=== PATIENT | female | born 1980 | race Caucasian/White ===

== ENCOUNTER → 2016-10-23 | Outpatient (CLI) | payer MEDICARE, OTHER ==
[~2016-10-23] MED LIST: AMOX500C PO; GABA600T PO; HYDR-3534 PO; OMEP40CA2 PO; PNV-CAP PO; PROM25TA10 PO; TOPI200T7 PO
== END ==
LOC: HPND 11:11
PROVIDERS: ATTEND Obstetrics & Gynecology
DX: O09.522 Supervision of elderly multigravida, second trimester (principal); O99.332 Smoking (tobacco) complicating pregnancy, second trimester; O99.322 Drug use complicating pregnancy, second trimester; O99.342 Other mental disorders complicating pregnancy, second trimester; Z3A.27 27 weeks gestation of pregnancy
CPT/HCPCS: 76811; 76825; 76827; 93325

== ENCOUNTER → 2016-11-19 | Outpatient (CLI) | payer OTHER ==
[~2016-11-19] MED LIST changes: +CLAR5TAB9 PO; +CODE5LIQ PO; +ERYT400T4 PO; +TUSS15SY PO; +ZITHTAB PO
== END ==
LOC: HPND 07:32
PROVIDERS: ATTEND Obstetrics & Gynecology
DX: O09.523 Supervision of elderly multigravida, third trimester (principal); O36.5930 Maternal care for other known or suspected poor fetal growth, third trimester, not applicable or unspecified
CPT/HCPCS: 76816

== ENCOUNTER 2016-11-30 22:28 | Emergency (ER) | payer OTHER ==
[~2016-11-30 22:28] MED LIST changes: -AMOX500C PO; -CLAR5TAB9 PO; -CODE5LIQ PO; -ERYT400T4 PO; -TUSS15SY PO; -ZITHTAB PO
[2016-11-30] MEDS ORDERED: LACTATED RINGER'S 1000 ML INJ 1,000 ML IV SCH (23:02)
[2016-11-30 23:15] VITALS: TEMP 98
[2016-11-30] MEDS ORDERED: TERBUTALINE INJ 1 MG/ML AMP SQ PRN (23:15)
[2016-11-30] MEDS ORDERED: ONDANSETRON HCL 4 MG/2 ML VIAL IV ONE (23:15)
[2016-11-30 23:45] VITALS: RESP 18
[2016-12-01 00:15] VITALS: RESP 18
[2016-12-01 00:45] VITALS: RESP 18
--- NOTE | 2016-12-02 10:38 | PD ---
HPI Chief Complaint CTXs no bleeding or SROM Date Seen: Nov 30, 2016 Time Seen: 22:55 Travel History International Travel<30 Days: No Contact w/Intl Traveler<30Days: No Known Affected Area: No History of Present Illness HPI 33 wk IUP c/o CTXs no SROM or Bleeding , CTXs seen , FHR reactive Para: 2 : 6 Allergies-Medications (Allergen,Severity, Reaction): Coded Allergies: Darvocet-N 100 (Verified Allergy, Severe, VOMITING, 11/20/16) Keflex (Verified Allergy, Severe, RECTAL BLEED, 11/20/16) Penicillin (Verified Allergy, Severe, VOMITING, 11/20/16) Wasp (Verified Allergy, Severe, Anaphylaxis, 11/20/16) Diphtheria Toxoid (Verified Allergy, Unknown, UNKNOWN REACTION, 11/20/16) Doxycycline (Unverified Adverse Reaction, Severe, RASH, 11/20/16) Tylenol #3 (Verified Adverse Reaction, Severe, VOMITING, 11/20/16) Uncoded Allergies: CATAFLAM (Allergy, Severe, RECTAL BLEED, 04/28/15) . MAXALT (Adverse Reaction, Intermediate, RECTAL BLEED, 04/28/15) . Home Meds Active Scripts Promethazine (Phenergan)25 Mg [id number] Mg PO Q6H PRN (NAUSEA OR VOMITING) #30 TAB Ref 2 Prov:Franci Edwards 10/30/16 Without A W/ Fe Fumar (Pnv-Dha 27-0.6-0.4-300 mg)1 Cap Cap1 Cap PO DAILY #60 BOX Ref 5 Prov:Susan Fink CNM [facility] 10/02/16 W/O Vit A W/ Fe Fumar (Citranatal [place])27-1-260 Mg Cap Sample #2 Prov:Franci EdwardsP 09/04/16 Reported Medications Topiramate 200 Mg [id number] Mg PO BID #60 TAB Ref 0 09/04/16 Omeprazole 40 Mg Cap40 Mg PO DAILY #30 CAP Ref 0 09/04/16 Hydrocodone-Acetaminophen (Lortab)7.5-325 Mg Tab1 Tab PO TID PRN (PAIN) Ref 0 09/04/16 Gabapentin 600 Mg Soz607 Mg PO TID #90 TAB Ref 0 09/04/16 Review of Systems General / Constitutional: No: Fever, Weight Gain, Chills, Other Eyes: No: Diploplia, Blurred Vision, Visual changes, Pain, Photophobia HENT: No: Headaches, Vertigo, Lightheadedness Cardiovascular: No: Irregular Rhythm, Chest Pain or Discomfort, Palpitations, Tachycardia, Syncope, Varicosities, Edema, Cyanosis Respiratory: No: Cough, Short of Breath, Other Gastrointestinal: Abdominal Pain, No: Nausea, Vomiting, Diarrhea Genitourinary: No: Decreased Urinary Output, Oliguria Musculoskeletal: No: Limited ROM, Weakness, Cramping, Edema, Pain Skin: No Rash, No Itching, No Dryness, No Lumps, No Change in Pigmentation, No Change in Nails, No Alopecia, No Lesions Neurologic: No: Weakness, Dizziness, Syncope, Focal Abnormalities, Coordination Problem, Headache, Slurred Speech, Seizures Psychiatric: No: Depression, Suicidal Ideations, Homicidal Ideation Endocrine: No: Heat Intolerance, Cold Intolerance, Polydipsia, Polyuria, Other Physical Exam Narrative GENERAL: Well-nourished, well-developed patient. SKIN: Warm and dry. HEAD: Normocephalic and atraumatic. EYES: No scleral icterus. No injection or drainage. ENT: No nasal drainage noted. Mucous membranes pink. Airway patent. NECK: Supple, trachea midline. No JVD. CARDIOVASCULAR: Regular rate and rhythm without murmurs, gallops, or rubs. RESPIRATORY: Breath sounds equal bilaterally. No accessory muscle use. BREASTS: Bilateral exam showed no masses , no retractions, no nipple discharge. ABDOMEN/GI: Abdomen soft, non-tender, bowel sounds present, no rebound, no guarding Gravid to [33-] weeks size Fundal Height: [33-] GENITOURINARY: External Genitalia: intact and normal in appearance FFN done and negative Cervix: [-] Dilatation: [-fingertip] Effacement: [-] thick Station: [-3] Presentation: [-vtx] Membranes: [intact ] Uterine Contractions: [initially q 3 min but stopped with IVF , SQ terb-] FHT's: Category: [1-] Baseline: [133-] Reactive: [yes-] Variability: [-mod] Decels: [-0] EXTREMITIES: No cyanosis or edema. BACK: Nontender without obvious deformity. No CVA tenderness. NEUROLOGICAL: Awake and alert. Motor and sensory grossly within normal limits. Five out of 5 muscle strength in all muscle groups. Normal speech. Data Data Labs FFN neg MDM Interpretation(s) 33 wk IUP with CTXs , cx FT /thick /post , CTXs seen stopped with IVF and SQ terb Plan D/C home to bedrest ,po fluids , tylenol prn , heating pad or bedrest Diagnosis Diagnosis: Primary Impression: Threatened labor, antepartum Disposition: 01 DISCHARGE HOME Condition: Stable Patient Instructions: General Instructions, Early Labor Signs (ED), Abdominal Pain in (ED) Departure Forms: Tests/Procedures Hipolito Rollins II, MD Dec 02, 2016 10:38
[2016-12-02] MEDS ORDERED: ZITHTAB PO (15:43)
[2016-12-02] MEDS ORDERED: CODE5LIQ PO (15:50)
== END 2016-12-02 11:21 | disposition home or self-care (01) ==
LOC: HOBED 22:28
DX: O47.03 False labor before 37 completed weeks of gestation, third trimester (principal); Z3A.33 33 weeks gestation of pregnancy
CPT/HCPCS: 59025; 82731; 96372; 96374; 96375; 99284; J2405; J3010; J3105; J7120

== ENCOUNTER 2016-12-03 21:15 | Emergency (ER) | payer OTHER ==
[~2016-12-03] VITALS: Ht 167.6 cm; Wt 70.0 kg
[~2016-12-03 21:15] MED LIST changes: +CODE5LIQ PO; +ZITHTAB PO
[2016-12-03 21:17] VITALS: BP 125/85; PULSE 94; RESP 16; TEMP 97.9; O2SAT 96
[2016-12-04 02:17] VITALS: BP 124/88; PULSE 81; RESP 18; O2SAT 100
[2016-12-04] MEDS ORDERED: SODIUM CHLOR 0.9% 1000 ML INJ 1,000 ML IV ONE ×2 (02:37→04:15)
[2016-12-04] MEDS ORDERED: ACETAMINOPHEN 325 MG TAB PO ONE (02:45)
[2016-12-04] MEDS ORDERED: SODIUM CHLORIDE 0.9% FLUSH 10 ML FLUSH IVF PRN (02:45)
[2016-12-04] MEDS ORDERED: ONDANSETRON HCL 4 MG/2 ML VIAL IVP ONE (02:45)
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
[2016-12-04 02:52] VITALS: RESP 18; O2SAT 100
[2016-12-04 03:02] LABS: AUTOMATED NEUTROPHIL # 9.4 TH/MM3 (1.8-7.7); BASOPHIL % 0.3 % (0.0-2.0); EOSINOPHIL # 0.5 TH/MM3 (0-0.4); EOSINOPHIL % 3.2 % (0.0-4.0); HEMATOCRIT 35.3 % (35.0-46.0); HEMO FLAGS DIFF FINAL; LYMPH % 23.9 % (9.0-44.0); LYMPHOCYTE # 3.4 TH/MM3 (1.0-4.8); MEAN CELL VOLUME 91.1 FL (80.0-100.0); MEAN CORPUSCULAR HEMOGLOBIN 29.5 PG (27.0-34.0); MEAN CORPUSCULAR HGB CONC 32.4 % (32.0-36.0); NEUT % 66.6 % (16.0-70.0); PLATELET COUNT 176 TH/MM3 (150-450); RED BLOOD COUNT 3.88 MIL/MM3 (4.00-5.30); RED CELL DISTRIBUTION WIDTH 12.9 % (11.6-17.2); WHITE BLOOD COUNT 14.1 TH/MM3 (4.0-11.0)
[2016-12-04 03:14] VITALS: BP_SYST 130; BP_SYST 131; BP_SYST 132; BP_DIAS 72; BP_DIAS 82; BP_DIAS 84; RESP 18
[2016-12-04 03:18] LABS: BACTERIA, URINE OCC /hpf; BLOOD, URINE NEG (NEG); COMMENT (UR) CULT NOT INDICATED; CULTURE IF INDICATED CULT NOT INDICATED; GLUCOSE,URINE NEG (NEG); KETONE, URINE NEG (NEG); NITRITE,URINE NEG (NEG); SQUAMOUS EPITHELIAL CELL URINE 13 /hpf (0-5); URINE COLOR YELLOW (YELLW/STRAW)
[2016-12-04 03:38] LABS: ANION GAP 10 MEQ/L (5-15); AST (GOT) 19 U/L (15-37); BICARBONATE 17.8 MEQ/L (21.0-32.0); CHLORIDE 106 MEQ/L (98-107); GLOMERULAR FILTRATION RATE 88 ML/MIN (>89); MAGNESIUM 2.4 MG/DL (1.5-2.5); POTASSIUM 3.8 MEQ/L (3.5-5.1); SODIUM (NA) 134 MEQ/L (136-145)
[2016-12-04 03:42] LABS: ALKALINE PHOSPHATASE 156 U/L (45-117); ALT (GPT) 26 U/L (10-53); BLOOD UREA NITROGEN 10 MG/DL (7-18); TOTAL BILIRUBIN ADULT 0.2 MG/DL (0.2-1.0)
[2016-12-04] MEDS ORDERED: ONDANSETRON HCL 4 MG/2 ML VIAL IV PUSH ONE (03:45)
[2016-12-04 05:38] VITALS: BP 119/67; PULSE 81; RESP 18; O2SAT 98
--- NOTE | 2016-12-04 20:45 | EKG ---
Date Performed: 12/04/2016 Time Performed: 02:54:53 PTAGE: 36 years EKG: Sinus rhythm NORMAL ECG PREVIOUS TRACING : 12/24/2015 10.36 Compared to prior tracing no significant change DOCTOR: Alex Andre Interpretating Date/Time 12/04/2016 20:44:24
[2016-12-05] MEDS ORDERED: ERYT400T4 PO (18:07)
[2016-12-05] MEDS ORDERED: TUSS15SY PO (18:09)
[2016-12-05] MEDS ORDERED: CLAR5TAB9 PO (18:10)
[2016-12-05] MEDS ORDERED: PROM25TA10 PO (18:11)
== END 2016-12-04 05:39 | disposition home or self-care (01) ==
LOC: NEPC 21:15
DX: O26.899 Other specified pregnancy related conditions, unspecified trimester (principal); R11.2 Nausea with vomiting, unspecified; R55 Syncope and collapse; R51 Headache; R42 Dizziness and giddiness; J44.9 Chronic obstructive pulmonary disease, unspecified; K21.9 Gastro-esophageal reflux disease without esophagitis; O99.343 Other mental disorders complicating pregnancy, third trimester; Z3A.33 33 weeks gestation of pregnancy
CPT/HCPCS: 80053; 81001; 83735; 85025; 93005; 96361; 96374; 96375; 99284; J2405; J7030

== ENCOUNTER 2016-12-05 17:14 | Emergency (ER) | payer OTHER ==
[~2016-12-05] VITALS: Ht 167.6 cm; Wt 69.9 kg
[~2016-12-05 17:14] MED LIST changes: -PNV-CAP PO
[2016-12-05] MEDS ORDERED: ERYT400T4 PO (18:07)
[2016-12-05] MEDS ORDERED: TUSS15SY PO (18:09)
[2016-12-05] MEDS ORDERED: CLAR5TAB9 PO (18:10)
[2016-12-05] MEDS ORDERED: PROM25TA10 PO (18:11)
--- NOTE | 2016-12-05 18:11 | PD ---
HPI Chief Complaint Cough congestion, headache, nausea and vomiting to the point of passing out she describes Date Seen: Dec 05, 2016 Travel History International Travel<30 Days: No Contact w/Intl Traveler<30Days: No Known Affected Area: No History of Present Illness HPI 36-year-old white female 34 weeks [facility] who presents complaining of recent onset of cough congestion headache nausea vomiting fever at home. Dr[facility] her a Z-Mic which she says she's taken some of it did not help she denies bleeding or rupture the membranes but does complain of some abdominal pain. Heart rate tracing is reactive and she is not muriel patient was here and seen by me on the for contractions which stopped with IV fluids and terbutaline. She presents here alot for many different problems and complaints Para: 2 : 6 History Obstetric History Obstetric History 2 vaginal deliveries Social History Alcohol Use: No Tobacco Use: Yes Substance Abuse: No Allergies-Medications (Allergen,Severity, Reaction): Coded Allergies: Darvocet-N 100 (Verified Allergy, Severe, VOMITING, 12/03/16) Keflex (Verified Allergy, Severe, RECTAL BLEED, 12/03/16) Penicillin (Verified Allergy, Severe, VOMITING, 12/03/16) Wasp (Verified Allergy, Severe, Anaphylaxis, 12/03/16) Diphtheria Toxoid (Verified Allergy, Unknown, UNKNOWN REACTION, 12/03/16) Doxycycline (Unverified Adverse Reaction, Severe, RASH, 12/03/16) Tylenol #3 (Verified Adverse Reaction, Severe, VOMITING, 12/03/16) Uncoded Allergies: CATAFLAM (Allergy, Severe, RECTAL BLEED, 04/28/15) . MAXALT (Adverse Reaction, Intermediate, RECTAL BLEED, 04/28/15) . Home Meds Active Scripts Codeine Phosphate/Guaifenesin (Guaiatussin AC Liquid)5 Ml [id number] Mg PO Q6HR # 90 BOTTLE Prov:Tyron Christensen MD 12/02/16 Azithromycin (Zithromax Z-Mic)250 Mg [id number] Mg PO DIRECTED #1 DSPK Ref 0 500 MG (2 tabs) day 1, then 1 tab days 2-5. Prov:Tyron Christensen MD 12/02/16 Promethazine (Phenergan)25 Mg Anilrv04 Mg PO Q6H PRN (NAUSEA OR VOMITING) #30 TAB Ref 2 Prov:Franci Edwards 10/30/16 Reported Medications Topiramate 200 Mg Kko176 Mg PO BID #60 TAB Ref 0 09/04/16 Omeprazole 40 Mg Cap40 Mg PO DAILY #30 CAP Ref 0 09/04/16 Hydrocodone-Acetaminophen (Lortab)7.5-325 Mg Tab1 Tab PO TID PRN (PAIN) Ref 0 09/04/16 Gabapentin 600 Mg Vxp422 Mg PO TID #90 TAB Ref 0 09/04/16 Discontinued Scripts Without A W/ Fe Fumar (Pnv-Dha 27-0.6-0.4-300 mg)1 Cap Cap1 Cap PO DAILY #60 BOX Ref 5 Prov:Susan Fink CNM [facility] 10/02/16 W/O Vit A W/ Fe Fumar (Citranatal [place])27-1-260 Mg Cap Sample #2 Prov:Franci EdwardsP 09/04/16 Review of Systems General / Constitutional: Fever, No: Weight Gain, Chills, Other Eyes: No: Diploplia, Blurred Vision, Visual changes, Pain, Photophobia HENT: Headaches, Lightheadedness, No: Vertigo Cardiovascular: No: Irregular Rhythm, Chest Pain or Discomfort, Palpitations, Tachycardia, Syncope, Varicosities, Edema, Cyanosis Respiratory: Cough, Other, No: Short of Breath Gastrointestinal: Nausea, Vomiting, No: Diarrhea Genitourinary: No: Decreased Urinary Output, Oliguria Musculoskeletal: Weakness, No: Limited ROM, Cramping, Edema, Pain Skin: No Rash, No Itching, No Dryness, No Lumps, No Change in Pigmentation, No Change in Nails, No Alopecia, No Lesions Neurologic: No: Weakness, Dizziness, Syncope, Focal Abnormalities, Coordination Problem, Headache, Slurred Speech, Seizures Psychiatric: No: Depression, Suicidal Ideations, Homicidal Ideation Endocrine: No: Heat Intolerance, Cold Intolerance, Polydipsia, Polyuria, Other Physical Exam Narrative GENERAL: Well-nourished, well-developed patient. SKIN: Warm and dry. HEAD: Normocephalic and atraumatic. Positive shotty lymphadenopathy in the neck and the mandibular region is tender EYES: No scleral icterus. No injection or drainage. ENT: No nasal drainage noted. Mucous membranes pink. Airway patent. Pharynx clear no erythema no enlargement of tonsils or adenoids NECK: Supple, trachea midline. No JVD. CARDIOVASCULAR: Regular rate and rhythm without murmurs, gallops, or rubs. RESPIRATORY: Breath sounds equal bilaterally. No accessory muscle use. BREASTS: Bilateral exam showed no masses , no retractions, no nipple discharge. ABDOMEN/GI: Abdomen soft, non-tender, bowel sounds present, no rebound, no guarding Gravid to [-34] weeks size Fundal Height: [-34] GENITOURINARY: External Genitalia: intact and normal in appearance BUS glands: [-] Cervix: [Closed-] Dilatation: [-Closed] Effacement: [-] Thick Station: [-3] Presentation: [vtx-] Membranes: [intact ] Uterine Contractions: [none-] FHT's: Category: [1-] Baseline: [133-] Reactive: [-yes] Variability: [-mod] Decels: [none-] EXTREMITIES: No cyanosis or edema. BACK: Nontender without obvious deformity. No CVA tenderness. NEUROLOGICAL: Awake and alert. Motor and sensory grossly within normal limits. Five out of 5 muscle strength in all muscle groups. Normal speech. MDM Interpretation(s) Patient is 36-year-old white female now at 34 weeks presents with upper respiratory infections probably virally but is having cough congestion headache nausea and vomiting Plan Patient is allergic to penicillin and Keflex azithromycin as not really helping her I would recommend switching to erythromycin 3 times a day, we give Claritin to help drop her nose and sinus, Phenergan by mouth for nausea and vomiting and for follow-up with Dr. Paul Marti [facility] Diagnosis Diagnosis: Primary Impression: 34 weeks gestation of Additional Impressions: Upper respiratory infection, acute Nausea & vomiting Disposition: DISCHARGE HOME Condition: Stable Scripts Promethazine (Phenergan)25 Mg [id number] Mg PO Q6H PRN (NAUSEA OR VOMITING) #20 TAB Ref 0 Prov:Hipolito Rollins II, MD 12/05/16 Loratadine-Pseudoephedrine 12 HR (Claritin-D 12 HR)5-120 Mg Tab1 Tab PO BID # 20 TAB Ref 0 Prov:Hipolito oRllins II, MD 12/05/16 Dextromethorphan Liq (Tussin Cough Liq)15 Mg/5 Ml Syp10 Ml PO Q8H PRN (COUGH) # 1 BOTTLE Ref 0 Prov:Hipolito Rollins II, MD 12/05/16 Erythromycin Ethylsuccinate 400 Mg Cle452 Mg PO Q8H #30 TAB Ref 0 Prov:Hipolito Rollins II, MD 12/05/16 Hipolito Rollins II, MD Dec 05, 2016 18:11
== END 2016-12-05 19:09 | disposition home or self-care (01) ==
LOC: HOBED 17:14
DX: O26.899 Other specified pregnancy related conditions, unspecified trimester (principal); J06.9 Acute upper respiratory infection, unspecified; R51 Headache; O21.9 Vomiting of pregnancy, unspecified; O99.333 Smoking (tobacco) complicating pregnancy, third trimester; Z3A.34 34 weeks gestation of pregnancy; Z79.899 Other long term (current) drug therapy; Z88.0 Allergy status to penicillin; Z88.5 Allergy status to narcotic agent
CPT/HCPCS: 59025

== ENCOUNTER 2016-12-06 10:01 | Emergency (ER) | payer OTHER ==
[~2016-12-06 10:01] MED LIST changes: +CLAR5TAB9 PO; +ERYT400T4 PO; +PNV-CAP PO; +TUSS15SY PO
--- NOTE | 2016-12-06 11:08 | PD ---
HPI Travel History International Travel<30 Days: No Contact w/Intl Traveler<30Days: No Known Affected Area: No (Alexis Hurley MD R1) History of Present Illness HPI Patient is a 36-year-old at 34 weeks and 1 day who presents with contractions. She reports that the contractions started yesterday and were about an hour apart. She reports that this morning as frequent as every 10 minutes. She reports associated lower abdominal pain and low back pain. She last took Tylenol about 5 hours ago. She denies any vaginal bleeding or leakage of fluid. She does report decreased movement. She also reports increased urinary frequency and pain with urination, but no fever or chills. She also reports some associated nausea. She had 3 episodes of vomiting yesterday. She also endorses some headache and some feet swelling. [facility] She reports that ultrasounds have been normal. However, there has been no weight gain for either her or the baby this until about 5.5 weeks ago. Para: 2 : 6 Last Menstrual Period: Dec 06, 2016 (Alexis Hurley MD R1) History Past Medical History Narrative Medical Epilepsy Seizure disorder Mitral valve prolapse Bipolar disorder Multiple personality disorder Schizophrenia History of HPV Uterine and ovarian cancer status post surgery, chemotherapy, radiation 17 years ago (Alexis Hurley MD R1) Obstetric History Obstetric History 2 uncomplicated vaginal deliveries (Alexis Hurley MD R1) Past Surgical History Narrative Surgical Abdominal surgery for cysts on ovaries Right knee 3 (Alexis Hurley MD) Family History Family History: Negative (Alexis Hurley MD) Social History Narrative Social History Denied. Previous UDS from 10/05/15 positive for cocaine and benzos Alcohol Use: No Tobacco Use: No Substance Abuse: No (Alexis Hurley MD R1) Allergies-Medications (Allergen,Severity, Reaction): Coded Allergies: Darvocet-N 100 (Verified Allergy, Severe, VOMITING, 12/05/16) Keflex (Verified Allergy, Severe, RECTAL BLEED, 12/05/16) Penicillin (Verified Allergy, Severe, VOMITING, 12/05/16) Wasp (Verified Allergy, Severe, Anaphylaxis, 12/05/16) Diphtheria Toxoid (Verified Allergy, Unknown, UNKNOWN REACTION, 12/05/16) Doxycycline (Unverified Adverse Reaction, Severe, RASH, 12/05/16) Tylenol #3 (Verified Adverse Reaction, Severe, VOMITING, 12/05/16) Uncoded Allergies: CATAFLAM (Allergy, Severe, RECTAL BLEED, 04/28/15) . MAXALT (Adverse Reaction, Intermediate, RECTAL BLEED, 04/28/15) . Home Meds Active Scripts Promethazine (Phenergan)25 Mg [id number] Mg PO Q6H PRN (NAUSEA OR VOMITING) #20 TAB Ref 0 Prov:Hipolito Rollins II, MD 12/05/16 Loratadine-Pseudoephedrine 12 HR (Claritin-D 12 HR)5-120 Mg Tab1 Tab PO BID # 20 TAB Ref 0 Prov:Hipolito Rollins II, MD 12/05/16 Dextromethorphan Liq (Tussin Cough Liq)15 Mg/5 Ml Syp10 Ml PO Q8H PRN (COUGH) # 1 BOTTLE Ref 0 Prov:Hipolito Rollins II, MD 12/05/16 Erythromycin Ethylsuccinate 400 Mg [id number] Mg PO Q8H #30 TAB Ref 0 Prov:Hipolito Rollins II, MD 12/05/16 Codeine Phosphate/Guaifenesin (Guaiatussin AC Liquid)5 Ml [id number] Mg PO Q6HR # 90 BOTTLE Prov:Tyron Christensen MD 12/02/16 Azithromycin (Zithromax Z-Mic)250 Mg Xwnp143 Mg PO DIRECTED #1 DSPK Ref 0 500 MG (2 tabs) day 1, then 1 tab days 2-5. Prov:Tyron Christensen MD 12/02/16 Promethazine (Phenergan)25 Mg Cohrwr16 Mg PO Q6H PRN (NAUSEA OR VOMITING) #30 TAB Ref 2 Prov:Franci Edwards 10/30/16 Reported Medications Topiramate 200 Mg [id number] Mg PO BID #60 TAB Ref 0 09/04/16 Omeprazole 40 Mg Cap40 Mg PO DAILY #30 CAP Ref 0 09/04/16 Hydrocodone-Acetaminophen (Lortab)7.5-325 Mg Tab1 Tab PO TID PRN (PAIN) Ref 0 09/04/16 Gabapentin 600 Mg Idp298 Mg PO TID #90 TAB Ref 0 09/04/16 Discontinued Scripts Without A W/ Fe Fumar (Pnv-Dha 27-0.6-0.4-300 mg)1 Cap Cap1 Cap PO DAILY #60 BOX Ref 5 Prov:Susan Fink CNM [facility] 10/02/16 W/O Vit A W/ Fe Fumar (Citranatal [place])27-1-260 Mg Cap Sample #2 Prov:Franci Edwards [employer] 09/04/16 Review of Systems General / Constitutional: No: Fever, Chills Eyes: No: Blurred Vision, Visual changes HENT: Headaches Cardiovascular: Edema (feet), No: Chest Pain or Discomfort Respiratory: No: Short of Breath Gastrointestinal: Nausea, Vomiting (x3 yesterday) Genitourinary: Dysuria Musculoskeletal: Cramping (low abdominal ), Edema (feet), Pain (low abdominal pain, low back pain) Neurologic: Headache (Alexis Hurley MD R1) Physical Exam Blood pressure 115/66, pulse 80s, respiratory rate 18, temperature 97.7, pain 9. Narrative GENERAL: Well-nourished, well-developed patient. SKIN: Warm and dry. HEAD: Normocephalic and atraumatic. EYES: No scleral icterus. No injection or drainage. ENT: No nasal drainage noted. Mucous membranes pink. Airway patent. NECK: Supple, trachea midline. No JVD. CARDIOVASCULAR: Regular rate and rhythm without murmurs, gallops, or rubs. RESPIRATORY: Breath sounds equal bilaterally. No accessory muscle use. ABDOMEN/GI: Abdomen soft, non-tender, bowel sounds present, no rebound, no guarding Gravid to 34 weeks size GENITOURINARY: Exam performed by Dr. Coleman External Genitalia: intact and normal in appearance Dilatation: 0cm Effacement: 60% Station: -3 Presentation: Vertex Membranes: Intact Uterine Contractions: None FHT's: Category: I Baseline: 140 Reactive: Reactive Variability: moderate Decels: none EXTREMITIES: No cyanosis or edema. BACK: Nontender without obvious deformity. No CVA tenderness. NEUROLOGICAL: Awake and alert. Motor and sensory grossly within normal limits. Five out of 5 muscle strength in all muscle groups. Normal speech. (Alexis Hurley MD R1) Data Data Vital Signs Reviewed: Yes Orders Vital Signs (Adult) .ON ADMISSION (12/06/16 11:01) ^ Labor Status (12/06/16 11:01) Urinalysis - C+S If Indicated (12/06/16 11:01) ^ Non Stress Test (12/06/16 11:01) ^ Hydration (12/06/16 11:01) Fibronectin (12/06/16 11:01) (Alexis Hurley MD R1) MDM Plan Patient is a 36-year-old at 34 weeks and 1 day who presents with contractions. 1. Rule out labor. No contractions noted on monitor. Cervical exam is closed. Last FFN was negative on 11/30. Monitor vital signs Monitor labor status Encourage by mouth hydration Monitor heart rate Recommended hot baths, hot shower, warm compresses, rest 2. Decreased movement. heart rate of 140, category 1 tracing, reactive strip Reassured patient 3. dysuria UA from 12/04 was remarkable for small leukocyte esterase, occasional bacteria, few mucus, but otherwise negative for signs of infection. Patient discussed with Dr. Coleman. (Alexis Hurley MD R1) Diagnosis Diagnosis: Primary Impression: Abdominal pain affecting , antepartum Ruled Out: labor Disposition: DISCHARGE HOME Condition: Good Attestation Patient seen and evaluated with resident under direct supervision, agree with assessment and plan. (Eliseo Coleman MD) Alexis Hurley MD R1 Dec 06, 2016 11:08 Eliseo Coleman MD Dec 06, 2016 16:22
[2016-12-06] MEDS ORDERED: ONDANSETRON ODT 4 MG TAB PO ONE (11:30)
[2016-12-06] MEDS ORDERED: ACETAMINOPHEN 325 MG TAB PO ONE (11:30)
== END 2016-12-06 12:03 | disposition home or self-care (01) ==
LOC: HOBED 10:01
DX: O26.893 Other specified pregnancy related conditions, third trimester (principal); R10.30 Lower abdominal pain, unspecified; M54.5 Low back pain; Z3A.34 34 weeks gestation of pregnancy
CPT/HCPCS: 99284

== ENCOUNTER → 2016-12-17 | Outpatient (CLI) | payer MEDICARE, OTHER ==
[~2016-12-17] MED LIST changes: +IBUP-232 PO; -PNV-CAP PO; +SENN1TAB PO; -TUSS15SY PO; -ZITHTAB PO
== END ==
LOC: HPND 07:56
PROVIDERS: ATTEND Obstetrics & Gynecology
DX: O09.523 Supervision of elderly multigravida, third trimester (principal); O99.353 Diseases of the nervous system complicating pregnancy, third trimester; O99.323 Drug use complicating pregnancy, third trimester; Z3A.35 35 weeks gestation of pregnancy
CPT/HCPCS: 76816

== ENCOUNTER 2017-01-09 20:56 | Inpatient (IN) | payer MEDICARE, OTHER ==
[~2017-01-09] VITALS: Ht 167.6 cm; Wt 73.9 kg
[~2017-01-09 20:56] MED LIST changes: -CLAR5TAB9 PO; -CODE5LIQ PO; -ERYT400T4 PO; -HYDR-3534 PO; -IBUP-232 PO; -SENN1TAB PO
[2017-01-09] MEDS ORDERED: LACTATED RINGER'S 1000 ML INJ 1,000 ML IV PRN (21:27)
[2017-01-09] MEDS: LACTATED RINGER'S 1000 ML INJ 1,000 ML IV SCH ×2 (21:27→21:53)
[2017-01-09] MEDS ORDERED: LIDOCAINE HCL 1% 50 ML VIAL INFIL PRN (21:30)
[2017-01-09] MEDS ORDERED: SODIUM CHLORID 0.9% 500 ML INJ 500 ML IV PRN (21:30)
[2017-01-09] MEDS ORDERED: OXYTOCIN 30 UNITS-500ML PREMIX 500 ML IV ONE (21:30)
[2017-01-09] MEDS ORDERED: CITRIC ACID-SODIUM CITRATE LIQ 30 ML UDC PO SCH (21:30)
[2017-01-09] MEDS ORDERED: MINERAL OIL 10 ML VIAL TOPICAL PRN (21:30)
[2017-01-09] MEDS ORDERED: LIDOCAINE HCL 1% 50 ML VIAL I-DERMAL PRN (21:30)
[2017-01-09 21:43] VITALS: RESP 16
--- NOTE | 2017-01-09 21:44 | HHI.HP ---
HPI Chief Complaint Induction of labor Date Seen: Jan 09, 2017 Time Seen: 21:00 Travel History International Travel<30 Days: No Contact w/Intl Traveler<30Days: No Known Affected Area: No History of Present Illness HPI Ms. Morales is a at 39/0 who is here for induction of labor. Patient is followed by Dr. Gupta at [facility]. She was last seen on 2 days ago and was 1cm dilated at that time. Patient has a history of seizures, Mitral Valve prolapse, and paranoid Schizophrenia. She has had 2 seizures during the past month, prompting her physician to schedule induction. Both of her other births were induced as well. She denies a gush of fluid, vaginal bleeding, decrease in movement (currently moving several times per hour), or severe abdominal pain. She reports some low back pain, N/V (during the entire ). Para: 2 : 6 History Past Medical History Narrative Medical H/o Seizures, paranoid schizophrenia, mitral valve prolapse Obstetric History Obstetric History , 3 spontaneous abortions, 2 by induction Past Surgical History Narrative Surgical 4 R knee surgeries, Abdominal surgery to remove ovarian cyst Family History Narrative Family History Family Hx of HTN, DM, HLD, no family hx of bleeding disorders Social History Narrative Social History Has taken Lortab occasionally during Alcohol Use: No Tobacco Use: Yes (1-1.5 ppd) Substance Abuse: Yes (reported IVDU per medical provider, patient denies) Allergies-Medications (Allergen,Severity, Reaction): Coded Allergies: cephalexin (Unverified Allergy, Severe, RECTAL BLEED, 01/07/17) hornet venom (Unverified Allergy, Severe, Anaphylaxis, 01/07/17) penicillin G (Unverified Allergy, Severe, VOMITING, 01/07/17) propoxyphene (Unverified Allergy, Severe, VOMITING, 01/07/17) diphtheria toxoid,adsorbed (Unverified Allergy, Unknown, UNKNOWN REACTION , 01/07/17) acetaminophen (Unverified Adverse Reaction, Severe, VOMITING, 01/07/17) codeine (Unverified Adverse Reaction, Severe, VOMITING, 01/07/17) doxycycline (Unverified Adverse Reaction, Severe, RASH, 01/07/17) Uncoded Allergies: CATAFLAM (Allergy, Severe, RECTAL BLEED, 04/28/15) . MAXALT (Adverse Reaction, Intermediate, RECTAL BLEED, 04/28/15) . Home Meds Active Scripts Promethazine (Phenergan) 25 Mg Tablet, 25 MG PO Q6H Y for NAUSEA OR VOMITING, # 30 TAB 2 Refills Prov:Tyron Christensen MD 12/25/16 Promethazine (Phenergan) 25 Mg Tablet, 25 MG PO Q6H Y for NAUSEA OR VOMITING, # 20 TAB 0 Refills Prov:Hipolito Rollins II, MD 12/05/16 Reported Medications Topiramate (Topiramate) 200 Mg Tab, 200 MG PO BID for Control Seizures, #60 TAB 0 Refills 09/04/16 Omeprazole (Omeprazole) 40 Mg Cap, 40 MG PO DAILY, #30 CAP 0 Refills 09/04/16 Gabapentin (Gabapentin) 600 Mg Tab, 600 MG PO TID, #90 TAB 0 Refills 09/04/16 Discontinued Reported Medications Hydrocodone-Acetaminophen (Lortab) 7.5-325 Mg Tab, 1 TAB PO TID Y for PAIN, TAB 0 Refills 09/04/16 Discontinued Scripts Loratadine-Pseudoephedrine 12 HR (Claritin-D 12 HR) 5-120 Mg Tab, 1 TAB PO BID for Allergy Management, #20 TAB 0 Refills Prov:Hipolito Rollins II, MD 12/05/16 Codeine Phosphate/Guaifenesin (Guaiatussin AC Liquid) 5 Ml Liquid, 10 MG PO Q6HR for cough, #90 BOTTLE Prov:Tyron Christensen MD 12/02/16 Review of Systems General / Constitutional: No: Fever, Chills HENT: No: Headaches Cardiovascular: No: Chest Pain or Discomfort, Palpitations Respiratory: No: Cough, Short of Breath Gastrointestinal: Nausea, Vomiting, No: Abdominal Pain Neurologic: Seizures (2 in the past month) Physical Exam Vital Signs Date Time Temp Pulse Resp B/P (MAP) Pulse Ox O2 Delivery O2 Flow Rate FiO2 01/09/17 21:43 16 Current Medications Medications (Trade) Dose Ordered Sig/Nadir Route PRN Reason Start Time Stop Time Status Last Admin Dose Admin Lactated Ringer's 1,000 ml @ 125 mls/hr Q8H IV 01/09/17 21:27 Lactated Ringer's 1,000 ml @ 3,000 mls/hr Q20M PRN IV SEE LABEL COMMENTS 01/09/17 21:27 Sodium Chloride 500 ml @ 1,000 mls/hr ONCE PRN IV SEE LABEL COMMENTS 01/09/17 21:30 01/10/17 05:59 Sodium Chloride 1,000 ml @ 100 mls/hr Q10H PRN IV See Comments 01/09/17 21:47 Lidocaine HCl (Xylocaine 1% Inj (50 ml)) 0.1 ml UNSCH X1 PRN I-DERMAL SEE LABEL COMMENTS 01/09/17 21:30 01/12/17 21:29 Citric Acid/ Sodium Citrate (Bicitra Liq) 30 ml MUSICAL PERFORMER PO 01/09/17 21:30 01/13/17 21:29 Fentanyl Citrate (fentaNYL INJ) 50 mcg Q1H PRN IV PUSH PAIN SCALE 3 TO 5 01/09/17 21:30 Fentanyl Citrate (fentaNYL INJ) 100 mcg Q1H PRN IV PUSH PAIN SCALE 6 TO 10 01/09/17 21:30 Oxytocin 500 ml @ 999 mls/hr ONCE ONCE IV 01/09/17 21:30 01/09/17 22:00 DC Lidocaine HCl (Xylocaine 1% Inj (50 ml)) 10 ml UNSCH X1 PRN INFIL SEE LABEL COMMENTS 01/09/17 21:30 01/11/17 21:29 Mineral Oil (Muri-Lube Oil) 10 ml UNSCH PRN TOPICAL SEE LABEL COMMENTS 01/09/17 21:30 Sodium Chloride (NS Flush) 2 ml BID IV FLUSH 01/10/17 09:00 Sodium Chloride (NS Flush) 2 ml UNSCH PRN IV FLUSH FLUSH AFTER USING IV ACCESS 01/09/17 22:00 Ondansetron HCl (Zofran Inj) 4 mg Q6H PRN IV NAUSEA 01/09/17 22:00 Lactated Ringer's 1,000 ml @ 250 mls/hr Q4H IV 01/09/17 21:53 Narrative GENERAL: Well-nourished, well-developed patient. Resting in bed comfortably SKIN: Warm and dry. HEAD: Normocephalic and atraumatic. EYES: No scleral icterus. No injection or drainage. ENT: No nasal drainage noted. Mucous membranes pink. Airway patent. NECK: Supple, trachea midline. No JVD. CARDIOVASCULAR: Regular rate and rhythm without murmurs, gallops, or rubs. RESPIRATORY: Breath sounds equal bilaterally. No accessory muscle use. ABDOMEN/GI: Abdomen soft, non-tender, bowel sounds present, no rebound, no guarding Gravid to 39 weeks size GENITOURINARY: External Genitalia: intact and normal in appearance Dilatation: 1 cm Effacement: 60% Station: -3 Presentation: vertex Membranes: intact Uterine Contractions: irregular FHT's: Category: 1 Baseline: 130 Reactive: yes Variability: moderate Decels: none EXTREMITIES: No cyanosis or edema. NEUROLOGICAL: Awake and alert. Motor and sensory grossly within normal limits. Five out of 5 muscle strength in all muscle groups. Normal speech. Caprini VTE Risk Assessment Caprini VTE Risk Assessment: No/Low Risk (score <= 1) Caprini Risk Assessment Model Point Value = 1 Point Value = 2 Point Value = 3 Point Value = 5 Age 41-60 Minor surgery BMI > 25 kg/m2 Swollen legs Varicose veins or History of unexplained or recurrent spontaneous Oral contraceptives or hormone replacement Sepsis (< 1 month) Serious lung disease, including pneumonia (< 1 month) Abnormal pulmonary function Acute myocardial infarction Congestive heart failure (< 1 month) History of inflammatory bowel disease Medical patient at bed rest Age 61-74 Arthroscopic surgery Major open surgery (> 45 min) Laparoscopic surgery (> 45 min) Malignancy Confined to bed (> 72 hours) Immobilizing plaster cast Central venous access Age >= 75 History of VTE Family history of VTE Factor V Leiden Prothrombin [id number] Lupus anticoagulant Anticardiolipin antibodies Elevated serum homocysteine Heparin-induced thrombocytopenia Other congenital or acquired thrombophilia Stroke (< 1 month) Elective arthroplasty Hip, pelvis, or leg fracture Acute spinal cord injury (< 1 month) Prophylaxis Regimen Total Risk Factor Score Risk Level Prophylaxis Regimen 0-1 Low Early ambulation 2 Moderate Order ONE of the following: *Sequential Compression Device (SCD) *Heparin 5000 units SQ BID 3-4 Higher Order ONE of the following medications: *Heparin 5000 units SQ TID *Enoxaparin/Lovenox 40 mg SQ daily (WT < 150 kg, CrCl > 30 mL/min) *Enoxaparin/Lovenox 30 mg SQ daily (WT < 150 kg, CrCl > 10-29 mL/min) *Enoxaparin/Lovenox 30 mg SQ BID (WT < 150 kg, CrCl > 30 mL/min) AND/OR *Sequential Compression Device (SCD) 5 or more Highest Order ONE of the following medications: *Heparin 5000 units SQ TID (Preferred with Epidurals) *Enoxaparin/Lovenox 40 mg SQ daily (WT < 150 kg, CrCl > 30 mL/min) *Enoxaparin/Lovenox 30 mg SQ daily (WT < 150 kg, CrCl > 10-29 mL/min) *Enoxaparin/Lovenox 30 mg SQ BID (WT < 150 kg, CrCl > 30 mL/min) AND *Sequential Compression Device (SCD) Data Data Orders Orders Admit To Inpatient (01/09/17 ) Code Status (01/09/17 21:27) Vital Signs (Adult) .Per protocol (01/09/17 21:27) Activity Oob Ad Leighann (01/09/17 21:27) Heart (01/09/17 21:27) Amnioinfusion (01/09/17 21:27) Urinary Catheter Management .ONCE (01/09/17 21:27) Diet Liquid (01/10/17 Breakfast) Lactated Ringer's 1000 Ml Inj (Lr 1000 M (01/09/17 21:27) Lactated Ringer's 1000 Ml Inj (Lr 1000 M (01/09/17 21:27) Sodium Chlorid 0.9% 500 Ml Inj (Ns 500 M (01/09/17 21:30) Sodium Chlor 0.9% 1000 Ml Inj (Ns 1000 M (01/09/17 21:47) Lidocaine 1% Inj (50 Ml) (Xylocaine 1% I (01/09/17 21:30) Citric Acid-Sodium Citrate Liq (Bicitra (01/09/17 21:30) Fentanyl Inj (Fentanyl Inj) (01/09/17 21:30) Fentanyl Inj (Fentanyl Inj) (01/09/17 21:30) Complete Blood Count With Diff (01/09/17 21:27) Hold Clot (01/09/17 21:27) Abo/Rh Blood Type (01/09/17 21:27) Urinalysis - C+S If Indicated (01/09/17 21:27) Resp Oxygen Non Rebreathe Mask (01/09/17 ) ^ Epidural / Intrathecal Infus (01/09/17 21:27) Oxytocin 30 Units-500ml Premix (Pitocin (01/09/17 21:30) Lidocaine 1% Inj (50 Ml) (Xylocaine 1% I (01/09/17 21:30) Light Mineral Oil (Muri-Lube Oil) (01/09/17 21:30) Inpatient Certification (01/09/17 ) Specimen To Be Collected PRN (01/09/17 21:27) Assessment/Plan Assessment and Plan at 39/0 with h/o seizures, paranoid schizophrenia and mitral valve prolapse here for induction of labor due to seizures during - Reassuring heart tracing on the monitor - category 1, mod variability with no decelerations - GBS neg, Hep B neg per last clinic note - showing irregular contractions on monitor - will give 1 L Lactated ringers and reassess before giving Cytotec or Cervidil - History of MRSA infection, ordering screen - h/o IVDU, occasional Lortab during , UDS ordered - CBC, UA + culture if indicated Attending Attestation Seen and discussed with Dr. Gupta and Chandler Gallagher MD R1 Jan 09, 2017 21:44
[2017-01-09] MEDS ORDERED: SODIUM CHLOR 0.9% 1000 ML INJ 1,000 ML IV PRN (21:47)
[2017-01-09] MEDS ORDERED: SODIUM CHLORIDE 0.9% FLUSH 10 ML FLUSH IV FLUSH PRN (22:00)
[2017-01-09 22:55] VITALS: RESP 16
[2017-01-09] MEDS ORDERED: DINOPROSTONE 10 MG VAG INSERT VAGINAL ONE (23:30)
[2017-01-09 23:46] LABS: AUTOMATED NEUTROPHIL # 9.9 TH/MM3 (1.8-7.7); BASOPHIL % 0.3 % (0.0-2.0); EOSINOPHIL # 0.1 TH/MM3 (0-0.4); EOSINOPHIL % 0.8 % (0.0-4.0); HEMATOCRIT 32.4 % (35.0-46.0); HEMO FLAGS DIFF FINAL; LYMPH % 19.7 % (9.0-44.0); LYMPHOCYTE # 2.6 TH/MM3 (1.0-4.8); MEAN CELL VOLUME 87.5 FL (80.0-100.0); MEAN CORPUSCULAR HEMOGLOBIN 27.7 PG (27.0-34.0); MEAN CORPUSCULAR HGB CONC 31.6 % (32.0-36.0); MONO % 4.5 % (0.0-8.0); NEUT % 74.7 % (16.0-70.0); PLATELET COUNT 160 TH/MM3 (150-450); RED CELL DISTRIBUTION WIDTH 14.7 % (11.6-17.2); WHITE BLOOD COUNT 13.2 TH/MM3 (4.0-11.0)
[2017-01-09] MEDS ORDERED: ONDANSETRON HCL 4 MG/2 ML VIAL ONE (23:57)
[2017-01-10] VITALS (43 sets, daily range): BP systolic 105–142; BP diastolic 50–90; PULSE 18–94; RESP 16–20; TEMP 97–98.1
[2017-01-10 00:03] LABS: BLOOD, URINE NEG (NEG); COMMENT (UR) CULT NOT INDICATED; CULTURE IF INDICATED CULT NOT INDICATED; GLUCOSE,URINE NEG (NEG); KETONE, URINE NEG (NEG); MUCUS URINE FEW /lpf (OCC); NITRITE,URINE NEG (NEG); SQUAMOUS EPITHELIAL CELL URINE <1 /hpf (0-5); URINE COLOR LIGHT-YELLOW (YELLW/STRAW)
[2017-01-10] MEDS ORDERED: ZOLPIDEM TARTRATE 5 MG TAB PO ONE (01:45)
[2017-01-10] MEDS: LACTATED RINGER'S 1000 ML INJ 1,000 ML IV SCH ×3 (01:53→14:18)
--- NOTE | 2017-01-10 06:47 | PD.LABORPN ---
Subjective Subjective Patient continues to feel contractions every 2-3 minutes. No gush of fluid, vaginal bleeding or decrease in movement Objective Vital Signs Vital Signs Date Time Temp Pulse Resp B/P (MAP) Pulse Ox O2 Delivery O2 Flow Rate FiO2 01/10/17 05:51 98.1 18 01/10/17 05:49 66 120/77 (91) 01/10/17 05:37 18 01/10/17 05:14 18 01/10/17 04:45 18 01/10/17 04:05 18 01/10/17 04:00 18 01/10/17 03:28 18 01/10/17 02:58 18 01/10/17 02:15 18 01/10/17 02:15 97.8 01/10/17 02:05 80 134/80 (98) 01/10/17 01:30 18 01/10/17 00:30 16 01/09/17 22:55 16 Objective Pelvic Exam: Dilatation: 1 Effacement: 60 Station: -3 Presentation: vertex Membranes: intact Uterine Contractions: every 3 - 5 minutes FHT's: Category: 1 Baseline: 125 Reactive: yes Variability: moderate Decels: none Weeks Gestation: 39 Gest Age Assessed Date: Jan 10, 2017 Gest Age Assessed Time: 06:46 Pt started active labor?: No Medical induction of labor?: No Artificial rupture of membrane: No Assessment/Plan Assessment and Plan at 39/0 with h/o seizures, paranoid schizophrenia and mitral valve prolapse here for induction of labor due to seizures during - doing well, continuing Cervidil (started at 2330 on 01/09) - Reassuring heart tracing on the monitor - category 1, mod variability with no decelerations - Leo every 3 - 5 minutes - Continuing LR IVFs at 125 mL/hr - received 4 doses of Fentanyl overnight for pain - GBS neg, Hep B neg per last clinic note - History of MRSA infection, screen pending - UDS negative - WBC 13.2, H/H 10.2/32.4 CBC, UA benign Chandler Jackson MD R1 Jan 10, 2017 06:46
[2017-01-10] MEDS ORDERED: SODIUM CHLORIDE 0.9% FLUSH 10 ML FLUSH IV FLUSH SCH ×2 (09:00→21:00)
[2017-01-10] MEDS ORDERED: SODIUM CHLOR 0.9% 1000 ML INJ 1,000 ML OTHER PRN (13:04)
[2017-01-10] MEDS ORDERED: MISOPROSTOL 25 MCG SUPP VAGINAL ONE (13:15)
[2017-01-10] MEDS ORDERED: SODIUM CHLORIDE 0.9% FLUSH 10 ML FLUSH IV FLUSH PRN (13:15)
--- NOTE | 2017-01-10 14:13 | PD.LABORPN ---
Subjective Subjective Patient resting in bed comfortably. (Mony Bean MD, R3) Objective Vital Signs Vital Signs Date Time Temp Pulse Resp B/P (MAP) Pulse Ox O2 Delivery O2 Flow Rate FiO2 01/10/17 14:00 18 01/10/17 14:00 97.5 01/10/17 11:30 18 01/10/17 09:00 17 01/10/17 08:28 18 01/10/17 07:54 19 01/10/17 07:52 84 118/77 (91) 01/10/17 07:15 18 01/10/17 07:08 97.2 01/10/17 06:30 16 Objective Pelvic Exam: Cervix: posterior Dilatation: 1 Effacement: 50 Station: -2 Presentation: vertex Membranes: intact Uterine Contractions: none FHT's: Category: I Baseline: 140 Reactive: + Variability: moderate Decels: none Weeks Gestation: 39 Gest Age Assessed Date: Jan 10, 2017 Gest Age Assessed Time: 06:46 Pt started active labor?: No Medical induction of labor?: Yes Medical induction start date: Jan 09, 2017 Medical induction start time: 23:30 Artificial rupture of membrane: No (Mony Bean MD, R3) Assessment/Plan Assessment and Plan 36 year old at 39-1/7 weeks gestation with h/o seizures, paranoid schizophrenia and mitral valve prolapse. 1. IUP- Category I tracing, reassuring. 2. IOL- s/p Cervidil overnight, no cervical change noted. Will initiate Cytotec. 3. GBS negative. 4. Seizure disorder- Continue home dose of Gabapentin 600mg PO TID, Topamax 200mg PO BID. dw Dr. Coleman and Dr. Cardoza R1 (Mony Bean MD, R3) Assessment and Plan Patient seen and evaluated with resident under direct supervision, agree with assessment and plan. (Eliseo Coleman MD) Mony Bean MD, R3 Jan 10, 2017 14:13 Eliseo Coleman MD Jan 10, 2017 18:40
[2017-01-10] MEDS ORDERED: MISOPROSTOL 25 MCG SUPP VAGINAL PRN (17:15)
[2017-01-10] MEDS: GABAPENTIN 300 MG CAP PO SCH (18:05)
[2017-01-10] MEDS: TOPIRAMATE 200 MG TAB PO SCH (18:05)
[2017-01-10] MEDS ORDERED: fentaNYL 2MCG-BUPIV 0.125% INJ 100 ML ONE (23:09)
[2017-01-11] VITALS (34 sets, daily range): BP systolic 100–131; BP diastolic 54–88; PULSE 56–158; RESP 18–20; TEMP 96.9–98.4
[2017-01-11] MEDS: ONDANSETRON HCL 4 MG/2 ML VIAL IV PRN ×2 (04:03→11:08)
[2017-01-11] MEDS ORDERED: fentaNYL 2MCG-BUPIV 0.125% INJ 100 ML ONE (04:54)
[2017-01-11] MEDS: LACTATED RINGER'S 1000 ML INJ 1,000 ML IV SCH ×2 (05:16→05:27)
[2017-01-11] MEDS: TOPIRAMATE 200 MG TAB PO SCH ×2 (05:57→22:32)
[2017-01-11] MEDS ORDERED: NO SYSTEM NARCOTICS PRN (08:15)
[2017-01-11] MEDS ORDERED: fentaNYL 2MCG-BUPIV 0.125% 100 ML EPIDURAL SCH (08:15)
[2017-01-11] MEDS ORDERED: DO NOT ADMINISTER ANTICOAGULANTS PRN (08:15)
[2017-01-11] MEDS ORDERED: ePHEDrine/NS 25 MG/5 ML SYR IV PRN (08:15)
--- NOTE | 2017-01-11 08:41 | PD.LABORPN ---
Subjective Subjective The patient is comfortable under epidural analgesia. Objective Vital Signs Vital Signs Date Time Temp Pulse Resp B/P (MAP) Pulse Ox O2 Delivery O2 Flow Rate FiO2 01/11/17 07:39 62 111/78 (89) 01/11/17 07:30 76 111/73 (86) 01/11/17 07:00 60 115/80 (92) 01/11/17 06:30 65 01/11/17 06:30 18 111/71 (84) 01/11/17 05:54 98.0 18 01/11/17 05:53 75 100/68 (79) 01/11/17 05:25 18 01/11/17 05:24 65 108/68 (81) 01/11/17 05:00 111/76 (88) 01/11/17 05:00 18 01/11/17 05:00 59 01/11/17 04:54 18 01/11/17 04:32 109/88 (95) 01/11/17 04:30 73 18 109/88 (95) 01/11/17 04:00 18 01/11/17 03:58 81 01/11/17 03:58 112/70 (84) 01/11/17 03:29 68 20 100/63 (75) 01/11/17 03:00 105 20 01/11/17 03:00 123/75 (91) 01/11/17 02:30 18 01/11/17 02:30 96.9 58 110/85 (93) 01/11/17 01:58 56 18 103/66 (78) 01/11/17 01:25 18 01/11/17 01:23 158 111/59 (76) 01/11/17 01:23 75 105/78 (87) 01/11/17 00:50 18 01/11/17 00:47 73 01/11/17 00:47 103/64 (77) Objective Pelvic Exam: Cervix: [-] Dilatation: [3-] Effacement: [-60] Station: [-2-] Presentation: [Vertex-] Membranes: [ruptured] Uterine Contractions: [Irregular-] FHT's: Category: [-1] Baseline: [-] Reactive: [-] Variability: [-] Decels: [-] Weeks Gestation: 39 Gest Age Assessed Date: Jan 09, 2017 Gest Age Assessed Time: 21:00 Pt started active labor?: No Medical induction of labor?: Yes Medical induction start date: Jan 09, 2017 Medical induction start time: 23:30 Artificial rupture of membrane: Yes Artificial ROM date: Jan 11, 2017 Artifical ROM time: 08:10 Assessment/Plan Assessment and Plan Assessment: Multipara going medical induction of labor, history of IV drug use, history of seizure disorder, paranoid schizophrenia Plan: Pitocin augmentation initiated. Continue epidural. Eliseo Coelman MD Jan 11, 2017 08:41
[2017-01-11] MEDS ORDERED: OXYTOCIN 30 UNITS-500ML PREMIX 500 ML IV SCH ×2 (08:45→13:45)
[2017-01-11] MEDS: GABAPENTIN 300 MG CAP PO SCH ×2 (09:00→18:05)
[2017-01-11] MEDS ORDERED: METOCLOPRAMIDE HCL 10 MG/2 ML VIAL IV PUSH PRN (12:15)
[2017-01-11] MEDS ORDERED: ONDANSETRON ODT 4 MG TAB PO PRN (13:45)
[2017-01-11] MEDS ORDERED: SODIUM CHLORIDE 0.9% FLUSH 10 ML FLUSH IV FLUSH PRN (13:45)
[2017-01-11] MEDS ORDERED: ALUMINUM/MAGNESIUM/SIMETH 30 ML CUP PO PRN (13:45)
[2017-01-11] MEDS ORDERED: WITCH HAZEL 50%/GLYCERIN 12.5% 40 PAD JAR TOPICAL PRN (13:45)
[2017-01-11] MEDS ORDERED: BENZOCAINE 20% TOPICAL SPRAY 60 ML CAN TOPICAL PRN (13:45)
[2017-01-11] MEDS ORDERED: ZOLPIDEM TARTRATE 5 MG TAB PO PRN (13:45)
--- NOTE | 2017-01-11 13:50 | PD.OB.DELI ---
Weeks gestation: 39 Gest age assessed date: Jan 09, 2017 Gest age assessed time: 21:00 Pt started active labor?: No Medical induction of labor?: Yes Medical induction start date: Jan 09, 2017 Medical induction start time: 23:30 Artificial rupture of membrane: Yes Artificial ROM date: Jan 11, 2017 Artifical ROM time: 08:10 Anesthesia: Epidural Episiotomy: None Vaginal Delivery: Normal Presentation: Occiput anterior Nuchal Cord: None Delayed cord clamping (45 sec): Yes Infant: Male Delivery date: Jan 11, 2017 Delivery time: 13:30 One Minute : 8 Five Minute : 9 Weight: 3350 gm Placenta: Spontaneous delivery, Intact Laceration: Perineal laceration, 1 deg Repair: Chromic interrupted Estimated blood loss: 100 cc Hipolito Rollins II, MD Jan 11, 2017 13:50
[2017-01-11] MEDS ORDERED: DIPHTH/TETANUS/ACEL PERTUSSIS (BOOSTER) 0.5 ML VIAL/PFS IM ONE (16:00)
[2017-01-11] MEDS ORDERED: MEASLES, MUMPS, RUBELLA VACCINE 0.5 ML VIAL SQ ONE (16:00)
[2017-01-11] MEDS: ACETAMINOPHEN 325 MG TAB PO PRN (18:05)
[2017-01-11] MEDS: DOCUSATE SODIUM 50 MG/SENNA 8.6 MG TAB PO PRN (18:05)
[2017-01-11] MEDS: IBUPROFEN 600 MG TAB PO PRN (18:06)
[2017-01-11] MEDS ORDERED: ACETAMINOPHEN/HYDROcodone 325 MG/5 MG TAB PO ONE (19:45)
[2017-01-11] MEDS ORDERED: REMOVE OLD PATCH T-DERMAL SCH (20:00)
[2017-01-11] MEDS ORDERED: SODIUM CHLORIDE 0.9% FLUSH 10 ML FLUSH IV FLUSH SCH (21:00)
[2017-01-11] MEDS: PANTOPRAZOLE SOD 40 MG DELAYED RELEASE TAB PO SCH (21:01)
[2017-01-11] MEDS: NICOTINE 21 MG/24 HR PATCH T-DERMAL SCH (21:02)
[2017-01-12] MEDS: IBUPROFEN 600 MG TAB PO PRN ×3 (02:42→18:09)
[2017-01-12] MEDS: ACETAMINOPHEN 325 MG TAB PO PRN (02:42)
[2017-01-12] MEDS ORDERED: ACETAMINOPHEN/HYDROcodone 325 MG/5 MG TAB PO PRN (05:30)
[2017-01-12 07:50] VITALS: BP 115/69; PULSE 61; RESP 16; TEMP 97.5
[2017-01-12] MEDS ORDERED: LORazepam 0.5 MG TAB PO PRN (08:15)
--- NOTE | 2017-01-12 08:52 | HHI.OB ---
Subjective Post Day: 1 Remarks Ms Morales is a 36 YO female on PPD1 who delivered via following IOL for seizures during at 39/0 weeks. Pt has PMHx of seizures, paranoid schizophrenia, mitral valve prolapse and IVDU. Pt is meeting goals and is her baby. Pt is tolerating PO, but pain is described as 7/ 10 on pain scale, ambulating w/o dizziness, voiding, but no BM or flatus. Decscribes her bleeding as heavy. AFVSS. Pt was advised Lortab (her home medication) is available but must ask her nurse for it. Pt also describes being a little emotional but not depressed. Denies CP, SOB, dizziness, N/V/D; however , states she has some bilateral lower leg soreness. Objective Vitals/I&O Vital Signs Date Time Temp Pulse Resp B/P (MAP) Pulse Ox O2 Delivery O2 Flow Rate FiO2 01/12/17 07:50 97.5 61 16 115/69 (84) 01/11/17 20:15 98.2 67 18 118/77 (91) 01/11/17 15:50 97.8 84 19 120/82 (95) 01/11/17 14:23 152 131/88 (102) 01/11/17 13:00 59 120/76 (91) 01/11/17 12:01 86 110/54 (72) 01/11/17 11:15 98.4 18 01/11/17 11:01 59 120/78 (92) 01/11/17 10:00 56 117/79 (92) 01/11/17 09:01 71 114/69 (84) 01/11/17 08:45 98.1 20 Objective Remarks GENERAL: Well-nourished, well-developed patient her baby in bed, but a little anxious. CARDIOVASCULAR: Regular rate and rhythm without murmurs, gallops, or rubs. RESPIRATORY: Breath sounds equal bilaterally. No accessory muscle use. No increased WOB. ABDOMEN/GI: Abdomen soft, non-tender. Fundus: Firm, non-tender at umbilicus. GENITOURINARY: Moderate bleeding. EXTREMITIES: No cyanosis, erythema or edema; pt endorses tenderness to palpation below the knees on anterior LEs below the knee; however, no wincing to palpation and Augusta's sign negative bilaterally. Medications and IVs Current Medications Medications (Trade) Dose Ordered Sig/Nadir Route Start Time Stop Time Status Last Admin (NS Flush) 2 ml BID IV FLUSH 01/11/17 21:00 (NS Flush) 2 ml UNSCH PRN IV FLUSH 01/11/17 13:45 (Motrin) 600 mg Q6H PRN PO 01/11/17 13:45 01/12/17 02:42 (Americaine 20% Top Spr) 1 spray Q4H PRN TOPICAL 01/11/17 13:45 (Tucks Pads) 1 applic QID PRN TOPICAL 01/11/17 13:45 (Selene-Colace) 2 tab Q12H PRN PO 01/11/17 13:45 01/11/17 18:05 (Ambien) 5 mg HS PRN PO 01/11/17 13:45 (Mag-Al Plus Susp Liq) 15 ml Q8H PRN PO 01/11/17 13:45 (Zofran Odt) 4 mg Q6H PRN PO 01/11/17 13:45 (Neurontin) 600 mg TID PO 01/11/17 18:00 01/11/17 18:05 (Topamax) 200 mg Q12HR PO 01/11/17 21:00 01/11/17 22:32 (Habitrol 21 Mg Patch.24 Hr) 1 patch DAILY T-DERMAL 01/11/17 20:00 01/11/17 21:02 Miscellaneous Information 1 DAILY T-DERMAL 01/11/17 20:00 (Protonix) 40 mg DAILY PO 01/11/17 19:45 01/11/17 21:01 ([place] 5-325 Mg) 1 tab Q6H PRN PO 01/12/17 05:30 01/12/17 06:32 ([place] 5-325 Mg) 2 tab Q6H PRN PO 01/12/17 05:30 (Ativan) 0.5 mg Q6H PRN PO 01/12/17 08:15 Assessment/Plan Assessment and Plan delivered via following induction for seizures during at 39/ 0 weeks with h/o seizures, paranoid schizophrenia, IVDU and mitral valve prolapse 1. Routine care -GBS neg, Hep B neg -h/o IVDU, occasional Lortab during , UDS pending -AFVSS -Motrin and Lortab PRN for pain -Encourage OOB -Pelvic rest for 6 weeks will need follow-up appointment at that time -Contraception: Pt desires Depo Provera -Anticipate discharge 01/13 2. Bilateral LE soreness -Pt describes as tender to palpation on anterior portion of shins; however, no edema, erythema, or warmth; Augusta's sign negative and low suspicion of DVT -Doppler US of bilateral LEs to r/o DVT Manny Marshall MD R1 Jan 12, 2017 08:52
[2017-01-12] MEDS: NICOTINE 21 MG/24 HR PATCH T-DERMAL SCH (09:00)
[2017-01-12] MEDS: TOPIRAMATE 200 MG TAB PO SCH ×2 (09:04→21:57)
[2017-01-12] MEDS: DOCUSATE SODIUM 50 MG/SENNA 8.6 MG TAB PO PRN (09:04)
[2017-01-12] MEDS: PANTOPRAZOLE SOD 40 MG DELAYED RELEASE TAB PO SCH (09:04)
[2017-01-12] MEDS: GABAPENTIN 300 MG CAP PO SCH ×3 (09:06→18:09)
[2017-01-12] MEDS ORDERED: medroxyPROGESTERone ACETATE SUSP 150 MG/ML SYRINGE IM ONE (09:15)
[2017-01-12] MEDS: ACETAMINOPHEN/HYDROcodone 325 MG/5 MG TAB PO PRN ×2 (12:05→18:09)
--- NOTE | 2017-01-12 19:27 | RADRPT ---
EXAM DATE/TIME: 01/12/2017 18:23 [place] COMPARISON: No previous studies available for comparison. INDICATIONS : Bilateral leg pain. MEDICAL HISTORY : Gastroesophageal reflux disease. Glasses. Seizures. COPD. Diverticulitis. Fibroids. Polycystic ovar dickson disease. HPV virus. Schizophrenia. Uterine and ovarian cancer. Chemotherapy. SURGICAL HISTORY : Laporoscopy. Right knee surgery. Abdominal cysts removed. ENCOUNTER: Initial ACUITY: 1 day PAIN SCORE: 7/10 LOCATION: Bilateral legs. TECHNIQUE: Venous ultrasound of the left and right leg was performed from the inguinal ligament to the proximal calf. Real-time, color Doppler and spectral tracing, compression and augmentation techniques were us ed. FINDINGS: RIGHT LEG: There is normal compressibility of the deep venous system from the inguinal region to the proximal ca lf. No echogenic clot is seen in the lumen of the common femoral, femoral, popliteal, and posterior tibial veins. There is a normal response of the venous system to proximal and distal augmentation an d respiration. LEFT LEG: There is normal compressibility of the deep venous system from the inguinal region to the proximal ca lf. No echogenic clot is seen in the lumen of the common femoral, femoral, popliteal, and posterior tibial veins. There is a normal response of the venous system to proximal and distal augmentation an d respiration. CONCLUSION: Negative exam with no evidence of deep venous thrombosis. Alexis Dorman MD on January 12, 2017 at 19:25 Board Certified Radiologist. This report was verified electronically.
[2017-01-12 21:50] VITALS: BP 116/89; PULSE 73; RESP 18; TEMP 97.2
[2017-01-13] MEDS: DOCUSATE SODIUM 50 MG/SENNA 8.6 MG TAB PO PRN (03:27)
[2017-01-13] MEDS: ACETAMINOPHEN/HYDROcodone 325 MG/5 MG TAB PO PRN ×2 (03:28→09:22)
[2017-01-13] MEDS: IBUPROFEN 600 MG TAB PO PRN (03:28)
[2017-01-13 07:50] VITALS: BP 105/74; PULSE 84; RESP 14; TEMP 98.3
[2017-01-13] MEDS: NICOTINE 21 MG/24 HR PATCH T-DERMAL SCH (09:00)
--- NOTE | 2017-01-13 09:18 | HHI.OB ---
Subjective Post Day: 2 Remarks day #2. AFVSS overnight. Pain controlled with medications. Decreased lochia. Denies dysuria. No breast tenderness. She is feeding the baby via breast. Appetite good. No nausea or vomiting. Endorses flatus. Endorses bowel movement. Ambulating well. Denies calf pain, shortness of breath, or cough. Otherwise, she is doing well this morning and has no other complaints. Objective Vitals/I&O Vital Signs Date Time Temp Pulse Resp B/P (MAP) Pulse Ox O2 Delivery O2 Flow Rate FiO2 01/13/17 07:50 98.3 84 14 105/74 (84) 01/12/17 21:50 73 18 116/89 (98) 01/12/17 21:50 97.2 Objective Remarks GENERAL: Well-nourished, well-developed patient her baby in bed, but a little anxious. CARDIOVASCULAR: Regular rate and rhythm without murmurs, gallops, or rubs. RESPIRATORY: Breath sounds equal bilaterally. No accessory muscle use. No increased WOB. ABDOMEN/GI: Abdomen soft, non-tender. Fundus: Firm, non-tender at umbilicus. GENITOURINARY: Moderate bleeding. EXTREMITIES: No cyanosis, erythema or edema; pt endorses tenderness to palpation below the knees on anterior LEs below the knee; however, no wincing to palpation and Augusta's sign negative bilaterally. Medications and IVs Current Medications Medications (Trade) Dose Ordered Sig/Nadir Route Start Time Stop Time Status Last Admin (NS Flush) 2 ml BID IV FLUSH 01/11/17 21:00 (NS Flush) 2 ml UNSCH PRN IV FLUSH 01/11/17 13:45 (Motrin) 600 mg Q6H PRN PO 01/11/17 13:45 01/13/17 03:28 (Americaine 20% Top Spr) 1 spray Q4H PRN TOPICAL 01/11/17 13:45 (Tucks Pads) 1 applic QID PRN TOPICAL 01/11/17 13:45 (Selene-Colace) 2 tab Q12H PRN PO 01/11/17 13:45 01/13/17 03:27 (Ambien) 5 mg HS PRN PO 01/11/17 13:45 (Mag-Al Plus Susp Liq) 15 ml Q8H PRN PO 01/11/17 13:45 (Zofran Odt) 4 mg Q6H PRN PO 01/11/17 13:45 (Neurontin) 600 mg TID PO 01/11/17 18:00 01/12/17 18:09 (Topamax) 200 mg Q12HR PO 01/11/17 21:00 01/12/17 21:57 (Habitrol 21 Mg Patch.24 Hr) 1 patch DAILY T-DERMAL 01/11/17 20:00 01/11/17 21:02 Miscellaneous Information 1 DAILY T-DERMAL 01/11/17 20:00 (Protonix) 40 mg DAILY PO 01/11/17 19:45 01/12/17 09:04 ([place] 5-325 Mg) 1 tab Q6H PRN PO 01/12/17 05:30 01/12/17 06:32 ([place] 5-325 Mg) 2 tab Q6H PRN PO 01/12/17 05:30 01/13/17 03:28 (Ativan) 0.5 mg Q6H PRN PO 01/12/17 08:15 Assessment/Plan Assessment and Plan delivered via following induction for seizures during at 39/ 0 weeks with h/o seizures, paranoid schizophrenia, IVDU and mitral valve prolapse PPD#2 1. Routine care -GBS neg, Hep B neg -h/o IVDU, occasional Lortab during , -AFVSS -Motrin and Lortab PRN for pain -Encourage OOB -Pelvic rest for 6 weeks will need follow-up appointment at that time -Contraception: Pt desires Depo Provera -Anticipate discharge 01/13 2. Bilateral LE soreness -Pt describes as tender to palpation on anterior portion of shins; however, no edema, erythema, or warmth; Augusta's sign negative and low suspicion of DVT -Doppler US of bilateral LEs negative yesterday Francisco Javier Goldsmith MD, R2 Jan 13, 2017 09:18
--- NOTE | 2017-01-13 09:19 | HHI.DCPOC ---
Discharge Care Plan Diagnosis: (1) Report Symptoms to Your Doctor -Temperature above 100.5 degrees -Redness, of incision or excessive or foul smelling drainage -Unusual pain or calf pain -Increased vaginal bleeding -Painful or difficulty urinating -Feelings of extreme sadness or anxiety after 2 weeks Goals to Promote Your Health * To prevent worsening of your condition and complications * To maintain your health at the optimal level Directions to Meet Your Goals Take your medications as prescribed Follow your dietary instruction Follow activity as directed Ensure plenty of rest for recovery Drink fluids for hydration Keep your appointments as scheduled Take your immunizations and boosters as scheduled If your symptoms worsen call your PCP, if no PCP go to Urgent Care Center or Emergency Room Smoking is Dangerous to Your Health. Avoid second hand smoke Call the 24-hour crisis hotline for domestic abuse at Francisco Javier Goldsimth MD, R2 Jan 13, 2017 09:19
[2017-01-13] MEDS ORDERED: SENN1TAB PO (09:20)
[2017-01-13] MEDS ORDERED: IBUP-232 PO (09:20)
[2017-01-13] MEDS: GABAPENTIN 300 MG CAP PO SCH ×2 (09:22→12:46)
[2017-01-13] MEDS: PANTOPRAZOLE SOD 40 MG DELAYED RELEASE TAB PO SCH (09:22)
[2017-01-13] MEDS: TOPIRAMATE 200 MG TAB PO SCH (09:22)
[2017-01-13] MEDS ORDERED: medroxyPROGESTERone ACETATE SUSP 150 MG/ML SYRINGE IM ONE (11:00)
[2017-01-17 10:37] LABS: BATH SALTS (MDPV) UR NEG (NEG); ECSTASY (MDMA) UR NEG (NEG); HEROIN (6-ACETYLMORPHINE) UR NEG (NEG); K2 SPICE UR NEG (NEG); OBMETHADONE UR NEG (NEG); PHENCYCLIDINE URINE NEG (NEG)
[2017-01-17 10:39] LABS: GABAPENTIN UR POS (NEG)
[2017-01-17 10:40] LABS: HYDROMORPHONE U POS (NEG)
== END 2017-01-13 13:41 | disposition home or self-care (01) | DRG 775 ==
LOC: H2EB 20:56 → H1EA 01-11 15:27
PROVIDERS: ADMIT Obstetrics & Gynecology; ATTEND Obstetrics & Gynecology
PROC: 0HQ9XZZ Repair Perineum Skin, External Approach (ICD-10-PCS; principal; 2017-01-11)
PROC: 10E0XZZ Delivery of Products of Conception, External Approach (ICD-10-PCS; 2017-01-11)
PROC: 10907ZC Drainage of Amniotic Fluid, Therapeutic from Products of Conception, Via Natural or Artificial Opening (ICD-10-PCS; 2017-01-11)
DX: O70.0 First degree perineal laceration during delivery (principal); O99.354 Diseases of the nervous system complicating childbirth; F20.0 Paranoid schizophrenia; Z37.0 Single live birth; G40.909 Epilepsy, unspecified, not intractable, without status epilepticus; I34.1 Nonrheumatic mitral (valve) prolapse; O99.344 Other mental disorders complicating childbirth; Z3A.39 39 weeks gestation of pregnancy; O99.334 Smoking (tobacco) complicating childbirth
CPT/HCPCS: 59025; 80307; 81001; 85025; 86403; 86900; 86901; 87081; 87641; 93970; G0481; J1050; J2405; J2590; J2765; J3010; J7120

== ENCOUNTER 2017-04-15 00:39 | Inpatient (IN) | payer MEDICARE, OTHER ==
[~2017-04-15] VITALS: Ht 167.6 cm; Wt 57.0 kg
[2017-04-15] VITALS (9 sets, daily range): BP systolic 103–130; BP diastolic 61–77; PULSE 76–89; RESP 16–18; TEMP 97.7–98.7; O2SAT 97–100
[~2017-04-15 00:39] MED LIST changes: +IBUP-232 PO; +SENN1TAB PO
[2017-04-15] MEDS ORDERED: ZYPR20TA PO (00:52)
[2017-04-15] MEDS ORDERED: LAMI250T2 PO (00:52)
[2017-04-15] MEDS ORDERED: XANA2TAB2 PO (00:52)
[2017-04-15] MEDS ORDERED: HYDR-3583 PO (00:52)
[2017-04-15] MEDS ORDERED: VIST50CA PO (00:52)
[2017-04-15] MEDS ORDERED: [UNRECOGNIZED DRUG - OTHER] (00:52)
[2017-04-15] MEDS ORDERED: BACT800T5 PO (00:52)
[2017-04-15] MEDS ORDERED: LITH150C PO (00:52)
[2017-04-15] MEDS ORDERED: SODIUM CHLOR 0.9% 1000 ML INJ 1,000 ML IV ONE (02:45)
[2017-04-15] MEDS ORDERED: CLINDAMYCIN 900 MG PREMIX 50 ML IV ONE (02:45)
[2017-04-15] MEDS ORDERED: MORPHINE SULFATE 4 MG/ML INJ IV PUSH ONE (02:45)
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
[2017-04-15] MEDS ORDERED: LIDOCAINE HCL 1% 50 ML VIAL INFIL ONE (03:00)
[2017-04-15] MEDS ORDERED: SODIUM CHLORIDE 0.9% FLUSH 10 ML FLUSH IV FLUSH PRN (03:00)
[2017-04-15] MEDS ORDERED: CLINDAMYCIN INJ 900 MG in SODIUM CHLORIDE 0.9% INJ 50 ML IV ONE (03:00)
[2017-04-15] MEDS ORDERED: NALOXONE HCL 0.4 MG/ML AMP IV PUSH PRN (03:00)
--- NOTE | 2017-04-15 03:19 | PD ---
Physical Exam Time Seen by Provider: 03:00 Data Data Last Documented VS Vital Signs Date Time Temp Pulse Resp B/P (MAP) Pulse Ox O2 Delivery O2 Flow Rate FiO2 04/15/17 02:50 79 16 109/68 (82) 100 Room Air 04/15/17 00:42 98.7 Orders Orders Sepsis Workup Initiated (04/15/17 ) Complete Blood Count With Diff (04/15/17 02:36) Comprehensive Metabolic Panel (04/15/17 02:36) Prothrombin Time / Inr (Pt) (04/15/17 02:36) Act Partial Throm Time (Ptt) (04/15/17 02:36) Lactic Acid Sepsis Protocol (04/15/17 02:36) Blood Culture (04/15/17 02:36) Blood Glucose (04/15/17 02:36) Ecg Monitoring (04/15/17 02:36) Iv Access Insert/Monitor (04/15/17 02:36) Oximetry (04/15/17 02:36) Oxygen Administration (04/15/17 02:36) Sodium Chlor 0.9% 1000 Ml Inj (Ns 1000 M (04/15/17 02:45) Morphine Inj (Morphine Inj) (04/15/17 02:45) Lidocaine 1% Inj (50 Ml) (Xylocaine 1% I (04/15/17 03:00) Admit Order (Ed Use Only) (04/15/17 02:56) Labs Laboratory Tests Test 04/15/17 02:50 MDM Medical Record Reviewed: Yes Supervised Visit with MARY: No Narrative Course This Is patient has an abscess of the extensor tendon sheath of the right hand. I was asked to perform incision and drainage. She verbally consented. Procedures Procedure Narrative INCISION AND DRAINAGE OF ABSCESS: The area was prepped and was sterilely draped. A subcutaneous wheal of 1% Xylocaine with a total number 6 mL was used to anesthetize the area. The area was properly anesthetized. A number [id number] was used to make a1 -cm incision across the area of the abscess. Cultures were obtained. The abscess was drained an irrigated with normal saline. Diagnosis Primary Impression: Abscess of right hand Additional Impressions: Acute renal insufficiency Extensor tenosynovitis of right wrist IVDU (intravenous drug user) Addi Jack Apr 15, 2017 03:19
[2017-04-15 03:21] LABS: AUTOMATED NEUTROPHIL # 3.7 TH/MM3 (1.8-7.7); BASOPHIL % 0.7 % (0.0-2.0); EOSINOPHIL # 0.6 TH/MM3 (0-0.4); HEMATOCRIT 31.6 % (35.0-46.0); HEMO FLAGS DIFF FINAL; LYMPH % 30.8 % (9.0-44.0); LYMPHOCYTE # 2.2 TH/MM3 (1.0-4.8); MEAN CELL VOLUME 89.3 FL (80.0-100.0); MEAN CORPUSCULAR HEMOGLOBIN 28.8 PG (27.0-34.0); MEAN CORPUSCULAR HGB CONC 32.3 % (32.0-36.0); NEUT % 53.5 % (16.0-70.0); PLATELET COUNT 282 TH/MM3 (150-450); RED BLOOD COUNT 3.54 MIL/MM3 (4.00-5.30); RED CELL DISTRIBUTION WIDTH 15.4 % (11.6-17.2)
[2017-04-15 03:35] LABS: APTT (PATIENT) 27.5 SEC (24.3-30.1); INTERNATIONAL NORMALIZED RATIO 0.9 RATIO; PROTHROMBIN TIME - PATIENT 9.6 SEC (9.8-11.6)
[2017-04-15 03:43] LABS: ALKALINE PHOSPHATASE 89 U/L (45-117); TOTAL BILIRUBIN ADULT 0.2 MG/DL (0.2-1.0)
[2017-04-15 03:48] LABS: ALT (GPT) 23 U/L (10-53); ANION GAP 5 MEQ/L (5-15); AST (GOT) 32 U/L (15-37); BICARBONATE 24.7 MEQ/L (21.0-32.0); BLOOD UREA NITROGEN 4 MG/DL (7-18); CHLORIDE 107 MEQ/L (98-107); GLOMERULAR FILTRATION RATE 85 ML/MIN (>89); SODIUM (NA) 137 MEQ/L (136-145)
[2017-04-15 03:49] LABS: POTASSIUM 3.8 MEQ/L (3.5-5.1)
[2017-04-15] MEDS: SODIUM CHLOR 0.9% 1000 ML INJ 1,000 ML IV SCH ×3 (04:47→22:57)
[2017-04-15 04:50] LABS: BETA HCG QUANT LESS THAN 1 MIU/ML (0-5)
--- NOTE | 2017-04-15 05:40 | HHI.HP ---
HPI Service [facility] Hospitalists Primary Care Physician Nikki Adrian MD Admission Diagnosis right hand abscess, extensor tenosynovitis, acute renal failure,IVDA Diagnoses: (1) Extensor tenosynovitis of right wrist (2) Abscess of right hand (3) IVDU (intravenous drug user) Chief Complaint: Right hand pain and swelling Travel History International Travel<30 Days: No Contact w/Intl Traveler <30 Da: No Traveled to Known Affected Are: No History of Present Illness Ms. Morales is a 37 y/o female with history of bipolar disorder, paranoid schizophrenia, mitral valve prolapse, COPD, tobacco abuse, and cocaine abuse who presented to [facility] to be evaluated for right hand pain and swelling. She was diagnosed with right hand infection/abscess as well as acute renal failure at [facility]. CT of her right hand showed 2.6 x 2.1 x 1.5 cm complex fluid collection at the extensor tendon sheath at the dorsum of her right hand was signs of tenosynovitis. Creatinine was 2.98 and GFR was 8. She was offered transferred to [facility] to sign out AMA and come to [place] to be seen by hand surgeon. She opted to sign out AMA and came to [place]. She was seen in the emergency department. She is complaining of 10 out of 10 pain despite receiving morphine 4 mg IV within the last hour. She states her symptoms began 8 days ago when she missed a cocaine injection into the right wrist area. She states that immediately got swollen. Afterwards, within 2-3 days she started developing severe pain with decreased ability to use her hand. She states she tried to call her primary care physician but it took him a couple of days to get back with her and call in antibiotics. She reported to [facility] 04/14/2017 because pain and become too severe to tolerate. The patient reports chronic pelvic discomfort following delivery of a baby January 13, 2017; discomfort present since delivery. She reports episodic spotting. She received Depo-Provera post delivery. She has not followed up for any of her visits. Review of Systems Except as stated in HPI: all other systems reviewed are Neg Past Family Social History Past Medical History Bipolar disorder Paranoid schizophrenia Mitral valve prolapse COPD Cocaine abuse Tobacco abuse . Past Surgical History Four right knee surgeries Laparoscopy for ovarian "cancerous cysts" and D&C - reports chemotherapy/ radiation following procedure - states all of these were done when she was 20 years old but when I went back to her records from 2002, I found no mention of this surgery during numerous ER visits that have been documented. Reported Medications Verbally reported medications: Reported Meds & Active Scripts Active Reported Hydrocodone-Acetaminophen 10-325 mg Tab 1 Tab PO Q4H PRN Xanax (Alprazolam) 2 Mg Tab 2 Mg PO Q8H PRN Bactrim DS (Sulfamethoxazole-Trimethoprim) 800-160 Mg Tab 1 Tab PO BID [Anti Seizure Med] Vistaril (Hydroxyzine Pamoate) 50 Mg Cap 50 Mg PO QID PRN [employer] Carbonate 150 Mg Cap 150 Mg PO TID Lamictal XR (Lamotrigine) 250 Mg Reva 250 Mg PO BID Zyprexa (Olanzapine) 20 Mg Tab 20 Mg PO DAILY Topiramate 200 Mg Tab 200 Mg PO BID Omeprazole 40 Mg Cap 40 Mg PO DAILY Gabapentin 600 Mg Tab 600 Mg PO TID . Allergies: Coded Allergies: cephalexin (Unverified Allergy, Severe, RECTAL BLEED, 04/15/17) diclofenac (Verified Allergy, Severe, Rectal Bleed, 04/15/17) hornet venom (Unverified Allergy, Severe, Anaphylaxis, 04/15/17) latex (Verified Allergy, Severe, Swelling, 04/15/17) penicillin G (Unverified Allergy, Severe, VOMITING, 04/15/17) propoxyphene (Unverified Allergy, Severe, VOMITING, 04/15/17) rizatriptan (Verified Allergy, Intermediate, Rectal Bleed, 04/15/17) diphtheria toxoid,adsorbed (Unverified Allergy, Unknown, UNKNOWN REACTION , 04/15/17) acetaminophen (Unverified Adverse Reaction, Severe, SWELLING AND VOMITING , 04/15/17) codeine (Unverified Adverse Reaction, Severe, SWELLING AND VOMITING, ) doxycycline (Unverified Adverse Reaction, Severe, RASH, 04/15/17) Active Ordered Medications Current Medications Sodium Chloride 1,000 ml @ 999 mls/hr BOLUS ONCE IV Last administered on 04/15 03:17; Start 04/15/17 at 02:45; Stop 04/15/17 at 03:45; Status DC Clindamycin Phosphate/Dextrose 50 ml @ 100 mls/hr ONCE ONCE IV ; Start at 02:45; Stop 04/15/17 at 03:14; Status Cancel Morphine Sulfate (Morphine Inj) 4 mg ONCE ONCE IV PUSH Last administered on 03:18; Start 04/15/17 at 02:45; Stop 04/15/17 at 02:46; Status DC Lidocaine HCl (Xylocaine 1% Inj (50 ml)) 50 ml ONCE ONCE INFIL Last administered on 04/15/17 03:18; Start 04/15/17 at 03:00; Stop 04/15/17 at 03:01 ; Status DC Sodium Chloride 1,000 ml @ 100 mls/hr Q10H IV ; Start 04/15/17 at 02:57 Sodium Chloride (NS Flush) 2 ml UNSCH PRN IV FLUSH FLUSH AFTER USING IV ACCESS ; Start 04/15/17 at 03:00 Sodium Chloride (NS Flush) 2 ml BID IV FLUSH ; Start 04/15/17 at 09:00 Naloxone HCl (Narcan Inj) 0.4 mg UNSCH PRN IV PUSH SEE LABEL COMMENTS; Start 04/15/17 at 03:00 Clindamycin/ Sodium Chloride 50 ml @ 100 mls/hr Q6H IV ; Start 04/15/17 at 09: 00 Clindamycin Phosphate 900 mg/ Sodium Chloride 56 ml @ 112 mls/hr ONCE ONCE IV Last administered on 04/15/17 03:20; Start 04/15/17 at 03:00; Stop 04/15/17 at 03:29; Status DC . Family History Cancer, diabetes mellitus, hypertension, hyperlipidemia, MVP . Social History Tobacco: Smokes 1-2 packs per day for 22 years Alcohol: Denies Illicit Drugs: Inject cocaine and reports last use 8 days ago . Physical Exam Vital Signs Vital Signs Date Time Temp Pulse Resp B/P (MAP) Pulse Ox O2 Delivery O2 Flow Rate FiO2 04/15/17 02:50 79 16 109/68 (82) 100 Room Air 04/15/17 02:50 100 Room Air 04/15/17 00:42 98.7 89 16 126/76 (93) 99 Physical Exam GENERAL: This is a cachectic female patient who appears older than stated age. SKIN: Right hand swelling noted, abscess covered with bandage status post I&D with the last hour. Cool and dry. HEAD: Atraumatic. Normocephalic. EYES: No scleral icterus. No injection or drainage. ENT: Nose without bleeding, purulent drainage. NECK: Trachea midline. No JVD. CARDIOVASCULAR: Regular rate and rhythm without murmurs, gallops, or rubs. RESPIRATORY: Clear to auscultation. Breath sounds with diminished air exchange but breath sounds are equal bilaterally. No wheezes, rales, or rhonchi. GASTROINTESTINAL: Abdomen soft, non-tender with distraction, nondistended. No guarding. MUSCULOSKELETAL: Extremities without clubbing, cyanosis. Able to move right fingers. NEUROLOGICAL: Awake and alert. Motor and sensory grossly within normal limits. Normal speech. . Laboratory Laboratory Tests Test 04/15/17 02:50 04/15/17 03:00 White Blood Count 7.0 Red Blood Count 3.54 Hemoglobin 10.2 Hematocrit 31.6 Mean Corpuscular Volume 89.3 Mean Corpuscular Hemoglobin 28.8 Mean Corpuscular Hemoglobin Concent 32.3 Red Cell Distribution Width 15.4 Platelet Count 282 Mean Platelet Volume 9.1 Neutrophils (%) (Auto) 53.5 Lymphocytes (%) (Auto) 30.8 Monocytes (%) (Auto) 6.0 Eosinophils (%) (Auto) 9.0 Basophils (%) (Auto) 0.7 Neutrophils # (Auto) 3.7 Lymphocytes # (Auto) 2.2 Monocytes # (Auto) 0.4 Eosinophils # (Auto) 0.6 Basophils # (Auto) 0.0 CBC Comment DIFF FINAL Differential Comment Prothrombin Time 9.6 Prothromb Time International Ratio 0.9 Activated Partial Thromboplast Time 27.5 Blood Urea Nitrogen 4 Creatinine 0.77 Random Glucose 119 Total Protein 6.7 Albumin 2.9 Calcium Level 8.2 Alkaline Phosphatase 89 Aspartate Amino Transf (AST/SGOT) 32 Alanine Aminotransferase (ALT/SGPT) 23 Total Bilirubin 0.2 Sodium Level 137 Potassium Level 3.8 Chloride Level 107 Carbon Dioxide Level 24.7 Anion Gap 5 Estimat Glomerular Filtration Rate 85 Lactic Acid Level 0.9 Date/Time Source Procedure Growth Status 04/15/17 03:00 Blood Peripheral Aerobic Blood Culture Pending Received 04/15/17 03:00 Blood Peripheral Anaerobic Blood Culture Pending Received Result Diagram: 04/15/1724904/15/17249 Caprini VTE Risk Assessment Caprini VTE Risk Assessment: No/Low Risk (score <= 1) Caprini Risk Assessment Model Point Value = 1 Point Value = 2 Point Value = 3 Point Value = 5 Age 41-60 Minor surgery BMI > 25 kg/m2 Swollen legs Varicose veins or History of unexplained or recurrent spontaneous Oral contraceptives or hormone replacement Sepsis (< 1 month) Serious lung disease, including pneumonia (< 1 month) Abnormal pulmonary function Acute myocardial infarction Congestive heart failure (< 1 month) History of inflammatory bowel disease Medical patient at bed rest Age 61-74 Arthroscopic surgery Major open surgery (> 45 min) Laparoscopic surgery (> 45 min) Malignancy Confined to bed (> 72 hours) Immobilizing plaster cast Central venous access Age >= 75 History of VTE Family history of VTE Factor V Leiden Prothrombin [id number] Lupus anticoagulant Anticardiolipin antibodies Elevated serum homocysteine Heparin-induced thrombocytopenia Other congenital or acquired thrombophilia Stroke (< 1 month) Elective arthroplasty Hip, pelvis, or leg fracture Acute spinal cord injury (< 1 month) Prophylaxis Regimen Total Risk Factor Score Risk Level Prophylaxis Regimen 0-1 Low Early ambulation 2 Moderate Order ONE of the following: *Sequential Compression Device (SCD) *Heparin 5000 units SQ BID 3-4 Higher Order ONE of the following medications: *Heparin 5000 units SQ TID *Enoxaparin/Lovenox 40 mg SQ daily (WT < 150 kg, CrCl > 30 mL/min) *Enoxaparin/Lovenox 30 mg SQ daily (WT < 150 kg, CrCl > 10-29 mL/min) *Enoxaparin/Lovenox 30 mg SQ BID (WT < 150 kg, CrCl > 30 mL/min) AND/OR *Sequential Compression Device (SCD) 5 or more Highest Order ONE of the following medications: *Heparin 5000 units SQ TID (Preferred with Epidurals) *Enoxaparin/Lovenox 40 mg SQ daily (WT < 150 kg, CrCl > 30 mL/min) *Enoxaparin/Lovenox 30 mg SQ daily (WT < 150 kg, CrCl > 10-29 mL/min) *Enoxaparin/Lovenox 30 mg SQ BID (WT < 150 kg, CrCl > 30 mL/min) AND *Sequential Compression Device (SCD) Assessment and Plan Problem List: (1) Extensor tenosynovitis of right wrist ICD Code: M65.841 - Other synovitis and tenosynovitis, right hand Status: Acute (2) Abscess of right hand ICD Code: L02.511 - Cutaneous abscess of right hand Status: Acute (3) IVDU (intravenous drug user) ICD Code: F19.90 - Other psychoactive substance use, unspecified, uncomplicated Status: Acute Assessment and Plan Ms. Morales is a 37 y/o female with history of bipolar disorder, paranoid schizophrenia, mitral valve prolapse, COPD, tobacco abuse, and cocaine abuse who presented to [facility] to be evaluated for right hand pain and swelling. She was diagnosed with right hand infection/abscess as well as acute renal failure at [facility]. CT of her right hand showed 2.6 x 2.1 x 1.5 cm complex fluid collection at the extensor tendon sheath at the dorsum of her right hand was signs of tenosynovitis. Creatinine was 2.98 and GFR was 8. She was offered transferred to [facility] to sign out AMA and come to [place] to be seen by hand surgeon. She opted to sign out AMA and came to [place]. Cellulitis Right hand abscess at extensor tendon sheath with signs of tenosynovitis - s/p I and D in ER - await culture results - blood cultures pending - follow results - Antibiotics: Clindamycin 900 mg IV every 6 hours - Consult hand surgery- Dr. Nima medellin - [place] 7.5/325 every 4 hours p.o. as needed for pain Anemia - Stable from December CBC - Repeat CBC in a.m. and follow trends Re: Acute renal failure - Lab testing here showed no renal failure - BUN 4, creatinine 0.77 and estimated GFR 85 - We will recheck BMP in a.m. and follow results The patient reports chronic pelvic discomfort following delivery of a baby January 13, 2017. She reports episodic spotting. She received Depo-Provera post delivery. She has not followed up for any of her visits. Pelvic pain not noted with palpation when patient distracted Patient needs to follow up with her PCP or her [facility] for routine post- care - Serum HCG negative - will check UA with C/S if indicated - follow results Patient reported taking [place] 10 mg q4h prn and Xanax 2 mg q8h PRN at home - I spoke with reconcile a nurse and medications and doses came from patient verbally - I have placed an order to verify her home medication doses with the pharmacy; medication reconciliation will have to be done once doses are confirmed as I am questioning authenticity of reported home medications DVT prophylaxis - Heparin 5000 units subq q12h . Discussed Condition With Dr. Garza, patient, and RN . Physician Certification 2 Midnight Certification Type: Admission for Inpatient Services Order for Inpatient Services The services are ordered in accordance with Medicare regulations or non- Medicare payer requirements, as applicable. In the case of services not specified as inpatient-only, they are appropriately provided as inpatient services in accordance with the 2-midnight benchmark. Estimated LOS (days): 3 days is the estimated time the patient will need to remain in the hospital, assuming treatment plan goals are met and no additional complications. Post-Hospital Plan: Not yet determined Rocio Phelan Apr 15, 2017 05:40
[2017-04-15] MEDS: SODIUM CHLORIDE 0.9% FLUSH 10 ML FLUSH IV FLUSH SCH ×2 (09:00→21:00)
--- NOTE | 2017-04-15 09:14 | HHI.PR ---
Subjective Remarks Follow-up for right hand abscess and tenosynovitis Patient has no complaints. She complains of right hand pain. She stated that she is unsure if it's better. She remains afebrile. She has no complaints. Objective Vitals Vital Signs Date Time Temp Pulse Resp B/P (MAP) Pulse Ox O2 Delivery O2 Flow Rate FiO2 04/15/17 07:50 97.8 84 16 105/61 (76) 98 04/15/17 05:23 98.3 82 17 106/63 (77) 97 04/15/17 04:59 04/15/17 02:50 79 16 109/68 (82) 100 Room Air 04/15/17 02:50 100 Room Air 04/15/17 00:42 98.7 89 16 126/76 (93) 99 I/O 04/14/17 04/14/17 04/14/17 04/15/17 04/15/17 04/15/17 07:00 15:00 23:00 07:00 15:00 23:00 Intake Total 1056 ml Balance 1056 ml Intake Oral 0 ml IV Total 1056 ml # Voids 0 Result Diagram: 04/15/17 0250 04/15/17 0250 Objective Remarks GENERAL: in NAD SKIN: right hand/arm hand and lower portion of the arm is swollen with no erythema. Wound from the I&D dry clean and intact. No discharge noted. HEAD: Normocephalic. EYES: No scleral icterus. No injection or drainage. NECK: Supple, trachea midline. No JVD or lymphadenopathy. CARDIOVASCULAR: Regular rate and rhythm without murmurs, gallops, or rubs. RESPIRATORY: Breath sounds equal bilaterally. No accessory muscle use. GASTROINTESTINAL: Abdomen soft, non-tender, nondistended. MUSCULOSKELETAL: No cyanosis, or edema. BACK: Nontender without obvious deformity. No CVA tenderness. Medications and IVs Current Medications Sodium Chloride 1,000 ml @ 999 mls/hr BOLUS ONCE IV Last administered on 04/15t 03:17; Start 04/15/17 at 02:45; Stop 04/15/17 at 03:45; Status DC Clindamycin Phosphate/Dextrose 50 ml @ 100 mls/hr ONCE ONCE IV ; Start at 02:45; Stop 04/15/17 at 03:14; Status Cancel Morphine Sulfate (Morphine Inj) 4 mg ONCE ONCE IV PUSH Last administered on 03:18; Start 04/15/17 at 02:45; Stop 04/15/17 at 02:46; Status DC Lidocaine HCl (Xylocaine 1% Inj (50 ml)) 50 ml ONCE ONCE INFIL Last administered on 04/15/17 03:18; Start 04/15/17 at 03:00; Stop 04/15/17 at 03:01 ; Status DC Sodium Chloride 1,000 ml @ 100 mls/hr Q10H IV Last administered on 04/15/17 04:47; Start 04/15/17 at 02:57 Sodium Chloride (NS Flush) 2 ml UNSCH PRN IV FLUSH FLUSH AFTER USING IV ACCESS ; Start 04/15/17 at 03:00 Sodium Chloride (NS Flush) 2 ml BID IV FLUSH ; Start 04/15/17 at 09:00 Naloxone HCl (Narcan Inj) 0.4 mg UNSCH PRN IV PUSH SEE LABEL COMMENTS; Start 04/15/17 at 03:00 Clindamycin/ Sodium Chloride 50 ml @ 100 mls/hr Q6H IV ; Start 04/15/17 at 09: 00 Clindamycin Phosphate 900 mg/ Sodium Chloride 56 ml @ 112 mls/hr ONCE ONCE IV Last administered on 04/15/17 03:20; Start 04/15/17 at 03:00; Stop 04/15/17 at 03:29; Status DC Acetaminophen/ Hydrocodone Bitart ([place] 7.5-325 Mg) 1 tab Q4H PRN PO pain >5 ; Start 04/15/17 at 04:45 Heparin Sodium (Porcine) (Heparin Inj) 5,000 units Q12HR SQ ; Start 04/15/17 at 09:00 A/P Problem List: (1) Extensor tenosynovitis of right wrist ICD Code: M65.841 - Other synovitis and tenosynovitis, right hand Status: Acute (2) Abscess of right hand ICD Code: L02.511 - Cutaneous abscess of right hand Status: Acute (3) IVDU (intravenous drug user) ICD Code: F19.90 - Other psychoactive substance use, unspecified, uncomplicated Status: Acute Assessment and Plan Ms. Morales is a 37 y/o female with history of bipolar disorder, paranoid schizophrenia, mitral valve prolapse, COPD, tobacco abuse, and cocaine abuse who presented to [facility] to be evaluated for right hand pain and swelling. She was diagnosed with right hand infection/abscess as well as acute renal failure at [facility]. CT of her right hand showed 2.6 x 2.1 x 1.5 cm complex fluid collection at the extensor tendon sheath at the dorsum of her right hand was signs of tenosynovitis. Creatinine was 2.98 and GFR was 8. She was offered transferred to [facility] to sign out AMA and come to [place] to be seen by hand surgeon. She opted to sign out AMA and came to [place]. Cellulitis Right hand abscess at extensor tendon sheath with signs of tenosynovitis - s/p I and D in ER - await culture results - blood cultures pending - follow results - On clindamycin. Will consult infectious disease for further recommendations. - Pending consult from hand surgeon Dr. Herring. - [place] 7.5/325 every 4 hours p.o. as needed for pain Anemia - Stable from December CBC - No signs of active bleeding. Can be worked up as outpatient. Chronic pelvic pain since 01/13/17 - Beta hCG negative. Still pending UA. Although she has no urinary symptoms. DVT prophylaxis - Heparin 5000 units subq q12h Crys Phillips MD Apr 15, 2017 09:14
[2017-04-15] MEDS: HEPARIN SODIUM - SQ 10,000 UNITS/ML VIAL SQ SCH ×2 (11:40→21:50)
[2017-04-15] MEDS: CLINDAMYCIN 900 MG PREMIX 50 ML IV SCH ×2 (11:41→15:18)
[2017-04-15] MEDS: ACETAMINOPHEN/HYDROcodone 325 MG/7.5 MG TAB PO PRN ×3 (11:41→21:50)
[2017-04-15 12:29] LABS: BLOOD, URINE LARGE (NEG); COMMENT (UR) CULT NOT INDICATED; CULTURE IF INDICATED CULT NOT INDICATED; GLUCOSE,URINE NEG (NEG); KETONE, URINE NEG (NEG); MUCUS URINE FEW /lpf (OCC); NITRITE,URINE NEG (NEG); PH, URINE 6.5 (5.0-8.5); SQUAMOUS EPITHELIAL CELL URINE 6 /hpf (0-5); URINE COLOR YELLOW (YELLW/STRAW)
--- NOTE | 2017-04-15 18:14 | MB ---
cc: AUDREY FRANK MD DATE OF CONSULTATION 04/15/[address] Phillips REASON FOR CONSULTATION IVDU with arm abscess, cellulitis, tenosynovitis. HISTORY OF PRESENT ILLNESS This is a 37 white female who presented to the emergency department with swelling and pain of her right hand. A CT of the hand showed complex fluid collection at the extents of tendon sheaths at the dorsum of her right hand. The patient was evaluated at [facility] and was recommended transfer to [facility]. She signed out against medical advice and presented here at [place]. She reports that her pain in the right hand is 8/10. She denies chills or fever. Her white blood cell count is normal. A culture of the wound is pending. Blood culture is pending. The patient presented to the emergency department earlier this morning. PAST MEDICAL HISTORY 1. IV drug abuse, 2. Bipolar disorder 3. Chronic schizophrenia 4. COPD, 5. Mitral valve prolapse, 6. Ovarian cyst 7. Right knee surgery. ALLERGIES PENICILLIN DOXYCYCLINE ACETAMINOPHEN CEPHALEXIN CODEINE DICLOFENAC PROPOXYPHENE RIZATRIPTAN DIPHTHERIA TOXOID ____ENEM LATEX MEDICATIONS 1. Clindamycin. 2. [place] 7.5. SOCIAL HISTORY Positive for tobacco one and a half packs a day. No alcohol. Positive for IV use of cocaine. FAMILY HISTORY Noncontributory. REVIEW OF SYSTEMS Significant for pain in the right hand. Otherwise negative. PHYSICAL EXAMINATION GENERAL: This is a well-developed female in no acute distress. She is awake, alert and oriented. VITAL SIGNS: Temperature 97.9, blood pressure 108/66, respirations 18, heart rate 79. HEENT: Extraocular movements grossly intact, pupils reactive to light. No icterus. Oropharynx - no visible lesions. NECK: Supple. No adenopathy. LUNGS: Clear to auscultation. HEART: Regular S1, S2 without murmurs, rubs or gallops. ABDOMEN: Bowel sounds present, soft, no tenderness appreciated. RECTAL: Not performed. EXTREMITIES: Right hand is markedly swollen involving the entire dorsum of the hand and also at the wrist. There is a tiny slit incision and there is dark brown drainage on the dressing. Positive tenderness. No erythema. The patient has difficulty making a fist secondary to pain. SKIN: No rash. NEUROLOGIC: Nonfocal PSYCHIATRIC: The patient is calm and cooperative. LABORATORY DATA WBC 7.0, platelets 282, creatinine 0.77, BUN four, estimated GFR 85. Sodium 137. Blood cultures pending. Wound cultures pending. IMPRESSION 1. Abscess with tenosynovitis of the right hand following injection of drugs into the right hand. 2. IV drug abuse. RECOMMENDATIONS 1. Continue clindamycin 2. Follow wound culture 3. Follow blood cultures 4. Monitor response 5. Antibiotic adjustments based on culture results. The patient has no signs of sepsis at this point. Thank you for this consultation. I will follow her progress and make further recommendations if necessary. Audrey Frank MD FD/ /5:35 PM /5:45 PM
[2017-04-15] MEDS ORDERED: LORazepam 2 MG/ML VIAL IV PUSH PRN (19:45)
--- NOTE | 2017-04-15 19:52 | RADRPT ---
EXAM DATE/TIME: 04/15/2017 18:21 [place] COMPARISON: No previous studies available for comparison. INDICATIONS : Right hand abscess, unable to fully extend hand. MEDICAL HISTORY : None. SURGICAL HISTORY : None. ENCOUNTER: Subsequent ACUITY: 1 day PAIN SCORE: 6/10 LOCATION: Right hand FINDINGS: There is diffuse swelling involving the dorsum of the right hand in the region of the metacarpals. No fracture or dislocation is noted. No erosive changes are noted involving the bones of the right hand . CONCLUSION: 1. Diffuse swelling involving the dorsum of the right hand in the region of the metacarpals. 2. No acute fracture, dislocation or erosive changes. Ebenezer Marshall MD on April 15, 2017 at 19:47 Board Certified Radiologist. This report was verified electronically.
[2017-04-15] MEDS ORDERED: GADODIAMIDE PF 287 MG/ML 10 ML VIAL (for RAD MRI) IV PUSH ONE (21:52)
[2017-04-16 00:04] VITALS: BP 124/59; PULSE 66; RESP 17; TEMP 97.9; O2SAT 97
[2017-04-16] MEDS: CLINDAMYCIN 900 MG PREMIX 50 ML IV SCH ×4 (00:14→15:38)
[2017-04-16] MEDS: ACETAMINOPHEN/HYDROcodone 325 MG/7.5 MG TAB PO PRN ×4 (01:33→15:38)
[2017-04-16 03:05] VITALS: BP 120/80; PULSE 72; RESP 16; TEMP 98; O2SAT 99
--- NOTE | 2017-04-16 05:30 | MB ---
cc: THAD RAY DATE OF CONSULTATION 04/15/2017. REASON FOR CONSULTATION Pain and swelling right hand. HISTORY OF PRESENT ILLNESS Chela Morales is a 37-year-old female on disability. Her past medical history is significant for IV drug use. She states that she injected cocaine into the dorsum of her right hand approximately 10 days ago and has had slow increase in pain and swelling over the right hand. The patient was seen at [facility] and signed out against medical advice as she states the [facility] wanted to transfer her to [facility] and recommended her coming to [place] for evaluation. She denies any prior significant problems with the right hand. She is right-hand dominant. She denies any paresthesias. The patient underwent incision and drainage over the dorsum of the hand by the emergency room this morning. Cultures are pending at this time. PAST MEDICAL HISTORY 1. IV drug use. 2. Bipolar disorder. 3. Schizophrenia. 4. COPD. 5. Mitral valve prolapse. 6. Ovarian cyst. ALLERGIES PENICILLIN. DOXYCYCLINE. CEPHELEXIN. RISOTRIPTAN. LATEX. MEDICATIONS [place]. SOCIAL HISTORY The patient smokes half-pack per day. Uses IV cocaine. unemployed. PHYSICAL EXAMINATION Exam of the right hand shows no significant erythema. The patient has minimal pain with passive range of motion of the wrist. Function intact of finger extensors and flexors. Sensation intact in the medial, radial and ulnar distribution. 2+ radial pulse. There is approximately a 1-cm incision on the dorsum of the wrist with no obvious purulence. 2+ radial pulse. LABORATORY DATA The white count is 7. Blood cultures and wound cultures pending. ASSESSMENT AND PLAN A 37-year-old female with past medical history significant for IV drug use including IV cocaine with pain and swelling over the right hand. At this time there is no obvious drainable abscess. X-rays of the hand were reviewed which were negative. At this time I recommend an MRI of the hand for further evaluation and keep the patient n.p.o. at this time. Infectious Disease is also following and will adjust the IV antibiotics accordingly. A new dressing was placed. The patient should elevate the hand. She will be monitored and additional treatment will be recommended pending the MRI results. The patient is asking for a narcotic pain medication which will be managed by the primary team. MD KWASI Scott /10:52 PM /5:18 AM [email or web address]
[2017-04-16 07:27] LABS: AUTOMATED NEUTROPHIL # 1.3 TH/MM3 (1.8-7.7); BASOPHIL % 0.7 % (0.0-2.0); EOSINOPHIL # 0.3 TH/MM3 (0-0.4); EOSINOPHIL % 7.1 % (0.0-4.0); HEMATOCRIT 28.1 % (35.0-46.0); HEMO FLAGS DIFF FINAL; LYMPH % 49.4 % (9.0-44.0); LYMPHOCYTE # 1.9 TH/MM3 (1.0-4.8); MEAN CELL VOLUME 88.9 FL (80.0-100.0); MEAN CORPUSCULAR HGB CONC 32.7 % (32.0-36.0); MONO % 7.9 % (0.0-8.0); NEUT % 34.9 % (16.0-70.0); PLATELET COUNT 255 TH/MM3 (150-450); RED BLOOD COUNT 3.17 MIL/MM3 (4.00-5.30); RED CELL DISTRIBUTION WIDTH 15.4 % (11.6-17.2); WHITE BLOOD COUNT 3.8 TH/MM3 (4.0-11.0)
[2017-04-16 07:30] VITALS: BP 104/67; PULSE 69; RESP 17; TEMP 97.9; O2SAT 98
[2017-04-16 07:52] LABS: BICARBONATE 22.2 MEQ/L (21.0-32.0); POTASSIUM 3.2 MEQ/L (3.5-5.1)
--- NOTE | 2017-04-16 08:32 | RADRPT ---
EXAM DATE/TIME: 04/15/2017 20:40 [facility] COMPARISON: No previous studies available for comparison. INDICATIONS : Abscess. Wound on right dorsal wrist. CONTRAST: 10 cc Omniscan (gadodiamide) IV MEDICAL HISTORY : Chronic obstructive pulmonary disease. Mitral valve prolapse. Cervical canc er. SURGICAL HISTORY : Ovarian cyst removal. Right knee. ENCOUNTER: Subsequent ACUITY: 1 week PAIN SCORE: 8/10 LOCATION: Right hand. TECHNIQUE: Multiplanar multisequence MRI examination of the wrist was performed with and without contrast. FINDINGS: There is extensive soft tissue edema and fluid along the dorsum of the wrist. There is some fluid ex tending into the extensor digitorum tendon sheath. There is some low-grade fluid in the extensor car pi radialis tendons. Flexor tendons are intact. There is some cystic change within the lunate bone, could be an old infarct. I do not see any eviden ce of Kienbock's disease with some fair amount of normal-appearing marrow. The rest of the carpal bones are unremarkable. There is some soft tissue fluid along the ulnar aspect of the hand overlying the fifth MCP joint show ing non-enhancement. Could be soft tissue edema versus early infection. CONCLUSION: Very impressive soft tissue edema across the dorsum of the wrist including fluid in the extensor dig itorum longus tendon sheath, the extensor carpi radialis sheath and distally overlying the fifth MCP joint. Infectious is the most likely etiology. Eliseo Tabor MD on April 16, 2017 at 8:21 Board Certified Radiologist. This report was verified electronically.
[2017-04-16] MEDS: SODIUM CHLOR 0.9% 1000 ML INJ 1,000 ML IV SCH ×2 (08:57→15:39)
--- NOTE | 2017-04-16 09:30 | HHI.PR ---
Subjective Remarks Follow-up for infection Patient sitting in bed in her breakfast very comfortably. She is asking to have her pain medication increased to 10 mg tablets. She stated that she takes 10 mg her Lortabs at home. She has no complaints but was very upset yesterday that she had to be placed NPO. Remains afebrile. Discussed case with patient's nurse Kiki. Objective Vitals Vital Signs Date Time Temp Pulse Resp B/P (MAP) Pulse Ox O2 Delivery O2 Flow Rate FiO2 04/16/17 07:30 97.9 69 17 104/67 (79) 98 04/16/17 03:14 18 04/16/17 03:05 98.0 72 16 120/80 (93) 99 04/16/17 00:04 97.9 66 17 124/59 (80) 97 04/15/17 21:34 98.0 84 16 130/77 (94) 100 04/15/17 15:58 97.7 79 18 108/66 (80) 98 04/15/17 15:15 83 04/15/17 12:00 98.0 81 16 103/66 (78) 97 I/O 04/15/17 04/15/17 04/15/17 04/16/17 04/16/17 04/16/17 07:00 15:00 23:00 07:00 15:00 23:00 Intake Total 1056 ml 1050 ml 50 ml 700 ml Balance 1056 ml 1050 ml 50 ml 700 ml Intake Oral 0 ml 100 ml IV Total 1056 ml 1050 ml 50 ml 600 ml # Voids 0 4 Result Diagram: 04/16/17 0640 04/16/17 0640 Imaging Last Impressions Hand X-Ray 04/15/17 0000 Signed Impressions: Service Date/Time: Saturday, April 15, 2017 18:21 - CONCLUSION: 1. Diffuse swelling involving the dorsum of the right hand in the region of the metacarpals. 2. No acute fracture, dislocation or erosive changes. Ebenezer Marshall MD Objective Remarks GENERAL: in NAD SKIN: right hand/arm hand and lower portion of the arm is swollen with no erythema. Wound from the I&D dry clean and intact. No discharge noted. HEAD: Normocephalic. EYES: No scleral icterus. No injection or drainage. NECK: Supple, trachea midline. No JVD or lymphadenopathy. CARDIOVASCULAR: Regular rate and rhythm without murmurs, gallops, or rubs. RESPIRATORY: Breath sounds equal bilaterally. No accessory muscle use. GASTROINTESTINAL: Abdomen soft, non-tender, nondistended. MUSCULOSKELETAL: No cyanosis, or edema. BACK: Nontender without obvious deformity. No CVA tenderness. Medications and IVs Current Medications Sodium Chloride 1,000 ml @ 999 mls/hr BOLUS ONCE IV Last administered on 04/15 03:17; Start 04/15/17 at 02:45; Stop 04/15/17 at 03:45; Status DC Clindamycin Phosphate/Dextrose 50 ml @ 100 mls/hr ONCE ONCE IV ; Start at 02:45; Stop 04/15/17 at 03:14; Status Cancel Morphine Sulfate (Morphine Inj) 4 mg ONCE ONCE IV PUSH Last administered on 03:18; Start 04/15/17 at 02:45; Stop 04/15/17 at 02:46; Status DC Lidocaine HCl (Xylocaine 1% Inj (50 ml)) 50 ml ONCE ONCE INFIL Last administered on 04/15/17 03:18; Start 04/15/17 at 03:00; Stop 04/15/17 at 03:01 ; Status DC Sodium Chloride 1,000 ml @ 100 mls/hr Q10H IV Last administered on 04/15/17 14:05; Start 04/15/17 at 02:57 Sodium Chloride (NS Flush) 2 ml UNSCH PRN IV FLUSH FLUSH AFTER USING IV ACCESS ; Start 04/15/17 at 03:00 Sodium Chloride (NS Flush) 2 ml BID IV FLUSH ; Start 04/15/17 at 09:00 Naloxone HCl (Narcan Inj) 0.4 mg UNSCH PRN IV PUSH SEE LABEL COMMENTS; Start 04/15/17 at 03:00 Clindamycin/ Sodium Chloride 50 ml @ 100 mls/hr Q6H IV Last administered on 04:37; Start 04/15/17 at 09:00 Clindamycin Phosphate 900 mg/ Sodium Chloride 56 ml @ 112 mls/hr ONCE ONCE IV Last administered on 04/15/17 03:20; Start 04/15/17 at 03:00; Stop 04/15/17 at 03:29; Status DC Acetaminophen/ Hydrocodone Bitart ([place] 7.5-325 Mg) 1 tab Q4H PRN PO pain >5 Last administered on 04/16/17 06:28; Start 04/15/17 at 04:45 Heparin Sodium (Porcine) (Heparin Inj) 5,000 units Q12HR SQ Last administered on 04/15/17 21:50; Start 04/15/17 at 09:00 Lorazepam (Ativan Inj) 1 mg UNSCH X1 PRN IV PUSH mri claustrophobia Last administered on 04/15/17 20:24; Start 04/15/17 at 19:45; Stop 04/15/17 at 23:59 ; Status DC Gadodiamide (Omniscan Pf Inj) 10 ml STK-MED ONCE IV PUSH Last administered on 04/15/17 21:52; Start 04/15/17 at 21:52; Stop 04/15/17 at 21:53; Status DC A/P Problem List: (1) Extensor tenosynovitis of right wrist ICD Code: M65.841 - Other synovitis and tenosynovitis, right hand Status: Acute (2) Abscess of right hand ICD Code: L02.511 - Cutaneous abscess of right hand Status: Acute (3) IVDU (intravenous drug user) ICD Code: F19.90 - Other psychoactive substance use, unspecified, uncomplicated Status: Acute Assessment and Plan Ms. Morales is a 37 y/o female with history of bipolar disorder, paranoid schizophrenia, mitral valve prolapse, COPD, tobacco abuse, and cocaine abuse who presented to [facility] to be evaluated for right hand pain and swelling. She was diagnosed with right hand infection/abscess as well as acute renal failure at [facility]. CT of her right hand showed 2.6 x 2.1 x 1.5 cm complex fluid collection at the extensor tendon sheath at the dorsum of her right hand was signs of tenosynovitis. Creatinine was 2.98 and GFR was 8. She was offered transferred to [facility] to sign out AMA and come to [place] to be seen by hand surgeon. She opted to sign out AMA and came to [place]. Cellulitis Right hand abscess at extensor tendon sheath with signs of tenosynovitis - s/p I and D in ER - await culture results - blood cultures pending - follow results - On clindamycin. Infectious disease consulted stated continue with clindamycin pending cultures. - At the moment per hand surgeon Dr. Herring no indication for surgery. MRI showed very impressive soft edema of dorsum breast tissue. - [place] 7.5/325 every 4 hours p.o. as needed for pain. Discussed with patient' s nurse must call her pharmacist to confirm she is on 10 mg of Lortab and if so we'll resume home medication. Patient is already aware due to her polysubstance abuse and IV drug use that she will not receive any narcotics upon discharge. Patient stated that she is not worry about this because she gets Lortab chronically are ready. Anemia - Stable from December CBC - No signs of active bleeding. Can be worked up as outpatient. Chronic pelvic pain since 01/13/17 - Beta hCG negative. -This can be worked up as outpatient. DVT prophylaxis - Heparin 5000 units subq q12h Crys Phillips MD Apr 16, 2017 09:30
[2017-04-16] MEDS: SODIUM CHLORIDE 0.9% FLUSH 10 ML FLUSH IV FLUSH SCH (10:51)
[2017-04-16] MEDS: HEPARIN SODIUM - SQ 10,000 UNITS/ML VIAL SQ SCH (10:51)
[2017-04-16 11:35] VITALS: BP 113/79; PULSE 75; RESP 18; TEMP 98; O2SAT 99
== END 2017-04-16 17:11 | disposition left against medical advice (07) | DRG 558 ==
LOC: NEPE 00:39 → NEDA 02:57 → NEPHCDU 04:50 → UNDODISIN 04-16 17:09
PROVIDERS: ADMIT Family Medicine; ATTEND Family Medicine
DX: M65.9 Synovitis and tenosynovitis, unspecified (principal); N17.9 Acute kidney failure, unspecified; I42.9 Cardiomyopathy, unspecified; R56.9 Unspecified convulsions; F20.0 Paranoid schizophrenia; L02.511 Cutaneous abscess of right hand; L03.113 Cellulitis of right upper limb; I34.1 Nonrheumatic mitral (valve) prolapse; J44.9 Chronic obstructive pulmonary disease, unspecified; F17.210 Nicotine dependence, cigarettes, uncomplicated; F14.10 Cocaine abuse, uncomplicated; D64.9 Anemia, unspecified; K21.9 Gastro-esophageal reflux disease without esophagitis; F41.9 Anxiety disorder, unspecified; F32.9 Major depressive disorder, single episode, unspecified; G43.909 Migraine, unspecified, not intractable, without status migrainosus; Z90.710 Acquired absence of both cervix and uterus; Z85.43 Personal history of malignant neoplasm of ovary; Z85.42 Personal history of malignant neoplasm of other parts of uterus; Z92.21 Personal history of antineoplastic chemotherapy
CPT/HCPCS: 73130; 73223; 80048; 80053; 81001; 83605; 84702; 85025; 85610; 85652; 85730; 86140; 87040; 87070; 87205; A9579; J1644; J2060; J2270; J7030

== ENCOUNTER 2017-07-28 06:54 | Inpatient (IN) | payer MEDICARE, OTHER ==
[~2017-07-28] VITALS: Ht 167.6 cm; Wt 60.0 kg
[2017-07-28] VITALS (9 sets, daily range): BP systolic 134–149; BP diastolic 78–91; PULSE 94–112; RESP 14–20; TEMP 98.6–100.6; O2SAT 98–100
[~2017-07-28 06:54] MED LIST changes: +BACT800T5 PO; +HYDR-3583 PO; -IBUP-232 PO; +LAMI250T2 PO; +LITH150C PO; -PROM25TA10 PO; -SENN1TAB PO; +VIST50CA PO; +XANA2TAB2 PO; +ZYPR20TA PO; +[UNRECOGNIZED DRUG - OTHER]
[2017-07-28] MEDS ORDERED: SODIUM CHLOR 0.9% 1000 ML INJ 1,000 ML IV SCH (07:09)
[2017-07-28] MEDS ORDERED: SODIUM CHLORIDE 0.9% FLUSH 10 ML FLUSH IV FLUSH PRN (07:15)
--- NOTE | 2017-07-28 07:15 | PD ---
HPI Chief Complaint: Altered Mental Status Time Seen by Provider: 07:09 Travel History International Travel<30 days: No Contact w/Intl Traveler<30days: No Traveled to known affect area: No History of Present Illness HPI Young female patient presents to the ER today brought in by EMS, apparently boyfriend had called the ambulance because they found her unresponsive, she apparently is on topiramate and there is a bottle empty next to her. It is unclear whether she took an overdose or not. She is fairly disoriented and not able to give us any further history. She apparently has urinated on herself and vomited. Modifying Factors: None Associated Signs & Symptoms: Altered mental status Risk Factors: Unknown PFSH Past Medical History Medical History: Unable to Obtain ?: Unknown Past Surgical History Surgical History: Unable to Obtain Social History Alcohol Use: No Tobacco Use: Yes Substance Use: Yes Allergies-Medications (Allergen,Severity, Reaction): Coded Allergies: No Allergy Information Available (Unverified , 07/28/17) PT IS UNABLE TO ANSWER OR FOLLOW COMMANDS Reported Meds & Prescriptions Reported Meds & Active Scripts Active Reported Topiramate 200 Mg Tab 200 Mg PO BID Review of Systems ROS Limitations: Altered Mental Status Physical Exam Narrative GENERAL: Well-developed young female patient currently poorly responsive, lethargic, disoriented. Dried vomitus on the mouth and face. SKIN: Focused skin assessment warm/dry. HEAD: Atraumatic. Normocephalic. EYES: Pupils equal and round. No scleral icterus. No injection or drainage. ENT: No nasal bleeding or discharge. Mucous membranes dry. NECK: Trachea midline. No JVD. CARDIOVASCULAR: Regular rate and rhythm. No murmur appreciated. RESPIRATORY: No accessory muscle use. Clear to auscultation. Breath sounds equal bilaterally. GASTROINTESTINAL: Abdomen soft, non-tender, nondistended. Hepatic and splenic margins not palpable. MUSCULOSKELETAL: No obvious deformities. No clubbing. No cyanosis. No edema. NEUROLOGICAL: Arousable but disoriented. Face appears symmetrical, but not following commands, limited neurological exam due to disorientation, pupils are equal, round, were really reactive to light bilaterally. PSYCHIATRIC: Disoriented, lethargic, unable to access further Data Data Last Documented VS Vital Signs Date Time Temp Pulse Resp B/P (MAP) Pulse Ox O2 Delivery O2 Flow Rate FiO2 07/28/17 07:38 95 14 148/91 (110) 100 07/28/17 07:34 Room Air Orders Orders Electrocardiogram (07/28/17 07:09) Ammonia (07/28/17 07:09) Complete Blood Count With Diff (07/28/17 07:09) Comprehensive Metabolic Panel (07/28/17 07:09) Creatine Kinase (Cpk) (07/28/17 07:09) Thyroid Stimulating Hormone (07/28/17 07:09) Urinalysis - C+S If Indicated (07/28/17 07:09) Blood Culture (07/28/17 07:09) Chest, Single Ap (07/28/17 07:09) Ct Brain W/O Iv Contrast(Rout) (07/28/17 07:09) Blood Glucose (07/28/17 07:09) Ecg Monitoring (07/28/17 07:09) Iv Access Insert/Monitor (07/28/17 07:09) Cath For Specimen (07/28/17 07:09) Oximetry (07/28/17 07:09) Sodium Chloride 0.9% Flush (Ns Flush) (07/28/17 07:15) Sodium Chlor 0.9% 1000 Ml Inj (Ns 1000 M (07/28/17 07:09) Drug Screen, Random Urine (07/28/17 07:09) Alcohol (Ethanol) (07/28/17 07:09) Tylenol (Acetaminophen) (07/28/17 07:09) Salicylates (Aspirin) (07/28/17 07:09) CKMB (07/28/17 07:25) CKMB% (07/28/17 07:25) Urine Culture (07/28/17 07:10) Admit Order (Ed Use Only) (07/28/17 09:25) Labs Laboratory Tests Test 07/28/17 07:10 07/28/17 07:25 Urine Color YELLOW Urine Turbidity HAZY Urine pH 8.5 Urine Specific [place] 1.018 Urine Protein 30 mg/dL Urine Glucose (UA) NEG mg/dL Urine Ketones 10 mg/dL Urine Occult Blood SMALL Urine Nitrite NEG Urine Bilirubin NEG Urine Urobilinogen LESS THAN 2.0 MG/DL Urine Leukocyte Esterase NEG Urine RBC LESS THAN 1 /hpf Urine WBC 1 /hpf Urine Squamous Epithelial Cells 15 /hpf Urine Amorphous Sediment MANY Urine Bacteria OCC /hpf Urine Hyaline Casts 1 /lpf Urine Mucus FEW /lpf Microscopic Urinalysis Comment CATH-CULTURE IND Urine Opiates Screen NEG Urine Barbiturates Screen NEG Urine Amphetamines Screen NEG Urine Benzodiazepines Screen NEG Urine Cocaine Screen POS Urine Cannabinoids Screen NEG White Blood Count 8.3 TH/MM3 Red Blood Count 5.21 MIL/MM3 Hemoglobin 14.6 GM/DL Hematocrit 45.3 % Mean Corpuscular Volume 86.9 FL Mean Corpuscular Hemoglobin 28.1 PG Mean Corpuscular Hemoglobin Concent 32.3 % Red Cell Distribution Width 18.4 % Platelet Count 289 TH/MM3 Mean Platelet Volume 8.9 FL Neutrophils (%) (Auto) 77.1 % Lymphocytes (%) (Auto) 15.3 % Monocytes (%) (Auto) 6.8 % Eosinophils (%) (Auto) 0.5 % Basophils (%) (Auto) 0.3 % Neutrophils # (Auto) 6.4 TH/MM3 Lymphocytes # (Auto) 1.3 TH/MM3 Monocytes # (Auto) 0.6 TH/MM3 Eosinophils # (Auto) 0.0 TH/MM3 Basophils # (Auto) 0.0 TH/MM3 CBC Comment DIFF FINAL Differential Comment Blood Urea Nitrogen 12 MG/DL Creatinine 0.99 MG/DL Random Glucose 71 MG/DL Total Protein 7.9 GM/DL Albumin 3.8 GM/DL Calcium Level 7.8 MG/DL Alkaline Phosphatase 97 U/L Aspartate Amino Transf (AST/SGOT) 173 U/L Alanine Aminotransferase (ALT/SGPT) 46 U/L Total Bilirubin 0.2 MG/DL Sodium Level 144 MEQ/L Potassium Level 3.3 MEQ/L Chloride Level 118 MEQ/L Carbon Dioxide Level 15.1 MEQ/L Anion Gap 11 MEQ/L Estimat Glomerular Filtration Rate 48 ML/MIN Ammonia 27 MCMOL/L Total Creatine Kinase 6163 U/L Creatine Kinase MB 88.0 NG/ML Creatine Kinase MB % 1.4 % Thyroid Stimulating Hormone 3rd Gen 0.383 uIU/ML Salicylates Level 5.8 MG/DL Acetaminophen Level LESS THAN 2.0 MCG/ML Ethyl Alcohol Level LESS THAN 3 MG/DL MDM Medical Decision Making Medical Screen Exam Complete: Yes Emergency Medical Condition: Yes Medical Record Reviewed: Yes Interpretation(s) EKG shows sinus tachycardia rate of 100 bpm. No signs of acute ST elevations or depressions. QRS is fairly narrow. Laboratory Tests Test 07/28/17 07:10 07/28/17 07:25 Urine Turbidity HAZY (CLEAR) Urine Protein 30 mg/dL (NEG-TRACE) Urine Ketones 10 mg/dL (NEG) Urine Occult Blood SMALL (NEG) Urine Bacteria OCC /hpf (NONE) Urine Mucus FEW /lpf (OCC) Urine Cocaine Screen POS (NEG) Red Cell Distribution Width 18.4 % (11.6-17.2) Neutrophils (%) (Auto) 77.1 % (16.0-70.0) Random Glucose 71 MG/DL (74-106) Calcium Level 7.8 MG/DL (8.5-10.1) Aspartate Amino Transf (AST/SGOT) 173 U/L (15-37) Potassium Level 3.3 MEQ/L (3.5-5.1) Chloride Level 118 MEQ/L (98-107) Carbon Dioxide Level 15.1 MEQ/L (21.0-32.0) Estimat Glomerular Filtration Rate 48 ML/MIN (>89) Total Creatine Kinase 6163 U/L (26-192) Creatine Kinase MB 88.0 NG/ML (0.5-3.6) Acetaminophen Level LESS THAN 2.0 MCG/ML Last [address] 07/28/17708 Signed Impressions: Service Date/Time: Friday, July 28, 2017 07:56 - CONCLUSION: No acute intracranial findings Ramiro Peck MD Chest X-Ray 07/28/17708 Signed Impressions: Service Date/Time: Friday, July 28, 2017 07:26 - CONCLUSION: No acute disease. Ebenezer Marshall MD Differential Diagnosis Dehydration versus metabolic issues versus sepsis versus drug overdose versus seizure Narrative Course CT the brain did not show any signs of acute intracranial processes. She does have some mild rhabdomyolysis and IV fluids have been started in the ER. Her salicylate and Tylenol levels were not significantly elevated. She does have cocaine in her urine toxicology screen. At this point, patient is arousable but disoriented and not able to give any further history. Vital signs are stable in the ER. My plan would be to admit the patient to ICU for further observations. Case was discussed with Dr. Rios for admission. Aggregate critical care time was 30 minutes. Time to perform other separately billable procedures was not included in the critical care time. My time did not include minutes spent treating any other patients simultaneously or on activities that did not directly contribute to the patient's treatment. The services I provided to this patient were to treat and/or prevent clinically significant deterioration that could result in: Worsening overdose, seizures, I provided critical care services requiring my management, as noted below: Chart data review, documentation time, medication orders and management, vital sign assessments/reviewing monitor data, ordering and reviewing lab tests, ordering and interpreting/reviewing x-rays and diagnostic studies, care of the patient and discussion of the patient with the admitting physicians. Diagnosis Primary Impression: Altered mental status Admitting Information Admitting Physician Requests: Admit Maksim Tijerina MD Jul 28, 2017 07:15
--- NOTE | 2017-07-28 07:35 | RADRPT ---
EXAM DATE/TIME: 07/28/2017 07:26 [facility] COMPARISON: No previous studies available for comparison. INDICATIONS : Syncope. MEDICAL HISTORY : Unobtainable. SURGICAL HISTORY : Unobtainable. ENCOUNTER: Initial ACUITY: 1 day PAIN SCORE: Non-responsive. LOCATION: Bilateral chest FINDINGS: A single view of the chest demonstrates the lungs to be symmetrically aerated without evidence of mas s, infiltrate or effusion. The cardiomediastinal contours are unremarkable. Osseous structures are intact. CONCLUSION: No acute disease. Ebenezer Marshall MD on July 28, 2017 at 7:34 Board Certified Radiologist. This report was verified electronically.
[2017-07-28] MEDS ORDERED: TOPI200T7 PO (07:37)
[2017-07-28 07:43] LABS: AUTOMATED NEUTROPHIL # 6.4 TH/MM3 (1.8-7.7); BASOPHIL % 0.3 % (0.0-2.0); EOSINOPHIL % 0.5 % (0.0-4.0); HEMATOCRIT 45.3 % (35.0-46.0); HEMOGLOBIN 14.6 GM/DL (11.6-15.3); LYMPH % 15.3 % (9.0-44.0); LYMPHOCYTE # 1.3 TH/MM3 (1.0-4.8); MEAN CELL VOLUME 86.9 FL (80.0-100.0); MEAN CORPUSCULAR HEMOGLOBIN 28.1 PG (27.0-34.0); MEAN CORPUSCULAR HGB CONC 32.3 % (32.0-36.0); MEAN PLATELET VOLUME 8.9 FL (7.0-11.0); MONO % 6.8 % (0.0-8.0); MONOCYTE # 0.6 TH/MM3 (0-0.9); NEUT % 77.1 % (16.0-70.0); PLATELET COUNT 289 TH/MM3 (150-450); RED BLOOD COUNT 5.21 MIL/MM3 (4.00-5.30); RED CELL DISTRIBUTION WIDTH 18.4 % (11.6-17.2); WHITE BLOOD COUNT 8.3 TH/MM3 (4.0-11.0)
[2017-07-28 08:09] LABS: ALBUMIN 3.8 GM/DL (3.4-5.0); ALT (GPT) 46 U/L (10-53); AST (GOT) 173 U/L (15-37); BICARBONATE 15.1 MEQ/L (21.0-32.0); BLOOD UREA NITROGEN 12 MG/DL (7-18); CALCIUM 7.8 MG/DL (8.5-10.1); CHLORIDE 118 MEQ/L (98-107); CREATININE 0.99 MG/DL (0.50-1.00); GLOMERULAR FILTRATION RATE 48 ML/MIN (>89); GLUCOSE,RANDOM 71 MG/DL (74-106); SODIUM (NA) 144 MEQ/L (136-145)
--- NOTE | 2017-07-28 08:17 | RADRPT ---
EXAM DATE/TIME: 07/28/2017 07:56 [facility] COMPARISON: No previous studies available for comparison. INDICATIONS : Altered mental status RADIATION DOSE: 56.35 CTDIvol (mGy) MEDICAL HISTORY : Non-responsive. SURGICAL HISTORY : Non-responsive. ENCOUNTER: Initial ACUITY: 1 day PAIN SCALE: Non-responsive LOCATION: cranial TECHNIQUE: Multiple contiguous axial images were obtained of the head. Using automated exposure control and adj ustment of the mA and/or kV according to patient size, radiation dose was kept as low as reasonably a chievable to obtain optimal diagnostic quality images. DICOM format image data is available electro nically for review and comparison. FINDINGS: CEREBRUM: The ventricles are normal for age. No evidence of midline shift, mass lesion, hemorrhage or acute in farction. No extra-axial fluid collections are seen. POSTERIOR FOSSA: The cerebellum and brainstem are intact. The 4th ventricle is midline. The cerebellopontine angle i s unremarkable. EXTRACRANIAL: The visualized portion of the orbits is intact. SKULL: The calvaria is intact. No evidence of skull fracture. CONCLUSION: No acute intracranial findings Ramiro Peck MD on July 28, 2017 at 8:14 Board Certified Radiologist. This report was verified electronically.
[2017-07-28 08:23] LABS: ACETAMINOPHEN LESS THAN 2.0 MCG/ML (10.0-30.0); ALKALINE PHOSPHATASE 97 U/L (45-117); TOTAL BILIRUBIN ADULT 0.2 MG/DL (0.2-1.0); TOTAL PROTEIN 7.9 GM/DL (6.4-8.2)
[2017-07-28 08:35] LABS: AMORPHOUS SEDIMENT, URINE MANY; BACTERIA, URINE OCC /hpf; BILIRUBIN, URINE NEG (NEG); BLOOD, URINE SMALL (NEG); GLUCOSE,URINE NEG (NEG); HYALINE CAST, URINE 1 /lpf (RARE); KETONE, URINE 10 mg/dL (NEG); MUCUS URINE FEW /lpf (OCC); NITRITE,URINE NEG (NEG); PH, URINE 8.5 (5.0-8.5); SQUAMOUS EPITHELIAL CELL URINE 15 /hpf (0-5); URINE COLOR YELLOW (YELLW/STRAW); URINE LEUKOCYTE ESTERASE NEG (NEG)
[2017-07-28] MEDS ORDERED: MAGNESIUM HYDROXIDE SUSP 30 ML CUP PO PRN (10:00)
[2017-07-28] MEDS ORDERED: BISACODYL 10 MG SUPP RECTAL PRN (10:00)
[2017-07-28] MEDS ORDERED: LORazepam 2 MG/ML VIAL IV PUSH PRN (10:00)
[2017-07-28] MEDS ORDERED: NALOXONE HCL 0.4 MG/ML AMP IV PUSH PRN (10:00)
[2017-07-28] MEDS ORDERED: LACTULOSE SYRUP 20 GM/30 ML CUP PO PRN (10:00)
[2017-07-28] MEDS ORDERED: SENNOSIDES 8.6 MG TAB PO PRN (10:00)
[2017-07-28] MEDS: NS + KCL 20 MEQ INJ 1,000 ML IV SCH ×2 (10:36→20:54)
[2017-07-28] MEDS: ENOXAPARIN SODIUM 40 MG/0.4 ML SYRINGE SQ SCH (10:36)
--- NOTE | 2017-07-28 10:50 | HHI.HP ---
[facility] Nikki Adrian MD Admission Diagnosis Altered mental status/possible overdose Diagnoses: (1) Encephalopathy (2) Altered mental status Chief Complaint: Altered mental status Travel History International Travel<30 Days: No Contact w/Intl Traveler <30 Da: No Traveled to Known Affected Are: No History of Present Illness The patient is a 37-year-old female who presented to the emergency department as a Linda Magaña. Her name is MIKE Chen 1980. She was apparently found by her boyfriend to be unresponsive. She reportedly takes topiramate, and there was an empty bottle of the medication found next to her. There is no certainty that this was an overdose. The patient is unable to provide any history. Further information is gathered from the electronic medical record. The patient has a history of bipolar disorder, schizophrenia, polysubstance abuse. Review of Systems ROS Limitations: Unresponsive Past Family Social History Past Medical History Bipolar disorder Schizophrenia Mitral valve prolapse COPD Tobacco abuse Cocaine abuse Past Surgical History Right knee surgery 4 Laparoscopy for ovarian cysts D&C Reported Medications Unobtainable Allergies: Coded Allergies: No Allergy Information Available (Unverified , 07/28/17) PT IS UNABLE TO ANSWER OR FOLLOW COMMANDS Family History Patient is unable to answer. Per previous documentation, there is family history of cancer, diabetes mellitus, hypertension, hyperlipidemia, mitral valve prolapse. Social History Patient is unable to answer. Per prior history she has smoked 1-2 packs per day for 22+ years. She has a history of injecting cocaine. Physical Exam Vital Signs Vital Signs Date Time Temp Pulse Resp B/P (MAP) Pulse Ox O2 Delivery O2 Flow Rate FiO2 07/28/17 07:38 95 14 148/91 (110) 100 07/28/17 07:34 16 100 Room Air 07/28/17 06:58 94 16 149/90 (109) 100 Physical Exam GENERAL: Well-nourished, well-developed female in no acute distress. Dried vomitus on face/mouth. HEENT: Normocephalic, atraumatic. Pupils equal, round and reactive. Extraocular movements intact. No scleral icterus. No injection or drainage. Oropharynx is clear. Mucous membranes are moist. CARDIOVASCULAR: Regular rate and rhythm without murmurs, gallops, or rubs. RESPIRATORY: Clear to auscultation. No wheezes, rales, or rhonchi. Breathing is non-labored. GASTROINTESTINAL: Abdomen soft, non-tender, nondistended. EXTREMITIES: No lower extremity edema. No calf tenderness. PSYCH: Lethargic. She awakens to verbal stimuli, but does not answer questions. Laboratory Laboratory Tests Test 07/28/17 07:10 07/28/17 07:25 Urine Color YELLOW Urine Turbidity HAZY Urine pH 8.5 Urine Specific [place] 1.018 Urine Protein 30 Urine Glucose (UA) NEG Urine Ketones 10 Urine Occult Blood SMALL Urine Nitrite NEG Urine Bilirubin NEG Urine Urobilinogen LESS THAN 2.0 Urine Leukocyte Esterase NEG Urine RBC LESS THAN 1 Urine WBC 1 Urine Squamous Epithelial Cells 15 Urine Amorphous Sediment MANY Urine Bacteria OCC Urine Hyaline Casts 1 Urine Mucus FEW Microscopic Urinalysis Comment CATH-CULTURE IND Urine Opiates Screen NEG Urine Barbiturates Screen NEG Urine Amphetamines Screen NEG Urine Benzodiazepines Screen NEG Urine Cocaine Screen POS Urine Cannabinoids Screen NEG White Blood Count 8.3 Red Blood Count 5.21 Hemoglobin 14.6 Hematocrit 45.3 Mean Corpuscular Volume 86.9 Mean Corpuscular Hemoglobin 28.1 Mean Corpuscular Hemoglobin Concent 32.3 Red Cell Distribution Width 18.4 Platelet Count 289 Mean Platelet Volume 8.9 Neutrophils (%) (Auto) 77.1 Lymphocytes (%) (Auto) 15.3 Monocytes (%) (Auto) 6.8 Eosinophils (%) (Auto) 0.5 Basophils (%) (Auto) 0.3 Neutrophils # (Auto) 6.4 Lymphocytes # (Auto) 1.3 Monocytes # (Auto) 0.6 Eosinophils # (Auto) 0.0 Basophils # (Auto) 0.0 CBC Comment DIFF FINAL Differential Comment Blood Urea Nitrogen 12 Creatinine 0.99 Random Glucose 71 Total Protein 7.9 Albumin 3.8 Calcium Level 7.8 Alkaline Phosphatase 97 Aspartate Amino Transf (AST/SGOT) 173 Alanine Aminotransferase (ALT/SGPT) 46 Total Bilirubin 0.2 Sodium Level 144 Potassium Level 3.3 Chloride Level 118 Carbon Dioxide Level 15.1 Anion Gap 11 Estimat Glomerular Filtration Rate 48 Ammonia 27 Total Creatine Kinase 6163 Creatine Kinase MB 88.0 Creatine Kinase MB % 1.4 Thyroid Stimulating Hormone 3rd Gen 0.383 Salicylates Level 5.8 Acetaminophen Level LESS THAN 2.0 Ethyl Alcohol Level LESS THAN 3 Date/Time Source Procedure Growth Status 07/28/17 07:25 Blood Peripheral Aerobic Blood Culture Pending Received 07/28/17 07:25 Blood Peripheral Anaerobic Blood Culture Pending Received 07/28/17 07:10 Urine Catheterized Urine Urine Culture Pending Received Result Diagram: 07/28/1772407/28/17724 Imaging Last Impressions Head CT 07/28/17708 Signed Impressions: Service Date/Time: Friday, July 28, 2017 07:56 - CONCLUSION: No acute intracranial findings Ramiro Peck MD Chest X-Ray 07/28/17708 Signed Impressions: Service Date/Time: Friday, July 28, 2017 07:26 - CONCLUSION: No acute disease. MD Augustin Drew VTE Risk Assessment Caprini VTE Risk Assessment: Mod/High Risk (score >= 2) Caprini Risk Assessment Model Point Value = 1 Point Value = 2 Point Value = 3 Point Value = 5 Age 41-60 Minor surgery BMI > 25 kg/m2 Swollen legs Varicose veins or History of unexplained or recurrent spontaneous Oral contraceptives or hormone replacement Sepsis (< 1 month) Serious lung disease, including pneumonia (< 1 month) Abnormal pulmonary function Acute myocardial infarction Congestive heart failure (< 1 month) History of inflammatory bowel disease Medical patient at bed rest Age 61-74 Arthroscopic surgery Major open surgery (> 45 min) Laparoscopic surgery (> 45 min) Malignancy Confined to bed (> 72 hours) Immobilizing plaster cast Central venous access Age >= 75 History of VTE Family history of VTE Factor V Leiden Prothrombin [id number] Lupus anticoagulant Anticardiolipin antibodies Elevated serum homocysteine Heparin-induced thrombocytopenia Other congenital or acquired thrombophilia Stroke (< 1 month) Elective arthroplasty Hip, pelvis, or leg fracture Acute spinal cord injury (< 1 month) Prophylaxis Regimen Total Risk Factor Score Risk Level Prophylaxis Regimen 0-1 Low Early ambulation 2 Moderate Order ONE of the following: *Sequential Compression Device (SCD) *Heparin 5000 units SQ BID 3-4 Higher Order ONE of the following medications: *Heparin 5000 units SQ TID *Enoxaparin/Lovenox 40 mg SQ daily (WT < 150 kg, CrCl > 30 mL/min) *Enoxaparin/Lovenox 30 mg SQ daily (WT < 150 kg, CrCl > 10-29 mL/min) *Enoxaparin/Lovenox 30 mg SQ BID (WT < 150 kg, CrCl > 30 mL/min) AND/OR *Sequential Compression Device (SCD) 5 or more Highest Order ONE of the following medications: *Heparin 5000 units SQ TID (Preferred with Epidurals) *Enoxaparin/Lovenox 40 mg SQ daily (WT < 150 kg, CrCl > 30 mL/min) *Enoxaparin/Lovenox 30 mg SQ daily (WT < 150 kg, CrCl > 10-29 mL/min) *Enoxaparin/Lovenox 30 mg SQ BID (WT < 150 kg, CrCl > 30 mL/min) AND *Sequential Compression Device (SCD) Assessment and Plan Assessment and Plan 1. Encephalopathy: Patient found unresponsive. She is still lethargic and does not answer any questions. There is concern for overdose of topiramate. Seizure precautions. Poison control was contacted. Will monitor labs. Serum lactic acid level ordered. Monitor in ICU on telemetry. Neurology consultation requested. 2. History of bipolar disorder, schizophrenia: Consult psychiatry when patient is more alert. 3. Hypokalemia: Supplement potassium in IV fluids. 4. Rhabdomyolysis: CK is elevated. Uncertain how long patient was down before she was found by her boyfriend. Monitor serum CK level. Continue IV fluids. Monitor renal function. 5. DVT prophylaxis: Lovenox. Aj Rios MD Jul 28, 2017 10:50
--- NOTE | 2017-07-28 13:25 | MB ---
cc: Elza Trotter MD DATE OF CONSULT: HISTORY OF PRESENT ILLNESS: She is seen in neurological consultation. She came in as a Linda Magaña but apparently her boyfriend came and provided additional information. She is 37 and according to the documentation her name is Chela Morales. Date of 1980. Apparently, she was found unresponsive with a bottle of topiramate empty. Uncertain as to what happened. There is a history of bipolar, schizophrenia and polysubstance abuse. She was positive for cocaine. She vaguely tells me she has a history of seizures, but she is not providing much more information. She said she took topiramate three times a day for seizures. The CT brain was negative for acute process. PHYSICAL EXAMINATION: On exam, she was asleep, but awakened fairly easily and she verbalized a few words. She knows where she is, knows the name of the place, but does not know exactly what happened. She followed simple commands. Moved all four extremities. She moved the lower extremities slowly in a very modest manner, but she was able to retain the knees flexed when I actively did these motor function on her. The pupils were about same size, reactive. There is no facial weakness. No obvious tongue injury. DATA: The chest x-ray also showed no acute disease. CBC unremarkable. Chemistry with a sodium 144, potassium 3.3, BUN and creatinine normal. Glucose 71, AST 173, ALT 46. Total CPK 13603. TSH is normal. Vital signs are reviewed. ASSESSMENT AND PLAN: 1. Unresponsiveness, now improving. 2. Rhabdomyolysis. 3. Cocaine abuse. 4. History of bipolar, schizophrenia. Possible history of seizures. Apparently, topiramate bottle was found empty. I will request a topiramate level if not done yet. Continue the supportive medical care and I will follow the neurological course. Thank you for asking us to assist in her care. Elza Trotter MD OFC/TL , 12:51 PM , 01:24 PM
[2017-07-28 16:37] LABS: ACETAMINOPHEN LESS THAN 2.0 MCG/ML (10.0-30.0); ALT (GPT) 48 U/L (10-53); AST (GOT) 176 U/L (15-37)
--- NOTE | 2017-07-28 21:15 | EKG ---
Date Performed: 07/28/2017 Time Performed: 07:44:26 PTAGE: 89 years EKG: SINUS TACHYCARDIA WITH SHORT MN INTERVAL WITH OCCASIONAL SUPRAVENTRICULAR PREMATURE COMPLEX ES NONSPECIFIC ST & T-WAVE ABNORMALITY ABNORMAL ECG NO PREVIOUS TRACING DOCTOR: Sharla Shankar Interpretating Date/Time 07/28/2017 21:14:08
[2017-07-28] MEDS ORDERED: KETOROLAC TROMETHAMINE 10 MG TAB PO PRN (23:00)
[2017-07-28] MEDS: ACETAMINOPHEN 325 MG TAB PO PRN (23:41)
[2017-07-29] VITALS (10 sets, daily range): BP systolic 127–169; BP diastolic 83–98; PULSE 87–107; RESP 17–20; TEMP 97.6–100; O2SAT 98–100
--- NOTE | 2017-07-29 00:16 | RADRPT ---
EXAM DATE/TIME: 07/28/2017 23:48 [place] COMPARISON: No previous studies available for comparison. INDICATIONS : Left hand swelling and pain. MEDICAL HISTORY : None. SURGICAL HISTORY : None. ENCOUNTER: Initial ACUITY: 1 day PAIN SCORE: 8/10 LOCATION: Left hand. FINDINGS: Three view examination of the left hand demonstrates no soft tissue swelling, dislocation, or fractur e. The carpal bones appear intact. The interphalangeal and metacarpophalangeal joints are intact. Bony mineralization is normal. No radiopaque foreign bodies. CONCLUSION: Osseous structures the hand are radiographically intact. Nguyễn Olea MD on July 29, 2017 at 0:14 Board Certified Radiologist. This report was verified electronically.
[2017-07-29] MEDS: ONDANSETRON HCL 4 MG/2 ML VIAL IVP PRN ×2 (06:06→13:36)
[2017-07-29] MEDS: NS + KCL 20 MEQ INJ 1,000 ML IV SCH ×2 (06:07→16:28)
[2017-07-29 06:29] LABS: ALBUMIN 3.1 GM/DL (3.4-5.0); ALKALINE PHOSPHATASE 79 U/L (45-117); ALT (GPT) 60 U/L (10-53); AST (GOT) 202 U/L (15-37); BICARBONATE 11.2 MEQ/L (21.0-32.0); BLOOD UREA NITROGEN 10 MG/DL (7-18); CALCIUM 7.6 MG/DL (8.5-10.1); CHLORIDE 124 MEQ/L (98-107); CREATININE 0.85 MG/DL (0.50-1.00); GLOMERULAR FILTRATION RATE 58 ML/MIN (>89); GLUCOSE,RANDOM 55 MG/DL (74-106); SODIUM (NA) 145 MEQ/L (136-145); TOTAL BILIRUBIN ADULT 0.2 MG/DL (0.2-1.0); TOTAL PROTEIN 6.6 GM/DL (6.4-8.2)
[2017-07-29] MEDS: ENOXAPARIN SODIUM 40 MG/0.4 ML SYRINGE SQ SCH (12:52)
[2017-07-29] MEDS: ACETAMINOPHEN 325 MG TAB PO PRN (12:53)
--- NOTE | 2017-07-29 14:31 | HHI.PR ---
Subjective Remarks The patient is a 37-year-old female who presented to the emergency department as a Linda Magaña. Her name is MIKE Chen 1980. She was apparently found by her boyfriend to be unresponsive. She reportedly takes topiramate, and there was an empty bottle of the medication found next to her. There is no certainty that this was an overdose. The patient is unable to provide any history. Further information is gathered from the electronic medical record. The patient has a history of bipolar disorder, schizophrenia, polysubstance abuse. 07-29 CONSULT PSYCHIATRY DW RN AND CM AND PT PATIENT COMPLAINS OF CHRONIC PAIN STATES SHE TAKES PAIN MEDS 3 TIMES A DAY FROM PAIN MANAGEMENT DID NOT FEEL THAT SHE IS TOTALLY UNCOMFORTABLE AT THIS TIME START PO PAIN MEDS Objective Vitals Vital Signs Date Time Temp Pulse Resp B/P (MAP) Pulse Ox O2 Delivery O2 Flow Rate FiO2 07/29/17 12:09 97.6 90 18 132/86 (101) 98 07/29/17 10:05 98 07/29/17 07:42 98.6 100 18 139/89 (106) 98 07/29/17 04:48 97.9 98 17 127/83 (98) 98 07/29/17 04:00 100 07/29/17 00:13 100.0 104 17 146/88 (107) 98 07/29/17 00:00 107 07/28/17 20:49 99.6 102 17 134/78 (96) 99 07/28/17 20:00 112 07/28/17 18:45 98.6 105 18 139/88 (105) 99 07/28/17 17:15 100.6 106 20 142/88 (106) 99 07/28/17 14:29 102 16 147/87 (107) 98 I/O 07/28/17 07/28/17 07/28/17 07/29/17 07/29/17 07/29/17 07:00 15:00 23:00 07:00 15:00 23:00 Intake Total 1000 ml 1200 ml Output Total 200 ml Balance 1000 ml 1000 ml Intake Oral 0 ml IV Total 1000 ml 1200 ml Output Urine Total 200 ml # Voids 1 Result Diagram: 07/28/17 0725 07/29/17 0440 Other Results Laboratory Tests Test 3/19/18 07:10 07/28/17 07:25 07/28/17 10:51 07/28/17 15:35 Urine Color YELLOW Urine Turbidity HAZY Urine pH 8.5 Urine Specific [place] 1.018 Urine Protein 30 mg/dL Urine Glucose (UA) NEG mg/dL Urine Ketones 10 mg/dL Urine Occult Blood SMALL Urine Nitrite NEG Urine Bilirubin NEG Urine Urobilinogen LESS THAN 2.0 MG/DL Urine Leukocyte Esterase NEG Urine RBC LESS THAN 1 /hpf Urine WBC 1 /hpf Urine Squamous Epithelial Cells 15 /hpf Urine Amorphous Sediment MANY Urine Bacteria OCC /hpf Urine Hyaline Casts 1 /lpf Urine Mucus FEW /lpf Microscopic Urinalysis Comment CATH-CULTURE IND Urine Opiates Screen NEG Urine Barbiturates Screen NEG Urine Amphetamines Screen NEG Urine Benzodiazepines Screen NEG Urine Cocaine Screen POS Urine Cannabinoids Screen NEG White Blood Count 8.3 TH/MM3 Red Blood Count 5.21 MIL/MM3 Hemoglobin 14.6 GM/DL Hematocrit 45.3 % Mean Corpuscular Volume 86.9 FL Mean Corpuscular Hemoglobin 28.1 PG Mean Corpuscular Hemoglobin Concent 32.3 % Red Cell Distribution Width 18.4 % Platelet Count 289 TH/MM3 Mean Platelet Volume 8.9 FL Neutrophils (%) (Auto) 77.1 % Lymphocytes (%) (Auto) 15.3 % Monocytes (%) (Auto) 6.8 % Eosinophils (%) (Auto) 0.5 % Basophils (%) (Auto) 0.3 % Neutrophils # (Auto) 6.4 TH/MM3 Lymphocytes # (Auto) 1.3 TH/MM3 Monocytes # (Auto) 0.6 TH/MM3 Eosinophils # (Auto) 0.0 TH/MM3 Basophils # (Auto) 0.0 TH/MM3 CBC Comment DIFF FINAL Differential Comment Blood Urea Nitrogen 12 MG/DL Creatinine 0.99 MG/DL Random Glucose 71 MG/DL Total Protein 7.9 GM/DL Albumin 3.8 GM/DL Calcium Level 7.8 MG/DL Alkaline Phosphatase 97 U/L Aspartate Amino Transf (AST/SGOT) 173 U/L 176 U/L Alanine Aminotransferase (ALT/SGPT) 46 U/L 48 U/L Total Bilirubin 0.2 MG/DL Sodium Level 144 MEQ/L Potassium Level 3.3 MEQ/L Chloride Level 118 MEQ/L Carbon Dioxide Level 15.1 MEQ/L Anion Gap 11 MEQ/L Estimat Glomerular Filtration Rate 48 ML/MIN Ammonia 27 MCMOL/L Total Creatine Kinase 6163 U/L Creatine Kinase MB 88.0 NG/ML Creatine Kinase MB % 1.4 % Thyroid Stimulating Hormone 3rd Gen 0.383 uIU/ML Salicylates Level 5.8 MG/DL Acetaminophen Level LESS THAN 2.0 MCG/ML LESS THAN 2.0 MCG/ML Ethyl Alcohol Level LESS THAN 3 MG/DL Lactic Acid Level 0.7 mmol/L Test 07/28/17 16:05 07/29/17 04:40 Blood Urea Nitrogen 10 MG/DL Creatinine 0.85 MG/DL Random Glucose 55 MG/DL Total Protein 6.6 GM/DL Albumin 3.1 GM/DL Calcium Level 7.6 MG/DL Alkaline Phosphatase 79 U/L Aspartate Amino Transf (AST/SGOT) 202 U/L Alanine Aminotransferase (ALT/SGPT) 60 U/L Total Bilirubin 0.2 MG/DL Sodium Level 145 MEQ/L Potassium Level 3.7 MEQ/L Chloride Level 124 MEQ/L Carbon Dioxide Level 11.2 MEQ/L Anion Gap 10 MEQ/L Estimat Glomerular Filtration Rate 58 ML/MIN Total Creatine Kinase 6824 U/L Creatine Kinase MB 40.7 NG/ML Creatine Kinase MB % 0.6 % Imaging Last Impressions Head CT 07/28/17 0709 Signed Impressions: Service Date/Time: Friday, July 28, 2017 07:56 - CONCLUSION: No acute intracranial findings Ramiro Peck MD Chest X-Ray 07/28/17 0709 Signed Impressions: Service Date/Time: Friday, July 28, 2017 07:26 - CONCLUSION: No acute disease. Ebenezer Marshall MD Hand X-Ray 07/28/17 0000 Signed Impressions: Service Date/Time: Friday, July 28, 2017 23:48 - CONCLUSION: Osseous structures the hand are radiographically intact. Nguyễn Olea MD Objective Remarks GENERAL: Awake and alert 3 talkative not so cooperative does not appear comfortable SKIN: Warm and dry. HEAD: Atraumatic. Normocephalic. EYES: Pupils equal and round. No scleral icterus. No injection or drainage. Extraocular muscles intact ENT: No nasal bleeding or discharge. Mucous membranes pink and moist. Tongue is midline NECK: Trachea midline. No JVD. Supple CARDIOVASCULAR: Regular rate and rhythm. S1-S2 no S3-S4 RESPIRATORY: No accessory muscle use. Clear to auscultation. Breath sounds equal bilaterally. GASTROINTESTINAL: Abdomen soft, non-tender, nondistended. Hepatic and splenic margins not palpable. MUSCULOSKELETAL: Extremities without clubbing, cyanosis, or edema. No obvious deformities. NEUROLOGICAL: Awake and alert. No obvious cranial nerve deficits. Motor grossly within normal limits. Five out of 5 muscle strength in the arms and legs. Normal speech. Decreased range of motion of left shoulder PSYCHIATRIC: INAppropriate mood and affect; insight and judgment ABnormal. Procedures NONE Medications and IVs Current Medications Sodium Chloride (NS Flush) 2 ml UNSCH PRN IV FLUSH FLUSH AFTER USING IV ACCESS ; Start 07/28/17 at 07:15 Sodium Chloride 1,000 ml @ 1,000 mls/hr Q1H IV Last administered on 07/28/17at 07:39; Start 07/28/17 at 07:09; Stop 07/28/17 at 08:08; Status DC Ondansetron HCl (Zofran Inj) 4 mg Q6H PRN IVP NAUSEA OR VOMITING Last administered on 07/29/17at 13:36; Start 07/28/17 at 10:00 Enoxaparin Sodium (Lovenox Inj) 40 mg Q24H SQ Last administered on 07/29/17at 12 :52; Start 07/28/17 at 11:00 Naloxone HCl (Narcan Inj) 0.4 mg UNSCH PRN IV PUSH SEE LABEL COMMENTS; Start at 10:00 Magnesium Hydroxide (Milk Of Magnesia Liq) 30 ml Q12H PRN PO Mild constipation ; Start 07/28/17 at 10:00 Sennosides (Senokot) 17.2 mg Q12H PRN PO Moderate constipation; Start 07/28/17 at 10:00 Bisacodyl (Dulcolax Supp) 10 mg DAILY PRN RECTAL SEVERE CONSITIPATION; Start at 10:00 Lactulose (Lactulose Liq) 30 ml DAILY PRN PO SEVERE CONSITIPATION; Start at 10:00 Lorazepam (Ativan Inj) 1 mg Q15M PRN IV PUSH SEIZURES; Start 07/28/17 at 10:00 Potassium Chloride/Sodium Chloride 1,000 ml @ 100 mls/hr Q10H IV Last administered on 07/29/17at 06:07; Start 07/28/17 at 10:00 Ketorolac Tromethamine (Toradol) 10 mg Q6H PRN PO PAIN, HEADACHES; Start at 23:00; Stop 07/28/17 at 23:00; Status DC Acetaminophen (Tylenol) 650 mg Q4H PRN PO PAIN , HEADACHES Last administered on 07/29/17at 12:53; Start 07/28/17 at 23:00 A/P Problem List: (1) Encephalopathy ICD Code: G93.40 - Encephalopathy, unspecified (2) Altered mental status ICD Code: R41.82 - Altered mental status, unspecified Status: Acute Assessment and Plan 1. Encephalopathy: Patient found unresponsive. She is still lethargic and does not answer any questions. There is concern for overdose of topiramate. Seizure precautions. Poison control was contacted. Will monitor labs. Serum lactic acid level ordered. Monitor in ICU on telemetry. Neurology consultation requested. Much improved out of the ICU 2. History of bipolar disorder, schizophrenia: Consult psychiatry when patient is more alert. Patient states she will not follow up with Fortunato Lehman 3. Hypokalemia: Supplement potassium in IV fluids. 4. Rhabdomyolysis: CK is elevated. Uncertain how long patient was down before she was found by her boyfriend. Monitor serum CK level. Continue IV fluids. Monitor renal function. ELEVATED LFTS MONITOR-is chronically taking oral pain medications with Tylenol and and also takes Neurontin Noncompliance with meds Possible overdose versus suicide attempt versus unintentional overdose-we will defer to psychiatry Continue with lyndsey at this time 5. DVT prophylaxis: Lovenox. Discharge Planning Pending psychiatric clearance Trev Robbins DO Jul 29, 2017 14:31
[2017-07-29] MEDS ORDERED: METOCLOPRAMIDE HCL 10 MG/2 ML VIAL IV PUSH PRN (15:15)
[2017-07-29] MEDS ORDERED: NALOXONE HCL 0.4 MG/ML AMP IV PUSH PRN (15:15)
[2017-07-29] MEDS ORDERED: MAGNESIUM HYDROXIDE SUSP 30 ML CUP PO PRN (15:15)
[2017-07-29] MEDS ORDERED: BISACODYL 10 MG SUPP RECTAL PRN (15:15)
[2017-07-29] MEDS ORDERED: ONDANSETRON HCL 4 MG/2 ML VIAL IVP PRN (15:15)
[2017-07-29] MEDS ORDERED: SENNOSIDES 8.6 MG TAB PO PRN (15:15)
[2017-07-29] MEDS ORDERED: LACTULOSE SYRUP 20 GM/30 ML CUP PO PRN (15:15)
[2017-07-29] MEDS ORDERED: IBUPROFEN 400 MG TAB PO PRN (15:15)
[2017-07-29] MEDS: cefTRIAXone INJ 1,000 MG in SODIUM CHLORIDE 0.9% INJ 100 ML IV SCH (16:29)
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
[2017-07-29] MEDS: DOCUSATE SODIUM 50 MG/SENNA 8.6 MG TAB PO SCH (21:06)
[2017-07-30] VITALS (10 sets, daily range): BP systolic 129–162; BP diastolic 69–102; PULSE 66–87; RESP 18; TEMP 97.3–98.4; O2SAT 97–99
[2017-07-30] MEDS: NS + KCL 20 MEQ INJ 1,000 ML IV SCH ×3 (01:16→22:00)
[2017-07-30] MEDS: DOCUSATE SODIUM 50 MG/SENNA 8.6 MG TAB PO SCH ×2 (09:04→21:01)
[2017-07-30] MEDS: ENOXAPARIN SODIUM 40 MG/0.4 ML SYRINGE SQ SCH (11:16)
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
--- NOTE | 2017-07-30 13:52 | RADRPT ---
EXAM DATE/TIME: 07/30/2017 13:24 [facility] COMPARISON: No previous studies available for comparison. INDICATIONS : Left proximal humerus/shoulder pain and swelling of entire upper arm. Patient cannot recall injury. MEDICAL HISTORY : Hypertension. Myocardial infarction. Chronic obstructive pulmonary disease. Liver disease. Renal failure. Substance abuse. SURGICAL HISTORY : Knee surgery. ENCOUNTER: Subsequent ACUITY: 2 days PAIN SCORE: 8/10 LOCATION: Left proximal humerus FINDINGS: Multiple view examination of the left shoulder demonstrates no evidence of fracture or dislocation. The glenohumeral and acromioclavicular joints are maintained. There is normal range of motion betwee n internal and external rotation. Bony mineralization is normal. CONCLUSION: Unremarkable examination of the left shoulder. Ramiro Peck MD on July 30, 2017 at 13:48 Board Certified Radiologist. This report was verified electronically.
[2017-07-30] MEDS: KETOROLAC TROMETHAMINE 60 MG/2 ML (IM) VIAL IM PRN ×2 (13:54→21:04)
[2017-07-30] MEDS ORDERED: LORazepam 1 MG TAB PO ONE (15:45)
[2017-07-30] MEDS: cefTRIAXone INJ 1,000 MG in SODIUM CHLORIDE 0.9% INJ 100 ML IV SCH (16:06)
--- NOTE | 2017-07-30 18:51 | RADRPT ---
EXAM DATE/TIME: 07/30/2017 17:25 [facility] COMPARISON: No previous studies available for comparison. INDICATIONS : Rotator cuff tear. Unable to move left shoulder. MEDICAL HISTORY : Carcinoma, ovarian. SURGICAL HISTORY : Right knee x4. Ovarian cysts removed. ENCOUNTER: Subsequent ACUITY: 3 day PAIN SCORE: 5/10 LOCATION: Left shoulder. TECHNIQUE: Multiplanar, multisequence MRI examination was performed without contrast. FINDINGS: There is extensive muscular edema at the muscular insertion sites along the medial scapula especially at the subscapularis muscle and also involving the supraspinatus, infraspinatus and teres muscles. There is no rotator cuff tear identified. Biceps tendon appears intact. There is also some muscular e kaycee anteriorly in the lateral pectoralis musculature. No significant marrow signal abnormality seen to suggest fracture. CONCLUSION: 1. Abnormal muscular edema around the left shoulder specially along the medial edge of the scapula. T his muscular edema involves the subscapularis, supraspinatus and infraspinatus and teres major muscle s. There is also edema extending more laterally along the supraspinatus muscle and musculotendinous j unction. Muscular edema of uncertain etiology However no rotator cuff tear is identified. There is no significant joint effusion. No marrow signal abnormality seen to suggest fracture. Addison Serrano MD on July 30, 2017 at 18:44 Board Certified Radiologist. This report was verified electronically.
[2017-07-30] MEDS ORDERED: OXYC-392 PO (19:21)
[2017-07-30] MEDS ORDERED: IBUP1TAB5 PO (19:21)
[2017-07-30] MEDS ORDERED: OXYC-395 PO (19:21)
--- NOTE | 2017-07-30 19:26 | HHI.DS ---
Discharge Summary Admission Date Jul 28, 2017 at 09:28 Discharge Date: Jul 30, 2017 Admitting Diagnosis Altered mental status/possible overdose (1) Rhabdomyolysis ICD Code: M62.82 - Rhabdomyolysis (2) Overdose ICD Code: T50.901A - Poisoning by unspecified drugs, medicaments and biological substances, accidental (unintentional), initial encounter (3) Suicidal intent ICD Code: R45.851 - Suicidal ideations (4) Altered mental status ICD Code: R41.82 - Altered mental status, unspecified Status: Acute (5) Encephalopathy ICD Code: G93.40 - Encephalopathy, unspecified Procedures NONE Brief History - From Admission The patient is a 37-year-old female who presented to the emergency department as a Linda Magaña. Her name is MIKE Chen 1980. She was apparently found by her boyfriend to be unresponsive. She reportedly takes topiramate, and there was an empty bottle of the medication found next to her. There is no certainty that this was an overdose. The patient is unable to provide any history. Further information is gathered from the electronic medical record. The patient has a history of bipolar disorder, schizophrenia, polysubstance abuse. CBC/BMP: 07/28/17 0725 07/29/17 0440 Significant Findings Laboratory Tests Test 07/28/17 07:10 07/28/17 07:25 07/28/17 10:51 07/28/17 15:35 Urine Turbidity HAZY (CLEAR) Urine Protein 30 mg/dL (NEG-TRACE) Urine Ketones 10 mg/dL (NEG) Urine Occult Blood SMALL (NEG) Urine Bacteria OCC /hpf (NONE) Urine Mucus FEW /lpf (OCC) Urine Cocaine Screen POS (NEG) Red Cell Distribution Width 18.4 % (11.6-17.2) Neutrophils (%) (Auto) 77.1 % (16.0-70.0) Random Glucose 71 MG/DL (74-106) Calcium Level 7.8 MG/DL (8.5-10.1) Aspartate Amino Transf (AST/SGOT) 173 U/L (15-37) 176 U/L (15-37) Potassium Level 3.3 MEQ/L (3.5-5.1) Chloride Level 118 MEQ/L (98-107) Carbon Dioxide Level 15.1 MEQ/L (21.0-32.0) Estimat Glomerular Filtration Rate 48 ML/MIN (>89) Total Creatine Kinase 6163 U/L (26-192) Creatine Kinase MB 88.0 NG/ML (0.5-3.6) Acetaminophen Level LESS THAN 2.0 MCG/ML LESS THAN 2.0 MCG/ML Test 07/28/17 16:05 07/29/17 04:40 Random Glucose 55 MG/DL (74-106) Albumin 3.1 GM/DL (3.4-5.0) Calcium Level 7.6 MG/DL (8.5-10.1) Aspartate Amino Transf (AST/SGOT) 202 U/L (15-37) Alanine Aminotransferase (ALT/SGPT) 60 U/L (10-53) Chloride Level 124 MEQ/L (98-107) Carbon Dioxide Level 11.2 MEQ/L (21.0-32.0) Estimat Glomerular Filtration Rate 58 ML/MIN (>89) Total Creatine Kinase 6824 U/L (26-192) Creatine Kinase MB 40.7 NG/ML (0.5-3.6) PE at Discharge GENERAL: Awake and alert 3 talkative not so cooperative does not appear comfortable SKIN: Warm and dry. HEAD: Atraumatic. Normocephalic. EYES: Pupils equal and round. No scleral icterus. No injection or drainage. Extraocular muscles intact ENT: No nasal bleeding or discharge. Mucous membranes pink and moist. Tongue is midline NECK: Trachea midline. No JVD. Supple CARDIOVASCULAR: Regular rate and rhythm. S1-S2 no S3-S4 RESPIRATORY: No accessory muscle use. Clear to auscultation. Breath sounds equal bilaterally. GASTROINTESTINAL: Abdomen soft, non-tender, nondistended. Hepatic and splenic margins not palpable. MUSCULOSKELETAL: Extremities without clubbing, cyanosis, or edema. No obvious deformities. NEUROLOGICAL: Awake and alert. No obvious cranial nerve deficits. Motor grossly within normal limits. Five out of 5 muscle strength in the arms and legs. Normal speech. Decreased range of motion of left shoulder PSYCHIATRIC: INAppropriate mood and affect; insight and judgment ABnormal. Hospital Course 37-year-old female who admits to overdosing on her topiramate, and other drugs she had on hand including possible muscle relaxers. She has been stable for the last 3 days on cardiac telemetry. Her main complaint today prior to discharge planning was left shoulder pain. Workup revealed no fracture and no tear of the rotator cuff according to plain x-ray and MRI. MRI does demonstrate soft tissue swelling of the subscapularis as well as some anterior swelling. This picture is more consistent with a sprain. She also has rhabdomyolysis with CK elevated into the 6000s. She will need continuing treatment with generous IV fluids and monitoring of CK level. She is not making excuses for her suicide attempt. She has been accepted by psych and will continue with treatment in [facility]. Pt Condition on Discharge: Fair Discharge Disposition: Disc to Psych Care Fac Discharge Time: <= 30 minutes Discharge Instructions DIET: Follow Instructions for: As Tolerated, No Restrictions Activities you can perform: Weight Bearing as Greyson Huddleston MD Jul 30, 2017 19:26
[2017-07-31] VITALS: BP 156/78; PULSE 85; RESP 18; TEMP 97; O2SAT 98
[2017-07-31 00:30] VITALS: PULSE 66
[2017-07-31] MEDS: KETOROLAC TROMETHAMINE 60 MG/2 ML (IM) VIAL IM PRN ×2 (03:13→10:45)
[2017-07-31 04:00] VITALS: BP 143/67; PULSE 70; RESP 18; TEMP 97.7; O2SAT 97
[2017-07-31 05:41] LABS: ALBUMIN 3.1 GM/DL (3.4-5.0); ALKALINE PHOSPHATASE 76 U/L (45-117); ALT (GPT) 60 U/L (10-53); AST (GOT) 81 U/L (15-37); BICARBONATE 17.1 MEQ/L (21.0-32.0); BLOOD UREA NITROGEN 11 MG/DL (7-18); CHLORIDE 115 MEQ/L (98-107); CREATININE 0.79 MG/DL (0.50-1.00); GLOMERULAR FILTRATION RATE 82 ML/MIN (>89); GLUCOSE,RANDOM 97 MG/DL (74-106); SODIUM (NA) 141 MEQ/L (136-145); TOTAL BILIRUBIN ADULT 0.2 MG/DL (0.2-1.0); TOTAL PROTEIN 6.4 GM/DL (6.4-8.2)
[2017-07-31 07:50] VITALS: PULSE 65
[2017-07-31 08:00] VITALS: BP 166/102; PULSE 79; RESP 18; TEMP 97.9; O2SAT 100
[2017-07-31] MEDS: NS + KCL 20 MEQ INJ 1,000 ML IV SCH (08:00)
[2017-07-31] MEDS: DOCUSATE SODIUM 50 MG/SENNA 8.6 MG TAB PO SCH (08:54)
[2017-07-31] MEDS: ENOXAPARIN SODIUM 40 MG/0.4 ML SYRINGE SQ SCH (10:11)
--- NOTE | 2017-07-31 16:07 | HHI.PR ---
Subjective Remarks Patient was discharged to [facility] yesterday but remains in her room awaiting for an open bed. She has no new complaints. Objective Vitals Vital Signs Date Time Temp Pulse Resp B/P (MAP) Pulse Ox O2 Delivery O2 Flow Rate FiO2 07/31/17 08:00 97.9 79 18 166/102 (123) 100 07/31/17 07:50 65 07/31/17 04:00 97.7 70 18 143/67 (92) 97 07/31/17 00:30 66 07/31/17 00:00 97.0 85 18 156/78 (104) 98 07/30/17 20:30 67 07/30/17 20:00 97.3 68 18 162/102 (122) 99 I/O 07/30/17 07/30/17 07/30/17 07/31/17 07/31/17 07/31/17 07:00 15:00 23:00 07:00 15:00 23:00 Intake Total 360 ml Balance 360 ml Intake Oral 360 ml # Voids 4 3 4 # Bowel Movements 1 Result Diagram: 07/28/17 0725 07/31/17 0445 Objective Remarks GENERAL: Well-nourished, well-developed patient. SKIN: Warm and dry. HEAD: Normocephalic. EYES: No scleral icterus. No injection or drainage. NECK: Supple, trachea midline. No JVD or lymphadenopathy. CARDIOVASCULAR: Regular rate and rhythm without murmurs, gallops, or rubs. RESPIRATORY: Breath sounds equal bilaterally. No accessory muscle use. GASTROINTESTINAL: Abdomen soft, non-tender, nondistended. EXTREMITIES: Reduced range of motion of left arm due to subscapularis and shoulder strain NEUROLOGICAL: Awake, alert, and oriented x 3. Non-focal. Procedures NONE A/P Problem List: (1) Rhabdomyolysis ICD Code: M62.82 - Rhabdomyolysis (2) Overdose ICD Code: T50.901A - Poisoning by unspecified drugs, medicaments and biological substances, accidental (unintentional), initial encounter (3) Suicidal intent ICD Code: R45.851 - Suicidal ideations (4) Altered mental status ICD Code: R41.82 - Altered mental status, unspecified Status: Acute (5) Encephalopathy ICD Code: G93.40 - Encephalopathy, unspecified Assessment and Plan Suicide attempt Intentional overdose of topiramate and other available drugs in her home. Patient has been transferred to [facility] and is awaiting bed for placement Appreciate psychiatry resuming care [place] Act placed on 07/30/2017 Left shoulder strain Soft tissue swelling of the subscapularis and shoulder girdle on MRI of left shoulder Occupational Therapy requested Continue with pain meds, as needed Rhabdomyolysis Recommend continuation of IV fluids Follow serial CKs until levels are substantially improved DVT prophylaxis Encourage ambulation Discharge planning Patient has been transferred to [facility] Greyson Vu MD Jul 31, 2017 16:07
== END 2017-07-31 10:59 | DRG 917 ==
LOC: NEPE 06:54 → NEDA 09:28 → EDBD 09:28 → MERGE 09:28 → NEDH 12:56 → NEDA 16:58 → N05B 18:20
PROVIDERS: ADMIT Family Medicine; ATTEND Family Medicine
DX: T50.902A Poisoning by unspecified drugs, medicaments and biological substances, intentional self-harm, initial encounter (principal); G93.40 Encephalopathy, unspecified; M62.82 Rhabdomyolysis; R45.851 Suicidal ideations; F19.20 Other psychoactive substance dependence, uncomplicated; F31.60 Bipolar disorder, current episode mixed, unspecified; F60.9 Personality disorder, unspecified; F14.10 Cocaine abuse, uncomplicated; R00.0 Tachycardia, unspecified; J44.9 Chronic obstructive pulmonary disease, unspecified; E87.6 Hypokalemia; G89.29 Other chronic pain; S46.912A Strain of unspecified muscle, fascia and tendon at shoulder and upper arm level, left arm, initial encounter; R41.82 Altered mental status, unspecified; Z72.0 Tobacco use; Z91.14 Patient's other noncompliance with medication regimen; Z91.5 Personal history of self-harm; Y92.832 Beach as the place of occurrence of the external cause
CPT/HCPCS: 70450; 71045; 73030; 73130; 73221; 80053; 80201; 80307; 81001; 82140; 82550; 82552; 83605; 84443; 84450; 84460; 85025; 87040; 87086; 93005; 96360; 96361; J0696; J1650; J1885; J2405; J3480; J7030; P9612

== ENCOUNTER 2017-07-30 11:16 | Inpatient (IN) | payer MEDICARE, OTHER ==
[~2017-07-30] VITALS: Ht 167.6 cm; Wt 53.7 kg
[2017-07-30] MEDS ORDERED: OXYC-392 PO (19:21)
[2017-07-30] MEDS ORDERED: OXYC-395 PO (19:21)
[2017-07-30] MEDS ORDERED: IBUP1TAB5 PO (19:21)
[2017-07-31 12:00] VITALS: BP 156/89; PULSE 66; RESP 16; TEMP 98; O2SAT 100
[2017-07-31] MEDS ORDERED: LORazepam 1 MG TAB PO PRN (14:45)
[2017-07-31] MEDS ORDERED: LORazepam 2 MG/ML VIAL IM PRN (14:45)
[2017-07-31] MEDS: REMOVE OLD PATCH T-DERMAL SCH (14:45)
[2017-07-31] MEDS ORDERED: MAGNESIUM HYDROXIDE SUSP 30 ML CUP PO PRN (14:45)
[2017-07-31] MEDS ORDERED: ALUMINUM/MAGNESIUM/SIMETH 30 ML CUP PO PRN (14:45)
--- NOTE | 2017-07-31 16:50 | PD.CONS ---
[facility] Reason for Consult Help with medical management Primary Care Physician Nikki Adrian MD Diagnoses: History of Present Illness Patient is a 37-year-old female who initially presented to the emergency department on July 28. And was seen in the admission after being found unresponsive by her boyfriend. Patient Topamax with probable overdose. Was then found to have rhabdomyoLYSIS and was admitted and was placed on fluids. Has now been cleared and was transferred to inpatient psychiatry. Has an extensive history including bipolar disorder schizophrenia polysubstance abuse tobacco abuse cocaine abuse and tobacco abuse history of injecting cocaine Review of Systems Constitutional: DENIES: Diaphoretic episodes, Fatigue, Fever, Weight gain, Weight loss, Chills, Dizziness, Change in appetite, Night Sweats Endocrine: DENIES: Abnorml menstrual pattern Eyes: DENIES: Blurred vision, Diplopia, Eye inflammation, Eye pain Ears, nose, mouth, throat: DENIES: Tinnitus, Hearing loss, Vertigo, Nasal discharge, Running Nose, Epistaxis, Sinus Pain, Toothache Respiratory: DENIES: Apneas, Cough, Snoring, Wheezing, Hemoptysis Cardiovascular: DENIES: Chest pain, Palpitations, Syncope, Dyspnea on Exertion Gastrointestinal: DENIES: Abdominal pain, Black stools, Bloody stools, Constipation, Anorexia Genitourinary: DENIES: Abnormal vaginal bleeding, Dysmenorrhea, Dyspareunia, Sexual dysfunction, Urgency, Hematuria, Dysuria Musculoskeletal: COMPLAINS OF: Joint pain, Stiffness, DENIES: Muscle aches, Joint Swelling, Back pain, Neck pain Integumentary: DENIES: Abnormal pigmentation, Pruritus, Rash, Nail changes, Breast masses Hematologic/lymphatic: DENIES: Bruising, Lymphadenopathy Immunologic/allergic: DENIES: Eczema, Urticaria Neurologic: DENIES: Abnormal gait, Headache, Localized weakness, Paresthesias, Seizures, Speech Problems, Tremor, Poor Balance Psychiatric: COMPLAINS OF: Anxiety, Mood changes, Depression, DENIES: Confusion , Hallucinations, Agitation, Suicidal Ideation, Homicidal Ideation Except as stated in HPI: all other systems reviewed are Neg Past Family Social History Allergies: Coded Allergies: No Allergy Information Available (Unverified , 07/28/17) PT IS UNABLE TO ANSWER OR FOLLOW COMMANDS Past Medical History Bipolar disorder Schizophrenia Mitral valve prolapse COPD Tobacco abuse Cocaine abuse Past Surgical History Tobacco abuse Cocaine abuse Right knee surgery 4 Laparoscopy for ovarian cyst D&Cs Reported Medications Reported Meds & Active Scripts Active Oxycodone (Oxycodone HCl) 10 Mg Tab 10 Mg PO Q4H PRN 5 Days Oxycodone (Oxycodone HCl) 5 Mg Tab 5 Mg PO Q4H PRN 5 Days Ibuprofen 400 Mg Tab 400 Mg PO Q6H PRN 5 Days Reported Topiramate 200 Mg Tab 200 Mg PO BID Active Ordered Medications Current Medications Lorazepam (Ativan) 1 mg Q6H PRN PO MODERATE TO SEVERE ANXIETY; Start 07/31/17 at 14:45 Lorazepam (Ativan Inj) 1 mg Q6H PRN IM MODERATE TO SEVERE ANXIETY; Start at 14:45 Diphenhydramine HCl (Benadryl) 50 mg HS PRN PO INSOMNIA; Start 07/31/17 at 14: 45 Acetaminophen (Tylenol) 650 mg Q4H PRN PO Pain 1-5 or Temp >101F; Start at 14:45 Magnesium Hydroxide (Milk Of Magnesia Liq) 30 ml DAILY PRN PO CONSTIPATION; Start 07/31/17 at 14:45 Al Hydrox/Mg Hydrox/Simethicone (Mag-Al Plus Susp Liq) 30 ml Q6H PRN PO DYSPEPSIA; Start 07/31/17 at 14:45 Nicotine (Habitrol 21 Mg Patch.24 Hr) 1 patch DAILY T-DERMAL ; Start 07/31/17 at 14:45 Miscellaneous Information 1 DAILY T-DERMAL ; Start 07/31/17 at 14:45 Family History Cancer, diabetes mellitus, hypertension, hyperlipidemia, mitral valve prolapse Social History Had smoked 1-2 packs per day for 22+ years has a history of injecting cocaine Physical Exam Physical Exam GENERAL: This is a well-nourished, well-developed patient, in no apparent distress. SKIN: No rashes, ecchymoses or lesions. Cool and dry. HEAD: Atraumatic. Normocephalic. No temporal or scalp tenderness. EYES: Pupils equal round and reactive. Extraocular motions intact. No scleral icterus. No injection or drainage. ENT: Nose without bleeding, purulent drainage or septal hematoma. Throat without erythema, tonsillar hypertrophy or exudate. Uvula midline. Airway patent. NECK: Trachea midline. No JVD or lymphadenopathy. Supple, nontender, no meningeal signs. CARDIOVASCULAR: Regular rate and rhythm without murmurs, gallops, or rubs. S1- S2 no S3-S4 RESPIRATORY: Clear to auscultation. Breath sounds equal bilaterally. No wheezes , rales, or rhonchi. GASTROINTESTINAL: Abdomen soft, non-tender, nondistended. No hepato-splenomegaly , or palpable masses. No guarding. MUSCULOSKELETAL: Extremities without clubbing, cyanosis, or edema. No joint tenderness, effusion, or edema noted. No calf tenderness. Negative Homans sign bilaterally. Left shoulder tenderness NEUROLOGICAL: Awake and alert. Cranial nerves II through XII intact. Motor and sensory grossly within normal limits. Five out of 5 muscle strength in all muscle groups. Normal speech. Laboratory Pending Assessment and Plan Assessment and Plan Status post a suicide attempt with intentional overdose of Topamax and available drugs in her home Patient has been transferred to inpatient [facility] psychiatry Patient remains under Wilkins act Left shoulder strain had the MRI which showed the soft tissue swelling of the subscapularis and shoulder girdle on the MRI of left shoulder Continue physical therapy and Occupational Therapy and pain meds as needed Rhabdomyolysis recommend continuation of IV fluids patient currently refusing recommend she continue to drink as much fluids as possible DVT prophylaxis encourage ambulation Patient is now in med psychiatry Code Status Full code Discussed Condition With Currently under Wilkins act and in [facility] psychiatry Trev Robbins DO Jul 31, 2017 16:50
[2017-07-31] MEDS: NICOTINE 21 MG/24 HR PATCH T-DERMAL SCH (17:52)
[2017-07-31 18:38] VITALS: BP 144/76; PULSE 67; RESP 16; TEMP 97.5; O2SAT 100
[2017-07-31] MEDS: ACETAMINOPHEN 325 MG TAB PO PRN (21:00)
[2017-07-31] MEDS: diphenhydrAMINE HCL 50 MG CAP PO PRN (23:24)
[2017-08-01 06:00] VITALS: BP 144/82; PULSE 76; RESP 16; TEMP 97.7; O2SAT 98
[2017-08-01] MEDS: NICOTINE 21 MG/24 HR PATCH T-DERMAL SCH (08:24)
[2017-08-01] MEDS: REMOVE OLD PATCH T-DERMAL SCH (09:00)
[2017-08-01] MEDS: ACETAMINOPHEN 325 MG TAB PO PRN (11:33)
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
[2017-08-01] MEDS ORDERED: LORazepam 2 MG TAB PO PRN (12:15)
[2017-08-01] MEDS ORDERED: LORazepam 2 MG/ML VIAL IV PUSH PRN ×4 (12:15)
[2017-08-01] MEDS ORDERED: FLUMAZENIL 0.5 MG/5 ML VIAL IV PUSH PRN (12:15)
--- NOTE | 2017-08-01 15:08 | HHI.PR ---
Subjective Remarks Patient still complaining of severe pain even to touch on the left shoulder No fever or chills Objective Vitals Vital Signs Date Time Temp Pulse Resp B/P (MAP) Pulse Ox O2 Delivery O2 Flow Rate FiO2 08/01/17 06:00 97.7 76 16 144/82 (102) 98 08/01/17 06:00 97.7 76 16 144/82 (102) 98 07/31/17 18:38 97.5 67 16 144/76 (98) 100 I/O 07/31/17 07/31/17 07/31/17 08/01/17 08/01/17 08/01/17 07:00 15:00 23:00 07:00 15:00 23:00 Intake Total 1860 ml 0 ml Balance 1860 ml 0 ml Intake Oral 1860 ml 0 ml # Voids 7 0 Objective Remarks GENERAL: This is a well-nourished, well-developed patient, in no apparent distress. CARDIOVASCULAR: Regular rate and rhythm without murmurs, gallops, or rubs. RESPIRATORY: Clear to auscultation. Breath sounds equal bilaterally. No wheezes , rales, or rhonchi. GASTROINTESTINAL: Abdomen soft, non-tender, nondistended. Normal active bowel sounds MUSCULOSKELETAL: Extreme tenderness on the left shoulder to touch, limited ROM, lower extremities without clubbing, cyanosis, or edema. NEURO: Alert & Oriented x4 to person, place, time, situation. Moves all ext x4 A/P Assessment and Plan Status post a suicide attempt with intentional overdose of Topamax and available drugs in her home Patient has been transferred to inpatient med psychiatry under Wilkins act Left shoulder strain had the MRI which showed the soft tissue swelling of the subscapularis and shoulder girdle on the MRI of left shoulder Continue physical therapy and Occupational Therapy and pain meds as needed, NSAID with naproxen, ice pad on the shoulder, consult or so Rhabdomyolysis recommend continuation of IV fluids patient currently refusing recommend she continue to drink as much fluids as possible DVT prophylaxis encourage ambulation Shine Abraham MD Aug 01, 2017 15:08
[2017-08-01] MEDS: ACETAMINOPHEN/HYDROcodone 325 MG/5 MG TAB PO PRN ×2 (15:25→21:35)
[2017-08-01 16:13] VITALS: BP 138/80; PULSE 84; RESP 17; TEMP 98.7; O2SAT 96
--- NOTE | 2017-08-01 16:22 | HHI.PR ---
Review/Management Daily Summary 08/01 doing well, brief fneuro exam normal I saw her in the acute care side of the hospital she needs to follow with her neurologist as outpt will resume her usual anticonvulsant medications topiramate 200 bid neurontin 600 tid at time of d/c would give her only 2--4 weeks of anticonvulsant medication due to recent overdose Subjective Subjective Comments No acute events reported No headache Active Medications Current Medications Medications (Trade) Dose Ordered Sig/Nadir Route Start Time Stop Time Status Last Admin (Benadryl) 50 mg HS PRN PO 07/31/17 14:45 07/31/17 23:24 (Tylenol) 650 mg Q4H PRN PO 07/31/17 14:45 08/01/17 11:33 (Milk Of Magnesia Liq) 30 ml DAILY PRN PO 07/31/17 14:45 (Mag-Al Plus Susp Liq) 30 ml Q6H PRN PO 07/31/17 14:45 (Habitrol 21 Mg Patch.24 Hr) 1 patch DAILY T-DERMAL 07/31/17 14:45 08/01/17 08:24 Miscellaneous Information 1 DAILY T-DERMAL 07/31/17 14:45 08/01/17 09:00 (Romazicon Inj) 0.2 mg Q1M PRN IV PUSH 08/01/17 12:15 (Ativan) 1 mg Q4H PRN PO 08/01/17 12:15 (Ativan Inj) 1 mg Q4H PRN IV PUSH 08/01/17 12:15 (Ativan) 2 mg Q2H PRN PO 08/01/17 12:15 (Ativan Inj) 2 mg Q2H PRN IV PUSH 08/01/17 12:15 (Ativan Inj) 2 mg Q1H PRN IV PUSH 08/01/17 12:15 (Ativan Inj) 2 mg Q15M PRN IV PUSH 08/01/17 12:15 (Melatonin) 5 mg HS PRN PO 08/01/17 21:00 ([place] 5-325 Mg) 1 tab Q6H PRN PO 08/01/17 15:15 08/01/17 15:25 Allergies Allergies Uncoded Allergies DPT vaccine, penicillin, doxycycline, keflex ( Allergy, Unknown, 07/31/17) Exam I&O / VS 08/01/17 08/01/17 08/02/17 15:00 23:00 07:00 Intake Total 1040 ml Balance 1040 ml Intake Oral 1040 ml Vital Signs Date Time Temp Pulse Resp B/P (MAP) Pulse Ox O2 Delivery O2 Flow Rate FiO2 08/01/17 16:14 08/01/17 16:13 98.7 84 17 138/80 (99) 96 08/01/17 06:00 97.7 76 16 144/82 (102) 98 08/01/17 06:00 97.7 76 16 144/82 (102) 98 07/31/17 18:38 97.5 67 16 144/76 (98) 100 Elza Trotter MD Aug 01, 2017 16:22
[2017-08-01 18:24] LABS: ALBUMIN 3.2 GM/DL (3.4-5.0); AST (GOT) 44 U/L (15-37); BICARBONATE 22.3 MEQ/L (21.0-32.0); BLOOD UREA NITROGEN 13 MG/DL (7-18); CALCIUM 8.3 MG/DL (8.5-10.1); CHLORIDE 110 MEQ/L (98-107); CREATININE 0.67 MG/DL (0.50-1.00); GLOMERULAR FILTRATION RATE 100 ML/MIN (>89); GLUCOSE,RANDOM 96 MG/DL (74-106); MAGNESIUM 1.9 MG/DL (1.5-2.5); SODIUM (NA) 141 MEQ/L (136-145)
[2017-08-01 18:25] LABS: CHOLESTEROL 113 MG/DL (120-200); TRIGLYCERIDES 192 MG/DL (42-150)
[2017-08-01 18:34] LABS: ALKALINE PHOSPHATASE 77 U/L (45-117); ALT (GPT) 58 U/L (10-53); CHOLESTEROL/ HDL RATIO 3.86 RATIO; FREE T4 0.79 NG/DL (0.76-1.46); HDL CHOLESTEROL 29.2 MG/DL (40.0-60.0); LDL CHOLESTEROL 45 MG/DL (0-99); PHOSPHORUS 3.3 MG/DL (2.5-4.9); TOTAL BILIRUBIN ADULT 0.2 MG/DL (0.2-1.0); TOTAL PROTEIN 6.6 GM/DL (6.4-8.2)
[2017-08-01] MEDS: diphenhydrAMINE HCL 50 MG CAP PO PRN (20:53)
[2017-08-01 21:47] LABS: AUTOMATED NEUTROPHIL # 3.1 TH/MM3 (1.8-7.7); BASOPHIL # 0.1 TH/MM3 (0-0.2); EOSINOPHIL # 0.3 TH/MM3 (0-0.4); EOSINOPHIL % 5.7 % (0.0-4.0); HEMATOCRIT 37.9 % (35.0-46.0); HEMOGLOBIN 12.3 GM/DL (11.6-15.3); LYMPH % 29.8 % (9.0-44.0); LYMPHOCYTE # 1.6 TH/MM3 (1.0-4.8); MEAN CELL VOLUME 86.7 FL (80.0-100.0); MEAN CORPUSCULAR HEMOGLOBIN 28.1 PG (27.0-34.0); MEAN CORPUSCULAR HGB CONC 32.4 % (32.0-36.0); MEAN PLATELET VOLUME 9.5 FL (7.0-11.0); MONO % 5.4 % (0.0-8.0); MONOCYTE # 0.3 TH/MM3 (0-0.9); NEUT % 58.1 % (16.0-70.0); PLATELET COUNT 213 TH/MM3 (150-450); RED BLOOD COUNT 4.37 MIL/MM3 (4.00-5.30); RED CELL DISTRIBUTION WIDTH 17.8 % (11.6-17.2); WHITE BLOOD COUNT 5.3 TH/MM3 (4.0-11.0)
[2017-08-02 06:29] VITALS: BP 154/88; PULSE 67; RESP 16; TEMP 97.9; O2SAT 97
[2017-08-02] MEDS: NICOTINE 21 MG/24 HR PATCH T-DERMAL SCH (07:41)
[2017-08-02] MEDS: ACETAMINOPHEN/HYDROcodone 325 MG/5 MG TAB PO PRN ×3 (07:41→20:24)
[2017-08-02] MEDS: REMOVE OLD PATCH T-DERMAL SCH (07:42)
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
--- NOTE | 2017-08-02 09:39 | HHI.PYPN ---
Subjective Chief Complaint: Overdose Remarks Patient seen for follow, chart reviewed. Discussion nursing staff reported the patient has a, cooperative and compliant with treatment. Patient was found to ambulate on the unit noted B, cooperative. Patient states that her mood has been "good" reporting some disturbed sleep last evening due to the patient being lateral knee and less evening. Patient reports having rested despite disruption. Patient denies any having any difficulty with eating or drinking or bowel movement. Patient reports tolerating medications well without any adverse drug reactions. Patient states that she is still depressed but more hopeful today denying any suicide ideations. Patient states she had a visit with her and which went well. Patient states she wants to get her child back to school oriented. Patient denies any perceptional disturbances. Review of Systems Except as stated in HPI: all other systems reviewed are Neg Mental Status Examination Appearance: Appropriate Consciousness: Alert Orientation: x4 Motor Activity: Normal gait Speech: Unremarkable Language: Adequate Fund of Knowledge: Adequate Attention and Concentration: Adequate Memory: Unremarkable Mood: Sad Affect: Sad Thought Process & Associations: Intact, Logical, Linear Thought Content: Appropriate Hallucination Type: None Delusion Type: None Suicidal Ideation: No Suicidal Plan: No Suicidal Intention: No Homicidal Ideation: No Homicidal Plan: No Homicidal Intention: No Insight: Fair Judgment: Impulsive Results Labs Labs reviewed Test 08/01/17 17:45 08/01/17 21:18 Blood Urea Nitrogen 13 MG/DL Creatinine 0.67 MG/DL Random Glucose 96 MG/DL Total Protein 6.6 GM/DL Albumin 3.2 GM/DL Calcium Level 8.3 MG/DL Phosphorus Level 3.3 MG/DL Magnesium Level 1.9 MG/DL Alkaline Phosphatase 77 U/L Aspartate Amino Transf (AST/SGOT) 44 U/L Alanine Aminotransferase (ALT/SGPT) 58 U/L Total Bilirubin 0.2 MG/DL Sodium Level 141 MEQ/L Potassium Level 3.6 MEQ/L Chloride Level 110 MEQ/L Carbon Dioxide Level 22.3 MEQ/L Anion Gap 9 MEQ/L Estimat Glomerular Filtration Rate 100 ML/MIN Total Creatine Kinase 598 U/L Creatine Kinase MB 2.2 NG/ML Creatine Kinase MB % 0.4 % Triglycerides Level 192 MG/DL Cholesterol Level 113 MG/DL LDL Cholesterol 45 MG/DL HDL Cholesterol 29.2 MG/DL Cholesterol/HDL Ratio 3.86 RATIO Free Thyroxine 0.79 NG/DL Thyroid Stimulating Hormone 3rd Gen 0.998 uIU/ML Beta HCG, Qualitative LESS THAN 1 MIU/ML White Blood Count 5.3 TH/MM3 Red Blood Count 4.37 MIL/MM3 Hemoglobin 12.3 GM/DL Hematocrit 37.9 % Mean Corpuscular Volume 86.7 FL Mean Corpuscular Hemoglobin 28.1 PG Mean Corpuscular Hemoglobin Concent 32.4 % Red Cell Distribution Width 17.8 % Platelet Count 213 TH/MM3 Mean Platelet Volume 9.5 FL Neutrophils (%) (Auto) 58.1 % Lymphocytes (%) (Auto) 29.8 % Monocytes (%) (Auto) 5.4 % Eosinophils (%) (Auto) 5.7 % Basophils (%) (Auto) 1.0 % Neutrophils # (Auto) 3.1 TH/MM3 Lymphocytes # (Auto) 1.6 TH/MM3 Monocytes # (Auto) 0.3 TH/MM3 Eosinophils # (Auto) 0.3 TH/MM3 Basophils # (Auto) 0.1 TH/MM3 CBC Comment DIFF FINAL Differential Comment Vitals/IOs Vital Signs Date Time Temp Pulse Resp B/P (MAP) Pulse Ox O2 Delivery O2 Flow Rate FiO2 08/02/17 06:29 97.9 67 16 154/88 (110) 97 Intake and Output 08/02/17 08/02/17 08/03/17 08:00 16:00 00:00 Intake Total 240 ml Balance 240 ml Assessment & Plan Problem List: (1) Adjustment disorder with mixed disturbance of emotions and conduct ICD Codes: F43.25 - Adjustment disorder with mixed disturbance of emotions and conduct (2) Personality disorder, unspecified ICD Codes: F60.9 - Personality disorder, unspecified Assessment & Plan Patient this time continues report feeling depressed but improving, denying any suicide ideations. Continue current treatment. Continue monitor with behavior. Discharge planning in progress. Justification for Cont. Inpt. At risk for further decompensation if at lower level of care Request HC Surrog/Guard Advoc?: No Nelson Parehk MD Aug 02, 2017 09:39
--- NOTE | 2017-08-02 09:54 | HHI.PR ---
Subjective Remarks Follow-up on patient with intentional overdose, left shoulder strain. Patient seen and examined. Patient complains of severe left shoulder pain. She denies any other acute medical complaints. Denies any fever or chills. Denies any chest pain or shortness of breath. Denies any nausea, vomiting or abdominal pain. She denies any urinary complaints, diarrhea or constipation. Objective Vitals Vital Signs Date Time Temp Pulse Resp B/P (MAP) Pulse Ox O2 Delivery O2 Flow Rate FiO2 08/02/17 06:29 97.9 67 16 154/88 (110) 97 08/01/17 16:14 08/01/17 16:13 98.7 84 17 138/80 (99) 96 I/O 08/01/17 08/01/17 08/01/17 08/02/17 08/02/17 08/02/17 07:00 15:00 23:00 07:00 15:00 23:00 Intake Total 0 ml 1760 ml 0 ml 240 ml Balance 0 ml 1760 ml 0 ml 240 ml Intake Oral 0 ml 1760 ml 0 ml 240 ml # Voids 0 2 0 Result Diagram: 08/01/17211708/01/171744 Objective Remarks GENERAL: Well-nourished, well-developed female patient in NAD. Awake and alert. SKIN: Warm and dry. HEAD: Normocephalic. Atraumatic. EYES: EOMI. No scleral icterus. No injection or drainage. ENT: No nasal bleeding or discharge. Mucous membranes pink and moist. NECK: Trachea midline. CARDIOVASCULAR: Regular rate and rhythm. S1, S2 noted. No murmur appreciated. RESPIRATORY: Nonlabored. Clear to auscultation. Breath sounds equal bilaterally. GASTROINTESTINAL: Abdomen soft, non-tender, nondistended. Normoactive bowel sounds x4. MUSCULOSKELETAL: Extremities without clubbing, cyanosis, or edema. Left shoulder tender to touch. Limited ROM. NEUROLOGICAL: Awake and alert. No obvious cranial nerve deficits. Motor and sensory grossly within normal limits. No focal neurologic findings appreciated. Normal speech. PSYCHIATRIC: Appropriate mood and affect; insight and judgment abnormal. Medications and IVs Current Medications Medications (Trade) Dose Ordered Sig/Nadir Route Start Time Stop Time Status Last Admin (Benadryl) 50 mg HS PRN PO 07/31/17 14:45 08/01/17 20:53 (Tylenol) 650 mg Q4H PRN PO 07/31/17 14:45 08/01/17 11:33 (Milk Of Magnesia Liq) 30 ml DAILY PRN PO 07/31/17 14:45 (Mag-Al Plus Susp Liq) 30 ml Q6H PRN PO 07/31/17 14:45 (Habitrol 21 Mg Patch.24 Hr) 1 patch DAILY T-DERMAL 07/31/17 14:45 08/02/17 07:41 Miscellaneous Information 1 DAILY T-DERMAL 07/31/17 14:45 08/02/17 07:42 (Romazicon Inj) 0.2 mg Q1M PRN IV PUSH 08/01/17 12:15 (Ativan) 1 mg Q4H PRN PO 08/01/17 12:15 (Ativan Inj) 1 mg Q4H PRN IV PUSH 08/01/17 12:15 (Ativan) 2 mg Q2H PRN PO 08/01/17 12:15 (Ativan Inj) 2 mg Q2H PRN IV PUSH 08/01/17 12:15 (Ativan Inj) 2 mg Q1H PRN IV PUSH 08/01/17 12:15 (Ativan Inj) 2 mg Q15M PRN IV PUSH 08/01/17 12:15 (Melatonin) 5 mg HS PRN PO 08/01/17 21:00 (Cerro 5-325 Mg) 1 tab Q6H PRN PO 08/01/17 15:15 08/02/17 07:41 A/P Assessment and Plan 37yo female with past medical history of bipolar disorder, schizophrenia, polysubstance abuse and IV cocaine abuse admitted for intentional overdose: Suicide attempt with intentional overdose of Topamax and other drugs at her home [facility] acted -Management per psychiatric team Left shoulder strain -Mild left shoulder showed soft tissue swelling of the subscapularis and shoulder girdle -Ortho consulted, appreciate recommendations - Full wt bearing, OT eval/tx, no surgical intervention at this time -pain meds as needed, prn Hypertensive -Suspect reactive/situational -Clonidine prn with parameters -Will continue to monitor BP and initiate antihypertensive medication if indicated Seizure disorder -seizure precautions -Evaluated by neurology with recommendations to resume Topamax 200mg BID and Neurontin 600mg TID, give only 2-4 weeks of anticonvulsant medication at discharge, follow up with neurologist as outpatient Rhabdomyolysis IV Cocaine use Alcohol use -Patient recommended IV fluids but refused -Continue to encourage increased fluid intake -CK trending down. Kidney function WNL. -Counseled on cessation of cocaine use Transaminitis -Trending down -Avoid hepatotoxic agents DVT prophylaxis -Patient is ambulatory Candice Vidal Aug 02, 2017 09:54
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
[2017-08-02] MEDS ORDERED: cloNIDine HCL 0.1 MG TAB PO PRN (12:30)
[2017-08-02 18:00] VITALS: BP 186/88; PULSE 91; RESP 17; TEMP 97.9; O2SAT 98
[2017-08-02] MEDS: MELATONIN 5 MG TAB PO PRN (21:10)
[2017-08-03] MEDS: ACETAMINOPHEN/HYDROcodone 325 MG/5 MG TAB PO PRN ×4 (04:45→22:38)
[2017-08-03 05:56] VITALS: BP 115/79; PULSE 65; RESP 15; TEMP 98; O2SAT 98
[2017-08-03] MEDS: NICOTINE 21 MG/24 HR PATCH T-DERMAL SCH (08:05)
[2017-08-03] MEDS: REMOVE OLD PATCH T-DERMAL SCH (08:07)
--- NOTE | 2017-08-03 09:14 | HHI.PR ---
Subjective Remarks Patient seen and examined this morning. Afebrile vital signs stable. Patient reports that her left shoulder is mildly painful but understands that all she will do his physical therapy at this time. She reports having some difficulty with sleeping at night otherwise has no other major complaints. Objective Vitals Vital Signs Date Time Temp Pulse Resp B/P (MAP) Pulse Ox O2 Delivery O2 Flow Rate FiO2 08/03/17 05:56 98.0 65 15 115/79 (91) 98 08/02/17 18:00 97.9 91 17 186/88 (120) 98 I/O 08/02/17 08/02/17 08/02/17 08/03/17 08/03/17 08/03/17 07:00 15:00 23:00 07:00 15:00 23:00 Intake Total 0 ml 960 ml 1200 ml 240 ml Balance 0 ml 960 ml 1200 ml 240 ml Intake Oral 0 ml 960 ml 1200 ml 240 ml # Voids 0 1 2 Result Diagram: 08/01/17211708/01/17 890 Objective Remarks GEN: Well-developed, well-nourished patient. No acute distress. CV: Regular rate and rhythm without obvious murmurs LUNGS: Clear to auscultation bilaterally. Normal respiratory effort. No wheezes , rales, rhonchi. GI: Soft, nontender, nondistended. No palpable masses. Bowel sounds WNL. EXT: No edema. NEURO/PSYCH: Afocal. Awake, alert, and oriented x3. Appropriate insight and judgment. Medications and IVs Current Medications Medications (Trade) Dose Ordered Sig/Nadir Route Start Time Stop Time Status Last Admin (Benadryl) 50 mg HS PRN PO 07/31/17 14:45 08/01/17 20:53 (Tylenol) 650 mg Q4H PRN PO 07/31/17 14:45 08/01/17 11:33 (Milk Of Magnesia Liq) 30 ml DAILY PRN PO 07/31/17 14:45 (Mag-Al Plus Susp Liq) 30 ml Q6H PRN PO 07/31/17 14:45 (Habitrol 21 Mg Patch.24 Hr) 1 patch DAILY T-DERMAL 07/31/17 14:45 08/03/17 08:05 Miscellaneous Information 1 DAILY T-DERMAL 07/31/17 14:45 08/03/17 08:07 (Romazicon Inj) 0.2 mg Q1M PRN IV PUSH 08/01/17 12:15 (Ativan) 1 mg Q4H PRN PO 08/01/17 12:15 (Ativan Inj) 1 mg Q4H PRN IV PUSH 08/01/17 12:15 (Ativan) 2 mg Q2H PRN PO 08/01/17 12:15 (Ativan Inj) 2 mg Q2H PRN IV PUSH 08/01/17 12:15 (Ativan Inj) 2 mg Q1H PRN IV PUSH 08/01/17 12:15 (Ativan Inj) 2 mg Q15M PRN IV PUSH 08/01/17 12:15 (Melatonin) 5 mg HS PRN PO 08/01/17 21:00 08/02/17 21:10 ([place] 5-325 Mg) 1 tab Q6H PRN PO 08/01/17 15:15 08/03/17 04:45 (Catapres) 0.1 mg Q6H PRN PO 08/02/17 12:30 08/02/17 16:06 A/P Problem List: (1) Left shoulder strain ICD Code: S46.912A - Strain of unspecified muscle, fascia and tendon at shoulder and upper arm level, left arm, initial encounter (2) Hypertension ICD Code: I10 - Essential (primary) hypertension (3) Seizure disorder ICD Code: G40.909 - Epilepsy, unspecified, not intractable, without status epilepticus (4) Transaminitis ICD Code: R74.0 - Nonspecific elevation of levels of transaminase and lactic acid dehydrogenase [LDH] (5) Bipolar disorder, current episode mixed ICD Code: F31.60 - Bipolar disorder, current episode mixed, unspecified Assessment and Plan 37yo female with past medical history of bipolar disorder, schizophrenia, polysubstance abuse and IV cocaine abuse admitted for intentional overdose: Suicide attempt with intentional overdose of Topamax and other drugs at her home Wilkins acted -Management per psychiatric team Left shoulder strain -Mild left shoulder showed soft tissue swelling of the subscapularis and shoulder girdle -Ortho consulted, appreciate recommendations - Full wt bearing, OT eval/tx, no surgical intervention at this time -pain meds as needed, prn Hypertensive -Suspect reactive/situational -Clonidine prn with parameters -Will continue to monitor BP and initiate antihypertensive medication if indicated Seizure disorder -seizure precautions -Evaluated by neurology with recommendations to resume Topamax 200mg BID and Neurontin 600mg TID, give only 2-4 weeks of anticonvulsant medication at discharge, follow up with neurologist as outpatient Rhabdomyolysis IV Cocaine use Alcohol use -Patient recommended IV fluids but refused -Continue to encourage increased fluid intake -CK trending down. Kidney function WNL. -Counseled on cessation of cocaine use Transaminitis -Trending down -Avoid hepatotoxic agents DVT prophylaxis -Patient is ambulatory Discharge Planning Pending completion of psychiatric workup Delonte Trimble MD, R3 Aug 03, 2017 09:14
[2017-08-03] MEDS: LORazepam 1 MG TAB PO PRN ×2 (09:32→22:37)
--- NOTE | 2017-08-03 10:29 | HHI.PYPN ---
Subjective Chief Complaint: Overdose Remarks Patient is here for follow, chart reviewed. Discussion nursing reported the patient reported feeling more anxious and requesting benzodiazepines. Patient was found lying hospital bed to be somewhat irritable stating that she was feeling very anxious and that her heart was racing did not want to A panic attack stated that she was rather just go home and take her Xanax. Patient reports having decreased sleep and contrary to nursing reported that patient slept well last night. Patient states her mood has been "good", plans on meeting with the [employer] operations intelligence officer lower this week and attending first trial. Patient states that she is not feeling depressed and denying suicide ideations. Review of Systems Except as stated in HPI: all other systems reviewed are Neg Mental Status Examination Appearance: Appropriate Consciousness: Alert Orientation: x4 Motor Activity: Normal gait Speech: Unremarkable Language: Adequate Fund of Knowledge: Adequate Attention and Concentration: Adequate Memory: Unremarkable Mood: Anxious Affect: Anxious Thought Process & Associations: Intact, Logical, Linear Thought Content: Appropriate Hallucination Type: None Delusion Type: None Suicidal Ideation: No Suicidal Plan: No Suicidal Intention: No Homicidal Ideation: No Homicidal Plan: No Homicidal Intention: No Insight: Fair Judgment: Impulsive Results Vitals/IOs Vital Signs Date Time Temp Pulse Resp B/P (MAP) Pulse Ox O2 Delivery O2 Flow Rate FiO2 08/03/17 05:56 98.0 65 15 115/79 (91) 98 Intake and Output 08/03/17 08/03/17 08/04/17 08:00 16:00 00:00 Intake Total 240 ml Balance 240 ml Assessment & Plan Problem List: (1) Adjustment disorder with mixed disturbance of emotions and conduct ICD Codes: F43.25 - Adjustment disorder with mixed disturbance of emotions and conduct (2) Personality disorder, unspecified ICD Codes: F60.9 - Personality disorder, unspecified Assessment & Plan Patient reported feeling anxious and requesting benzodiazepines, has history of substance use. Will add hydroxyzine 50 mg p.o. every 6 hours as needed for anxiety. Continue monitor mood and behavior. Discharge planning in progress. Justification for Cont. Inpt. At risk for further decompensation if at lower level of care Request HC Surrog/Guard Advoc?: Nelson Lovett MD Aug 03, 2017 10:29
[2017-08-03] MEDS ORDERED: hydrOXYzine HCL 50 MG TAB PO PRN (10:30)
[2017-08-03 17:45] VITALS: BP 144/88; PULSE 70; RESP 16; TEMP 98.3; O2SAT 100
[2017-08-03] MEDS ORDERED: diphenhydrAMINE HCL 50 MG CAP PO PRN (20:00)
[2017-08-03] MEDS: MELATONIN 5 MG TAB PO PRN (22:24)
[2017-08-04 05:50] VITALS: BP 120/93; PULSE 69; RESP 18; TEMP 97.6; O2SAT 99
[2017-08-04 06:44] LABS: ALBUMIN 3.4 GM/DL (3.4-5.0); AST (GOT) 18 U/L (15-37); BICARBONATE 27.2 MEQ/L (21.0-32.0); BLOOD UREA NITROGEN 9 MG/DL (7-18); CALCIUM 8.7 MG/DL (8.5-10.1); CHLORIDE 108 MEQ/L (98-107); CREATININE 0.61 MG/DL (0.50-1.00); GLOMERULAR FILTRATION RATE 111 ML/MIN (>89); GLUCOSE,RANDOM 79 MG/DL (74-106); SODIUM (NA) 142 MEQ/L (136-145)
[2017-08-04 06:45] LABS: ALT (GPT) 41 U/L (10-53)
[2017-08-04 06:47] LABS: ALKALINE PHOSPHATASE 68 U/L (45-117); TOTAL BILIRUBIN ADULT 0.3 MG/DL (0.2-1.0); TOTAL PROTEIN 6.7 GM/DL (6.4-8.2)
[2017-08-04 07:05] LABS: HEMATOCRIT 34.4 % (35.0-46.0); HEMOGLOBIN 11.4 GM/DL (11.6-15.3); MEAN CELL VOLUME 86.5 FL (80.0-100.0); MEAN CORPUSCULAR HEMOGLOBIN 28.6 PG (27.0-34.0); MEAN CORPUSCULAR HGB CONC 33.1 % (32.0-36.0); MEAN PLATELET VOLUME 9.5 FL (7.0-11.0); PLATELET COUNT 203 TH/MM3 (150-450); RED BLOOD COUNT 3.98 MIL/MM3 (4.00-5.30); RED CELL DISTRIBUTION WIDTH 17.6 % (11.6-17.2); WHITE BLOOD COUNT 5.1 TH/MM3 (4.0-11.0)
[2017-08-04] MEDS: ACETAMINOPHEN/HYDROcodone 325 MG/5 MG TAB PO PRN (07:31)
[2017-08-04] MEDS: NICOTINE 21 MG/24 HR PATCH T-DERMAL SCH (08:57)
[2017-08-04] MEDS: REMOVE OLD PATCH T-DERMAL SCH (08:57)
[2017-08-04] MEDS: LORazepam 1 MG TAB PO PRN (09:56)
[2017-08-04] MEDS ORDERED: GABA600T PO (12:10)
[2017-08-04] MEDS ORDERED: TOPI200T7 PO (12:10)
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
--- NOTE | 2017-08-05 00:36 | EKG ---
Date Performed: 08/01/2017 Time Performed: 07:20:05 PTAGE: 37 years EKG: Sinus rhythm NORMAL ECG PREVIOUS TRACING : 07/28/2017 07.44 DOCTOR: Annalise Whitaker Interpretating Date/Time 08/05/2017 00:20:56
== END 2017-08-04 13:35 | disposition home or self-care (01) | DRG 882 ==
LOC: MERGE 07-31 11:30 → H4EA 07-31 11:30 → H260 08-03 16:15
PROVIDERS: ADMIT Psychiatry & Neurology Psychiatry; ATTEND Psychiatry & Neurology Psychiatry
DX: F43.25 Adjustment disorder with mixed disturbance of emotions and conduct (principal); M62.82 Rhabdomyolysis; R56.9 Unspecified convulsions; F14.10 Cocaine abuse, uncomplicated; S46.812A Strain of other muscles, fascia and tendons at shoulder and upper arm level, left arm, initial encounter; R74.0 Nonspecific elevation of levels of transaminase and lactic acid dehydrogenase [LDH]; I10 Essential (primary) hypertension; F31.60 Bipolar disorder, current episode mixed, unspecified; F17.210 Nicotine dependence, cigarettes, uncomplicated; F60.9 Personality disorder, unspecified; X58.XXXA Exposure to other specified factors, initial encounter; Z91.5 Personal history of self-harm; J44.9 Chronic obstructive pulmonary disease, unspecified; I34.1 Nonrheumatic mitral (valve) prolapse; Z81.8 Family history of other mental and behavioral disorders
CPT/HCPCS: 80053; 80061; 82550; 82552; 83036; 83735; 84100; 84439; 84443; 84703; 85025; 85027; 93005; Q0163

== ENCOUNTER 2018-03-20 12:25 | Inpatient (IN) ==
[2018-03-20] MEDS ORDERED: Morphine Inj 4 MG/ML Vial IV.PUSH ONE ×2 (13:02→15:51)
[2018-03-20] MEDS ORDERED: Sod Chloride 0.9% Inj 1,000 ML IV.SIG ONE (13:07)
--- NOTE | 2018-03-20 13:07 | ED ---
HPI General Chief complaint: Extremity Injury, Upper Stated complaint: Left Wrist Swelling Complaint Time Seen by Provider: 03/20/18 12:49 Source: patient, RN notes reviewed and old records reviewed Mode of arrival: ambulatory Limitations: no limitations History of Present Illness HPI narrative: 38-year-old female presents to the emergency department for evaluation of left wrist pain and swelling that started 3 days ago. Patient reports history of IV drug use. She states she has not injected in this area recently. Patient denies fevers. She states the pain is 10/10 and she cannot move her wrist. Patient is unsure if she could be . She has multiple allergies. She reports past medical history of epilepsy, migraines, states she currently has cervical and ovarian cancer, but is not being treated for it. She states that she injects heroin. Moderate severity. Onset (ago): day(s) (3) Location: left and upper extremity Radiation: non-radiation Severity: moderate Severity scale (1-10): 10 Quality: aching and sharp Pain Consistency: constant Relieving factors: immobilization Exacerbating factors: movement Related Data Home Medications Medication Instructions Recorded Confirmed No Known Home Medications 02/23/18 03/20/18 Allergies Allergy/AdvReac Type Severity Reaction Status Date / Time cephalexin Allergy Severe RECTAL Verified 01/04/18 03:02 BLEED diclofenac Allergy Severe Rectal Verified 01/04/18 03:02 Bleed hornet venom Allergy Severe Anaphylaxis Verified 01/04/18 03:02 latex Allergy Severe Swelling Verified 01/04/18 03:02 penicillin G Allergy Severe VOMITING Verified 01/04/18 03:02 propoxyphene Allergy Severe VOMITING Verified 01/04/18 03:02 rizatriptan Allergy Intermediate Rectal Verified 01/04/18 03:02 Bleed diphtheria toxoid,adsorbed Allergy Unknown UNKNOWN Verified 01/04/18 03:02 REACTION acetaminophen AdvReac Severe SWELLING Verified 01/04/18 03:02 AND VOMITING codeine AdvReac Severe SWELLING Verified 01/04/18 03:02 AND VOMITING doxycycline AdvReac Severe RASH Verified 12/13/17 18:01 Review of Systems ROS: all other systems reviewed are negative PMFSH Social History Social History Substance History: Active Abuse Second Hand Smoke Exposure: Yes Smoking Status: Current every day smoker Tobacco Type: Cigarettes How Often Do You Have a Drink Containing Alcohol: Monthly or less Recent Travel in [facility] within the Last 8 Weeks: No Recent Out of Country Travel within the Last 8 Weeks: No Exam Narrative Exam Narrative: GENERAL: Well-nourished, well-developed female patient, afebrile. SKIN: Focused skin assessment warm/dry. Left wrist is diffusely edematous, erythematous, painful to palpation. HEAD: Normocephalic. Atraumatic EYES: No scleral icterus. No injection or drainage. NECK: Supple, trachea midline. No JVD or lymphadenopathy. CARDIOVASCULAR: Regular rate and rhythm without murmurs, gallops, or rubs. Left radial pulse is 2+ RESPIRATORY: Breath sounds equal bilaterally. No accessory muscle use. Lung sounds are clear to auscultation GASTROINTESTINAL: Abdomen soft, non-tender, nondistended. MUSCULOSKELETAL: No cyanosis, or edema. Range of motion of the left wrist cannot be passively or actively completed. Procedures Joint Aspiration/Injection Joint Asp./Inject. 1: Time Out Performed: Yes Side of Body: left Joint Aspirated: wrist/hand Ultrasound Guidance: No Skin Prep: Povidone-Iodine1% Local Anesthesia Used: lidocaine 1% Amount of anesthesia used (mL): 3 Needle Size Used: 18G Fluid Obtained: clear Patient Tolerated Procedure: well Complications: none Additional Comments: The patient's left wrist joint was aspirated for diagnostic purposes. I was only able to obtain a scant amount of clear yellow fluid. It will be sent for culture. There is not enough fluid for any other studies such as a cell count. Course Initial Documented Vital Signs Temperature 98.4 F 03/20/18 12:37 Pulse Rate 79 03/20/18 12:37 Respiratory Rate 20 03/20/18 12:37 Blood Pressure 135/76 03/20/18 12:37 Pulse Oximetry 100 03/20/18 12:37 Last Documented Vital Signs Temperature 98.4 F 03/20/18 12:37 Pulse Rate 79 03/20/18 12:37 Respiratory Rate 18 03/20/18 15:30 Blood Pressure 135/76 03/20/18 12:37 Pulse Oximetry 99 03/20/18 13:56 Medical Decision Making MARY Attestation MARY supervised visit: Yes Attestation: I, Dr. Miramontes, have reviewed the advance practice practitioner's documentation and am in agreement, met with the patient face to face, made the diagnosis, and the medical decision making was done by me. *My assessment and Findings: This patient presents with the acute onset of left wrist pain and swelling. She has a history of IV drug abuse. She most likely has a septic joint. Please see Lashonda Jade NP's note for a more detailed H&P, final diagnosis and disposition MDM Narrative Medical decision making narrative: 38-year-old female presents to the emergency department for evaluation of left wrist pain, swelling, erythema with history of IV drug use. Exam is concerning for septic arthritis. IV access obtained. CBC, CMP, magnesium, ESR, CRP, PTT, PT/INR, lactic acid, blood cultures x 2 are ordered and pending. X-ray of the left wrist is ordered and pending. CBC shows WBC of 8.3, neutrophils of 70.8. CMP shows no acute abnormality. Magnesium is 2.3. ESR is 19. CRP is 2.60. PTT is 32.3. PT/INR is 10.1/1.0. X-ray of the left wrist shows No acute fracture. I spoke to hand surgeon, Dr. Herring. She recommends aspiration. My attending physician, Dr. Miramontes, aspirate a small amount of clear synovial fluid. Culture is obtained and sent to lab. There is no enough fluid for cell count. Dr. Herring is aware. Patient start on vancomycin [address] Herring would like the patient to remain n.p.o. Hospitalist is paged for admission. Medical Screen Exam Complete: Yes Emergency Medical Condition: Yes Differential Diagnosis Differential Diagnosis: Septic joint versus abscess versus cellulitis versus sepsis Medical Records Medical records reviewed: Yes I reviewed the patient's medical records. Lab Data Result diagrams: 03/20/18 13:44 03/20/18 13:44 POC Results POC Urine Results Negative Lab Results 03/20/18 03/20/18 03/20/18 Range/Units 13:44 13:44 13:44 WBC 8.3 (4.0-11.0) th/mm3 RBC 4.59 (4.00-5.30) mil/mm3 Hgb 11.8 (11.6-15.3) gm/dL Hct 35.6 (35.0-46.0) % MCV 77.6 L (80.0-100.0) fL MCH 25.7 L (27.0-34.0) pg MCHC 33.2 (32.0-36.0) % RDW 16.1 (11.6-17.2) % Plt Count 306 D (150-450) th/mm3 MPV 8.4 (7.0-11.0) fL Neut % (Auto) 70.8 H (16.0-70.0) % Lymph % (Auto) 19.7 (9.0-44.0) % Island % (Auto) 6.7 (0.0-8.0) % Eos % (Auto) 2.2 (0.0-4.0) % Baso % (Auto) 0.6 (0.0-2.0) % Neut # (Auto) 5.9 (1.8-7.7) th/mm3 Lymph # (Auto) 1.6 (1.0-4.8) th/mm3 Island # (Auto) 0.6 (0.0-0.9) th/mm3 Eos # (Auto) 0.2 (0.0-0.4) th/mm3 Baso # (Auto) 0.1 (0.0-0.2) th/mm3 WBC Differential . Differential Comment Auto diff final ESR 19 (0-20) mm/hr PT (9.8-11.6) sec INR Ratio APTT (23.4-31.7) sec Sodium (136-145) meq/L Potassium (3.5-5.1) meq/L Chloride (98-107) meq/L Carbon Dioxide (21.0-32.0) meq/L Anion Gap (5-15) meq/L BUN (7-18) mg/dL Creatinine (0.50-1.00) mg/dL Estimated GFR (>89) mL/min Random Glucose (74-106) mg/dL Lactic Acid (0.4-2.0) mmol/L Calcium (8.5-10.1) mg/dL Magnesium (1.5-2.5) mg/dL Total Bilirubin (0.2-1.0) mg/dL AST (15-37) U/L ALT (10-53) U/L Alkaline Phosphatase (45-117) U/L C-Reactive Protein Cancelled Total Protein (6.4-8.2) g/dL Albumin (3.4-5.0) g/dL 03/20/18 03/20/18 03/20/18 Range/Units 13:44 13:44 14:25 WBC (4.0-11.0) th/mm3 RBC (4.00-5.30) mil/mm3 Hgb (11.6-15.3) gm/dL Hct (35.0-46.0) % MCV (80.0-100.0) fL MCH (27.0-34.0) pg MCHC (32.0-36.0) % RDW (11.6-17.2) % Plt Count (150-450) th/mm3 MPV (7.0-11.0) fL Neut % (Auto) (16.0-70.0) % Lymph % (Auto) (9.0-44.0) % Island % (Auto) (0.0-8.0) % Eos % (Auto) (0.0-4.0) % Baso % (Auto) (0.0-2.0) % Neut # (Auto) (1.8-7.7) th/mm3 Lymph # (Auto) (1.0-4.8) th/mm3 Island # (Auto) (0.0-0.9) th/mm3 Eos # (Auto) (0.0-0.4) th/mm3 Baso # (Auto) (0.0-0.2) th/mm3 WBC Differential Differential Comment ESR (0-20) mm/hr PT 10.1 (9.8-11.6) sec INR 1.0 Ratio APTT 32.3 H (23.4-31.7) sec Sodium 136 (136-145) meq/L Potassium 4.7 (3.5-5.1) meq/L Chloride 103 (98-107) meq/L Carbon Dioxide 27.1 (21.0-32.0) meq/L Anion Gap 6 (5-15) meq/L BUN 12 (7-18) mg/dL Creatinine 0.70 (0.50-1.00) mg/dL Estimated GFR Greater than 89 (>89) mL/min Random Glucose 106 (74-106) mg/dL Lactic Acid 1.1 (0.4-2.0) mmol/L Calcium 8.5 (8.5-10.1) mg/dL Magnesium 2.3 (1.5-2.5) mg/dL Total Bilirubin 0.4 (0.2-1.0) mg/dL AST 55 H (15-37) U/L ALT 58 H (10-53) U/L Alkaline Phosphatase 105 (45-117) U/L C-Reactive Protein 2.60 H Total Protein 8.2 (6.4-8.2) g/dL Albumin 3.4 (3.4-5.0) g/dL Imaging Data Radiologist's impression: Wrist X-Ray 03/20/18 12:59 CONCLUSION: 1. No acute fracture. Discharge Plan Discharge Disposition Patient Disposition: 30 Still Patient Discharge Details Diagnosis: Joint infection of left wrist Physicians Team ED Provider: Malissa Miramontes ED Midlevel Provider: Lashonda Jade Primary Care Provider: Armaan Ed[place]ending Provider: Richard Worthington Status ED Status: Admitted Patient
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
[2018-03-20 14:06] LABS: Baso # (Auto) 0.1 th/mm3 (0.0-0.2); Lymph # (Auto) 1.6 th/mm3 (1.0-4.8)
[2018-03-20 14:24] LABS: Alanine Aminotransferase 58 U/L (10-53)
[2018-03-20 14:26] LABS: Alkaline Phosphatase 105 U/L (45-117); Total Protein 8.2 g/dL (6.4-8.2)
[2018-03-20 14:28] LABS: Albumin 3.4 g/dL (3.4-5.0); Anion Gap 6 meq/L (5-15); Aspartate Aminotransferase 55 U/L (15-37); Blood Urea Nitrogen 12 mg/dL (7-18); Calcium 8.5 mg/dL (8.5-10.1); Carbon Dioxide 27.1 meq/L (21.0-32.0); Chloride 103 meq/L (98-107); Glomerular Filtration Rate Greater Than 89 mL/min (>89); Glucose,Random 106 mg/dL (74-106); Magnesium 2.3 mg/dL (1.5-2.5); Potassium 4.7 meq/L (3.5-5.1); Sodium 136 meq/L (136-145)
[2018-03-20] MEDS ORDERED: Vancomycin Inj 1,000 MG in Sodium Chlor 0.9% Inj 250 ML IV.SIG ONE (14:46)
[2018-03-20 15:01] LABS: Hematocrit 35.6 % (35.0-46.0); Hemoglobin 11.8 gm/dL (11.6-15.3); Mean Corpuscular HGB Conc 33.2 % (32.0-36.0); Mean Corpuscular Hemoglobin 25.7 pg (27.0-34.0); Mean Corpuscular Volume 77.6 fL (80.0-100.0); Red Blood Count 4.59 mil/mm3 (4.00-5.30)
[2018-03-20 15:02] LABS: Baso % (Auto) 0.6 % (0.0-2.0); Eos % (Auto) 2.2 % (0.0-4.0); Lymph % (Auto) 19.7 % (9.0-44.0); Mean Platelet Volume 8.4 fL (7.0-11.0); Mono % (Auto) 6.7 % (0.0-8.0); Neut # (Auto) 5.9 th/mm3 (1.8-7.7); Neut % (Auto) 70.8 % (16.0-70.0); Platelet Count 306 th/mm3 (150-450); Red Cell Distribution Width 16.1 % (11.6-17.2)
[2018-03-20 15:03] LABS: Eos # (Auto) 0.2 th/mm3 (0.0-0.4); Mono # (Auto) 0.6 th/mm3 (0.0-0.9)
[2018-03-20 15:05] LABS: White Blood Count 8.3 th/mm3 (4.0-11.0)
[2018-03-20 15:06] LABS: Activated Partial Thrombo Time 32.3 sec (23.4-31.7); Prothrombin Time 10.1 sec (9.8-11.6)
[2018-03-20] MEDS ORDERED: Bisacodyl 10 MG Supp RECTAL PRN (17:19)
--- NOTE | 2018-03-20 17:21 | P.HPFP ---
History of Present Illness Primary Care Physician: [facility] [place] [facility] <Richard Worthington - 03/23/18 11:39> [facility] [place] [facility] <Denny Cortes Eduin - 03/20/18 17:31> History of Present Illness: This is a 38-year-old female with a history of IV drug use heart murmur, untreated uterine, ovarian and cervical cancer, and previous cellulitis being admitted after a 3 day history swelling and pain in the left wrist. Patient reports that the pain began approximately 3 mornings ago. She reports that she woke up and found that the lateral side of her wrist was swollen and painful. Since then the swelling has increased and has become even more painful. She decided yesterday to seek medical attention but waited until today to come in. Over the last 3 days she admits to taking an unknown quantity of leftover doxycycline with no resolve. She reports that the pain is constant, non-radiating and describes it as burning with a sharpness in the center accompanied by moments of exacerbation. She also reports paresthesias throughout the volar and palmar aspect of her left hand that began at 1030 this morning. There are no relieving or exacerbating factors. She has also experienced nausea with nonbloody nonbilious vomiting with the last emesis being this morning. She also reported the onset of hard painless bumps all over her body that began a week ago. Although she admits to injecting into her left arm she denies shooting up over the dorsum of her wrist or volar aspect of her hand. She also reported lancing an abscess on the medial aspect of the left forearm that was present for 1 month but lanced 1 week ago. Per patient she was also experiencing shortness of breath that began approximately 1 month ago which she describes as difficulty breathing but attributes it to her long smoking history. She denies any fevers, chills, flank pain, urinary frequency, dysuria, chest pain, abdominal pain, diarrhea, or constipation. PMHx: Migraines Epilepsy Heart murmur diagnosed during childhood. Uterine, ovarian, and cervical cancer diagnosed at 18 and treated at 20 with surgery with chemotherapy and radiation. Patient was in remission until approximately 5 years ago and has remained untreated. Last oncological appointment was 6 months ago. Meds: Gabapentin, topomax, keppra and Prilosec has not taken meds in 2 weeks Surgical Hx: Ovarian and uterine cyst removal and 4 R knee surgeries FMHx: HTN, hyperlipidemia, gynecological cancers, Diabetes Social: Lives with friend Sarbjit, does not work and is currently on disability. She has three children ages 19, 17, and 1yr 2mo. The 17 year old lives with father and the 1yr old is in foster care. She admits to using IV heroin, and admits that she snorted heroin before coming to the hospital. She began using heroin since age 13 but was clean for 4-1/2 years but relapsed after the of her son. She also reports that she occasionally uses meth. Her preferred site of injection is a back of her left arm. She reports consuming alcohol a couple times a year and has smoked a pack of cigarettes daily for 25 years. Allergies: DTP vaccines Code: DNR PE bumps a weeks ago <Denny Cortes - 03/20/18 23:17> - Diagnosis (1) Joint infection of left wrist (2) Cervical cancer (3) Polysubstance abuse (4) Epilepsy (5) Anxiety (6) HCV antibody positive (7) Nutrition, metabolism, and development symptoms <Richard Worthington - 03/23/18 11:39> (1) Joint infection of left wrist (2) Cervical cancer (3) Polysubstance abuse (4) Epilepsy (5) Nutrition, metabolism, and development symptoms <Denny Cortes - 03/21/18 06:54> Inpatient Certification: I certify that the inpatient services were ordered in accordance with Medicare regulations governing the order. This includes certification that hospital inpatient services are reasonable and necessary and in the case of services not specified as inpatient-only under 42 CFR 419.22(n), that they are appropriately provided as inpatient services in accordance to with the 2-midnight benchmark under 43 CFR 412.3(e) <Richard Worthington - 03/23/18 11:39> I certify that the inpatient services were ordered in accordance with Medicare regulations governing the order. This includes certification that hospital inpatient services are reasonable and necessary and in the case of services not specified as inpatient-only under 42 CFR 419.22(n), that they are appropriately provided as inpatient services in accordance to with the 2-midnight benchmark under 43 CFR 412.3(e) <Denny Cortes - 03/20/18 17:31> Review of Systems Constitutional: Denies chills, Denies fever(s), Denies headache(s), Denies dizziness, Eyes: Denies change in vision, Denies double vision, Denies blurry vision Cardiovascular: Denies chest pain, Denies fast heart rate, Denies rapid, pounding, or irregular heartbeat Respiratory: Endorses shortness of breath Gastrointestinal: Endorses nausea with nonbilious nonbloody vomiting, denies abdominal pain, Denies constipation, Denies loose stools Genitourinary: Denies difficulty urinating, Denies painful urination, Denies urinary frequency, Denies blood in urine <Denny Cortes - 03/20/18 23:08> PMFSH - History History Provided By: Patient <Denny Cortes - 03/20/18 17:31> - Medical History Medical History: Medical History (Last Reviewed 03/20/18 @ 12:37 by Clara Burroughs) Migraine (Acute) Anemia (Acute) HPV in female (Acute) Cervical cancer (Acute) Ovarian cancer (Acute) Mitral valve prolapse (Acute) Epilepsy (Acute) <Richard Worthington - 03/23/18 11:39> Medical History (Last Reviewed 03/20/18 @ 12:37 by Clara Burroughs) Migraine (Acute) Anemia (Acute) HPV in female (Acute) Cervical cancer (Acute) Ovarian cancer (Acute) Mitral valve prolapse (Acute) Epilepsy (Acute) <Denny Cortes - 03/20/18 17:31> - Surgical History Surgical History: Surgical History (Last Reviewed 03/20/18 @ 12:37 by Clara Burroughs) History of knee surgery (Acute) History of dilatation and curettage <Richard Worthington - 03/23/18 11:39> Surgical History (Last Reviewed 03/20/18 @ 12:37 by Clara Burroughs) History of knee surgery (Acute) History of dilatation and curettage <Denny Cortes - 03/20/18 17:31> - Tobacco History Second Hand Smoke Exposure: Yes <Denny Cortes - 03/20/18 17:31> Tobacco Use In Past 30 Days: Yes <Denny Cortes - 03/20/18 17:31> Smoking Status: Current every day smoker <Denny Cortes 03/20/18 17:31> Tobacco Type: Cigarettes <Denny Cortes 03/20/18 17:31> - Alcohol History How Often Do You Have a Drink Containing Alcohol: Monthly or less <Denny Cortes 03/20/18 17:31> - Substance Use History Substance History: Active Abuse <Denny Cortes 03/20/18 17:31> - Substance Use Type Heroin Status: Active <Denny Cortes 03/20/18 17:31> Route Used: Inhalation <Denny Cortes 03/20/18 17:31> Reason for Use: Calm Down <Denny Cortes 03/20/18 17:31> - Travel History Recent Travel in the [facility] Within the Last 8 Weeks: No <Denny Cortes 17:31> Recent Travel Out of the Country Within the Last 8 Weeks: No <Denny Cortes 03/20/18 17:31> - Immunization History Tetanus Immunization: Unsure <Denny Cortes 03/20/18 17:31> Medications and Allergies Allergies Allergy/AdvReac Type Severity Reaction Status Date / Time cephalexin Allergy Severe RECTAL Verified 01/04/18 03:02 BLEED diclofenac Allergy Severe Rectal Verified 01/04/18 03:02 Bleed hornet venom Allergy Severe Anaphylaxis Verified 01/04/18 03:02 latex Allergy Severe Swelling Verified 01/04/18 03:02 penicillin G Allergy Severe VOMITING Verified 01/04/18 03:02 propoxyphene Allergy Severe VOMITING Verified 01/04/18 03:02 rizatriptan Allergy Intermediate Rectal Verified 01/04/18 03:02 Bleed diphtheria toxoid,adsorbed Allergy Unknown UNKNOWN Verified 01/04/18 03:02 REACTION acetaminophen AdvReac Severe SWELLING Verified 01/04/18 03:02 AND VOMITING codeine AdvReac Severe SWELLING Verified 01/04/18 03:02 AND VOMITING doxycycline AdvReac Severe RASH Verified 12/13/17 18:01 <Richard Worthington - 03/23/18 11:39> Home Medications Medication Instructions Recorded Confirmed Type No Known Home Medications 02/23/18 03/20/18 History <Richard Worthington - 03/23/18 11:39> Active Medications: Active Medications Al Hydroxide/Mg Hydroxide (Milk Of Magnesia Liq) 30 ml PO Q12H PRN PRN Reason: Mild Constipation Alprazolam (Xanax) 0.5 mg PO Q8H PRN PRN Reason: ANXIETY Bisacodyl (Dulcolax Supp) 10 mg RECTAL DAILY PRN PRN Reason: SEVERE CONSITIPATION Hydromorphone HCl (Dilaudid Pf Inj) 1 mg IV.PUSH Q3H PRN PRN Reason: BREAKTHROUGH PAIN Last Admin: 03/23/18 06:45 Dose: 1 mg Vancomycin HCl 750 mg/ Sodium (Chloride) 257.5 mls @ 250 mls/hr IV.SIG Q12H [facility] Last Infusion: 03/22/18 23:40 Dose: Infused Sodium Chloride (Ns Inj) 1,000 mls @ 92 mls/hr IV.CONT .[id number] [facility] Last Admin: 03/23/18 03:40 Dose: Not Given Piperacillin/Tazobactam/Dextrose (Zosyn 4.5 Gm Premix) 4.5 gm in 100 mls @ 200 mls/hr IV.SIG Q6H [facility] Last Infusion: 03/23/18 06:50 Dose: Infused Lactulose (Lactulose Liq) 30 ml PO DAILY PRN PRN Reason: SEVERE CONSITIPATION Miscellaneous (Pill Splitter) 1 each OTHER UNSCH PRN PRN Reason: SEE LABEL COMMENTS Miscellaneous Information ([facility] Ordered Lab Info) 0 each OTHER ONCE ONE Stop: 03/23/18 20:46 Morphine Sulfate (Morphine Inj) 4 mg IV.PUSH Q3H PRN PRN Reason: pain6-10 Last Admin: 03/23/18 09:50 Dose: 4 mg Morphine Sulfate (Morphine Inj) 2 mg IV.PUSH Q3H PRN PRN Reason: Pain 1-5 Last Admin: 03/23/18 02:27 Dose: 2 mg Naloxone HCl (Narcan Inj) 0.4 mg IV.PUSH UNSCH PRN PRN Reason: SEE LABEL COMMENTS Nicotine (Habitrol 21 Mg Patch.24 Hr) 1 patch T-DERMAL DAILY [facility] Last Admin: 03/23/18 11:01 Dose: 1 patch Patch Removal (Remove Old Patch) 1 each T-DERMAL HS [facility] Last Admin: 03/22/18 23:48 Dose: Not Given Pharmacy Profile Note (Vancomycin Consult Pharmacy) 1 each OTHER [facility] Sennosides (Senokot) 17.2 mg PO Q12H PRN PRN Reason: Moderate Constipation <Richard Worthington - 03/23/18 11:39> Exam Vital signs: Vital Signs 03/22/18 11:41 03/22/18 12:00 03/22/18 14:38 Temperature 98.4 F Pulse Rate 95 H Respiratory Rate 16 20 16 Blood Pressure 126/58 L Pulse Oximetry 98 03/22/18 14:59 03/22/18 16:00 03/22/18 17:27 Temperature 98.3 F Pulse Rate 91 H Respiratory Rate 16 18 16 Blood Pressure 97/55 L Pulse Oximetry 100 03/22/18 18:05 03/22/18 20:00 03/23/18 00:00 Temperature 97.6 F 98.3 F Pulse Rate 85 89 Respiratory Rate 16 18 18 Blood Pressure 119/58 L 133/57 L Pulse Oximetry 98 99 03/23/18 04:00 03/23/18 08:00 Temperature 97.9 F 98.8 F Pulse Rate 79 84 Respiratory Rate 18 18 Blood Pressure 114/68 113/60 Pulse Oximetry 99 100 Intake & Output 03/22/18 03/23/18 03/23/18 18:59 06:59 18:59 Intake Total 1457.5 / 1457.5 457.5 / 457.5 Balance 1457.5 / 1457.5 457.5 / 457.5 Intake: IV 1457.5 / 1457.5 457.5 / 457.5 NS Inj 1,000 ML @ 92 mls/hr IV. 1000 / 1000 CONT .[id number] [facility] Rx#:[id number] Zosyn 4.5 GM Premix 4.5 gm In 200 / 200 200 / 200 100 ml @ 200 mls/hr IV.SIG Q6H [facility] Rx#:[id number] Vancomycin Inj 750 MG In NS Inj 257.5 / 257.5 257.5 / 257.5 250 ML @ 250 mls/hr IV.SIG Q12H [facility] Rx#:[id number] Other: # Voids 4 Date of Last Bowel Movement 03/21/18 <Richard Worthington - 03/23/18 11:39> Vital Signs 03/20/18 12:37 03/20/18 13:56 03/20/18 15:30 Temperature 98.4 F Pulse Rate 79 Respiratory Rate 20 18 Blood Pressure 135/76 Pulse Oximetry 100 99 Intake & Output 03/19/18 03/20/18 03/20/18 18:59 06:59 18:59 Weight 51.71 kg <Denny Cortes O - 03/20/18 17:31> Narrative: GENERAL: Thin appearing malnourished female that was currently in pain. SKIN: Multiple hard but mobile nodules that were approximately 2-1/2-3 cm in diameter and raised 1-2 cm off the skin that were over left lateral upper arm, right forearm, and lower extremities. A healed large scab on the dorsal aspect of the medial left forearm. EYES: No scleral icterus. No injection or drainage. PERRLA. EOMI. HENT: Normocephalic. Atraumatic. Pharynx was without erythema or exudate. Patient has some at this ulcers on the inside of her lower lip and had no dentition. NECK: Supple, trachea midline. No JVD anterior cervical lymphadenopathy present bilaterally. CARDIOVASCULAR: Regular rate and rhythm with harsh and prominent S2. No other murmurs were appreciated. RESPIRATORY: Breath sounds equal bilaterally. No accessory muscle use. CTAB. GASTROINTESTINAL: Abdomen soft, non-tender, nondistended. BS WNL. MUSCULOSKELETAL: Left wrist was taut with erythematous skin overlying the dorsum of left wrist extending from the metacarpals to partially upper forearm. Her fingers were well perfused but cool to the touch. No signs of draining. Pain elicited on light palpation. No induration was appreciated. Patient was able to slightly flex and extend fingers but with significant pain. BACK: Nontender without obvious deformity. No CVA tenderness. NEURO/PSYCH: Afocal. Awake, alert, and oriented x3. <Cortes,Jose Eduin - 03/20/18 23:17> Results - Labs Result diagrams: 03/22/18 06:15 03/22/18 06:15 <Richard Worthington - 03/23/18 11:39> Abnormal lab results 03/20/18 03/20/18 03/20/18 Range/Units 13:44 13:44 14:25 MCV 77.6 L (80.0-100.0) fL MCH 25.7 L (27.0-34.0) pg Neut % (Auto) 70.8 H (16.0-70.0) % APTT 32.3 H (23.4-31.7) sec AST 55 H (15-37) U/L ALT 58 H (10-53) U/L C-Reactive Protein 2.60 H (0.00-0.30) mg/dL Short CBC 03/20/18 Range/Units 13:44 WBC 8.3 (4.0-11.0) th/mm3 Hgb 11.8 (11.6-15.3) gm/dL Hct 35.6 (35.0-46.0) % Plt Count 306 D (150-450) th/mm3 BMP 03/20/18 13:44 Sodium 136 Potassium 4.7 Chloride 103 Carbon Dioxide 27.1 BUN 12 Creatinine 0.70 Calcium 8.5 Liver Function 03/20/18 Range/Units 13:44 Total Bilirubin 0.4 (0.2-1.0) mg/dL AST 55 H (15-37) U/L ALT 58 H (10-53) U/L Alkaline Phosphatase 105 (45-117) U/L Albumin 3.4 (3.4-5.0) g/dL <Denny Cortes 03/20/18 17:31> - Imaging Impressions Wrist X-Ray 03/20/18 12:59 CONCLUSION: 1. No acute fracture. <Denny Cortes 03/20/18 17:31> Caprini VTE Risk Assessment Caprini VTE Risk Assessment: No/Low Risk (score <= 1) <Denny Cortes 06:54> Caprini Risk Assessment Model: Point Value = 1 Point Value = 2 Point Value = 3 Point Value = 5 Age 41-60 Minor surgery BMI > 25 kg/m2 Swollen legs Varicose veins or History of unexplained or recurrent spontaneous Oral contraceptives or hormone replacement Sepsis (< 1 month) Serious lung disease, including pneumonia (< 1 month) Abnormal pulmonary function Acute myocardial infarction Congestive heart failure (< 1 month) History of inflammatory bowel disease Medical patient at bed rest Age 61-74 Arthroscopic surgery Major open surgery (> 45 min) Laparoscopic surgery (> 45 min) Malignancy Confined to bed (> 72 hours) Immobilizing plaster cast Central venous access Age >= 75 History of VTE Family history of VTE Factor V Leiden Prothrombin [id number] Lupus anticoagulant Anticardiolipin antibodies Elevated serum homocysteine Heparin-induced thrombocytopenia Other congenital or acquired thrombophilia Stroke (< 1 month) Elective arthroplasty Hip, pelvis, or leg fracture Acute spinal cord injury (< 1 month) <Richard Worthington - 03/23/18 11:39> Point Value = 1 Point Value = 2 Point Value = 3 Point Value = 5 Age 41-60 Minor surgery BMI > 25 kg/m2 Swollen legs Varicose veins or History of unexplained or recurrent spontaneous Oral contraceptives or hormone replacement Sepsis (< 1 month) Serious lung disease, including pneumonia (< 1 month) Abnormal pulmonary function Acute myocardial infarction Congestive heart failure (< 1 month) History of inflammatory bowel disease Medical patient at bed rest Age 61-74 Arthroscopic surgery Major open surgery (> 45 min) Laparoscopic surgery (> 45 min) Malignancy Confined to bed (> 72 hours) Immobilizing plaster cast Central venous access Age >= 75 History of VTE Family history of VTE Factor V Leiden Prothrombin [id number] Lupus anticoagulant Anticardiolipin antibodies Elevated serum homocysteine Heparin-induced thrombocytopenia Other congenital or acquired thrombophilia Stroke (< 1 month) Elective arthroplasty Hip, pelvis, or leg fracture Acute spinal cord injury (< 1 month) <Denny Cortes - 03/20/18 17:31> Prophylaxis Regimen: Total Risk Factor Score Risk Level Prophylaxis Regimen 0-1 Low Early ambulation 2 Moderate Order ONE of the following: *Sequential Compression Device (SCD) *Heparin 5000 units SQ BID 3-4 Higher Order ONE of the following medications: *Heparin 5000 units SQ TID *Enoxaparin/Lovenox 40 mg SQ daily (WT < 150 kg, CrCl > 30 mL/min) *Enoxaparin/Lovenox 30 mg SQ daily (WT < 150 kg, CrCl > 10-29 mL/min) *Enoxaparin/Lovenox 30 mg SQ BID (WT < 150 kg, CrCl > 30 mL/min) AND/OR *Sequential Compression Device (SCD) 5 or more Highest Order ONE of the following medications: *Heparin 5000 units SQ TID (Preferred with Epidurals) *Enoxaparin/Lovenox 40 mg SQ daily (WT < 150 kg, CrCl > 30 mL/min) *Enoxaparin/Lovenox 30 mg SQ daily (WT < 150 kg, CrCl > 10-29 mL/min) *Enoxaparin/Lovenox 30 mg SQ BID (WT < 150 kg, CrCl > 30 mL/min) AND *Sequential Compression Device (SCD) <Richard Worthington - 03/23/18 11:39> Total Risk Factor Score Risk Level Prophylaxis Regimen 0-1 Low Early ambulation 2 Moderate Order ONE of the following: *Sequential Compression Device (SCD) *Heparin 5000 units SQ BID 3-4 Higher Order ONE of the following medications: *Heparin 5000 units SQ TID *Enoxaparin/Lovenox 40 mg SQ daily (WT < 150 kg, CrCl > 30 mL/min) *Enoxaparin/Lovenox 30 mg SQ daily (WT < 150 kg, CrCl > 10-29 mL/min) *Enoxaparin/Lovenox 30 mg SQ BID (WT < 150 kg, CrCl > 30 mL/min) AND/OR *Sequential Compression Device (SCD) 5 or more Highest Order ONE of the following medications: *Heparin 5000 units SQ TID (Preferred with Epidurals) *Enoxaparin/Lovenox 40 mg SQ daily (WT < 150 kg, CrCl > 30 mL/min) *Enoxaparin/Lovenox 30 mg SQ daily (WT < 150 kg, CrCl > 10-29 mL/min) *Enoxaparin/Lovenox 30 mg SQ BID (WT < 150 kg, CrCl > 30 mL/min) AND *Sequential Compression Device (SCD) <Denny Cortes - 03/20/18 17:31> Assessment and Plan - Assessment (1) Joint infection of left wrist Code(s): M00.9 - Pyogenic arthritis, unspecified Status: Acute (2) Cervical cancer Code(s): C53.9 - Malignant neoplasm of cervix uteri, unspecified Status: Chronic (3) Polysubstance abuse Code(s): F19.10 - Other psychoactive substance abuse, uncomplicated Status: Chronic (4) Epilepsy Code(s): G40.909 - Epilepsy, unspecified, not intractable, without status epilepticus Status: Acute (5) Anxiety Code(s): F41.9 - Anxiety disorder, unspecified Status: Acute (6) HCV antibody positive Code(s): R76.8 - Other specified abnormal immunological findings in serum Status: Acute (7) Nutrition, metabolism, and development symptoms Code(s): R63.8 - Other symptoms and signs concerning food and fluid intake Status: Acute <Richard Worthington - 03/23/18 11:39> (1) Joint infection of left wrist Code(s): M00.9 - Pyogenic arthritis, unspecified Status: Acute Plan: This is a 38-year-old female with a history of IV drug use heart murmur, untreated uterine, ovarian and cervical cancer, and previous cellulitis being admitted after a 3 day history swelling and pain in the left wrist. In the ED the wrist was attempted to be aspirated but only yielded a very little amount of clear synovial fluid and culture was sent to the lab. Patient received 1 dose of vancomycin in the ED. x-ray of the wrist showed no acute fracture. -Follow-up with hand surgery consultation -Follow-up with ID consult -Follow-up with cultures -Continue vancomycin until cultures returned -Keep n.p.o. for possible surgery -Morphine and Dilaudid for pain (2) Cervical cancer Code(s): C53.9 - Malignant neoplasm of cervix uteri, unspecified Status: Acute Plan: This patient reports a history of cervical, uterine, and ovarian cancer previously treated with chemotherapy and radiation but relapsed approximately 5 years ago. She reports that she has decided to not pursue treatment but has followed up with her oncologist 6 months ago. (3) Polysubstance abuse Code(s): F19.10 - Other psychoactive substance abuse, uncomplicated Status: Acute Plan: This patient reports a long history of polysubstance abuse to include IV heroin , snorting heroin, and use of methamphetamine. She is also a lifetime cigarette smoker. Patient currently not interested in assistance with getting clean. Patient did request nicotine patch. CIWA protocol currently not indicated. -Follow up with Echo -Continue nicotine patch -Continue to evaluate and encourage patient to seek treatment (4) Epilepsy Code(s): G40.909 - Epilepsy, unspecified, not intractable, without status epilepticus Status: Acute Plan: Patient reports having history of epilepsy previously on Keppra of unknown dosage or quantity. Patient discontinued her medication over 2 weeks ago. A message to them and sent to nursing staff to reconcile medications. Once medications are reconciled will continue home dose of Keppra. -Follow-up with medicine reconciliation (5) Nutrition, metabolism, and development symptoms Code(s): R63.8 - Other symptoms and signs concerning food and fluid intake Status: Acute Plan: Fluids: 92 mL/h of normal saline Electrolytes: Replete as needed Nutrition: N.p.o. until released by hand surgery DVT prophylaxis: SCDs due to possible surgery <Denny Cortes - 03/21/18 06:54> - Attending Attestation See the residents documentation for details. I saw and evaluated the patient regarding the burk portions of this evaluation and agree with the residents findings and plans as written. Parts of this note were created using [employer] voice recognition software program. While efforts were made to correct any mistakes made by this software, some mistakes, errors, and omissions may remain in the final note that were not caught when the note was originally created. Plan of care was discussed and agreed upon with the patient as specifically documented in the above note. An opportunity to ask questions with explanation was provided. Patient voiced understanding on all information reviewed and discussed. <Richard Worthington - 03/23/18 11:39>
[2018-03-20] MEDS ORDERED: Naloxone Inj 0.4 MG/ML Vial IV.PUSH PRN (18:37)
--- NOTE | 2018-03-20 20:57 | MB ---
cc: Brianda Herring MD DATE: 03/20/2018 REASON FOR CONSULTATION: Left wrist pain. HISTORY OF PRESENT ILLNESS: Chela Morales is a 38-year-old right-hand dominant female with a past medical history significant for IV drug use including heroin, heart murmur, previous cellulitis, presents with pain of the left wrist, worsening over the past 3 days per the patient. She denies any injury. She denies injecting over the left wrist, although she does have a scabbed area over the volar ulnar aspect of the left forearm. She reports paresthesias in the median nerve distribution on the left, worsening today. She reports no significant improvement since admission this afternoon. She did have something to eat around approximately 1 p.m. The patient states she did take some doxycycline, which she had at home. PAST MEDICAL HISTORY: Migraines, heart murmur, uteroovarian and cervical cancer. MEDICATIONS: 1. Gabapentin. 2. Topamax. 3. Keppra. 4. Prilosec. PAST SURGICAL HISTORY: Ovarian-uterine cyst surgery, knee surgery. SOCIAL HISTORY: The patient is on disability. The patient reports recent heroin use. The patient does smoke 1 pack per day. Social alcohol use. PHYSICAL EXAMINATION: The patient is alert and oriented. Complaining of pain over the left wrist. Exam of the left wrist shows good capillary refill to the fingers. Palpable radial pulse. Pain with range of motion of the left wrist. Function intact to finger extensors and flexors, but exam limited due to pain. Sensation decreased in the median nerve distribution intact in the ulnar and radial distribution. Compartments are soft and compressible. No obvious abscess. Again, scab on the volar ulnar aspect of the left forearm with no drainage. No pain with range of motion of the left elbow. LABS: White count of 8.3, ESR 19, CRP 2.6. IMAGING: X-ray of the left wrist shows no significant abnormalities. No evidence of osteomyelitis. No evidence of fracture or dislocation. ASSESSMENT AND PLAN: A 38-year-old female with pain over the left wrist and paresthesias in the ulnar nerve distribution on the left. The patient has been started on antibiotics. Per the emergency room, the wrist was aspirated with clear fluid. No evidence of pus. At this time, recommend following the cultures as well as MRI of the left wrist. The patient should remain n.p.o. at this time. At this time, no evidence of compartment syndrome. Following MRI, the patient may require surgical intervention, as well as possible carpal tunnel release. In the meantime, anti-inflammatories and elevation. We will continue to follow. The patient should remain n.p.o. at this time. MD YOLANDA Ram/eben , 07:26 PM , 07:34 PM MOLLY
[2018-03-20] MEDS: Morphine Inj 4 MG/ML Vial IV.PUSH PRN (21:14)
[2018-03-20] MEDS: Vancomycin Inj 750 MG in Sodium Chlor 0.9% Inj 250 ML IV.SIG SCH (21:46)
[2018-03-20] MEDS: Sod Chloride 0.9% Inj 1,000 ML IV.CONT SCH (21:46)
--- NOTE | 2018-03-20 22:00 | ECG ---
Date Performed: 03/20/2018 Time Performed: 13:14:16 PTAGE: 38 years EKG: Sinus rhythm WITH SINUS ARRHYTHMIA NORMAL ECG No significant change from prior electrocardiogram. PREVIOUS TRACING : 08/01/2017 07.20 DOCTOR: Amilcar Gordon Interpretating Date/Time 03/20/2018 21:58:45
[2018-03-21] MEDS: Morphine Sulfate Inj 2 MG/ML Vial IV.PUSH PRN ×3 (00:30→06:15)
[2018-03-21] MEDS: Sod Chloride 0.9% Inj 1,000 ML IV.CONT SCH ×2 (08:20→19:01)
[2018-03-21] MEDS: Vancomycin Inj 750 MG in Sodium Chlor 0.9% Inj 250 ML IV.SIG SCH ×2 (08:20→20:41)
[2018-03-21 08:26] LABS: Baso % (Auto) 0.5 % (0.0-2.0); Eos # (Auto) 0.2 th/mm3 (0.0-0.4); Eos % (Auto) 2.8 % (0.0-4.0); Hematocrit 34.8 % (35.0-46.0); Hemoglobin 11.3 gm/dL (11.6-15.3); Lymph # (Auto) 1.3 th/mm3 (1.0-4.8); Lymph % (Auto) 16.9 % (9.0-44.0); Mean Corpuscular HGB Conc 32.5 % (32.0-36.0); Mean Corpuscular Hemoglobin 25.3 pg (27.0-34.0); Mean Corpuscular Volume 77.7 fL (80.0-100.0); Mean Platelet Volume 8.3 fL (7.0-11.0); Mono # (Auto) 0.6 th/mm3 (0.0-0.9); Mono % (Auto) 7.7 % (0.0-8.0); Neut # (Auto) 5.6 th/mm3 (1.8-7.7); Neut % (Auto) 72.1 % (16.0-70.0); Platelet Count 276 th/mm3 (150-450); Red Blood Count 4.48 mil/mm3 (4.00-5.30); Red Cell Distribution Width 16.4 % (11.6-17.2); White Blood Count 7.7 th/mm3 (4.0-11.0)
[2018-03-21 08:28] LABS: Prothrombin Time 10.6 sec (9.8-11.6)
[2018-03-21 08:50] LABS: Anion Gap 9 meq/L (5-15); Aspartate Aminotransferase 50 U/L (15-37); Blood Urea Nitrogen 5 mg/dL (7-18); Calcium 8.5 mg/dL (8.5-10.1); Carbon Dioxide 24.3 meq/L (21.0-32.0); Chloride 104 meq/L (98-107); Glomerular Filtration Rate Greater Than 89 mL/min (>89); Glucose,Random 91 mg/dL (74-106); Potassium 4.2 meq/L (3.5-5.1); Sodium 137 meq/L (136-145)
[2018-03-21 08:51] LABS: Alanine Aminotransferase 72 U/L (10-53)
[2018-03-21 08:53] LABS: Alkaline Phosphatase 96 U/L (45-117); Total Protein 7.3 g/dL (6.4-8.2)
[2018-03-21] MEDS: Morphine Inj 4 MG/ML Vial IV.PUSH PRN ×3 (09:06→20:39)
[2018-03-21 09:38] LABS: Hepatitis A IgM Antibody Nonreactive (Nonreactive)
[2018-03-21 09:39] LABS: Hepatitits B Surface Antigen Nonreactive (Nonreactive)
[2018-03-21] MEDS: HYDROmorphone PF Inj 1 MG/ML Ampul IV.PUSH PRN ×3 (11:36→22:40)
--- NOTE | 2018-03-21 11:37 | P.PNFP ---
Subjective Interval history: No acute events overnight. Patient seen and examined this AM. Remains afebrile, vitals stable. Patient reports continued pain and swelling of the left wrist. Denies severe pain of this area or pain worsening from admission. Denies fevers, chills, palpitations. <Neo Hutchinson - 03/21/18 11:37> Results - Labs Result diagrams: 03/22/18 06:15 03/22/18 06:15 <Richard Worthington - 03/23/18 11:48> Abnormal lab results 03/20/18 03/20/18 03/20/18 Range/Units 13:44 13:44 14:25 Hgb (11.6-15.3) gm/dL Hct (35.0-46.0) % MCV 77.6 L (80.0-100.0) fL MCH 25.7 L (27.0-34.0) pg Neut % (Auto) 70.8 H (16.0-70.0) % APTT 32.3 H (23.4-31.7) sec BUN (7-18) mg/dL AST 55 H (15-37) U/L ALT 58 H (10-53) U/L C-Reactive Protein 2.60 H (0.00-0.30) mg/dL Albumin (3.4-5.0) g/dL Hep C IgG Ab (Nonreactive) 03/21/18 03/21/18 03/21/18 Range/Units 07:57 07:57 07:57 Hgb 11.3 L (11.6-15.3) gm/dL Hct 34.8 L (35.0-46.0) % MCV 77.7 L (80.0-100.0) fL MCH 25.3 L (27.0-34.0) pg Neut % (Auto) 72.1 H (16.0-70.0) % APTT (23.4-31.7) sec BUN 5 L (7-18) mg/dL AST 50 H (15-37) U/L ALT 72 H (10-53) U/L C-Reactive Protein (0.00-0.30) mg/dL Albumin 3.0 L (3.4-5.0) g/dL Hep C IgG Ab Reactive H (Nonreactive) Short CBC 03/20/18 03/21/18 Range/Units 13:44 07:57 WBC 8.3 7.7 (4.0-11.0) th/mm3 Hgb 11.8 11.3 L (11.6-15.3) gm/dL Hct 35.6 34.8 L (35.0-46.0) % Plt Count 306 D 276 (150-450) th/mm3 BMP 03/20/18 03/21/18 13:44 07:57 Sodium 136 137 Potassium 4.7 4.2 Chloride 103 104 Carbon Dioxide 27.1 24.3 BUN 12 5 L Creatinine 0.70 0.58 Calcium 8.5 8.5 Liver Function 03/20/18 03/21/18 Range/Units 13:44 07:57 Total Bilirubin 0.4 0.4 (0.2-1.0) mg/dL Direct Bilirubin 0.1 (0.0-0.2) mg/dL AST 55 H 50 H (15-37) U/L ALT 58 H 72 H (10-53) U/L Alkaline Phosphatase 105 96 (45-117) U/L Albumin 3.4 3.0 L (3.4-5.0) g/dL <StuNeo garcía - 03/21/18 11:37> - Imaging Impressions Wrist X-Ray 03/20/18 12:59 CONCLUSION: 1. No acute fracture. <SturaquelNeo - 03/21/18 11:37> Physical Exam Vital signs: Vital Signs 03/22/18 12:00 03/22/18 14:38 03/22/18 14:59 Temperature 98.4 F Pulse Rate 95 H Respiratory Rate 20 16 16 Blood Pressure 126/58 L Pulse Oximetry 98 03/22/18 16:00 03/22/18 17:27 03/22/18 18:05 Temperature 98.3 F Pulse Rate 91 H Respiratory Rate 18 16 16 Blood Pressure 97/55 L Pulse Oximetry 100 03/22/18 20:00 03/23/18 00:00 03/23/18 04:00 Temperature 97.6 F 98.3 F 97.9 F Pulse Rate 85 89 79 Respiratory Rate 18 18 18 Blood Pressure 119/58 L 133/57 L 114/68 Pulse Oximetry 98 99 99 03/23/18 08:00 Temperature 98.8 F Pulse Rate 84 Respiratory Rate 18 Blood Pressure 113/60 Pulse Oximetry 100 Intake & Output 03/22/18 03/23/18 03/23/18 18:59 06:59 18:59 Intake Total 1457.5 / 1457.5 457.5 / 457.5 Balance 1457.5 / 1457.5 457.5 / 457.5 Intake: IV 1457.5 / 1457.5 457.5 / 457.5 NS Inj 1,000 ML @ 92 mls/hr IV. 1000 / 1000 CONT .[id number] [facility] Rx#:[id number] Zosyn 4.5 GM Premix 4.5 gm In 200 / 200 200 / 200 100 ml @ 200 mls/hr IV.SIG Q6H [facility] Rx#:[id number] Vancomycin Inj 750 MG In NS Inj 257.5 / 257.5 257.5 / 257.5 250 ML @ 250 mls/hr IV.SIG Q12H [facility] Rx#:[id number] Other: # Voids 4 Date of Last Bowel Movement 03/21/18 <Richard Worthington - 03/23/18 11:48> Vital Signs 03/20/18 12:37 03/20/18 13:56 03/20/18 15:30 Temperature 98.4 F Pulse Rate 79 Respiratory Rate 20 18 Blood Pressure 135/76 Pulse Oximetry 100 99 03/20/18 17:39 03/20/18 20:00 03/20/18 21:28 Temperature 98.1 F Pulse Rate 78 84 Respiratory Rate 18 18 Blood Pressure 130/70 128/69 Pulse Oximetry 100 98 99 03/20/18 22:10 03/21/18 00:00 03/21/18 04:00 Temperature 98.7 F 98.2 F Pulse Rate 79 74 Respiratory Rate 18 18 16 Blood Pressure 146/78 H 147/78 H Pulse Oximetry 99 99 03/21/18 06:19 03/21/18 07:53 03/21/18 08:00 Temperature 98.6 F Pulse Rate 79 Respiratory Rate 18 16 18 Blood Pressure 136/80 Pulse Oximetry 99 03/21/18 09:08 Temperature Pulse Rate Respiratory Rate 16 Blood Pressure Pulse Oximetry Intake & Output 03/20/18 03/21/18 03/21/18 18:59 06:59 18:59 Intake Total 1000 / 1000 777.5 / 777.5 1507.5 / 1507.5 Balance 1000 / 1000 777.5 / 777.5 1507.5 / 1507.5 Weight 51.71 kg 51.71 kg Intake: IV 1000 / 1000 257.5 / 257.5 1507.5 / 1507.5 NS Inj 1,000 ML @ 92 mls/hr IV. 1000 / 1000 CONT .[id number] [facility] Rx#:[id number] NS Inj 1,000 ML @ Wide Open IV. 1000 / 1000 SIG BOLUS ONE Rx#:[id number] Vancomycin Inj 750 MG In NS Inj 257.5 / 257.5 257.5 / 257.5 250 ML @ 250 mls/hr IV.SIG Q12H [facility] Rx#:[id number] Oral 520 / 520 Other: # Voids 4 Date of Last Bowel Movement 03/20/18 03/20/18 Weight On Admission 57.71 kg <Neo Hutchinson - 03/21/18 11:37> Narrative: GENERAL: Thin appearing malnourished female, comfortable at rest, no respiratory distress SKIN: Multiple hard but mobile nodules that are approximately 2-1/2-3 cm in diameter and raised 1-2 cm off the skin that were over left lateral upper arm, right forearm, and lower extremities. A healed large scab on the dorsal aspect of the medial left forearm. EYES: No scleral icterus. No injection or drainage. EOMI. HENT: Normocephalic. Atraumatic. Patient has some at this ulcers on the inside of her lower lip and had no dentition. NECK: Supple, trachea midline. No JVD. CARDIOVASCULAR: Regular rate and rhythm with harsh and prominent S2. No other murmurs appreciated. RESPIRATORY: Breath sounds equal bilaterally. No accessory muscle use. CTAB. GASTROINTESTINAL: Abdomen soft, non-tender, nondistended MUSCULOSKELETAL: Left wrist taut with erythematous skin overlying the dorsum of left wrist extending from the metacarpals to partially upper forearm. Her fingers are well perfused but cool to the touch. No signs of draining. Pain elicited on light palpation. No induration. Patient was able to slightly flex and extend fingers but with pain. Able to move all fingers. Capillary refills is less than 2 seconds in all fingers. Radial pulse is 2+. BACK: Nontender without obvious deformity. NEURO/PSYCH: Afocal. Awake, alert, and oriented x3. <Neo Hutchinson - 03/21/18 11:37> Assessment and Plan - Assessment (1) Joint infection of left wrist Code(s): M00.9 - Pyogenic arthritis, unspecified Status: Acute (2) Cervical cancer Code(s): C53.9 - Malignant neoplasm of cervix uteri, unspecified Status: Chronic (3) Polysubstance abuse Code(s): F19.10 - Other psychoactive substance abuse, uncomplicated Status: Chronic (4) Epilepsy Code(s): G40.909 - Epilepsy, unspecified, not intractable, without status epilepticus Status: Acute (5) Anxiety Code(s): F41.9 - Anxiety disorder, unspecified Status: Acute (6) HCV antibody positive Code(s): R76.8 - Other specified abnormal immunological findings in serum Status: Acute (7) Nutrition, metabolism, and development symptoms Code(s): R63.8 - Other symptoms and signs concerning food and fluid intake Status: Acute <Richard Worthington - 03/23/18 11:48> (1) Joint infection of left wrist Code(s): M00.9 - Pyogenic arthritis, unspecified Status: Acute Plan: This is a 38-year-old female with a history of IV drug use, heart murmur, untreated uterine, ovarian and cervical cancer, and previous cellulitis being admitted after a 3 day history of swelling and pain in the left wrist. In the ED the wrist was attempted to be aspirated but only yielded a very little amount of clear synovial fluid and culture was sent to the lab. Patient received 1 dose of vancomycin in the ED. x-ray of the wrist showed no acute fracture. -Hand surgery consulted, appreciate recommendations -Continue vancomycin until cultures returned -Patient started on Zosyn 4.5 gm IV q6h -Infectious disease consulted -Follow-up cultures -Keep npo until re-evaluated by hand surgery -Morphine and Dilaudid prn pain (2) Cervical cancer Code(s): C53.9 - Malignant neoplasm of cervix uteri, unspecified Status: Chronic Plan: This patient reports a history of cervical, uterine, and ovarian cancer previously treated with chemotherapy and radiation but relapsed approximately 5 years ago. She reports that she has decided to not pursue treatment but has followed up with her oncologist 6 months ago. (3) Polysubstance abuse Code(s): F19.10 - Other psychoactive substance abuse, uncomplicated Status: Chronic Plan: This patient reports a long history of polysubstance abuse to include IV heroin , snorting heroin, and use of methamphetamine. She is also a lifetime cigarette smoker. Patient currently not interested in assistance with getting clean. Patient did request nicotine patch. CIWA protocol currently not indicated. -Will follow up Echo -Continue nicotine patch -Continue to evaluate and encourage patient to seek treatment (4) Epilepsy Code(s): G40.909 - Epilepsy, unspecified, not intractable, without status epilepticus Status: Acute Plan: Patient reports having history of epilepsy previously on Keppra of unknown dosage or quantity. Patient discontinued her medication over 2 weeks ago. A message to them and sent to nursing staff to reconcile medications. Once medications are reconciled will continue home dose of Keppra. (5) Nutrition, metabolism, and development symptoms Code(s): R63.8 - Other symptoms and signs concerning food and fluid intake Status: Acute Plan: Fluids: NS at maintenance rate Electrolytes: Replete as needed Nutrition: NPO at this time DVT prophylaxis: b/l SCDs due to possible surgery <Neo Hutchinson - 03/21/18 11:26> - Attending Attestation See the residents documentation for details. I saw and evaluated the patient regarding the burk portions of this evaluation and agree with the residents findings and plans as written. Parts of this note were created using [employer] voice recognition software program. While efforts were made to correct any mistakes made by this software, some mistakes, errors, and omissions may remain in the final note that were not caught when the note was originally created. Plan of care was discussed and agreed upon with the patient as specifically documented in the above note. An opportunity to ask questions with explanation was provided. Patient voiced understanding on all information reviewed and discussed. <Richard Worthington - 03/23/18 11:48>
--- NOTE | 2018-03-21 11:45 | ECHRPT ---
Indication: SEPSIS CONCLUSIONS The left ventricular systolic function is normal with an estimated ejection fraction in the range of 60-65%. Normal left ventricular size. Wall thickness is normal. No regional wall motion abnormalities are present. There is trace tricuspid valve regurgitation. The estimated pulmonary arterial pressure is 26 mmHg. BP: / HR: Rhythm: Sinus MEASUREMENTS (Male / Female) Normal Values Technical Quality:Good 2D ECHO LV Diastolic Diameter PLAX 4.1 cm 4.2 - 5.9 / 3.9 - 5.3 cm LV Systolic Diameter PLAX 3.0 cm IVS Diastolic Thickness 0.8 cm 0.6 - 1.0 / 0.6 - 0.9 cm LVPW Diastolic Thickness 0.8 cm 0.6 - 1.0 / 0.6 - 0.9 cm LV Relative Wall Thickness 0.4 DOPPLER TR Peak Velocity 202.0 cm/s TR Peak Gradient 16.3 mmHg Right Atrial Pressure 10.0 mmHg Pulmonary Artery Systolic Pressu 26.3 mmHg Right Ventricular Systolic Press 26.3 mmHg FINDINGS LEFT VENTRICLE The left ventricular systolic function is normal with an estimated ejection fraction in the range of 60-65%. Normal left ventricular size. Wall thickness is normal. No regional wall motion abnormalities are present. RIGHT VENTRICLE Normal right ventricular size and systolic function. LEFT ATRIUM The left atrial size is normal. RIGHT ATRIUM The right atrial size is normal. ATRIAL SEPTUM Normal atrial septal thickness without atrial level shunting by limited color doppler interrogation. AORTA The aortic root and proximal ascending aorta are normal in size on limited imaging. MITRAL VALVE Structurally normal mitral valve. No mitral valve stenosis or regurgitation. AORTIC VALVE Trileaflet aortic valve. No aortic valve stenosis or regurgitation. TRICUSPID VALVE There is trace tricuspid valve regurgitation. The estimated pulmonary arterial pressure is 26 mmHg. PULMONARY VALVE No pulmonary valve regurgitation or stenosis. VESSELS The inferior vena cava is normal in size. PERICARDIUM No pericardial effusion. Osbaldo Joe MD (Electronically Signed) Final Date:21 March 2018 11:43
[2018-03-21] MEDS: Piperacil/Tazo 4.5 GM Premix 4.5 GM/100 ML BAG IV.SIG SCH ×2 (11:47→17:33)
[2018-03-21] MEDS ORDERED: Gadobutrol PF 7.5 MMOL/7.5 ML Vial (for RAD) IV.SIG ONE (14:15)
--- NOTE | 2018-03-21 14:47 | MR ---
EXAM DATE: 03/21/2018 1:40 PM EST AGE/SEX: 38 years / Female INDICATIONS: Abscess. CLINICAL DATA: This is the patient's initial encounter. Patient reports that signs and symptoms have been present for 1 day and indicates a pain score of 0/10. MEDICAL/SURGICAL HISTORY: Carcinoma, uterine. IVDU. . Right knee x 4. COMPARISON: No prior exams available for comparison. TECHNIQUE: Multiplanar, multisequence MRI examination was performed without contrast and after intra venous administration of 5 ml Gadavist (gadobutrol) contrast as a single exam dose. FINDINGS: There is no fracture or subluxation of the left wrist. No significant effusion or synovitis demonstra susu. No evidence of osteomyelitis. Subcutaneous tissues are swollen and edematous. This is fairly generalized but especially dorsal. The re is some edema/nonorganized fluid in the carpal tunnel as well. An organized, rim-enhancing fluid c ollection is seen in the deep subcutaneous tissues radially measuring 7 x 12 x 20 mm in size consiste nt with abscess. This is adjacent to and potentially partially within the extensor compartment 1 tend on sheath. No other well-defined abscesses are demonstrated. CONCLUSION: 1. Small subcutaneous abscess radial to the carpus as described. Partial involvement of the extensor compartment 1 tendon sheath is possible. 2. Otherwise generalized cellulitis without additional discrete abscess. 3. No osteomyelitis demonstrated. Electronically signed by: Ramiro Fu MD 03/21/2018 2:46 PM EST
[2018-03-21] MEDS ORDERED: Neomycin/Polymyxin G.U. Irrigant 1 ML Ampul ONE (16:05)
[2018-03-21] MEDS ORDERED: Ketamine Inj 50 MG/5 ML Syringe IV.PUSH ONE (16:13)
[2018-03-21] MEDS ORDERED: Succinylcholine Inj 100 MG/5 ML Syringe IV.PUSH ONE (16:25)
[2018-03-21] MEDS ORDERED: Lidocaine PF 1% Inj 5 ML Syringe OTHER ONE (16:25)
[2018-03-21] MEDS ORDERED: Bupivacaine PF 0.5% Inj 30 ML Vial ONE (17:08)
[2018-03-21] MEDS ORDERED: *Meperidine Inj 25 MG/ML Vial PERIprocedural Use ONLY ONE (17:55)
[2018-03-21] MEDS ORDERED: fentaNYL Citrate Inj 100 MCG/2 ML Ampul ONE (17:56)
--- NOTE | 2018-03-21 18:07 | P.PNOP ---
Physical Exam Vital signs: Vital Signs 03/20/18 20:00 03/20/18 21:28 03/20/18 22:10 Temperature 98.1 F Pulse Rate 84 Respiratory Rate 18 18 Blood Pressure 128/69 Pulse Oximetry 98 99 03/21/18 00:00 03/21/18 04:00 03/21/18 06:19 Temperature 98.7 F 98.2 F Pulse Rate 79 74 Respiratory Rate 18 16 18 Blood Pressure 146/78 H 147/78 H Pulse Oximetry 99 99 03/21/18 07:53 03/21/18 08:00 03/21/18 09:08 Temperature 98.6 F Pulse Rate 79 Respiratory Rate 16 18 16 Blood Pressure 136/80 Pulse Oximetry 99 03/21/18 12:00 03/21/18 12:32 03/21/18 14:09 Temperature 98.4 F Pulse Rate 85 Respiratory Rate 16 16 16 Blood Pressure 146/74 H Pulse Oximetry 100 03/21/18 16:00 Temperature 98.6 F Pulse Rate 97 H Respiratory Rate 18 Blood Pressure 145/73 H Pulse Oximetry 100 Intake & Output 03/20/18 03/21/18 03/21/18 18:59 06:59 18:59 Intake Total 1000 / 1000 777.5 / 777.5 2407.5 / 2407.5 Output Total 5 / 5 Balance 1000 / 1000 777.5 / 777.5 2402.5 / 2402.5 Weight 51.71 kg 51.71 kg Intake: IV 1000 / 1000 257.5 / 257.5 1607.5 / 1607.5 NS Inj 1,000 ML @ 92 mls/hr IV. 1000 / 1000 CONT .[id number] [facility] Rx#:[id number] Zosyn 4.5 GM Premix 4.5 gm In 100 / 100 100 ml @ 200 mls/hr IV.SIG Q6H [facility] Rx#:[id number] NS Inj 1,000 ML @ Wide Open IV. 1000 / 1000 SIG BOLUS ONE Rx#:[id number] Vancomycin Inj 750 MG In NS Inj 257.5 / 257.5 257.5 / 257.5 250 ML @ 250 mls/hr IV.SIG Q12H [facility] Rx#:[id number] Oral 520 / 520 Anesthesia Amount 800 / 800 Output: Estimated Blood Loss 5 / 5 Other: # Voids 4 Date of Last Bowel Movement 03/20/18 03/20/18 Weight On Admission 57.71 kg Results - Labs CBC & Chem 7: 03/21/18 07:57 03/21/18 07:57 Laboratory Results - last 24 hr 03/21/18 03/21/18 03/21/18 07:57 07:57 07:57 WBC 7.7 RBC 4.48 Hgb 11.3 L Hct 34.8 L MCV 77.7 L MCH 25.3 L MCHC 32.5 RDW 16.4 Plt Count 276 MPV 8.3 Neut % (Auto) 72.1 H Lymph % (Auto) 16.9 Story % (Auto) 7.7 Eos % (Auto) 2.8 Baso % (Auto) 0.5 Neut # (Auto) 5.6 Lymph # (Auto) 1.3 Story # (Auto) 0.6 Eos # (Auto) 0.2 Baso # (Auto) 0.0 WBC Differential . Differential Comment Auto diff final PT 10.6 INR 1.0 Sodium Potassium Chloride Carbon Dioxide Anion Gap BUN Creatinine Estimated GFR Random Glucose Calcium Total Bilirubin Direct Bilirubin Indirect Bilirubin AST ALT Alkaline Phosphatase Total Protein Albumin Hepatitis A IgM Ab Nonreactive Hep Bs Antigen Nonreactive Hep B Core IgM Ab Nonreactive Hep C IgG Ab Reactive H 03/21/18 07:57 WBC RBC Hgb Hct MCV MCH MCHC RDW Plt Count MPV Neut % (Auto) Lymph % (Auto) Story % (Auto) Eos % (Auto) Baso % (Auto) Neut # (Auto) Lymph # (Auto) Story # (Auto) Eos # (Auto) Baso # (Auto) WBC Differential Differential Comment PT INR Sodium 137 Potassium 4.2 Chloride 104 Carbon Dioxide 24.3 Anion Gap 9 BUN 5 L Creatinine 0.58 Estimated GFR Greater than 89 Random Glucose 91 Calcium 8.5 Total Bilirubin 0.4 Direct Bilirubin 0.1 Indirect Bilirubin 0.3 AST 50 H ALT 72 H Alkaline Phosphatase 96 Total Protein 7.3 D Albumin 3.0 L Hepatitis A IgM Ab Hep Bs Antigen Hep B Core IgM Ab Hep C IgG Ab Microbiology 03/20/18 14:54 Fluid - Synovial Fluid Gram Stain - Final 03/20/18 14:54 Fluid - Synovial Fluid Body Fluid Culture - Preliminary No growth in 24 hours 03/20/18 13:30 Blood - Peripheral Aerobic Blood Culture - Preliminary No growth in 1 day 03/20/18 13:30 Blood - Peripheral Anaerobic Blood Culture - Preliminary No growth in 1 day 03/20/18 13:44 Blood - Peripheral Aerobic Blood Culture - Preliminary No growth in 1 day 03/20/18 13:44 Blood - Peripheral Anaerobic Blood Culture - Preliminary No growth in 1 day - Imaging Impressions Wrist MRI 03/21/18 18:00 CONCLUSION: 1. Small subcutaneous abscess radial to the carpus as described. Partial involvement of the extensor compartment 1 tendon sheath is possible. 2. Otherwise generalized cellulitis without additional discrete abscess. 3. No osteomyelitis demonstrated. Assessment and Plan - Assessment and Plan 38yF POD0 s/p L carpal tunnel release, I&D abscess left wrist and first dorsal compartment -Follow cultures and ID recs -Elevate left arm on IV pole and gentle ROM -Patient refused MRI last night delaying treatment but MRI today showed abscess in first dorsal compartment -once Ab determined okay to discharge and followup in office in 2 weeks for suture removal
--- NOTE | 2018-03-21 20:02 | MP ---
cc: Brianda Herring MD DATE OF OPERATION: 03/20/2018 PREOPERATIVE DIAGNOSES: 1. Left carpal tunnel syndrome. 2. Abscess, left wrist including the first dorsal compartment. POSTOPERATIVE DIAGNOSES: 1. Left carpal tunnel syndrome. 2. Abscess, left wrist including the first dorsal compartment. PROCEDURE: 1. Left carpal tunnel release. 2. Incision and drainage deep abscess, left wrist 3. First dorsal compartment release SURGEON: Brianda Herring MD VP OF [employer]BAL MARKETING: None. ANESTHESIA: General. Local. TOURNIQUET TIME: 35 minutes at 200 mmHg. SPECIMENS: Culture. INDICATIONS FOR PROCEDURE: Chela Morales is a 38-year-old female who presented to the emergency room on 03/20/2015 with left wrist pain. The patient has a past medical history significant for IV drug use. She reports mild paresthesias in the median nerve distribution bilaterally, worsening over the left wrist. MRI, which the patient initially refused yesterday, but then did agree to this morning, showed an abscess in the extensor tendon sheath of the first dorsal compartment. The patient would like to proceed with surgical intervention. Risks were explained, which include, but are not limited to wound complication, infection, paresthesia, stiffness, pain, need for additional surgeries and she elected to proceed. DESCRIPTION OF PROCEDURE: The patient was identified in the preoperative holding and the correct extremity was marked. The patient was taken to the operating room where anesthesia was induced. Left upper extremity was prepped and draped in a normal sterile fashion. Approximately 10 mL of 0.25% without epinephrine was used for local anesthesia. A tourniquet was inflated to 200 mmHg for 35 minutes. Attention was first turned to the carpal tunnel. A longitudinal incision was made in line with the radial border of the ring finger. Palmar fascia was identified and incised. Transverse carpal ligament was identified and incised. There was significant compression and swelling over the left wrist. Care was taken to protect the median nerve, ulnar nerve and ulnar artery and completely compressed the antebrachial fascia. The incision was closed with 5-0 nylon. Attention was then turned to the first dorsal compartment. An incision was made. Care was taken to protect the radial sensory nerve. There was significant purulence, which was sent for culture. This was all along the first dorsal compartment. The first dorsal compartment was incised on the dorsal aspect. The wound was irrigated with antibiotic saline and debrided with rongeurs. Tourniquet was released. Hemostasis was obtained. There was less than 2 second capillary refill to the fingers. This incision was closed loosely with 4-0 nylon. The patient was placed into a soft dressing and awoken from anesthesia without any complications. She will remain in the hospital on IV antibiotics and follow up in the office in approximately 2 weeks for suture removal. Brianda Herring MD [facility]/tasha , 06:03 PM , 06:09 PM MOLLY
[2018-03-21] MEDS ORDERED: Morphine Sulfate Inj 2 MG/ML Vial IV.PUSH PRN (20:08)
[2018-03-22] MEDS: Piperacil/Tazo 4.5 GM Premix 4.5 GM/100 ML BAG IV.SIG SCH ×4 (00:34→17:32)
[2018-03-22] MEDS: Morphine Inj 4 MG/ML Vial IV.PUSH PRN ×7 (03:36→22:36)
[2018-03-22] MEDS: HYDROmorphone PF Inj 1 MG/ML Ampul IV.PUSH PRN ×5 (05:22→19:36)
[2018-03-22] MEDS: Sod Chloride 0.9% Inj 1,000 ML IV.CONT SCH ×2 (05:24→16:46)
[2018-03-22 06:54] LABS: Baso # (Auto) 0.1 th/mm3 (0.0-0.2); Eos # (Auto) 0.1 th/mm3 (0.0-0.4); Eos % (Auto) 0.9 % (0.0-4.0); Hematocrit 36.6 % (35.0-46.0); Hemoglobin 11.7 gm/dL (11.6-15.3); Lymph # (Auto) 1.6 th/mm3 (1.0-4.8); Lymph % (Auto) 17.3 % (9.0-44.0); Mean Corpuscular Hemoglobin 25.4 pg (27.0-34.0); Mean Corpuscular Volume 79.3 fL (80.0-100.0); Mean Platelet Volume 8.6 fL (7.0-11.0); Mono # (Auto) 0.4 th/mm3 (0.0-0.9); Mono % (Auto) 4.7 % (0.0-8.0); Neut # (Auto) 6.8 th/mm3 (1.8-7.7); Neut % (Auto) 76.1 % (16.0-70.0); Platelet Count 289 th/mm3 (150-450); Red Blood Count 4.61 mil/mm3 (4.00-5.30); Red Cell Distribution Width 16.4 % (11.6-17.2)
[2018-03-22 07:17] LABS: Alanine Aminotransferase 75 U/L (10-53); Alkaline Phosphatase 98 U/L (45-117); Total Protein 7.6 g/dL (6.4-8.2)
[2018-03-22 07:26] LABS: Albumin 2.9 g/dL (3.4-5.0); Anion Gap 10 meq/L (5-15); Aspartate Aminotransferase 44 U/L (15-37); Blood Urea Nitrogen 13 mg/dL (7-18); Calcium 8.2 mg/dL (8.5-10.1); Carbon Dioxide 23.7 meq/L (21.0-32.0); Chloride 103 meq/L (98-107); Glomerular Filtration Rate 84 mL/min (>89); Glucose,Random 152 mg/dL (74-106); Potassium 4.2 meq/L (3.5-5.1); Sodium 137 meq/L (136-145)
[2018-03-22] MEDS: Vancomycin Inj 750 MG in Sodium Chlor 0.9% Inj 250 ML IV.SIG SCH ×2 (08:26→22:37)
[2018-03-22] MEDS: ALPRAZolam 0.5 MG Tablet PO PRN ×2 (11:40→19:36)
--- NOTE | 2018-03-22 14:06 | P.PNFP ---
Subjective Interval history: Ms. Morales had no acute events overnight. Dr. Herring from hand surgery took patient to or last night and now she is POD#1 s/p left carpal tunnel release and I&D of a small abscess in her left wrist. Patient is able to move her fingers today and has less pain but is anxious and is requesting Xanax. She is able to tolerate a diet and is voiding, but no stool yet. We will continue IV by antibiotics as per Dr. Herring and discharge when she signs off. Patient denies chest pain, shortness of breath, fever, chills, nausea, vomiting, diarrhea, abdominal or leg pain. <Manny Marshall III H - 03/22/18 14:06> Results - Labs Result diagrams: 03/22/18 06:15 03/22/18 06:15 <Richard Worthington - 03/23/18 12:05> Abnormal lab results 03/22/18 03/22/18 Range/Units 06:15 06:15 MCV 79.3 L (80.0-100.0) fL MCH 25.4 L (27.0-34.0) pg Neut % (Auto) 76.1 H (16.0-70.0) % Estimated GFR 84 L (>89) mL/min Random Glucose 152 H (74-106) mg/dL Calcium 8.2 L (8.5-10.1) mg/dL Total Bilirubin 0.1 L (0.2-1.0) mg/dL AST 44 H (15-37) U/L ALT 75 H (10-53) U/L Albumin 2.9 L (3.4-5.0) g/dL Short CBC 03/22/18 Range/Units 06:15 WBC 9.0 (4.0-11.0) th/mm3 Hgb 11.7 (11.6-15.3) gm/dL Hct 36.6 (35.0-46.0) % Plt Count 289 (150-450) th/mm3 BMP 03/22/18 06:15 Sodium 137 Potassium 4.2 Chloride 103 Carbon Dioxide 23.7 BUN 13 Creatinine 0.77 Calcium 8.2 L Liver Function 03/22/18 Range/Units 06:15 Total Bilirubin 0.1 L (0.2-1.0) mg/dL AST 44 H (15-37) U/L ALT 75 H (10-53) U/L Alkaline Phosphatase 98 (45-117) U/L Albumin 2.9 L (3.4-5.0) g/dL <Manny Marshall III - 03/22/18 14:06> - Imaging Impressions Wrist MRI 03/21/18 18:00 CONCLUSION: 1. Small subcutaneous abscess radial to the carpus as described. Partial involvement of the extensor compartment 1 tendon sheath is possible. 2. Otherwise generalized cellulitis without additional discrete abscess. 3. No osteomyelitis demonstrated. <Manny Marshall III - 03/22/18 14:06> Physical Exam Vital signs: Vital Signs 03/22/18 14:38 03/22/18 14:59 03/22/18 16:00 Temperature 98.3 F Pulse Rate 91 H Respiratory Rate 16 16 18 Blood Pressure 97/55 L Pulse Oximetry 100 03/22/18 17:27 03/22/18 18:05 03/22/18 20:00 Temperature 97.6 F Pulse Rate 85 Respiratory Rate 16 16 18 Blood Pressure 119/58 L Pulse Oximetry 98 03/23/18 00:00 03/23/18 04:00 03/23/18 08:00 Temperature 98.3 F 97.9 F 98.8 F Pulse Rate 89 79 84 Respiratory Rate 18 18 18 Blood Pressure 133/57 L 114/68 113/60 Pulse Oximetry 99 99 100 Intake & Output 03/22/18 03/23/18 03/23/18 18:59 06:59 18:59 Intake Total 1457.5 / 1457.5 457.5 / 457.5 Balance 1457.5 / 1457.5 457.5 / 457.5 Intake: IV 1457.5 / 1457.5 457.5 / 457.5 NS Inj 1,000 ML @ 92 mls/hr IV. 1000 / 1000 CONT .[id number] SHAYNA Rx#:[id number] Zosyn 4.5 GM Premix 4.5 gm In 200 / 200 200 / 200 100 ml @ 200 mls/hr IV.SIG Q6H SHAYNA Rx#:[id number] Vancomycin Inj 750 MG In NS Inj 257.5 / 257.5 257.5 / 257.5 250 ML @ 250 mls/hr IV.SIG Q12H SHAYNA Rx#:[id number] Other: # Voids 4 Date of Last Bowel Movement 03/21/18 <Richard Worthington - 03/23/18 12:05> Vital Signs 03/21/18 14:09 03/21/18 16:00 03/21/18 17:50 Temperature 98.6 F 98.1 F Pulse Rate 97 H 88 Respiratory Rate 16 18 17 Blood Pressure 145/73 H 150/72 H Pulse Oximetry 100 98 03/21/18 18:00 03/21/18 18:15 03/21/18 20:00 Temperature 98.3 F 97.7 F Pulse Rate 80 79 95 H Respiratory Rate 19 19 18 Blood Pressure 151/70 H 146/68 H 113/64 Pulse Oximetry 98 97 99 03/21/18 23:43 03/22/18 00:00 03/22/18 04:00 Temperature 98.5 F 97.8 F Pulse Rate 92 H 80 Respiratory Rate 18 18 18 Blood Pressure 129/60 108/61 Pulse Oximetry 99 99 03/22/18 07:01 03/22/18 08:00 03/22/18 08:32 Temperature 97.9 F Pulse Rate 81 Respiratory Rate 16 16 16 Blood Pressure 128/65 Pulse Oximetry 100 03/22/18 10:18 03/22/18 11:41 03/22/18 12:00 Temperature 98.4 F Pulse Rate 95 H Respiratory Rate 16 16 20 Blood Pressure 126/58 L Pulse Oximetry 98 Intake & Output 03/21/18 03/22/18 03/22/18 18:59 06:59 18:59 Intake Total 2507.5 / 2507.5 2457.5 / 2457.5 357.5 / 357.5 Output Total 5 / 5 3 / 3 Balance 2502.5 / 2502.5 2454.5 / 2454.5 357.5 / 357.5 Intake: IV 1707.5 / 1707.5 2457.5 / 2457.5 357.5 / 357.5 NS Inj 1,000 ML @ 92 mls/hr IV. 1000 / 1000 2000 / 2000 CONT .[id number] SHAYNA Rx#:[id number] Zosyn 4.5 GM Premix 4.5 gm In 200 / 200 200 / 200 100 / 100 100 ml @ 200 mls/hr IV.SIG Q6H SHAYNA Rx#:[id number] Vancomycin Inj 750 MG In NS Inj 257.5 / 257.5 257.5 / 257.5 257.5 / 257.5 250 ML @ 250 mls/hr IV.SIG Q12H SHAYNA Rx#:[id number] Anesthesia Amount 800 / 800 Output: Urine 3 / 3 Estimated Blood Loss 5 / 5 Other: Date of Last Bowel Movement 03/20/18 03/21/18 03/21/18 <Manny Marshall III - 03/22/18 14:06> Narrative: GENERAL: Thin appearing malnourished female, comfortable at rest, no respiratory distress SKIN: Multiple hard but mobile nodules that are approximately 2-1/2-3 cm in diameter and raised 1-2 cm off the skin that were over left lateral upper arm, right forearm, and lower extremities. A healed large scab on the dorsal aspect of the medial left forearm. EYES: No scleral icterus. No injection or drainage. EOMI. HENT: Normocephalic. Atraumatic. Patient has some at this ulcers on the inside of her lower lip and had no dentition. NECK: Supple, trachea midline. No JVD. CARDIOVASCULAR: Regular rate and rhythm with harsh and prominent S2. No other murmurs appreciated. RESPIRATORY: Breath sounds equal bilaterally. No accessory muscle use. CTAB. GASTROINTESTINAL: Abdomen soft, non-tender, nondistended MUSCULOSKELETAL: Left forearm covered in bandages and elevated. Pt able to move all fingers of left hand without pain and swelling is improved. Pt feels minor numbness in fingers but thinks that is more from having the hand elevated. Capillary refill is less than 2 seconds in all fingers. Radial pulse is 2+. NEURO/PSYCH: Afocal. Awake, alert, and oriented x3. <Manny Marshall III - 03/22/18 14:06> Assessment and Plan - Assessment (1) Joint infection of left wrist Code(s): M00.9 - Pyogenic arthritis, unspecified Status: Acute (2) Cervical cancer Code(s): C53.9 - Malignant neoplasm of cervix uteri, unspecified Status: Chronic (3) Polysubstance abuse Code(s): F19.10 - Other psychoactive substance abuse, uncomplicated Status: Chronic (4) Epilepsy Code(s): G40.909 - Epilepsy, unspecified, not intractable, without status epilepticus Status: Acute (5) Anxiety Code(s): F41.9 - Anxiety disorder, unspecified Status: Acute (6) HCV antibody positive Code(s): R76.8 - Other specified abnormal immunological findings in serum Status: Acute (7) Nutrition, metabolism, and development symptoms Code(s): R63.8 - Other symptoms and signs concerning food and fluid intake Status: Acute <Richard Worthington - 03/23/18 12:05> (1) Joint infection of left wrist Code(s): M00.9 - Pyogenic arthritis, unspecified Status: Acute Plan: This is a 38-year-old female with a history of IV drug use, heart murmur, untreated uterine, ovarian and cervical cancer, and previous cellulitis being admitted after a 3 day history of swelling and pain in the left wrist. Pt is now POD#1 s/p Left carpal tunnel release, I&D abscess left wrist and first dorsal compartment In the ED the wrist was attempted to be aspirated but only yielded a very little amount of clear synovial fluid and culture was sent to the lab. Patient received 1 dose of vancomycin in the ED. x-ray of the wrist showed no acute fracture. -Hand surgery consulted, appreciate recommendations -Vancomycin -Patient started on Zosyn 4.5 gm IV q6h -Blood cx NGTD x2 days -Synovial fluid NGTD x2 days -Left wrist abscess culture with moderate WBCs, no organism x2 days -Negative AFB cx -Fungal cx pending -Infectious disease consulted -Follow-up cultures -Morphine and Dilaudid prn pain (2) Cervical cancer Code(s): C53.9 - Malignant neoplasm of cervix uteri, unspecified Status: Chronic Plan: This patient reports a history of cervical, uterine, and ovarian cancer previously treated with chemotherapy and radiation but relapsed approximately 5 years ago. She reports that she has decided to not pursue treatment but has followed up with her oncologist 6 months ago. (3) Polysubstance abuse Code(s): F19.10 - Other psychoactive substance abuse, uncomplicated Status: Chronic Plan: This patient reports a long history of polysubstance abuse to include IV heroin , snorting heroin, and use of methamphetamine. She is also a lifetime cigarette smoker. Patient currently not interested in assistance with getting clean. Patient did request nicotine patch. CIWA protocol currently not indicated. -ECHO showing LV wnl, EF 60-65%, trace TV regurg, PAP 26 mmHg -Continue nicotine patch -Continue to evaluate and encourage patient to seek treatment (4) Epilepsy Code(s): G40.909 - Epilepsy, unspecified, not intractable, without status epilepticus Status: Acute Plan: Patient reports having history of epilepsy previously on Keppra of unknown dosage or quantity. Patient discontinued her medication over 2 weeks ago. A message to them and sent to nursing staff to reconcile medications. Once medications are reconciled will continue home dose of Keppra. (5) Anxiety Code(s): F41.9 - Anxiety disorder, unspecified Status: Acute Plan: Pt with anxiety and requests xanax -Xanax 0.25mg q8h (6) HCV antibody positive Code(s): R76.8 - Other specified abnormal immunological findings in serum Status: Acute Plan: Pt with positive HCV antibody in hospital -HCV RNA quant pending (7) Nutrition, metabolism, and development symptoms Code(s): R63.8 - Other symptoms and signs concerning food and fluid intake Status: Acute Plan: Fluids: NS at 92 mls/hr due to IV Vancomycin and to avoid nephrotoxicity; Cr today 0.77 Electrolytes: Replete as needed Nutrition: NPO at this time DVT prophylaxis: b/l SCDs <Manny Marshall III - 03/22/18 13:52> - Attending Attestation See the residents documentation for details. I saw and evaluated the patient regarding the burk portions of this evaluation and agree with the residents findings and plans as written. Parts of this note were created using Ansible voice recognition software program. While efforts were made to correct any mistakes made by this software, some mistakes, errors, and omissions may remain in the final note that were not caught when the note was originally created. Plan of care was discussed and agreed upon with the patient as specifically documented in the above note. An opportunity to ask questions with explanation was provided. Patient voiced understanding on all information reviewed and discussed. <Richard Worthington - 03/23/18 12:05>
--- NOTE | 2018-03-22 16:34 | P.CONID ---
History of Present Illness Service: Infectious Disease Consult date: 03/22/18 Requesting Physician: Manny Marshall III Reason for Consult: Evaluation and Mment of left wrist abscess. Primary Care Provider: [facility] [facility] History of Present Illness: Ms. Morales is a 38-year-old female with past medical history significant for IV drug abuse particularly heroin, history of uterine ovarian and cervical cancer. Patient reports that she has had cervical uterine and ovarian cancer a decade or so back when she underwent chemotherapy and radiation for the same. When this recurred recently she has now refused any further chemoradiation therapy by choice. Patient also reports a history of murmur but on further questioning denies any history of endocarditis. She denies any history of epidural abscesses. She does endorse prior history of multiple abscesses all over her body she thinks likely from her intravenous drug abuse. Acute onset of swelling of the left wrist started approximately 3 days prior to admission. She reports she woke up and found a swelling on the lateral side of her wrist which was swollen and painful. She had some leftover doxycycline at home which she has been taking but since the swelling continued to worsen she came to the ER. On admission she reported paresthesias through the volar and palmar aspect of her left hand. Patient also reports nausea and nonbloody nonbilious vomiting on the morning of admission. She admits to injecting IV heroin in the left upper extremity. She reports lancing an abscess on the medial aspect of her lower left forearm at home. She may have taken some leftover doxycycline. She denies any fever chills or night sweats. She denies any other systemic symptoms. Infectious diseases consulted for evaluation and management of left wrist abscess. Social: Lives with friend Sarbjit, does not work and is currently on disability. She has three children ages 19, 17, and 1yr 2mo. The 17 year old lives with father and the 1yr old is in foster care. She admits to using IV heroin, and admits that she snorted heroin before coming to the hospital. She began using heroin since age 13 but was clean for 4-1/2 years but relapsed after the of her son. She also reports that she occasionally uses meth. Her preferred site of injection is a back of her left arm. She reports consuming alcohol a couple times a year and has smoked a pack of cigarettes daily for 25 years. PMFSH - History History Provided By: Patient - Medical History Medical History: Medical History (Last Reviewed 03/22/18 @ 08:51 by Aggie Ang) Migraine (Acute) Anemia (Acute) HPV in female (Acute) Cervical cancer (Chronic) Ovarian cancer (Acute) Mitral valve prolapse (Acute) Epilepsy (Acute) - Surgical History Surgical History: Surgical History (Last Reviewed 03/22/18 @ 08:51 by Aggie Ang) History of knee surgery (Acute) History of dilatation and curettage - Tobacco History Second Hand Smoke Exposure: Yes Tobacco Use In Past 30 Days: Yes Smoking Status: Current every day smoker Tobacco Type: Cigarettes - Alcohol History How Often Do You Have a Drink Containing Alcohol: Monthly or less - Substance Use History Substance History: Active Abuse - Substance Use Type Heroin Status: Active Route Used: Inhalation Reason for Use: Calm Down - Travel History Recent Travel in the [place] Within the Last 8 Weeks: No Recent Travel Out of the Country Within the Last 8 Weeks: No - Immunization History Tetanus Immunization: Unsure Hx Influenza Vaccine This Season: No Medications and Allergies Active Medications: Active Medications Al Hydroxide/Mg Hydroxide (Milk Of Gene Hayes) 30 ml PO Q12H PRN PRN Reason: Mild Constipation Alprazolam (Xanax) 0.25 mg PO Q8H PRN PRN Reason: ANXIETY Last Admin: 03/22/18 11:40 Dose: 0.25 mg Bisacodyl (Dulcolax Supp) 10 mg RECTAL DAILY PRN PRN Reason: SEVERE CONSITIPATION Hydromorphone HCl (Dilaudid Pf Inj) 1 mg IV.PUSH Q3H PRN PRN Reason: BREAKTHROUGH PAIN Last Admin: 03/22/18 13:27 Dose: 1 mg Vancomycin HCl 750 mg/ Sodium (Chloride) 257.5 mls @ 250 mls/hr IV.SIG Q12H SHAYNA Last Infusion: 03/22/18 09:37 Dose: Infused Sodium Chloride (Ns Inj) 1,000 mls @ 92 mls/hr IV.CONT .[id number] SHAYNA Last Infusion: 03/22/18 16:30 Dose: Infused Piperacillin/Tazobactam/Dextrose (Zosyn 4.5 Gm Premix) 4.5 gm in 100 mls @ 200 mls/hr IV.SIG Q6H SHAYNA Last Infusion: 03/22/18 12:12 Dose: Infused Lactulose (Lactulose Liq) 30 ml PO DAILY PRN PRN Reason: SEVERE CONSITIPATION Miscellaneous (Pill Splitter) 1 each OTHER UNSCH PRN PRN Reason: SEE LABEL COMMENTS Miscellaneous Information (Mis Nursing Information) 1 each OTHER UNSCH PRN PRN Reason: SEE LABEL COMMENTS Stop: 03/22/18 17:49 Morphine Sulfate (Morphine Inj) 4 mg IV.PUSH Q3H PRN PRN Reason: pain6-10 Last Admin: 03/22/18 14:56 Dose: 4 mg Morphine Sulfate (Morphine Inj) 2 mg IV.PUSH Q3H PRN PRN Reason: Pain 1-5 Naloxone HCl (Narcan Inj) 0.4 mg IV.PUSH UNSCH PRN PRN Reason: SEE LABEL COMMENTS Nicotine (Habitrol 21 Mg Patch.24 Hr) 1 patch T-DERMAL DAILY [facility] Last Admin: 03/22/18 08:26 Dose: Not Given Patch Removal (Remove Old Patch) 1 each T-DERMAL HS [facility] Last Admin: 03/21/18 22:41 Dose: 1 each Sennosides (Senokot) 17.2 mg PO Q12H PRN PRN Reason: Moderate Constipation Allergies Allergy/AdvReac Type Severity Reaction Status Date / Time cephalexin Allergy Severe RECTAL Verified 01/04/18 03:02 BLEED diclofenac Allergy Severe Rectal Verified 01/04/18 03:02 Bleed hornet venom Allergy Severe Anaphylaxis Verified 01/04/18 03:02 latex Allergy Severe Swelling Verified 01/04/18 03:02 penicillin G Allergy Severe VOMITING Verified 01/04/18 03:02 propoxyphene Allergy Severe VOMITING Verified 01/04/18 03:02 rizatriptan Allergy Intermediate Rectal Verified 01/04/18 03:02 Bleed diphtheria toxoid,adsorbed Allergy Unknown UNKNOWN Verified 01/04/18 03:02 REACTION acetaminophen AdvReac Severe SWELLING Verified 01/04/18 03:02 AND VOMITING codeine AdvReac Severe SWELLING Verified 01/04/18 03:02 AND VOMITING doxycycline AdvReac Severe RASH Verified 12/13/17 18:01 Home Medications Medication Instructions Recorded Confirmed Type No Known Home Medications 02/23/18 03/20/18 History Exam Vital signs: Vital Signs 03/21/18 17:50 03/21/18 18:00 03/21/18 18:15 Temperature 98.1 F 98.3 F Pulse Rate 88 80 79 Respiratory Rate 17 19 19 Blood Pressure 150/72 H 151/70 H 146/68 H Pulse Oximetry 98 98 97 03/21/18 20:00 03/21/18 23:43 03/22/18 00:00 Temperature 97.7 F 98.5 F Pulse Rate 95 H 92 H Respiratory Rate 18 18 18 Blood Pressure 113/64 129/60 Pulse Oximetry 99 99 03/22/18 04:00 03/22/18 07:01 03/22/18 08:00 Temperature 97.8 F 97.9 F Pulse Rate 80 81 Respiratory Rate 18 16 16 Blood Pressure 108/61 128/65 Pulse Oximetry 99 100 03/22/18 08:32 03/22/18 10:18 03/22/18 11:41 Temperature Pulse Rate Respiratory Rate 16 16 16 Blood Pressure Pulse Oximetry 03/22/18 12:00 03/22/18 14:38 03/22/18 14:59 Temperature 98.4 F Pulse Rate 95 H Respiratory Rate 20 16 16 Blood Pressure 126/58 L Pulse Oximetry 98 Intake & Output 03/21/18 03/22/18 03/22/18 18:59 06:59 18:59 Intake Total 2507.5 / 2507.5 2457.5 / 2457.5 1357.5 / 1357.5 Output Total 5 / 5 3 / 3 Balance 2502.5 / 2502.5 2454.5 / 2454.5 1357.5 / 1357.5 Intake: IV 1707.5 / 1707.5 2457.5 / 2457.5 1357.5 / 1357.5 NS Inj 1,000 ML @ 92 mls/hr IV. 1000 / 1000 2000 / 2000 1000 / 1000 CONT .[id number] SHAYNA Rx#:[id number] Zosyn 4.5 GM Premix 4.5 gm In 200 / 200 200 / 200 100 / 100 100 ml @ 200 mls/hr IV.SIG Q6H SHAYNA Rx#:[id number] Vancomycin Inj 750 MG In NS Inj 257.5 / 257.5 257.5 / 257.5 257.5 / 257.5 250 ML @ 250 mls/hr IV.SIG Q12H SHAYNA Rx#:[id number] Anesthesia Amount 800 / 800 Output: Urine 3 / 3 Estimated Blood Loss 5 / 5 Other: Date of Last Bowel Movement 03/20/18 03/21/18 03/21/18 Narrative: GENERAL: Well-nourished well-developed, not in acute distress SKIN: Cool and dry, no generalized rash HEAD: Atraumatic. Normocephalic. No temporal or scalp tenderness. EYES: Pupils equal round and reactive. Scleral icterus. No injection or drainage. No petechia ENT: Nothing abnormal detected NECK: Trachea midline. Supple, nontender, no meningeal signs. CARDIOVASCULAR: HS audible. RESPIRATORY: Clear to auscultation bilaterally. GASTROINTESTINAL: Abdomen soft nontender. MUSCULOSKELETAL: Left wrist and postop dressing. Track harrison visible. NEUROLOGICAL: Alert oriented 3. Nonfocal. Psych cooperative IV line sites ok. Results - Labs CBC & Chem 7: 03/22/18 06:15 03/22/18 06:15 Labs: Laboratory Results - last 24 hr 03/22/18 03/22/18 06:15 06:15 WBC 9.0 RBC 4.61 Hgb 11.7 Hct 36.6 MCV 79.3 L MCH 25.4 L MCHC 32.0 RDW 16.4 Plt Count 289 MPV 8.6 Neut % (Auto) 76.1 H Lymph % (Auto) 17.3 [place] % (Auto) 4.7 Eos % (Auto) 0.9 Baso % (Auto) 1.0 Neut # (Auto) 6.8 Lymph # (Auto) 1.6 [place] # (Auto) 0.4 Eos # (Auto) 0.1 Baso # (Auto) 0.1 WBC Differential . Differential Comment Auto diff final Sodium 137 Potassium 4.2 Chloride 103 Carbon Dioxide 23.7 Anion Gap 10 BUN 13 Creatinine 0.77 Estimated GFR 84 L Random Glucose 152 H Calcium 8.2 L Total Bilirubin 0.1 L AST 44 H ALT 75 H Alkaline Phosphatase 98 Total Protein 7.6 Albumin 2.9 L - Imaging Wrist X-Ray 03/20/18 12:59 CONCLUSION: 1. No acute fracture. Wrist MRI 03/21/18 18:00 CONCLUSION: 1. Small subcutaneous abscess radial to the carpus as described. Partial involvement of the extensor compartment 1 tendon sheath is possible. 2. Otherwise generalized cellulitis without additional discrete abscess. 3. No osteomyelitis demonstrated. Assessment and Plan - Plan Left wrist abscess s/p Carpal tunnel release and drainage of abscess. IVDA Heroin Rule out bacteremia Self reported h/o uterine, ovarian cancer s/p chemo decade back now with recurrence. After recurrence does not wish for chemotherapy or any other modality. Recs: Continue Zosyn IV Continue Vanco IV (target 15-20) Follow cultures Follow clinical course. will marge Herring if tendons and bone involved to determine length and route of therapy. marge Davila
[2018-03-22] MEDS ORDERED: Vancomycin Consult Pharmacy OTHER PRN (16:43)
[2018-03-22] MEDS ORDERED: Vancomycin Consult Pharmacy OTHER SCH (17:00)
[2018-03-22] MEDS ORDERED: Pharmacy Ordered Lab Info OTHER SCH (20:45)
[2018-03-23] MEDS: Piperacil/Tazo 4.5 GM Premix 4.5 GM/100 ML BAG IV.SIG SCH ×4 (00:07→17:26)
[2018-03-23] MEDS: HYDROmorphone PF Inj 1 MG/ML Ampul IV.PUSH PRN ×6 (00:08→21:52)
[2018-03-23] MEDS: Sod Chloride 0.9% Inj 1,000 ML IV.CONT SCH ×4 (03:30→14:25)
[2018-03-23] MEDS: Morphine Inj 4 MG/ML Vial IV.PUSH PRN ×5 (04:23→20:34)
[2018-03-23] MEDS: ALPRAZolam 0.5 MG Tablet PO PRN ×3 (05:43→22:32)
--- NOTE | 2018-03-23 10:03 | P.PNFP ---
Subjective Interval history: Patient seen and examined at bedside this morning. Patient reports that she is in moderate pain. She slipped in the bathroom and moved her arm abruptly to catch herself. She did not fall. She has been elevating the arm with a sling to IV pole. She reports some mild anxiety. She reports that she was on 2 mg twice per day of alprazolam at home. She has been getting 0.25 mg alprazolam every 8 hours as needed during her hospitalization. It was explained to her the risks of opioid and benzo use. The plan was discussed with the patient that we are waiting infectious disease and hand surgery to discuss antibiotic choice, route and duration of treatment. She voiced understanding. All questions were answered to the best of my ability. <Karen Campos - 03/23/18 10:20> Results - Labs Result diagrams: 03/22/18 06:15 03/22/18 06:15 <Richard Worthington - 03/23/18 12:09> Physical Exam Vital signs: Vital Signs 03/22/18 14:38 03/22/18 14:59 03/22/18 16:00 Temperature 98.3 F Pulse Rate 91 H Respiratory Rate 16 16 18 Blood Pressure 97/55 L Pulse Oximetry 100 03/22/18 17:27 03/22/18 18:05 03/22/18 20:00 Temperature 97.6 F Pulse Rate 85 Respiratory Rate 16 16 18 Blood Pressure 119/58 L Pulse Oximetry 98 03/23/18 00:00 03/23/18 04:00 03/23/18 08:00 Temperature 98.3 F 97.9 F 98.8 F Pulse Rate 89 79 84 Respiratory Rate 18 18 18 Blood Pressure 133/57 L 114/68 113/60 Pulse Oximetry 99 99 100 Intake & Output 03/22/18 03/23/18 03/23/18 18:59 06:59 18:59 Intake Total 1457.5 / 1457.5 457.5 / 457.5 Balance 1457.5 / 1457.5 457.5 / 457.5 Intake: IV 1457.5 / 1457.5 457.5 / 457.5 NS Inj 1,000 ML @ 92 mls/hr IV. 1000 / [id number] [facility] Rx#:[id number] Zosyn 4.5 GM Premix 4.5 gm In 200 / 200 200 / 200 100 ml @ 200 mls/hr IV.SIG Q6H [facility] Rx#:[id number] Vancomycin Inj 750 MG In NS Inj 257.5 / 257.5 257.5 / 257.5 250 ML @ 250 mls/hr IV.SIG Q12H [facility] Rx#:[id number] Other: # Voids 4 Date of Last Bowel Movement 03/21/18 <Richard Worthington - 03/23/18 12:09> Vital Signs 03/22/18 10:18 03/22/18 11:41 03/22/18 12:00 Temperature 98.4 F Pulse Rate 95 H Respiratory Rate 16 16 20 Blood Pressure 126/58 L Pulse Oximetry 98 03/22/18 14:38 03/22/18 14:59 03/22/18 16:00 Temperature 98.3 F Pulse Rate 91 H Respiratory Rate 16 16 18 Blood Pressure 97/55 L Pulse Oximetry 100 03/22/18 17:27 03/22/18 18:05 03/22/18 20:00 Temperature 97.6 F Pulse Rate 85 Respiratory Rate 16 16 18 Blood Pressure 119/58 L Pulse Oximetry 98 03/23/18 00:00 03/23/18 04:00 03/23/18 08:00 Temperature 98.3 F 97.9 F 98.8 F Pulse Rate 89 79 84 Respiratory Rate 18 18 18 Blood Pressure 133/57 L 114/68 113/60 Pulse Oximetry 99 99 100 Intake & Output 03/22/18 03/23/18 03/23/18 18:59 06:59 18:59 Intake Total 1457.5 / 1457.5 457.5 / 457.5 Balance 1457.5 / 1457.5 457.5 / 457.5 Intake: IV 1457.5 / 1457.5 457.5 / 457.5 NS Inj 1,000 ML @ 92 mls/hr IV. 1000 / 1000 CONT .[id number] [facility] Rx#:[id number] Zosyn 4.5 GM Premix 4.5 gm In 200 / 200 200 / 200 100 ml @ 200 mls/hr IV.SIG Q6H [facility] Rx#:[id number] Vancomycin Inj 750 MG In NS Inj 257.5 / 257.5 257.5 / 257.5 250 ML @ 250 mls/hr IV.SIG Q12H [facility] Rx#:[id number] Other: # Voids 4 Date of Last Bowel Movement 03/21/18 <Karen Campos - 03/23/18 10:03> - Constitutional no acute distress, mild distress <Karen Campos - 03/23/18 10:20> - Routine HEENT Exam Head: Present: normocephalic, atraumatic <Karen Campos 03/23/18 10:20> Eye: Present: EOMI <Karen Campos 03/23/18 10:20> - Routine Respiratory Exam Present: CTA bilaterally <Karen Campos 03/23/18 10:20> - Routine Cardiovascular Exam Present: RRR, S1, S2 (harsh S2) <Karen Campos 03/23/18 10:20> - Routine Abdominal Exam Present: soft, normoactive bowel sounds. Absent: tenderness <Karen Campos 03/23/18 10:20> - Routine Extremities Exam Comments: Patient with left arm wrapped and elevated with IV pole sling, full sensation and strength in fingers, normal capillary refill <Karen Campos 03/23/18 10:20> - Routine Neurological Exam Present: alert, oriented X3 <Karen Campos 03/23/18 10:20> Assessment and Plan - Assessment (1) Joint infection of left wrist Code(s): M00.9 - Pyogenic arthritis, unspecified Status: Acute (2) Cervical cancer Code(s): C53.9 - Malignant neoplasm of cervix uteri, unspecified Status: Chronic (3) Polysubstance abuse Code(s): F19.10 - Other psychoactive substance abuse, uncomplicated Status: Chronic (4) Epilepsy Code(s): G40.909 - Epilepsy, unspecified, not intractable, without status epilepticus Status: Acute (5) Anxiety Code(s): F41.9 - Anxiety disorder, unspecified Status: Acute (6) HCV antibody positive Code(s): R76.8 - Other specified abnormal immunological findings in serum Status: Acute (7) Nutrition, metabolism, and development symptoms Code(s): R63.8 - Other symptoms and signs concerning food and fluid intake Status: Acute <Richard Worthington - 03/23/18 12:09> (1) Joint infection of left wrist Code(s): M00.9 - Pyogenic arthritis, unspecified Status: Acute Plan: This is a 38-year-old female with a history of IV drug use, heart murmur, untreated uterine, ovarian and cervical cancer, and previous cellulitis being admitted after a 3 day history of swelling and pain in the left wrist. Pt is now POD#2 s/p Left carpal tunnel release, I&D abscess left wrist and first dorsal compartment In the ED the wrist was attempted to be aspirated but only yielded a very little amount of clear synovial fluid and culture was sent to the lab. Patient received 1 dose of vancomycin in the ED. x-ray of the wrist showed no acute fracture. -Hand surgery consulted, appreciate recommendations -Vancomycin -Patient started on Zosyn 4.5 gm IV q6h -Blood cx NGTD x2 days -Synovial fluid NGTD x2 days -Left wrist abscess culture with moderate WBCs, no organism x2 days -Negative AFB cx -Fungal cx pending -Infectious disease consulted- awaiting discussion with ID to decide duration and route of antibiotic treatment -Follow-up cultures -Morphine and Dilaudid prn pain (2) Cervical cancer Code(s): C53.9 - Malignant neoplasm of cervix uteri, unspecified Status: Chronic Plan: This patient reports a history of cervical, uterine, and ovarian cancer previously treated with chemotherapy and radiation but relapsed approximately 5 years ago. She reports that she has decided to not pursue treatment but has followed up with her oncologist 6 months ago. (3) Polysubstance abuse Code(s): F19.10 - Other psychoactive substance abuse, uncomplicated Status: Chronic Plan: This patient reports a long history of polysubstance abuse to include IV heroin , snorting heroin, and use of methamphetamine. She is also a lifetime cigarette smoker. Patient currently not interested in assistance with getting clean. Patient did request nicotine patch. CIWA protocol currently not indicated. -ECHO showing LV wnl, EF 60-65%, trace TV regurg, PAP 26 mmHg -Continue nicotine patch -Continue to evaluate and encourage patient to seek treatment (4) Epilepsy Code(s): G40.909 - Epilepsy, unspecified, not intractable, without status epilepticus Status: Acute Plan: Patient reports having history of epilepsy previously on Keppra of unknown dosage or quantity. Patient discontinued her medication over 2 weeks ago. (5) Anxiety Code(s): F41.9 - Anxiety disorder, unspecified Status: Acute Plan: Pt with anxiety and requests xanax. [place] prescription drug monitoring program was queried. Patient takes 1 mg Xanax twice daily. Due to her polysubstance abuse and large opiate dosage at this time I do not feel comfortable with that amount of alprazolam. The risks of mixing benzos and opiates were explained to the patient. -Patient was asked if she would like to speak to a employee communications intern. She declined. -Xanax 0.50mg q8h PRN (6) HCV antibody positive Code(s): R76.8 - Other specified abnormal immunological findings in serum Status: Acute Plan: Pt with positive HCV antibody in hospital -HCV RNA quant pending (7) Nutrition, metabolism, and development symptoms Code(s): R63.8 - Other symptoms and signs concerning food and fluid intake Status: Acute Plan: Fluids: NS at 92 mls/hr due to IV Vancomycin and to avoid nephrotoxicity; Cr 0.77 Electrolytes: Replete as needed Nutrition: NPO at this time DVT prophylaxis: b/l SCDs <Karen Campos - 03/23/18 10:08> - Attending Attestation See the residents documentation for details. I saw and evaluated the patient regarding the burk portions of this evaluation and agree with the residents findings and plans as written. Parts of this note were created using [employer] voice recognition software program. While efforts were made to correct any mistakes made by this software, some mistakes, errors, and omissions may remain in the final note that were not caught when the note was originally created. Plan of care was discussed and agreed upon with the patient as specifically documented in the above note. An opportunity to ask questions with explanation was provided. Patient voiced understanding on all information reviewed and discussed. <Richard Worthington - 03/23/18 12:09>
[2018-03-23] MEDS: Vancomycin Inj 750 MG in Sodium Chlor 0.9% Inj 250 ML IV.SIG SCH ×3 (12:02→20:33)
--- NOTE | 2018-03-23 15:26 | P.PNID ---
Subjective Remarks: Ms. Morales is a 38-year-old female with past medical history significant for IV drug abuse particularly heroin, history of uterine ovarian and cervical cancer. Patient reports that she has had cervical uterine and ovarian cancer a decade or so back when she underwent chemotherapy and radiation for the same. When this recurred recently she has now refused any further chemoradiation therapy by choice. Patient also reports a history of murmur but on further questioning denies any history of endocarditis. She denies any history of epidural abscesses. She does endorse prior history of multiple abscesses all over her body she thinks likely from her intravenous drug abuse. Acute onset of swelling of the left wrist started approximately 3 days prior to admission. She reports she woke up and found a swelling on the lateral side of her wrist which was swollen and painful. She had some leftover doxycycline at home which she has been taking but since the swelling continued to worsen she came to the ER. On admission she reported paresthesias through the volar and palmar aspect of her left hand. Patient also reports nausea and nonbloody nonbilious vomiting on the morning of admission. She admits to injecting IV heroin in the left upper extremity. She reports lancing an abscess on the medial aspect of her lower left forearm at home. She may have taken some leftover doxycycline. She denies any fever chills or night sweats. She denies any other systemic symptoms. Infectious diseases consulted for evaluation and management of left wrist abscess. Overnight events reviewed. No fever No rash No diarrhea Antibiotics: Zosyn IV Vanco IV Lines: Lines ok Past Medical History: reviewed Allergies/Adverse Reactions: Allergies cephalexin Allergy (Severe, Verified 01/04/18 03:02) RECTAL BLEED diclofenac Allergy (Severe, Verified 01/04/18 03:02) Rectal Bleed hornet venom Allergy (Severe, Verified 01/04/18 03:02) Anaphylaxis latex Allergy (Severe, Verified 01/04/18 03:02) Swelling penicillin G Allergy (Severe, Verified 01/04/18 03:02) VOMITING propoxyphene Allergy (Severe, Verified 01/04/18 03:02) VOMITING rizatriptan Allergy (Intermediate, Verified 01/04/18 03:02) Rectal Bleed diphtheria toxoid,adsorbed Allergy (Unknown, Verified 01/04/18 03:02) UNKNOWN REACTION acetaminophen Adverse Reaction (Severe, Verified 01/04/18 03:02) SWELLING AND VOMITING codeine Adverse Reaction (Severe, Verified 01/04/18 03:02) SWELLING AND VOMITING doxycycline Adverse Reaction (Severe, Verified 12/13/17 18:01) RASH Objective Vital Signs 03/22/18 16:00 03/22/18 17:27 03/22/18 18:05 Temperature 98.3 F Pulse Rate 91 H Respiratory Rate 18 16 16 Blood Pressure 97/55 L Pulse Oximetry 100 03/22/18 20:00 03/23/18 00:00 03/23/18 04:00 Temperature 97.6 F 98.3 F 97.9 F Pulse Rate 85 89 79 Respiratory Rate 18 18 18 Blood Pressure 119/58 L 133/57 L 114/68 Pulse Oximetry 98 99 99 03/23/18 08:00 03/23/18 12:00 Temperature 98.8 F 98.0 F Pulse Rate 84 90 Respiratory Rate 18 20 Blood Pressure 113/60 135/70 Pulse Oximetry 100 99 Intake & Output 03/22/18 03/23/18 03/23/18 18:59 06:59 18:59 Intake Total 1457.5 / 1457.5 457.5 / 457.5 257.5 / 257.5 Balance 1457.5 / 1457.5 457.5 / 457.5 257.5 / 257.5 Intake: IV 1457.5 / 1457.5 457.5 / 457.5 257.5 / 257.5 NS Inj 1,000 ML @ 92 mls/hr IV. 1000 / 1000 CONT .[id number] [facility] Rx#:[id number] Zosyn 4.5 GM Premix 4.5 gm In 200 / 200 200 / 200 100 ml @ 200 mls/hr IV.SIG Q6H [facility] Rx#:[id number] Vancomycin Inj 750 MG In NS Inj 257.5 / 257.5 257.5 / 257.5 257.5 / 257.5 250 ML @ 250 mls/hr IV.SIG Q12H [facility] Rx#:[id number] Other: # Voids 4 Date of Last Bowel Movement 03/21/18 03/21/18 17:18 Abscess - Wrist Gram Stain - Final 03/21/18 17:18 Abscess - Wrist Wound Culture - Preliminary No growth in 48 hours 03/20/18 14:54 Fluid - Synovial Fluid Gram Stain - Final 03/20/18 14:54 Fluid - Synovial Fluid Body Fluid Culture - Final No growth in 72 hours (aerobically and anaerobically ) 03/20/18 13:30 Blood - Peripheral Aerobic Blood Culture - Preliminary No growth in 3 days 03/20/18 13:30 Blood - Peripheral Anaerobic Blood Culture - Preliminary No growth in 3 days 03/20/18 13:44 Blood - Peripheral Aerobic Blood Culture - Preliminary No growth in 3 days 03/20/18 13:44 Blood - Peripheral Anaerobic Blood Culture - Preliminary No growth in 3 days 03/21/18 17:18 Abscess - Wrist Fungal Smear - Final No fungal elements seen 03/21/18 17:18 Abscess - Wrist Fungal Culture - Pending 03/21/18 17:18 Abscess - Wrist Acid Fast Bacilli Smear - Pending 03/21/18 17:18 Abscess - Wrist Mycobacterial Culture - Pending Lab - Hematology Results 03/22/18 06:15 WBC 9.0 RBC 4.61 Hgb 11.7 Hct 36.6 MCV 79.3 L MCH 25.4 L MCHC 32.0 RDW 16.4 Plt Count 289 MPV 8.6 Neut % (Auto) 76.1 H Lymph % (Auto) 17.3 Calhoun % (Auto) 4.7 Eos % (Auto) 0.9 Baso % (Auto) 1.0 Neut # (Auto) 6.8 Lymph # (Auto) 1.6 [place]houn # (Auto) 0.4 Eos # (Auto) 0.1 Baso # (Auto) 0.1 WBC Differential . Differential Comment Auto diff final Lab - Chemistry Results 03/22/18 06:15 Sodium 137 Potassium 4.2 Chloride 103 Carbon Dioxide 23.7 Anion Gap 10 BUN 13 Creatinine 0.77 Estimated GFR 84 L Random Glucose 152 H Calcium 8.2 L Total Bilirubin 0.1 L AST 44 H ALT 75 H Alkaline Phosphatase 98 Total Protein 7.6 Albumin 2.9 L Imaging: ITS Impressions Wrist X-Ray 03/20/18 12:59 CONCLUSION: 1. No acute fracture. Wrist MRI 03/21/18 18:00 CONCLUSION: 1. Small subcutaneous abscess radial to the carpus as described. Partial involvement of the extensor compartment 1 tendon sheath is possible. 2. Otherwise generalized cellulitis without additional discrete abscess. 3. No osteomyelitis demonstrated. Physical Exam: GENERAL: Well-nourished well-developed, not in acute distress SKIN: Cool and dry, no generalized rash HEAD: Atraumatic. Normocephalic. No temporal or scalp tenderness. EYES: Pupils equal round and reactive. Scleral icterus. No injection or drainage. No petechia ENT: Nothing abnormal detected NECK: Trachea midline. Supple, nontender, no meningeal signs. CARDIOVASCULAR: HS audible. RESPIRATORY: Clear to auscultation bilaterally. GASTROINTESTINAL: Abdomen soft nontender. MUSCULOSKELETAL: Left wrist and postop dressing. Track harrison visible. NEUROLOGICAL: Alert oriented 3. Nonfocal. Psych cooperative IV line sites ok. Assessment and Plan - Plan Left wrist abscess s/p Carpal tunnel release and drainage of abscess. IVDA Heroin Rule out bacteremia Self reported h/o uterine, ovarian cancer s/p chemo decade back now with recurrence. After recurrence does not wish for chemotherapy or any other modality. Recs: Continue Zosyn IV Continue Vanco IV (target 15-20) Follow cultures Follow clinical course.
[2018-03-23] MEDS ORDERED: Pharmacy Ordered Lab Info OTHER ONE (20:45)
[2018-03-24] MEDS: Piperacil/Tazo 4.5 GM Premix 4.5 GM/100 ML BAG IV.SIG SCH ×5 (00:07→23:39)
[2018-03-24] MEDS: Morphine Inj 4 MG/ML Vial IV.PUSH PRN ×6 (00:10→19:44)
[2018-03-24] MEDS: HYDROmorphone PF Inj 1 MG/ML Ampul IV.PUSH PRN ×7 (01:15→21:59)
[2018-03-24] MEDS: Sod Chloride 0.9% Inj 1,000 ML IV.CONT SCH ×2 (01:18→12:06)
[2018-03-24 06:27] LABS: Baso # (Auto) 0.1 th/mm3 (0.0-0.2); Baso % (Auto) 1.2 % (0.0-2.0); Eos # (Auto) 0.6 th/mm3 (0.0-0.4); Eos % (Auto) 9.3 % (0.0-4.0); Hematocrit 34.1 % (35.0-46.0); Hemoglobin 11.2 gm/dL (11.6-15.3); Lymph # (Auto) 2.3 th/mm3 (1.0-4.8); Lymph % (Auto) 37.2 % (9.0-44.0); Mean Corpuscular HGB Conc 32.8 % (32.0-36.0); Mean Corpuscular Hemoglobin 25.6 pg (27.0-34.0); Mean Platelet Volume 8.1 fL (7.0-11.0); Mono # (Auto) 0.5 th/mm3 (0.0-0.9); Mono % (Auto) 8.1 % (0.0-8.0); Neut # (Auto) 2.7 th/mm3 (1.8-7.7); Neut % (Auto) 44.2 % (16.0-70.0); Platelet Count 317 th/mm3 (150-450); Red Blood Count 4.37 mil/mm3 (4.00-5.30); Red Cell Distribution Width 16.6 % (11.6-17.2); White Blood Count 6.1 th/mm3 (4.0-11.0)
[2018-03-24] MEDS: ALPRAZolam 0.5 MG Tablet PO PRN ×2 (06:48→20:48)
[2018-03-24 06:55] LABS: Calcium 8.3 mg/dL (8.5-10.1); Carbon Dioxide 24.9 meq/L (21.0-32.0); Potassium 3.9 meq/L (3.5-5.1)
[2018-03-24] MEDS: Vancomycin Inj 750 MG in Sodium Chlor 0.9% Inj 250 ML IV.SIG SCH (08:17)
--- NOTE | 2018-03-24 11:56 | P.PNFP ---
Subjective Interval history: Ms. Morales had no acute events overnight. She feels her pain is well controlled , can move her fingers of her left hand and swelling is decreased. Her left hand is no longer in the sling but is elevated on a pillow beside her and she has no complaints. She is adamant that she does not want any treatment for her reported ovarian cancer but did state if she has hepatitis C that she might want treatment. Patient agrees to outpatient OT therapy but location where therapy should be provided is unclear and will require CM assistance. Patient denies chest pain, shortness of breath, fever, chills, nausea, vomiting, diarrhea, abdominal or leg pain. <Manny Marshall III H - 03/24/18 15:30> Results - Labs Result diagrams: 03/24/18 05:40 03/24/18 05:40 <Alexis Galloway - 03/24/18 19:10> Abnormal lab results 03/24/18 03/24/18 Range/Units 05:40 05:40 Hgb 11.2 L (11.6-15.3) gm/dL Hct 34.1 L (35.0-46.0) % MCV 78.0 L (80.0-100.0) fL MCH 25.6 L (27.0-34.0) pg [place] % (Auto) 8.1 H (0.0-8.0) % Eos % (Auto) 9.3 H (0.0-4.0) % Eos # (Auto) 0.6 H (0.0-0.4) th/mm3 Estimated GFR 77 L (>89) mL/min Random Glucose 119 H (74-106) mg/dL Calcium 8.3 L (8.5-10.1) mg/dL Short CBC 03/24/18 Range/Units 05:40 WBC 6.1 (4.0-11.0) th/mm3 Hgb 11.2 L (11.6-15.3) gm/dL Hct 34.1 L (35.0-46.0) % Plt Count 317 (150-450) th/mm3 [facility] 03/24/18 05:40 Sodium 141 Potassium 3.9 Chloride 106 Carbon Dioxide 24.9 BUN 10 Creatinine 0.83 Calcium 8.3 L <Alexis Galloway - 03/24/18 19:10> Abnormal lab results 03/24/18 03/24/18 Range/Units 05:40 05:40 Hgb 11.2 L (11.6-15.3) gm/dL Hct 34.1 L (35.0-46.0) % MCV 78.0 L (80.0-100.0) fL MCH 25.6 L (27.0-34.0) pg [place] % (Auto) 8.1 H (0.0-8.0) % Eos % (Auto) 9.3 H (0.0-4.0) % Eos # (Auto) 0.6 H (0.0-0.4) th/mm3 Estimated GFR 77 L (>89) mL/min Random Glucose 119 H (74-106) mg/dL Calcium 8.3 L (8.5-10.1) mg/dL Short CBC 03/24/18 Range/Units 05:40 WBC 6.1 (4.0-11.0) th/mm3 Hgb 11.2 L (11.6-15.3) gm/dL Hct 34.1 L (35.0-46.0) % Plt Count 317 (150-450) th/mm3 BMP 03/24/18 05:40 Sodium 141 Potassium 3.9 Chloride 106 Carbon Dioxide 24.9 BUN 10 Creatinine 0.83 Calcium 8.3 L <Manny Marshall III H - 03/24/18 11:55> Physical Exam Vital signs: Vital Signs 03/23/18 20:00 03/24/18 00:00 03/24/18 04:00 Temperature 97.5 F L 97.5 F L 97.5 F L Pulse Rate 93 H 87 91 H Respiratory Rate 18 Blood Pressure 120/60 116/63 121/71 Pulse Oximetry 99 98 100 03/24/18 08:00 03/24/18 12:00 Temperature 97.9 F 97.6 F Pulse Rate 93 H 92 H Respiratory Rate 20 20 Blood Pressure 134/72 119/62 Pulse Oximetry 100 100 Intake & Output 03/24/18 03/24/18 03/25/18 06:59 18:59 06:59 Intake Total 880.5 / 880.5 707.5 / 707.5 Balance 880.5 / 880.5 707.5 / 707.5 Weight 51.68 kg Intake: IV 880.5 / 880.5 707.5 / 707.5 NS Inj 1,000 ML @ 92 mls/hr IV. 523 / 523 CONT .[id number] SHAYNA Rx#:[id number] Zosyn 4.5 GM Premix 4.5 gm In 100 / 100 200 / 200 100 ml @ 200 mls/hr IV.SIG Q6H SHAYNA Rx#:[id number] Vancomycin Inj 1,000 MG In NS 250 / 250 Inj 250 ML @ 250 mls/hr IV.SIG Q12H SHAYNA Rx#:[id number] Vancomycin Inj 750 MG In NS Inj 257.5 / 257.5 257.5 / 257.5 250 ML @ 250 mls/hr IV.SIG Q12H SHAYNA Rx#:[id number] Other: # Voids 2 Date of Last Bowel Movement 03/23/18 03/24/18 # Bowel Movements 1 <MickAlexis bowens K - 03/24/18 19:10> Vital Signs 03/23/18 12:00 03/23/18 16:00 03/23/18 20:00 Temperature 98.0 F 98.5 F 97.5 F L Pulse Rate 90 94 H 93 H Respiratory Rate 20 16 18 Blood Pressure 135/70 119/65 120/60 Pulse Oximetry 99 99 99 03/24/18 00:00 03/24/18 04:00 03/24/18 08:00 Temperature 97.5 F L 97.5 F L 97.9 F Pulse Rate 87 91 H 93 H Respiratory Rate 18 18 20 Blood Pressure 116/63 121/71 134/72 Pulse Oximetry 98 100 100 Intake & Output 03/23/18 03/24/18 03/24/18 18:59 06:59 18:59 Intake Total 357.5 / 357.5 880.5 / 880.5 357.5 / 357.5 Balance 357.5 / 357.5 880.5 / 880.5 357.5 / 357.5 Weight 51.68 kg Intake: IV 357.5 / 357.5 880.5 / 880.5 357.5 / 357.5 NS Inj 1,000 ML @ 92 mls/hr IV. 523 / 523 CONT .[id number] SHAYNA Rx#:[id number] Zosyn 4.5 GM Premix 4.5 gm In 100 / 100 100 / 100 100 / 100 100 ml @ 200 mls/hr IV.SIG Q6H SHAYNA Rx#:[id number] Vancomycin Inj 750 MG In NS Inj 257.5 / 257.5 257.5 / 257.5 257.5 / 257.5 250 ML @ 250 mls/hr IV.SIG Q12H SHAYNA Rx#:[id number] Other: Date of Last Bowel Movement 03/21/18 03/23/18 03/24/18 # Bowel Movements 1 <Manny Marshall III - 03/24/18 11:55> Narrative: GENERAL: Well-nourished well-developed, not in acute distress SKIN: Cool and dry, no generalized rash HEAD: Atraumatic. Normocephalic EYES: No injection or drainage. EOMI/PERRLA ENT: Nothing abnormal detected NECK: Trachea midline. Supple, nontender CARDIOVASCULAR: RRR with no murmur, rub or gallop RESPIRATORY: Clear to auscultation bilaterally. No increased WOB GASTROINTESTINAL: Abdomen soft, nontender.+BS MUSCULOSKELETAL: Left wrist in postop dressing resting on pillow nest to pt. Track harrison and nodules under skin visible on UEs NEUROLOGICAL: Alert oriented 3. Nonfocal. Normal speech Psych: cooperative but anxious <eBlemManny ramirez III - 03/24/18 15:30> Assessment and Plan - Assessment (1) Joint infection of left wrist Code(s): M00.9 - Pyogenic arthritis, unspecified Status: Acute (2) Cervical cancer Code(s): C53.9 - Malignant neoplasm of cervix uteri, unspecified Status: Chronic (3) Polysubstance abuse Code(s): F19.10 - Other psychoactive substance abuse, uncomplicated Status: Chronic (4) Epilepsy Code(s): G40.909 - Epilepsy, unspecified, not intractable, without status epilepticus Status: Acute (5) Anxiety Code(s): F41.9 - Anxiety disorder, unspecified Status: Acute (6) HCV antibody positive Code(s): R76.8 - Other specified abnormal immunological findings in serum Status: Acute (7) Nutrition, metabolism, and development symptoms Code(s): R63.8 - Other symptoms and signs concerning food and fluid intake Status: Acute <Alexis Galloway - 03/24/18 19:10> (1) Joint infection of left wrist Code(s): M00.9 - Pyogenic arthritis, unspecified Status: Acute Plan: This is a 38-year-old female with a history of IV drug use, heart murmur, untreated uterine, ovarian and cervical cancer, and previous cellulitis being admitted after a 3 day history of swelling and pain in the left wrist. Pt is now POD#3 s/p Left carpal tunnel release, I&D abscess left wrist and first dorsal compartment In the ED the wrist was attempted to be aspirated but only yielded a very little amount of clear synovial fluid and culture was sent to the lab. Patient received 1 dose of vancomycin in the ED. x-ray of the wrist showed no acute fracture. -Hand surgery consulted, appreciate recommendations -ID consulted, appreciate recommendations -Vancomycin, dosed by pharmacy -Patient started on Zosyn 4.5 gm IV q6h -Blood cx NGTD x4 days -Synovial fluid NGTD x4 days -Left wrist abscess culture with moderate WBCs, no organism x3 days -Negative AFB cx x3d -Fungal cx [id number] -Follow-up cultures -Morphine and Dilaudid prn pain (2) Cervical cancer Code(s): C53.9 - Malignant neoplasm of cervix uteri, unspecified Status: Chronic Plan: This patient reports a history of cervical, uterine, and ovarian cancer previously treated with chemotherapy and radiation but relapsed approximately 5 years ago. She reports that she has decided to not pursue treatment but has followed up with her oncologist 6 months ago. (3) Polysubstance abuse Code(s): F19.10 - Other psychoactive substance abuse, uncomplicated Status: Chronic Plan: This patient reports a long history of polysubstance abuse to include IV heroin , snorting heroin, and use of methamphetamine. She is also a lifetime cigarette smoker. Patient currently not interested in assistance with getting clean. Patient did request nicotine patch. CIWA protocol currently not indicated. -ECHO showing LV wnl, EF 60-65%, trace TV regurg, PAP 26 mmHg -Continue nicotine patch -Continue to evaluate and encourage patient to seek treatment -Due to hx, unlikely pt will discharge with IV abx (4) Epilepsy Code(s): G40.909 - Epilepsy, unspecified, not intractable, without status epilepticus Status: Acute Plan: Patient reports having history of epilepsy previously on Keppra of unknown dosage or quantity. Patient discontinued her medication over 2 weeks ago. (5) Anxiety Code(s): F41.9 - Anxiety disorder, unspecified Status: Acute Plan: Pt with anxiety and requests xanax. [place] prescription drug monitoring program was queried. Patient takes 1 mg Xanax twice daily. Due to her polysubstance abuse and large opiate dosage at this time I do not feel comfortable with that amount of alprazolam. The risks of mixing benzos and opiates were explained to the patient. -Patient was asked if she would like to speak to a enamel finisher. She declined. -Xanax 0.50mg q8h PRN (6) HCV antibody positive Code(s): R76.8 - Other specified abnormal immunological findings in serum Status: Acute Plan: Pt with positive HCV antibody in hospital; pt stated 03/24 that if her HCV requires treatment she would like to elect to get it treated -HCV RNA quant pending (7) Nutrition, metabolism, and development symptoms Code(s): R63.8 - Other symptoms and signs concerning food and fluid intake Status: Acute Plan: Fluids: PO fluids; discontinued IVF today; Cr 0.83 Electrolytes: Replete as needed Nutrition: Regular diet DVT prophylaxis: b/l SCDs Pt SDW Taylor Galloway and Andres <Manny Marshall III H - 03/24/18 15:21> - Attending Attestation The exam, history, and the medical decision-making described in the above note were completed with the assistance of the resident physician. I reviewed and agree with the findings presented. I attest that I had a [id number] encounter with the patient on the same day, and personally performed and documented my assessment and findings in the medical record. Hand well covered today. I discussed cancer diagnosis with her, she explained status of this although I have not seen records. waiting on HCV RNA, talked about this with patient and how if she did want treatment for this, likely would need to consider treatment of cancer as well and also not be using illicit substances and she seemed to understand. resident discussed antibiotic plan with ID and they are still waiting to talk to hand surgery to decide. Cont IV for now <Alexis Galloway - 03/24/18 19:10>
[2018-03-24] MEDS: Vancomycin Inj 1,000 MG in Sodium Chlor 0.9% Inj 250 ML IV.SIG SCH (16:17)
[2018-03-25] MEDS: Morphine Inj 4 MG/ML Vial IV.PUSH PRN ×3 (00:19→10:57)
[2018-03-25] MEDS: HYDROmorphone PF Inj 1 MG/ML Ampul IV.PUSH PRN ×2 (02:48→06:01)
[2018-03-25] MEDS: Vancomycin Inj 1,000 MG in Sodium Chlor 0.9% Inj 250 ML IV.SIG SCH (04:36)
[2018-03-25] MEDS: Piperacil/Tazo 4.5 GM Premix 4.5 GM/100 ML BAG IV.SIG SCH ×3 (06:04→13:17)
[2018-03-25] MEDS: ALPRAZolam 0.5 MG Tablet PO PRN (08:11)
[2018-03-25 10:44] LABS: Baso # (Auto) 0.1 th/mm3 (0.0-0.2); Eos # (Auto) 0.5 th/mm3 (0.0-0.4); Eos % (Auto) 7.6 % (0.0-4.0); Hematocrit 42.6 % (35.0-46.0); Hemoglobin 13.3 gm/dL (11.6-15.3); Mean Corpuscular HGB Conc 31.2 % (32.0-36.0); Mean Corpuscular Volume 80.3 fL (80.0-100.0); Mean Platelet Volume 8.4 fL (7.0-11.0); Mono # (Auto) 0.4 th/mm3 (0.0-0.9); Mono % (Auto) 5.5 % (0.0-8.0); Neut # (Auto) 3.8 th/mm3 (1.8-7.7); Neut % (Auto) 55.9 % (16.0-70.0); Platelet Count 319 th/mm3 (150-450); Red Cell Distribution Width 17.3 % (11.6-17.2); White Blood Count 6.7 th/mm3 (4.0-11.0)
[2018-03-25 11:14] LABS: Carbon Dioxide 28.3 meq/L (21.0-32.0)
[2018-03-25 11:26] LABS: Ovalocytes 1+
[2018-03-25] MEDS ORDERED: oxyCODONE/Acetaminophen 10/325 Tablet PO PRN (12:03)
[2018-03-25 12:05] VITALS: BP 150/70; PULSE 99; RESP 17; TEMP 97.7; O2SAT 98
[2018-03-25] MEDS ORDERED: Metoclopramide Inj 10 MG in Sodium Chlor 0.9% Inj 50 ML IV.SIG ONE (12:40)
--- NOTE | 2018-03-25 12:46 | P.PNID ---
Subjective Remarks: Ms. Morales is a 38-year-old female with past medical history significant for IV drug abuse particularly heroin, history of uterine ovarian and cervical cancer. Patient reports that she has had cervical uterine and ovarian cancer a decade or so back when she underwent chemotherapy and radiation for the same. When this recurred recently she has now refused any further chemoradiation therapy by choice. Patient also reports a history of murmur but on further questioning denies any history of endocarditis. She denies any history of epidural abscesses. She does endorse prior history of multiple abscesses all over her body she thinks likely from her intravenous drug abuse. Acute onset of swelling of the left wrist started approximately 3 days prior to admission. She reports she woke up and found a swelling on the lateral side of her wrist which was swollen and painful. She had some leftover doxycycline at home which she has been taking but since the swelling continued to worsen she came to the ER. On admission she reported paresthesias through the volar and palmar aspect of her left hand. Patient also reports nausea and nonbloody nonbilious vomiting on the morning of admission. She admits to injecting IV heroin in the left upper extremity. She reports lancing an abscess on the medial aspect of her lower left forearm at home. She may have taken some leftover doxycycline. She denies any fever chills or night sweats. She denies any other systemic symptoms. Infectious diseases consulted for evaluation and management of left wrist abscess. Overnight events reviewed. No fever No rash No diarrhea Reports having taken doxy prior to admission and then stopped as it was causing severe nausea and vomiting. Spoke to Dr.Sarah Herring the abscess was deep to the tendon levels but tendon sheath was intact. Antibiotics: Zosyn IV Vanco IV Lines: Lines ok Past Medical History: reviewed Allergies/Adverse Reactions: Allergies cephalexin Allergy (Severe, Verified 01/04/18 03:02) RECTAL BLEED diclofenac Allergy (Severe, Verified 01/04/18 03:02) Rectal Bleed hornet venom Allergy (Severe, Verified 01/04/18 03:02) Anaphylaxis latex Allergy (Severe, Verified 01/04/18 03:02) Swelling penicillin G Allergy (Severe, Verified 01/04/18 03:02) VOMITING propoxyphene Allergy (Severe, Verified 01/04/18 03:02) VOMITING rizatriptan Allergy (Intermediate, Verified 01/04/18 03:02) Rectal Bleed diphtheria toxoid,adsorbed Allergy (Unknown, Verified 01/04/18 03:02) UNKNOWN REACTION acetaminophen Adverse Reaction (Severe, Verified 01/04/18 03:02) SWELLING AND VOMITING codeine Adverse Reaction (Severe, Verified 01/04/18 03:02) SWELLING AND VOMITING doxycycline Adverse Reaction (Severe, Verified 12/13/17 18:01) RASH Objective Vital Signs 03/24/18 16:00 03/24/18 20:00 03/25/18 00:19 Temperature 97.8 F 98.3 F 98.5 F Pulse Rate 106 H 88 78 Respiratory Rate 20 20 20 Blood Pressure 113/63 104/54 L 102/59 L Pulse Oximetry 100 100 95 03/25/18 04:00 03/25/18 08:00 03/25/18 12:00 Temperature 98.8 F 98.4 F 97.7 F Pulse Rate 78 85 99 H Respiratory Rate 20 20 17 Blood Pressure 109/54 L 110/66 150/70 H Pulse Oximetry 99 100 98 Intake & Output 03/24/18 03/25/18 03/25/18 18:59 06:59 18:59 Intake Total 707.5 / 707.5 500 / 500 0 / 0 Balance 707.5 / 707.5 500 / 500 0 / 0 Intake: IV 707.5 / 707.5 500 / 500 0 / 0 NS Inj 1,000 ML @ 92 mls/hr IV. 0 / 0 CONT .[id number] [facility]AYNA Rx#:[id number] Zosyn 4.5 GM Premix 4.5 gm In 200 / 200 250 / 250 0 / 0 100 ml @ 200 mls/hr IV.SIG Q6H SHAYNA Rx#:[id number] Vancomycin Inj 1,000 MG In NS 250 / 250 250 / 250 Inj 250 ML @ 250 mls/hr IV.SIG Q12H [facility]AYNA Rx#:[id number] Vancomycin Inj 750 MG In NS Inj 257.5 / 257.5 250 ML @ 250 mls/hr IV.SIG Q12H [facility]AYNA Rx#:[id number] Other: # Voids 2 2 1 Date of Last Bowel Movement 03/24/18 # Bowel Movements 1 03/20/18 13:30 Blood - Peripheral Aerobic Blood Culture - Final No growth in 5 days 03/20/18 13:30 Blood - Peripheral Anaerobic Blood Culture - Final No growth in 5 days 03/20/18 13:44 Blood - Peripheral Aerobic Blood Culture - Final No growth in 5 days 03/20/18 13:44 Blood - Peripheral Anaerobic Blood Culture - Final No growth in 5 days 03/21/18 17:18 Abscess - Wrist Gram Stain - Final 03/21/18 17:18 Abscess - Wrist Wound Culture - Final No growth in 72 hours (aerobically and anaerobically ) 03/21/18 17:18 Abscess - Wrist Acid Fast Bacilli Smear - Final No acid fast bacilli seen 03/21/18 17:18 Abscess - Wrist Mycobacterial Culture - Pending 03/20/18 14:54 Fluid - Synovial Fluid Gram Stain - Final 03/20/18 14:54 Fluid - Synovial Fluid Body Fluid Culture - Final No growth in 72 hours (aerobically and anaerobically ) 03/21/18 17:18 Abscess - Wrist Fungal Smear - Final No fungal elements seen 03/21/18 17:18 Abscess - Wrist Fungal Culture - Pending Lab - Hematology Results 03/24/18 03/25/18 05:40 09:23 WBC 6.1 6.7 RBC 4.37 5.30 Hgb 11.2 L 13.3 D Hct 34.1 L 42.6 MCV 78.0 L 80.3 MCH 25.6 L 25.0 L MCHC 32.8 31.2 L RDW 16.6 17.3 H Plt Count 317 319 MPV 8.1 8.4 Prelim Diff (Auto) Slide review pending Neut % (Auto) 44.2 55.9 Lymph % (Auto) 37.2 30.0 [place] % (Auto) 8.1 H 5.5 Eos % (Auto) 9.3 H 7.6 H Baso % (Auto) 1.2 1.0 Neut # (Auto) 2.7 3.8 Lymph # (Auto) 2.3 2.0 [place] # (Auto) 0.5 0.4 Eos # (Auto) 0.6 H 0.5 H Baso # (Auto) 0.1 0.1 WBC Differential . Manual diff final Differential Comment Auto diff final . Ovalocytes 1+ H Lab - Chemistry Results 03/24/18 03/25/18 05:40 09:23 Sodium 141 138 Potassium 3.9 4.0 Chloride 106 103 Carbon Dioxide 24.9 28.3 Anion Gap 10 7 BUN 10 10 Creatinine 0.83 0.89 Estimated GFR 77 L 71 L Random Glucose 119 H 82 Calcium 8.3 L 9.0 Imaging: ITS Impressions Wrist X-Ray 03/20/18 12:59 CONCLUSION: 1. No acute fracture. Wrist MRI 03/21/18 18:00 CONCLUSION: 1. Small subcutaneous abscess radial to the carpus as described. Partial involvement of the extensor compartment 1 tendon sheath is possible. 2. Otherwise generalized cellulitis without additional discrete abscess. 3. No osteomyelitis demonstrated. Physical Exam: GENERAL: Well-nourished well-developed, not in acute distress SKIN: Cool and dry, no generalized rash HEAD: Atraumatic. Normocephalic. No temporal or scalp tenderness. EYES: Pupils equal round and reactive. Scleral icterus. No injection or drainage. No petechia ENT: Nothing abnormal detected NECK: Trachea midline. Supple, nontender, no meningeal signs. CARDIOVASCULAR: HS audible. RESPIRATORY: Clear to auscultation bilaterally. GASTROINTESTINAL: Abdomen soft nontender. MUSCULOSKELETAL: Left wrist and postop dressing. Track harrison visible. NEUROLOGICAL: Alert oriented 3. Nonfocal. Psych cooperative IV line sites ok. Assessment and Plan - Plan Left wrist abscess s/p Carpal tunnel release and drainage of abscess. IVDA Heroin Rule out bacteremia Self reported h/o uterine, ovarian cancer s/p chemo decade back now with recurrence. After recurrence does not wish for chemotherapy or any other modality. Recs: DC Zosyn IV DC Vanco IV Discharge home on oral zyvox or Linezolid once approved by medicare. Indication : Tenosynovitis. Patient to follow up with Dr.Sarah Herring and Dr.Reba Shaffer as outpatient. Mandatory follow up consults placed. Patient was threatening to leave A. Convinced her to stay. Also discussed side effects of Zyvox with patient and importance of follow up as outpatient. Patient does not trust herself with abstaining from IVDA so would prefer an oral regimen. Will sign off please call back if any questions, change in clinical condition or issues with Zyvox.
[2018-03-25] MEDS ORDERED: Linezolid 600 MG Tablet PO SCH (13:00)
--- NOTE | 2018-03-25 13:28 | P.PNFP ---
Subjective Interval history: No acute events overnight. Patient seen and examined this AM. Remains afebrile, vitals stable. Patient reports some nausea she believes to be attributed to her IV antibiotics. She also reports some frustration towards not being able to easily establish an IV line. Reports her pain this morning is stable, denies any worsening. Denies fevers or chills, CP, dyspnea. <Gustavo Hutchinsonsh - 03/25/18 13:33> Results - Labs Result diagrams: 03/25/18 09:23 03/25/18 09:23 <CaridadAlexis trujillo Alma - 03/25/18 17:31> Abnormal lab results 03/25/18 03/25/18 Range/Units 09:23 09:23 MCH 25.0 L (27.0-34.0) pg MCHC 31.2 L (32.0-36.0) % RDW 17.3 H (11.6-17.2) % Eos % (Auto) 7.6 H (0.0-4.0) % Eos # (Auto) 0.5 H (0.0-0.4) th/mm3 Ovalocytes 1+ H (None) Estimated GFR 71 L (>89) mL/min Short CBC 03/25/18 Range/Units 09:23 WBC 6.7 (4.0-11.0) th/mm3 Hgb 13.3 D (11.6-15.3) gm/dL Hct 42.6 (35.0-46.0) % Plt Count 319 (150-450) th/mm3 [facility] 03/25/18 09:23 Sodium 138 Potassium 4.0 Chloride 103 Carbon Dioxide 28.3 BUN 10 Creatinine 0.89 Calcium 9.0 <LaverneAlexis Alma - 03/25/18 17:31> Abnormal lab results 03/25/18 03/25/18 Range/Units 09:23 09:23 MCH 25.0 L (27.0-34.0) pg MCHC 31.2 L (32.0-36.0) % RDW 17.3 H (11.6-17.2) % Eos % (Auto) 7.6 H (0.0-4.0) % Eos # (Auto) 0.5 H (0.0-0.4) th/mm3 Ovalocytes 1+ H (None) Estimated GFR 71 L (>89) mL/min Short CBC 03/25/18 Range/Units 09:23 WBC 6.7 (4.0-11.0) th/mm3 Hgb 13.3 D (11.6-15.3) gm/dL Hct 42.6 (35.0-46.0) % Plt Count 319 (150-450) th/mm3 BMP 03/25/18 09:23 Sodium 138 Potassium 4.0 Chloride 103 Carbon Dioxide 28.3 BUN 10 Creatinine 0.89 Calcium 9.0 <Neo Hutchinson - 03/25/18 13:28> Physical Exam Vital signs: Vital Signs 03/24/18 20:00 03/25/18 00:19 03/25/18 04:00 Temperature 98.3 F 98.5 F 98.8 F Pulse Rate 88 78 78 Respiratory Rate 20 20 20 Blood Pressure 104/54 L 102/59 L 109/54 L Pulse Oximetry 100 95 99 03/25/18 08:00 03/25/18 12:00 Temperature 98.4 F 97.7 F Pulse Rate 85 99 H Respiratory Rate 20 17 Blood Pressure 110/66 150/70 H Pulse Oximetry 100 98 Intake & Output 03/24/18 03/25/18 03/25/18 18:59 06:59 18:59 Intake Total 707.5 / 707.5 500 / 500 0 / 0 Balance 707.5 / 707.5 500 / 500 0 / 0 Intake: IV 707.5 / 707.5 500 / 500 0 / 0 NS Inj 1,000 ML @ 92 mls/hr IV. 0 / 0 CONT .[id number] SHAYNA Rx#:[id number] Zosyn 4.5 GM Premix 4.5 gm In 200 / 200 250 / 250 0 / 0 100 ml @ 200 mls/hr IV.SIG Q6H SHAYNA Rx#:[id number] Vancomycin Inj 1,000 MG In NS 250 / 250 250 / 250 Inj 250 ML @ 250 mls/hr IV.SIG Q12H SHAYNA Rx#:[id number] Vancomycin Inj 750 MG In NS Inj 257.5 / 257.5 250 ML @ 250 mls/hr IV.SIG Q12H SHAYNA Rx#:[id number] Other: # Voids 2 2 1 Date of Last Bowel Movement 03/24/18 # Bowel Movements 1 <Alexis Galloway - 03/25/18 17:31> Vital Signs 03/24/18 16:00 03/24/18 20:00 03/25/18 00:19 Temperature 97.8 F 98.3 F 98.5 F Pulse Rate 106 H 88 78 Respiratory Rate 20 20 20 Blood Pressure 113/63 104/54 L 102/59 L Pulse Oximetry 100 100 95 03/25/18 04:00 03/25/18 08:00 03/25/18 12:00 Temperature 98.8 F 98.4 F 97.7 F Pulse Rate 78 85 99 H Respiratory Rate 20 20 17 Blood Pressure 109/54 L 110/66 150/70 H Pulse Oximetry 99 100 98 Intake & Output 03/24/18 03/25/18 03/25/18 18:59 06:59 18:59 Intake Total 707.5 / 707.5 500 / 500 0 / 0 Balance 707.5 / 707.5 500 / 500 0 / 0 Intake: IV 707.5 / 707.5 500 / 500 0 / 0 NS Inj 1,000 ML @ 92 mls/hr IV. 0 / 0 CONT .[id number] SHAYNA Rx#:[id number] Zosyn 4.5 GM Premix 4.5 gm In 200 / 200 250 / 250 0 / 0 100 ml @ 200 mls/hr IV.SIG Q6H SHAYNA Rx#:[id number] Vancomycin Inj 1,000 MG In NS 250 / 250 250 / 250 Inj 250 ML @ 250 mls/hr IV.SIG Q12H SHAYNA Rx#:[id number] Vancomycin Inj 750 MG In NS Inj 257.5 / 257.5 250 ML @ 250 mls/hr IV.SIG Q12H SHAYNA Rx#:[id number] Other: # Voids 2 2 1 Date of Last Bowel Movement 03/24/18 # Bowel Movements 1 <Neo Hutchinson - 03/25/18 13:28> Narrative: GENERAL: Well-nourished well-developed, not in acute distress SKIN: Cool and dry, no generalized rash HEAD: Atraumatic. Normocephalic EYES: No injection or drainage. EOMI/PERRLA ENT: Nothing abnormal detected NECK: Trachea midline. Supple, nontender CARDIOVASCULAR: RRR with no murmur, rub or gallop RESPIRATORY: Clear to auscultation bilaterally. No increased WOB GASTROINTESTINAL: Abdomen soft, nontender.+BS MUSCULOSKELETAL: Left wrist in postop dressing resting on pillow nest to pt. Track harrison and nodules under skin visible on UEs NEUROLOGICAL: Alert oriented 3. Nonfocal. Normal speech Psych: cooperative but anxious <Neo Hutchinson - 03/25/18 13:33> Assessment and Plan - Assessment (1) Joint infection of left wrist Code(s): M00.9 - Pyogenic arthritis, unspecified Status: Acute (2) Cervical cancer Code(s): C53.9 - Malignant neoplasm of cervix uteri, unspecified Status: Chronic (3) Polysubstance abuse Code(s): F19.10 - Other psychoactive substance abuse, uncomplicated Status: Chronic (4) Epilepsy Code(s): G40.909 - Epilepsy, unspecified, not intractable, without status epilepticus Status: Chronic (5) Anxiety Code(s): F41.9 - Anxiety disorder, unspecified Status: Chronic (6) HCV antibody positive Code(s): R76.8 - Other specified abnormal immunological findings in serum Status: Acute (7) Nutrition, metabolism, and development symptoms Code(s): R63.8 - Other symptoms and signs concerning food and fluid intake Status: Acute <LaverneAlexis Marquez - 03/25/18 17:31> (1) Joint infection of left wrist Code(s): M00.9 - Pyogenic arthritis, unspecified Status: Acute Plan: This is a 38-year-old female with a history of IV drug use, heart murmur, untreated uterine, ovarian and cervical cancer, and previous cellulitis being admitted after a 3 day history of swelling and pain in the left wrist. Pt is now POD#4 s/p Left carpal tunnel release, I&D abscess left wrist and first dorsal compartment In the ED the wrist was attempted to be aspirated but only yielded a very little amount of clear synovial fluid and culture was sent to the lab. Patient received 1 dose of vancomycin in the ED. x-ray of the wrist showed no acute fracture. -Hand surgery consulted, appreciate recommendations -ID consulted, appreciate recommendations -Vancomycin and Zosyn discontinued, patient started on Zyvox 600 mg po q12h -Blood cx NGTD -Synovial fluid culture NGTD -Left wrist abscess culture with moderate WBCs, no organisms to date -Negative AFB cx -Fungal cx NGTD -Discontinued IV pain medications -Percocet 10/325 mg po q4h prn pain -Stable for discharge on oral Zyvox for additional 14 days per ID, awaiting medicare approval (2) Cervical cancer Code(s): C53.9 - Malignant neoplasm of cervix uteri, unspecified Status: Chronic Plan: This patient reports a history of cervical, uterine, and ovarian cancer previously treated with chemotherapy and radiation but relapsed approximately 5 years ago. She reports that she has decided to not pursue treatment but has followed up with her oncologist 6 months ago. (3) Polysubstance abuse Code(s): F19.10 - Other psychoactive substance abuse, uncomplicated Status: Chronic Plan: This patient reports a long history of polysubstance abuse to include IV heroin , snorting heroin, and use of methamphetamine. She is also a lifetime cigarette smoker. Patient currently not interested in assistance with getting clean. Patient did request nicotine patch. CIWA protocol currently not indicated. -ECHO showing LV wnl, EF 60-65%, trace TV regurg, PAP 26 mmHg -Continue nicotine patch -Continue to evaluate and encourage patient to seek treatment -Due to hx, unlikely pt will discharge with IV abx (4) Epilepsy Code(s): G40.909 - Epilepsy, unspecified, not intractable, without status epilepticus Status: Acute Plan: Patient reports having history of epilepsy previously on Keppra of unknown dosage or quantity. Patient discontinued her medication over 2 weeks ago. (5) Anxiety Code(s): F41.9 - Anxiety disorder, unspecified Status: Acute Plan: Pt with anxiety and requests xanax. [place] prescription drug monitoring program was queried. Patient takes 1 mg Xanax twice daily. Due to her polysubstance abuse and large opiate dosage at this time I do not feel comfortable with that amount of alprazolam. The risks of mixing benzos and opiates were explained to the patient. -Patient was asked if she would like to speak to a market research assistant. She declined. -Xanax 0.50mg q8h PRN (6) HCV antibody positive Code(s): R76.8 - Other specified abnormal immunological findings in serum Status: Acute Plan: Pt with positive HCV antibody in hospital; pt stated 03/24 that if her HCV requires treatment she would like to elect to get it treated -HCV RNA quant pending (7) Nutrition, metabolism, and development symptoms Code(s): R63.8 - Other symptoms and signs concerning food and fluid intake Status: Acute Plan: Fluids: per PO Electrolytes: Replete as needed Nutrition: Regular diet DVT prophylaxis: b/l SCDs <Neo Hutchinson - 03/25/18 13:30> - Attending Attestation The exam, history, and the medical decision-making described in the above note were completed with the assistance of the resident physician. I reviewed and agree with the findings presented. I attest that I had a [id number] encounter with the patient on the same day, and personally performed and documented my assessment and findings in the medical record. Agree with above, moving hand well today. Team d/w ID who d/w hand surgery and they felt she could be discharged on 2 wks of PO zyvox so patient is able to leave without IV access and having to return for infusions. Discharging today. <Alexis Galloway - 03/25/18 17:31>
--- NOTE | 2018-03-25 16:33 | P.DS ---
Date of admission: 03/20/18 16:17 Primary care physician: Divine Crook Ed Attending physician on discharge: Alexis Galloway Anticipated date of discharge: 03/25/18 Brief History from admission: This is a 38-year-old female with a history of IV drug use heart murmur, untreated uterine, ovarian and cervical cancer, and previous cellulitis being admitted after a 3 day history swelling and pain in the left wrist. Patient reports that the pain began approximately 3 mornings ago. She reports that she woke up and found that the lateral side of her wrist was swollen and painful. Since then the swelling has increased and has become even more painful. She decided yesterday to seek medical attention but waited until today to come in. Over the last 3 days she admits to taking an unknown quantity of leftover doxycycline with no resolve. She reports that the pain is constant, non- radiating and describes it as burning with a sharpness in the center accompanied by moments of exacerbation. She also reports paresthesias throughout the volar and palmar aspect of her left hand that began at 1030 this morning. There are no relieving or exacerbating factors. She has also experienced nausea with nonbloody nonbilious vomiting with the last emesis being this morning. She also reported the onset of hard painless bumps all over her body that began a week ago. Although she admits to injecting into her left arm she denies shooting up over the dorsum of her wrist or volar aspect of her hand. She also reported lancing an abscess on the medial aspect of the left forearm that was present for 1 month but lanced 1 week ago. Per patient she was also experiencing shortness of breath that began approximately 1 month ago which she describes as difficulty breathing but attributes it to her long smoking history. She denies any fevers, chills, flank pain, urinary frequency, dysuria, chest pain, abdominal pain, diarrhea, or constipation. PMHx: Migraines Epilepsy Heart murmur diagnosed during childhood. Uterine, ovarian, and cervical cancer diagnosed at 18 and treated at 20 with surgery with chemotherapy and radiation. Patient was in remission until approximately 5 years ago and has remained untreated. Last oncological appointment was 6 months ago. Meds: Gabapentin, topomax, keppra and Prilosec has not taken meds in 2 weeks Surgical Hx: Ovarian and uterine cyst removal and 4 R knee surgeries FMHx: HTN, hyperlipidemia, gynecological cancers, Diabetes Social: Lives with friend Sarbjit, does not work and is currently on disability. She has three children ages 19, 17, and 1yr 2mo. The 17 year old lives with father and the 1yr old is in foster care. She admits to using IV heroin, and admits that she snorted heroin before coming to the hospital. She began using heroin since age 13 but was clean for 4-1/2 years but relapsed after the of her son. She also reports that she occasionally uses meth. Her preferred site of injection is a back of her left arm. She reports consuming alcohol a couple times a year and has smoked a pack of cigarettes daily for 25 years. Allergies: DTP vaccines Code: DNR PE bumps a weeks ago Patient update on day of discharge: Patient physical exam stable with Mihir bandage wrapped around left wrist with some residual pain, able to flex fingers and minimal to no numbness. Radial pulses intact. DS: Diagnosis - Discharge Diagnosis (1) Joint infection of left wrist Status: Acute (2) Cervical cancer Status: Chronic (3) Polysubstance abuse Status: Chronic (4) Epilepsy Status: Chronic (5) Anxiety Status: Chronic (6) HCV antibody positive Status: Acute (7) Nutrition, metabolism, and development symptoms Status: Acute DS: Medications - Discharge Medications Prescriptions: linezolid [Zyvox] 600 mg PO Q12HR 14 Days tab oxycodone-acetaminophen [Percocet] 1 tab PO Q6H PRN #12 tab PRN Reason: Pain DS: Summary Hospital Course: Ms. Morales was admitted on February 17 with left wrist pain swelling and erythema. In ED some synovial fluid was aspirated and sent for culture. CBC with white blood count was normal. CMP was grossly normal with slightly elevated with AST 44 and ALT 75. Patient hepatitis panel positive for hepatitis C virus; however , hepatitis C RNA testing still pending at time of discharge. Patient states she had been using heroin and amphetamines at time of admission with last use being snorting of heroin that morning. Dr. Herring, hand surgery, took patient to or on March 21 for debridement and abscess drainage. All subsequent cultures including blood cultures have been negative. Patient was placed on vancomycin and Zosyn IV antibiotics during her hospital stay. Patient has been afebrile during her entire hospital stay. Pain has trended down and there has been interval resolution of her pain. Dr Lee, ID was consulted to aid in antibiotic selection and management. She approved pt to be discharged on PO Zyvox daily for two weeks with follow up to Dr Shaffer, infectious disease. - Time Spent with Patient Total time spent providing and/or coordinating discharge services: Less than 30 minutes - Quality: VTE Deep Vein Thrombosis/Pulmonary Embolism Present on Admission: No Exam Vital signs: Vital Signs 03/24/18 20:00 03/25/18 00:19 03/25/18 04:00 Temperature 98.3 F 98.5 F 98.8 F Pulse Rate 88 78 78 Respiratory Rate 20 20 20 Blood Pressure 104/54 L 102/59 L 109/54 L Pulse Oximetry 100 95 99 03/25/18 08:00 03/25/18 12:00 Temperature 98.4 F 97.7 F Pulse Rate 85 99 H Respiratory Rate 20 17 Blood Pressure 110/66 150/70 H Pulse Oximetry 100 98 Intake & Output 03/24/18 03/25/18 03/25/18 18:59 06:59 18:59 Intake Total 707.5 / 707.5 500 / 500 0 / 0 Balance 707.5 / 707.5 500 / 500 0 / 0 Intake: IV 707.5 / 707.5 500 / 500 0 / 0 NS Inj 1,000 ML @ 92 mls/hr IV. 0 / 0 CONT .[id number] SHAYNA Rx#:[id number] Zosyn 4.5 GM Premix 4.5 gm In 200 / 200 250 / 250 0 / 0 100 ml @ 200 mls/hr IV.SIG Q6H SHAYNA Rx#:[id number] Vancomycin Inj 1,000 MG In NS 250 / 250 250 / 250 Inj 250 ML @ 250 mls/hr IV.SIG Q12H SHAYNA Rx#:[id number] Vancomycin Inj 750 MG In NS Inj 257.5 / 257.5 250 ML @ 250 mls/hr IV.SIG Q12H SHAYNA Rx#:[id number] Other: # Voids 2 2 1 Date of Last Bowel Movement 03/24/18 # Bowel Movements 1 Narrative: GENERAL: Well-nourished well-developed, not in acute distress SKIN: Cool and dry, no generalized rash HEAD: Atraumatic. Normocephalic EYES: No injection or drainage. EOMI/PERRLA ENT: Nothing abnormal detected NECK: Trachea midline. Supple, nontender CARDIOVASCULAR: RRR with no murmur, rub or gallop RESPIRATORY: Clear to auscultation bilaterally. No increased WOB GASTROINTESTINAL: Abdomen soft, nontender.+BS MUSCULOSKELETAL: Left wrist in postop dressing resting on pillow nest to pt. Track harrison and nodules under skin visible on UEs NEUROLOGICAL: Alert oriented 3. Nonfocal. Normal speech Psych: cooperative but anxious Results Procedures completed during hospitalization: Left carpal tunnel release, I&D abscess left wrist and first dorsal compartment Labs on day of discharge: Labs from last 24 hours 03/25/18 03/25/18 09:23 09:23 WBC 6.7 RBC 5.30 Hgb 13.3 D Hct 42.6 MCV 80.3 MCH 25.0 L MCHC 31.2 L RDW 17.3 H Plt Count 319 MPV 8.4 Prelim Diff (Auto) Slide review pending Neut % (Auto) 55.9 Lymph % (Auto) 30.0 [place] % (Auto) 5.5 Eos % (Auto) 7.6 H Baso % (Auto) 1.0 Neut # (Auto) 3.8 Lymph # (Auto) 2.0 [place] # (Auto) 0.4 Eos # (Auto) 0.5 H Baso # (Auto) 0.1 WBC Differential Manual diff final Differential Comment . Ovalocytes 1+ H Sodium 138 Potassium 4.0 Chloride 103 Carbon Dioxide 28.3 Anion Gap 7 BUN 10 Creatinine 0.89 Estimated GFR 71 L Random Glucose 82 Calcium 9.0 - Impressions ITS Impressions Wrist X-Ray 03/20/18 12:59 CONCLUSION: 1. No acute fracture. Wrist MRI 03/21/18 18:00 CONCLUSION: 1. Small subcutaneous abscess radial to the carpus as described. Partial involvement of the extensor compartment 1 tendon sheath is possible. 2. Otherwise generalized cellulitis without additional discrete abscess. 3. No osteomyelitis demonstrated. Discharge Plan - Discharge Disposition Patient Disposition: 01 Discharge Home - Discharge Condition Condition: Stable - Discharge Order Discharge Orders: Discharge Order (Routine); Ordered 03/25/18 Ordered By: Manny Marshall III Hand Surgery Clear for Discharge (Routine); Ordered 03/23/18 Ordered By: Brianda Herring - Discharge Details Anticipated Discharge Date: 03/25/18 Discharge Comment: Will discharge if CM can get Zyvox approved by pt's insurance /Medicare - Physicians Team [place] [place]: Alexis Galloway Other Providers: Brianda Herring MD ; Rosa M Lee MD
[2018-03-25] MEDS ORDERED: Pharmacy Ordered Lab Info OTHER ONE (16:45)
[2018-03-25 23:53] LABS: Hepatitis C RNA (PCR) log IUs 5.04
== END 2018-03-25 14:50 | disposition home or self-care (01) ==
LOC: NEPD 12:25 → NEDA 16:17 → N05 18:47
PROVIDERS: ADMIT Family Medicine; ATTEND Family Medicine

== ENCOUNTER 2018-04-10 23:12 | Observation (INO) ==
--- NOTE | 2018-04-11 00:39 | ED ---
HPI General Chief complaint: Skin/Abscess/Foreign Body Stated complaint: medical Time Seen by Provider: 04/10/18 23:49 History of Present Illness HPI narrative: Patient is a 38 year old female IVDA history of endocarditis presents to the ER for evaluation of left wrist abscess. Patient states that she first developed this abscess about one month ago. She came to this hospital and was admitted, had drainage by Dr. Herring and then was ultimately discharged on Zyvox which she said she finished. She states that after discharge she again had worsening abscess over the next five days. She came back here and was readmitted and after 3-4 days here she became upset because no one was giving her any information and she left ONYX. She then recently went to [facility], she was ultimately transferred to [facility] for hand surgery and again had a surgical procedure a few days ago and then was told she had MRSA in the wound. She was recommended for 4-6 weeks of IV antibiotics. She was transferred back to [facility] today. She states she was asked to sign a contract that said she would have no visitors and her property would be locked up. She left the hospital rather than be readmitted. She states that she is "not a drug addict. I have not had drugs in a month so i 'm not a drug addict". She is quite confrontational at the onset of the encounter and states she needs something for the pain and that tylenol, toradol do not work for her so she is requesting dilaudid and morphine. She states that every time she comes here she gets dilaudid and morphine. The entirity of the history above is from the patient. Related Data Home Medications Medication Instructions Recorded Confirmed alprazolam [Xanax] 2 mg PO BID 03/31/18 04/10/18 gabapentin 600 mg PO TID 03/31/18 04/10/18 levetiracetam [Keppra] 300 mg PO TID 03/31/18 04/10/18 topiramate [Topamax] 200 mg PO BID 03/31/18 04/10/18 hydrocodone-acetaminophen 1 tab PO TID PRN 04/10/18 04/11/18 Allergies Allergy/AdvReac Type Severity Reaction Status Date / Time cephalexin Allergy Severe RECTAL Verified 04/10/18 23:58 BLEED diclofenac Allergy Severe Rectal Verified 04/10/18 23:58 Bleed hornet venom Allergy Severe Anaphylaxis Verified 04/10/18 23:58 latex Allergy Severe Swelling Verified 04/10/18 23:58 penicillin G Allergy Severe VOMITING Verified 04/10/18 23:58 propoxyphene Allergy Severe VOMITING Verified 04/10/18 23:58 rizatriptan Allergy Intermediate Rectal Verified 04/10/18 23:58 Bleed diphtheria toxoid,adsorbed Allergy Unknown UNKNOWN Verified 04/10/18 23:58 REACTION acetaminophen AdvReac Severe SWELLING Verified 04/10/18 23:58 AND VOMITING codeine AdvReac Severe SWELLING Verified 04/10/18 23:58 AND VOMITING doxycycline AdvReac Severe RASH Verified 04/10/18 23:58 piperacillin [From Zosyn] AdvReac Vomiting Verified 04/10/18 23:58 tazobactam [From Zosyn] AdvReac Vomiting Verified 04/10/18 23:58 Review of Systems ROS: all other systems reviewed are negative [facility] Medical History Medical History Migraine (Acute) Anemia (Acute) HPV in female (Acute) Cervical cancer (Chronic) Ovarian cancer (Acute) Mitral valve prolapse (Acute) Epilepsy (Chronic) Endocarditis (Acute) IV drug abuse (Acute) Wound infection after surgery (Acute) Surgical History Surgical History History of knee surgery (Acute) History of dilatation and curettage (Acute) Social History Social History Substance History: Past History Second Hand Smoke Exposure: Yes Smoking Status: Heavy tobacco smoker Tobacco Type: Cigarettes How Often Do You Have a Drink Containing Alcohol: Monthly or less Recent Travel in [facility] within the Last 8 Weeks: No Recent Out of Country Travel within the Last 8 Weeks: No Immunization History Tetanus Immunization: >5 Years Course Initial Documented Vital Signs Temperature 97.4 F L 04/10/18 23:18 Pulse Rate 92 H 04/10/18 23:18 Respiratory Rate 16 04/10/18 23:18 Blood Pressure 131/74 04/10/18 23:18 Pulse Oximetry 100 04/10/18 23:18 Last Documented Vital Signs Temperature 98.4 F 04/12/18 08:00 Pulse Rate 78 04/12/18 08:00 Respiratory Rate 16 04/12/18 08:00 Blood Pressure 124/76 04/12/18 08:00 Pulse Oximetry 98 04/12/18 08:00 Medical Decision Making MDM Narrative Medical decision making narrative: Patient is 38 year old female presents with left wrist abscess. She is quite confrontational and describes herself as "not a drug addict but a recovering drug addict". Review of her records: She was intiially seen on 03/20 here and was admitted to the hospital after joint aspiration in ED. Ultimately discharged on on 03/25 on zyvox to follow up with infectious disease. She states she has appointment scheduled but has not shown up yet. She returned on 03/30 and was recommeded for admission and instead left AMA. She returned on 03/31 she was readmitted and then discharged on 04/04 when she left AMA. Outside records are requested and not available to me now. Overall, it appears as though this patient has been admitted four times to two different hospitals in the past month and left AMA 3 times. The last ID recommendations here were on 04/[address] Lee were for vancomycin and zosyn and follow cultures. There was no discussion in this note regarding duration or switching to PO regimen. Lab results reviewed show Blood cultures on 03/20, 03/21, 03/30, 04/02 all showed no growth. Wound cultures showed no growth. Fungal cultures showed no growth. MRI wrist 03/21 showed abscess, subcutaneous and partial involvment of the extensor compartment. No osteomyelitis. HCV serologies positive. HIV negative. Patient does have surgical sutures in place and has some erythema and generalized edema of the left wrist. She might be appropriate for [place] however [facility] 4-6 weeks of antibiotics (according to patient). She is in denial regarding her drug habit. She believes that because she is beyond physical symptoms of withdrawals she has no addiction. The recommendations from [facility] was "a minimum of 2 weeks of IV vancomycin". Discussed with Dr. Howard for admission. Medical Screen Exam Complete: Yes Emergency Medical Condition: Yes Lab Data Result diagrams: 04/12/18 06:58 04/12/18 06:58 Lab Results 04/11/18 04/11/18 04/11/18 Range/Units 00:55 00:55 00:55 WBC 7.4 (4.0-11.0) th/mm3 RBC 4.42 (4.00-5.30) mil/mm3 Hgb 11.5 L (11.6-15.3) gm/dL Hct 35.1 (35.0-46.0) % MCV 79.5 L (80.0-100.0) fL MCH 26.1 L (27.0-34.0) pg MCHC 32.8 (32.0-36.0) % RDW 19.8 H (11.6-17.2) % Plt Count 387 D (150-450) th/mm3 MPV 8.5 (7.0-11.0) fL Neut % (Auto) 52.7 (16.0-70.0) % Lymph % (Auto) 30.2 (9.0-44.0) % [place] % (Auto) 8.4 H (0.0-8.0) % Eos % (Auto) 8.0 H (0.0-4.0) % Baso % (Auto) 0.7 (0.0-2.0) % Neut # (Auto) 3.9 (1.8-7.7) th/mm3 Lymph # (Auto) 2.2 (1.0-4.8) th/mm3 [place] # (Auto) 0.6 (0.0-0.9) th/mm3 Eos # (Auto) 0.6 H (0.0-0.4) th/mm3 Baso # (Auto) 0.1 (0.0-0.2) th/mm3 WBC Differential . Differential Comment Auto diff final Sodium 140 (136-145) meq/L Potassium 4.0 (3.5-5.1) meq/L Chloride 109 H (98-107) meq/L Carbon Dioxide 23.1 (21.0-32.0) meq/L Anion Gap 8 (5-15) meq/L BUN 27 H (7-18) mg/dL Creatinine 0.98 (0.50-1.00) mg/dL Estimated GFR 64 L (>89) mL/min POC Glucose (68-110) mg/dl Random Glucose 84 (74-106) mg/dL Hemoglobin A1c (4.3-6.0) % Lactic Acid 1.0 (0.4-2.0) mmol/L Calcium 8.9 (8.5-10.1) mg/dL Magnesium 2.7 H (1.5-2.5) mg/dL Total Bilirubin 0.2 (0.2-1.0) mg/dL AST 25 (15-37) U/L ALT 90 H (10-53) U/L Alkaline Phosphatase 195 H (45-117) U/L Total Protein 8.5 H (6.4-8.2) g/dL Albumin 3.8 (3.4-5.0) g/dL Urine Color (Yellw/Straw) Urine Clarity (Clear) Urine pH (5.0-8.5) Ur Specific [place] (1.002-1.035) Urine Protein (Neg-Trace) mg/dL Urine Glucose (UA) (Negative) mg/dL Urine Ketones (Negative) mg/dL Urine Occult Blood (Negative) Urine Nitrate (Negative) Urine Bilirubin (Negative) Urine Urobilinogen (Less than 2) mg/dL Ur Leukocyte Esterase (Negative) Urine RBC (0-3) /hpf Urine WBC (0-5) /hpf Ur Squamous Epith Cells (0-5) /hpf Amorphous Sediment (None) /hpf Hyaline Casts (0-3) /lpf Micro UA Comment Ur Microscopic Review Urine Culture Comments Urine Opiates Screen (Neg) Ur Barbiturates Screen (Neg) Levetiracetam (12.0 - 46.0) mcg/mL Ur Amphetamines Screen (Neg) U Benzodiazepines Scrn (Neg) Urine Cocaine Screen (Neg) U Cannabinoids Screen (Neg) 04/11/18 04/11/18 04/11/18 Range/Units 00:55 01:30 01:30 WBC (4.0-11.0) th/mm3 RBC (4.00-5.30) mil/mm3 Hgb (11.6-15.3) gm/dL Hct (35.0-46.0) % MCV (80.0-100.0) fL MCH (27.0-34.0) pg MCHC (32.0-36.0) % RDW (11.6-17.2) % Plt Count (150-450) th/mm3 MPV (7.0-11.0) fL Neut % (Auto) (16.0-70.0) % Lymph % (Auto) (9.0-44.0) % [place] % (Auto) (0.0-8.0) % Eos % (Auto) (0.0-4.0) % Baso % (Auto) (0.0-2.0) % Neut # (Auto) (1.8-7.7) th/mm3 Lymph # (Auto) (1.0-4.8) th/mm3 [place] # (Auto) (0.0-0.9) th/mm3 Eos # (Auto) (0.0-0.4) th/mm3 Baso # (Auto) (0.0-0.2) th/mm3 WBC Differential Differential Comment Sodium (136-145) meq/L Potassium (3.5-5.1) meq/L Chloride (98-107) meq/L Carbon Dioxide (21.0-32.0) meq/L Anion Gap (5-15) meq/L BUN (7-18) mg/dL Creatinine (0.50-1.00) mg/dL Estimated GFR (>89) mL/min POC Glucose (68-110) mg/dl Random Glucose (74-106) mg/dL Hemoglobin A1c 5.7 (4.3-6.0) % Lactic Acid (0.4-2.0) mmol/L Calcium (8.5-10.1) mg/dL Magnesium (1.5-2.5) mg/dL Total Bilirubin (0.2-1.0) mg/dL AST (15-37) U/L ALT (10-53) U/L Alkaline Phosphatase (45-117) U/L Total Protein (6.4-8.2) g/dL Albumin (3.4-5.0) g/dL Urine Color Yellow (Yellw/Straw) Urine Clarity Hazy H (Clear) Urine pH 6.0 (5.0-8.5) Ur Specific [place] 1.016 (1.002-1.035) Urine Protein Negative (Neg-Trace) mg/dL Urine Glucose (UA) Negative (Negative) mg/dL Urine Ketones Negative (Negative) mg/dL Urine Occult Blood Negative (Negative) Urine Nitrate Negative (Negative) Urine Bilirubin Negative (Negative) Urine Urobilinogen Less than 2 (Less than 2) mg/dL Ur Leukocyte Esterase Trace H (Negative) Urine RBC 1 (0-3) /hpf Urine WBC 3 (0-5) /hpf Ur Squamous Epith Cells 7 (0-5) /hpf Amorphous Sediment Rare H (None) /hpf Hyaline Casts 1 (0-3) /lpf Micro UA Comment Culture not ind Ur Microscopic Review Not Reportable Urine Culture Comments Culture not ind Urine Opiates Screen Neg (Neg) Ur Barbiturates Screen Neg (Neg) Levetiracetam (12.0 - 46.0) mcg/mL Ur Amphetamines Screen Neg (Neg) U Benzodiazepines Scrn Pos H (Neg) Urine Cocaine Screen Neg (Neg) U Cannabinoids Screen Neg (Neg) 04/11/18 04/11/18 04/12/18 Range/Units 12:14 14:57 06:58 WBC 6.4 (4.0-11.0) th/mm3 RBC 4.81 (4.00-5.30) mil/mm3 Hgb 12.3 (11.6-15.3) gm/dL Hct 38.7 (35.0-46.0) % MCV 80.5 (80.0-100.0) fL MCH 25.5 L (27.0-34.0) pg MCHC 31.7 L (32.0-36.0) % RDW 20.1 H (11.6-17.2) % Plt Count 376 (150-450) th/mm3 MPV 8.6 (7.0-11.0) fL Neut % (Auto) 38.7 (16.0-70.0) % Lymph % (Auto) 41.8 (9.0-44.0) % [place] % (Auto) 8.4 H (0.0-8.0) % Eos % (Auto) 10.0 H (0.0-4.0) % Baso % (Auto) 1.1 (0.0-2.0) % Neut # (Auto) 2.5 (1.8-7.7) th/mm3 Lymph # (Auto) 2.7 (1.0-4.8) th/mm3 [place] # (Auto) 0.5 (0.0-0.9) th/mm3 Eos # (Auto) 0.6 H (0.0-0.4) th/mm3 Baso # (Auto) 0.1 (0.0-0.2) th/mm3 WBC Differential . Differential Comment Auto diff final Sodium (136-145) meq/L Potassium (3.5-5.1) meq/L Chloride (98-107) meq/L Carbon Dioxide (21.0-32.0) meq/L Anion Gap (5-15) meq/L BUN (7-18) mg/dL Creatinine (0.50-1.00) mg/dL Estimated GFR (>89) mL/min POC Glucose 276 H (68-110) mg/dl Random Glucose (74-106) mg/dL Hemoglobin A1c (4.3-6.0) % Lactic Acid (0.4-2.0) mmol/L Calcium (8.5-10.1) mg/dL Magnesium (1.5-2.5) mg/dL Total Bilirubin (0.2-1.0) mg/dL AST (15-37) U/L ALT (10-53) U/L Alkaline Phosphatase (45-117) U/L Total Protein (6.4-8.2) g/dL Albumin (3.4-5.0) g/dL Urine Color (Yellw/Straw) Urine Clarity (Clear) Urine pH (5.0-8.5) Ur Specific [place] (1.002-1.035) Urine Protein (Neg-Trace) mg/dL Urine Glucose (UA) (Negative) mg/dL Urine Ketones (Negative) mg/dL Urine Occult Blood (Negative) Urine Nitrate (Negative) Urine Bilirubin (Negative) Urine Urobilinogen (Less than 2) mg/dL Ur Leukocyte Esterase (Negative) Urine RBC (0-3) /hpf Urine WBC (0-5) /hpf Ur Squamous Epith Cells (0-5) /hpf Amorphous Sediment (None) /hpf Hyaline Casts (0-3) /lpf Micro UA Comment Ur Microscopic Review Urine Culture Comments Urine Opiates Screen (Neg) Ur Barbiturates Screen (Neg) Levetiracetam 6.1 L (12.0 - 46.0) mcg/mL Ur Amphetamines Screen (Neg) U Benzodiazepines Scrn (Neg) Urine Cocaine Screen (Neg) U Cannabinoids Screen (Neg) 04/12/18 Range/Units 06:58 WBC (4.0-11.0) th/mm3 RBC (4.00-5.30) mil/mm3 Hgb (11.6-15.3) gm/dL Hct (35.0-46.0) % MCV (80.0-100.0) fL MCH (27.0-34.0) pg MCHC (32.0-36.0) % RDW (11.6-17.2) % Plt Count (150-450) th/mm3 MPV (7.0-11.0) fL Neut % (Auto) (16.0-70.0) % Lymph % (Auto) (9.0-44.0) % [place] % (Auto) (0.0-8.0) % Eos % (Auto) (0.0-4.0) % Baso % (Auto) (0.0-2.0) % Neut # (Auto) (1.8-7.7) th/mm3 Lymph # (Auto) (1.0-4.8) th/mm3 [place] # (Auto) (0.0-0.9) th/mm3 Eos # (Auto) (0.0-0.4) th/mm3 Baso # (Auto) (0.0-0.2) th/mm3 WBC Differential Differential Comment Sodium 141 (136-145) meq/L Potassium 4.3 (3.5-5.1) meq/L Chloride 112 H (98-107) meq/L Carbon Dioxide 21.4 (21.0-32.0) meq/L Anion Gap 8 (5-15) meq/L BUN 19 H (7-18) mg/dL Creatinine 0.99 (0.50-1.00) mg/dL Estimated GFR 63 L (>89) mL/min POC Glucose (68-110) mg/dl Random Glucose 98 (74-106) mg/dL Hemoglobin A1c (4.3-6.0) % Lactic Acid (0.4-2.0) mmol/L Calcium 8.5 (8.5-10.1) mg/dL Magnesium (1.5-2.5) mg/dL Total Bilirubin 0.2 (0.2-1.0) mg/dL AST 24 (15-37) U/L ALT 72 H (10-53) U/L Alkaline Phosphatase 163 H (45-117) U/L Total Protein 8.3 H (6.4-8.2) g/dL Albumin 3.5 (3.4-5.0) g/dL Urine Color (Yellw/Straw) Urine Clarity (Clear) Urine pH (5.0-8.5) Ur Specific [place] (1.002-1.035) Urine Protein (Neg-Trace) mg/dL Urine Glucose (UA) (Negative) mg/dL Urine Ketones (Negative) mg/dL Urine Occult Blood (Negative) Urine Nitrate (Negative) Urine Bilirubin (Negative) Urine Urobilinogen (Less than 2) mg/dL Ur Leukocyte Esterase (Negative) Urine RBC (0-3) /hpf Urine WBC (0-5) /hpf Ur Squamous Epith Cells (0-5) /hpf Amorphous Sediment (None) /hpf Hyaline Casts (0-3) /lpf Micro UA Comment Ur Microscopic Review Urine Culture Comments Urine Opiates Screen (Neg) Ur Barbiturates Screen (Neg) Levetiracetam (12.0 - 46.0) mcg/mL Ur Amphetamines Screen (Neg) U Benzodiazepines Scrn (Neg) Urine Cocaine Screen (Neg) U Cannabinoids Screen (Neg) Imaging Data Radiologist's impression: Chest X-Ray 04/11/18 00:22 CONCLUSION: No acute cardiopulmonary abnormality is identified. Discharge Plan Discharge Disposition Patient Disposition: 30 Still Patient Discharge Condition Condition: Stable Discharge Order Discharge Orders: AMA Discharge (Routine); Ordered 04/12/18 Ordered By: Terri Lebron ED Use Only Admit Order (Routine); Ordered 04/11/18 Ordered By: Ebenezer Virgen Physicians Team ED Provider: Ebenezer Virgen Primary Care Provider: Primary Care Alex,Alisha Attending Provider: Kristin Irvin Other Providers: Fern Flores Status ED Status: Left Department Discharge Information Discharge Date/Time: 04/11/18 04:46
[2018-04-11] MEDS ORDERED: Gabapentin 300 MG Capsule PO ONE (00:41)
--- NOTE | 2018-04-11 01:20 | XR ---
EXAM DATE: 04/11/2018 1:07 AM EST AGE/SEX: 38 years / Female INDICATIONS: Continuous left distal arm infection. Patient had a fever previously. CLINICAL DATA: This is the patient's subsequent encounter. Patient reports that signs and symptoms h ave been present for 1 week and indicates a pain score of 0/10. MEDICAL/SURGICAL HISTORY: . Carcinoma, uterine. . Left hand and wrist surgery. COMPARISON: [facility] [place], CHEST 2V AP&LAT, 04/02/2018. . FINDINGS: Portable AP view of the chest demonstrates a normal-sized cardiac silhouette. No effusion, consolidat ion, or pneumothorax is identified. The bones and soft tissues demonstrate no acute finding. CONCLUSION: No acute cardiopulmonary abnormality is identified. Electronically signed by: Ramiro Wade MD 04/11/2018 1:19 AM EST
[2018-04-11 01:21] LABS: Baso # (Auto) 0.1 th/mm3 (0.0-0.2); Baso % (Auto) 0.7 % (0.0-2.0); Eos # (Auto) 0.6 th/mm3 (0.0-0.4); Hematocrit 35.1 % (35.0-46.0); Hemoglobin 11.5 gm/dL (11.6-15.3); Lymph # (Auto) 2.2 th/mm3 (1.0-4.8); Lymph % (Auto) 30.2 % (9.0-44.0); Mean Corpuscular HGB Conc 32.8 % (32.0-36.0); Mean Corpuscular Hemoglobin 26.1 pg (27.0-34.0); Mean Corpuscular Volume 79.5 fL (80.0-100.0); Mean Platelet Volume 8.5 fL (7.0-11.0); Mono # (Auto) 0.6 th/mm3 (0.0-0.9); Mono % (Auto) 8.4 % (0.0-8.0); Neut # (Auto) 3.9 th/mm3 (1.8-7.7); Neut % (Auto) 52.7 % (16.0-70.0); Platelet Count 387 th/mm3 (150-450); Red Blood Count 4.42 mil/mm3 (4.00-5.30); Red Cell Distribution Width 19.8 % (11.6-17.2); White Blood Count 7.4 th/mm3 (4.0-11.0)
[2018-04-11 01:47] LABS: Alanine Aminotransferase 90 U/L (10-53); Albumin 3.8 g/dL (3.4-5.0); Anion Gap 8 meq/L (5-15); Aspartate Aminotransferase 25 U/L (15-37); Blood Urea Nitrogen 27 mg/dL (7-18); Calcium 8.9 mg/dL (8.5-10.1); Carbon Dioxide 23.1 meq/L (21.0-32.0); Chloride 109 meq/L (98-107); Glomerular Filtration Rate 64 mL/min (>89); Glucose,Random 84 mg/dL (74-106); Magnesium 2.7 mg/dL (1.5-2.5); Sodium 140 meq/L (136-145)
[2018-04-11 01:50] LABS: Alkaline Phosphatase 195 U/L (45-117); Total Protein 8.5 g/dL (6.4-8.2)
[2018-04-11 02:02] LABS: Amphetamine Screen,Urine Neg (Neg); Barbiturate Screen,Urine Neg (Neg); Cannabinoid Screen,Urine Neg (Neg); Cocaine Screen,Urine Neg (Neg)
[2018-04-11 02:09] LABS: Amorphous Sediment,Urine Rare /hpf; Bilirubin,Urine Negative (Negative); Clarity,Urine Hazy (Clear); Color,Urine Yellow (Yellw/Straw); Glucose,Urine (UA) Negative (Negative); Hyaline Casts,Urine 1 /lpf (0-3); Leukocyte Esterase,Urine Trace (Negative); Nitrite,Urine Negative (Negative); Specific Gravity,Urine 1.016 (1.002-1.035); Squamous Epithelial Cell,Urine 7 /hpf (0-5)
[2018-04-11 02:10] LABS: Opiate Screen,Urine Neg (Neg)
[2018-04-11] MEDS ORDERED: Vancomycin Consult Pharmacy OTHER PRN (02:39)
[2018-04-11] MEDS ORDERED: Bisacodyl 10 MG Supp RECTAL PRN (02:40)
[2018-04-11] MEDS ORDERED: levETIRAcetam 500 MG Tablet PO ONE (03:12)
[2018-04-11] MEDS: Piperacil/Tazo 4.5 GM Premix 4.5 GM/100 ML BAG IV.SIG SCH ×4 (03:14→20:02)
[2018-04-11] MEDS: Sod Chloride 0.9% Inj 1,000 ML IV.CONT SCH ×3 (03:14→22:27)
--- NOTE | 2018-04-11 03:29 | P.HPIM ---
History of Present Illness Primary Care Physician: No Primary Care Physician History of Present Illness: This is a 38-year-old DNR female w/ a PMH of Uterine CA, Seizure Disorder, Anemia, MVP and IVDU w/ Left Wrist Abscess. Pt initially admitted 03/20- w/ left wrist abscess, s/p I&D Left Wrist w/ Left Carpal Tunnel Release by Dr. Herring on 03/21/18, Echo 03/21/18 negative for vegetation, EF 60-65%, s/p Vanc/Zosyn while hospitalized and d/c'd on Zyvox PO x2 wks, returned to ER on w/ recurrent left wrist infection, however LEFT AMA. Admitted 03/31- for same, also LEFT AMA. States she presented to [facility], was transferred to [facility], underwent left wrist abscess I&D and was sent back to [facility] today, however she LEFT AMA because they wanted her to sign a contract and she presented here instead. States she was told at [facility] that she would need IV antibiotics x4-6wks. Per review of previous presentations/admissions here all Blood Cultures have been negative. On arrival, BP 131/74, HR 92, O2 sat 100% on RA, Afebrile. Chemistry unremarkable. CBC essentially unremarkable. UA negative. Urine Drug Screen positive for Benzos. CXR with no acute findings. Records from obtained and reviewed, no mention of long- term IV Antibiotics, pending records from [facility]. - Diagnosis (1) Hand abscess (2) IVDU (intravenous drug user) (3) Seizure disorder (4) Uterine cancer (5) DNR (do not resuscitate) Inpatient Certification: I certify that the inpatient services were ordered in accordance with Medicare regulations governing the order. This includes certification that hospital inpatient services are reasonable and necessary and in the case of services not specified as inpatient-only under 42 CFR 419.22(n), that they are appropriately provided as inpatient services in accordance to with the 2-midnight benchmark under 43 CFR 412.3(e) Review of Systems PAST FAMILY HISTORY: Reviewed. No h/o DM or CAD All other systems reviewed negative except as stated in HPI [facility] - History History Provided By: Patient - Medical History Medical History: Medical History (Last Updated 04/10/18 @ 23:52 by Randa Means RN) Migraine (Acute) Anemia (Acute) HPV in female (Acute) Cervical cancer (Chronic) Ovarian cancer (Acute) Mitral valve prolapse (Acute) Epilepsy (Chronic) Endocarditis IV drug abuse Wound infection after surgery - Surgical History Surgical History: Surgical History (Last Reviewed 04/10/18 @ 23:49 by Randa Means RN) History of knee surgery (Acute) History of dilatation and curettage - Tobacco History Second Hand Smoke Exposure: Yes Tobacco Use In Past 30 Days: Yes Smoking Status: Current every day smoker Tobacco Type: Cigarettes - Alcohol History How Often Do You Have a Drink Containing Alcohol: Never - Substance Use History Substance History: No History of Abuse - Travel History Recent Travel in the [place] Within the Last 8 Weeks: No Recent Travel Out of the Country Within the Last 8 Weeks: No - Immunization History Tetanus Immunization: >5 Years Medications and Allergies Active Medications: Active Medications Al Hydroxide/Mg Hydroxide (Milk Of Magnesia Liq) 30 ml PO Q12H PRN PRN Reason: Mild Constipation Alprazolam (Xanax) 2 mg PO BID [facility] Bisacodyl (Dulcolax Supp) 10 mg RECTAL DAILY PRN PRN Reason: SEVERE CONSITIPATION Sodium Chloride (Ns Inj) 1,000 mls @ 100 mls/hr IV.CONT .Q10H [facility] Last Admin: 04/11/18 03:14 Dose: 100 mls/hr Piperacillin/Tazobactam/Dextrose (Zosyn 4.5 Gm Premix) 4.5 gm in 100 mls @ 200 mls/hr IV.SIG Q6H [facility] Last Admin: 04/11/18 03:14 Dose: 200 mls/hr Lactulose (Lactulose Liq) 30 ml PO DAILY PRN PRN Reason: SEVERE CONSITIPATION Levetiracetam (Keppra) 500 mg PO BID [facility] Non-Formulary Medication (Gabapentin [Gabapentin]) 600 mg PO TID [facility] Ondansetron HCl (Zofran Inj) 4 mg IV.PUSH Q6H PRN PRN Reason: NAUSEA OR VOMITING Last Admin: 04/11/18 03:14 Dose: 4 mg Oxycodone HCl (Roxicodone) 5 mg PO Q4H PRN PRN Reason: PAIN 3-5 Oxycodone HCl (Roxicodone) 10 mg PO Q4H PRN PRN Reason: PAIN 6-10 Pharmacy Profile Note (Vancomycin Consult Pharmacy) 1 each OTHER UNSCH PRN PRN Reason: Pharmacy to dose Senna/Docusate Sodium (Selene-Colace) 1 tab PO BID [facility] Sennosides (Senokot) 17.2 mg PO Q12H PRN PRN Reason: Moderate Constipation Sodium Chloride (Ns Flush) 2 ml IV.FLUSH BID [facility] Sodium Chloride (Ns Flush) 2 ml IV.FLUSH PRN PRN PRN Reason: FLUSH AFTER USING IV ACCESS Topiramate (Topamax) 200 mg PO BID [facility] Allergies Allergy/AdvReac Type Severity Reaction Status Date / Time cephalexin Allergy Severe RECTAL Verified 04/10/18 23:58 BLEED diclofenac Allergy Severe Rectal Verified 04/10/18 23:58 Bleed hornet venom Allergy Severe Anaphylaxis Verified 04/10/18 23:58 latex Allergy Severe Swelling Verified 04/10/18 23:58 penicillin G Allergy Severe VOMITING Verified 04/10/18 23:58 propoxyphene Allergy Severe VOMITING Verified 04/10/18 23:58 rizatriptan Allergy Intermediate Rectal Verified 04/10/18 23:58 Bleed diphtheria toxoid,adsorbed Allergy Unknown UNKNOWN Verified 04/10/18 23:58 REACTION acetaminophen AdvReac Severe SWELLING Verified 04/10/18 23:58 AND VOMITING codeine AdvReac Severe SWELLING Verified 04/10/18 23:58 AND VOMITING doxycycline AdvReac Severe RASH Verified 04/10/18 23:58 piperacillin [From Zosyn] AdvReac Vomiting Verified 04/10/18 23:58 tazobactam [From Zosyn] AdvReac Vomiting Verified 04/10/18 23:58 Home Medications Medication Instructions Recorded Confirmed Type alprazolam [Xanax] 2 mg PO BID 03/31/18 04/10/18 History gabapentin 600 mg PO TID 03/31/18 04/10/18 History levetiracetam [Keppra] 300 mg PO TID 03/31/18 04/10/18 History topiramate [Topamax] 200 mg PO BID 03/31/18 04/10/18 History hydrocodone-acetaminophen 1 tab PO TID PRN 04/10/18 04/11/18 History Exam Vital signs: Vital Signs 04/10/18 23:18 11/30/18 23:48 Temperature 97.4 F L Pulse Rate 92 H Respiratory Rate 16 20 Blood Pressure 131/74 Pulse Oximetry 100 Intake & Output 04/10/18 04/10/18 04/11/18 06:59 18:59 06:59 Weight 53.524 kg Narrative: PE: GENERAL: Middle-aged white female in no acute distress, appears much older than stated age. SKIN: Focused skin assessment warm and dry. HEENT: PERRLA, EOMI. No scleral icterus or conjunctival pallor. No lid lag or facial droop. CARDIOVASCULAR: Regular rate and rhythm. No obvious murmurs to auscultation. No chest tenderness to palpation. RESPIRATORY: No obvious rhonchi or wheezing. Clear to auscultation. Breath sounds equal bilaterally. GASTROINTESTINAL: Abdomen soft, non-tender, nondistended. BS normal. MUSCULOSKELETAL: Extremities without clubbing, cyanosis, or edema. No obvious deformities. Left wrist w/ mild erythema/edema, sutures in place. NEUROLOGICAL: Awake, alert and oriented x4. No focal neurologic deficits. Moving both upper and lower extremities spontaneously. PSYCHIATRIC: Appropriate mood and affect. Insight and judgment normal. Results - Labs CBC & Chem 7: 04/11/18 00:55 04/11/18 00:55 Labs: Short CBC 04/11/18 Range/Units 00:55 WBC 7.4 (4.0-11.0) th/mm3 Hgb 11.5 L (11.6-15.3) gm/dL Hct 35.1 (35.0-46.0) % Plt Count 387 D (150-450) th/mm3 BMP 04/11/18 00:55 Sodium 140 Potassium 4.0 Chloride 109 H Carbon Dioxide 23.1 BUN 27 H Creatinine 0.98 Calcium 8.9 Liver Function 04/11/18 Range/Units 00:55 Total Bilirubin 0.2 (0.2-1.0) mg/dL AST 25 (15-37) U/L ALT 90 H (10-53) U/L Alkaline Phosphatase 195 H (45-117) U/L Albumin 3.8 (3.4-5.0) g/dL Urine 04/11/18 Range/Units 01:30 Urine Color Yellow (Yellw/Straw) Urine Clarity Hazy H (Clear) Urine pH 6.0 (5.0-8.5) Ur Specific [place] 1.016 (1.002-1.035) Urine Protein Negative (Neg-Trace) mg/dL Urine Glucose (UA) Negative (Negative) mg/dL - Imaging Impressions Chest X-Ray 04/11/18 00:22 CONCLUSION: No acute cardiopulmonary abnormality is identified. Caprini VTE Risk Assessment Caprini VTE Risk Assessment: No/Low Risk (score <= 1) Caprini Risk Assessment Model: Point Value = 1 Point Value = 2 Point Value = 3 Point Value = 5 Age 41-60 Minor surgery BMI > 25 kg/m2 Swollen legs Varicose veins or History of unexplained or recurrent spontaneous Oral contraceptives or hormone replacement Sepsis (< 1 month) Serious lung disease, including pneumonia (< 1 month) Abnormal pulmonary function Acute myocardial infarction Congestive heart failure (< 1 month) History of inflammatory bowel disease Medical patient at bed rest Age 61-74 Arthroscopic surgery Major open surgery (> 45 min) Laparoscopic surgery (> 45 min) Malignancy Confined to bed (> 72 hours) Immobilizing plaster cast Central venous access Age >= 75 History of VTE Family history of VTE Factor V Leiden Prothrombin [id number] Lupus anticoagulant Anticardiolipin antibodies Elevated serum homocysteine Heparin-induced thrombocytopenia Other congenital or acquired thrombophilia Stroke (< 1 month) Elective arthroplasty Hip, pelvis, or leg fracture Acute spinal cord injury (< 1 month) Prophylaxis Regimen: Total Risk Factor Score Risk Level Prophylaxis Regimen 0-1 Low Early ambulation 2 Moderate Order ONE of the following: *Sequential Compression Device (SCD) *Heparin 5000 units SQ BID 3-4 Higher Order ONE of the following medications: *Heparin 5000 units SQ TID *Enoxaparin/Lovenox 40 mg SQ daily (WT < 150 kg, CrCl > 30 mL/min) *Enoxaparin/Lovenox 30 mg SQ daily (WT < 150 kg, CrCl > 10-29 mL/min) *Enoxaparin/Lovenox 30 mg SQ BID (WT < 150 kg, CrCl > 30 mL/min) AND/OR *Sequential Compression Device (SCD) 5 or more Highest Order ONE of the following medications: *Heparin 5000 units SQ TID (Preferred with Epidurals) *Enoxaparin/Lovenox 40 mg SQ daily (WT < 150 kg, CrCl > 30 mL/min) *Enoxaparin/Lovenox 30 mg SQ daily (WT < 150 kg, CrCl > 10-29 mL/min) *Enoxaparin/Lovenox 30 mg SQ BID (WT < 150 kg, CrCl > 30 mL/min) AND *Sequential Compression Device (SCD) Assessment and Plan - Assessment (1) Hand abscess Code(s): L02.519 - Cutaneous abscess of unspecified hand Status: Acute (2) IVDU (intravenous drug user) Code(s): F19.90 - Other psychoactive substance use, unspecified, uncomplicated Status: Acute (3) Seizure disorder Code(s): G40.909 - Epilepsy, unspecified, not intractable, without status epilepticus Status: Acute (4) Uterine cancer Code(s): C55 - Malignant neoplasm of uterus, part unspecified Status: Acute (5) DNR (do not resuscitate) Code(s): Z66 - Do not resuscitate Status: Acute - Plan A/P: 1. Hand Abscess: Left. Recurrent. Multiple ER presentations/admissions to various hospitals for same, has LEFT AMA on several occasions. Previous I&D by Dr. Herring 03/21/18, s/p Vanc/Zosyn and 2wks of Zyvox PO, presented to ER on for recurrent symptoms however LEFT AMA. Admitted 03/31-04/03/18 and placed on Vanc/Zosyn however also LEFT AMA. Seen at , sent to [facility] and had I&D yesterday, was sent back to [facility], however pt refused to sign contract, LEFT AMA and presented here. Per patient, [facility] recommendation was for IV Abx x4-6wks. Records from obtained, no mention of antibiotics x4-6 wks, pending records from [facility]. All Blood Cultures here have been negative since 03/20/18. Currently afebrile, no leukocytosis. Will admit for Observation as unclear whether pt in fact needs terminal superintendent antibiotics or not, Consult ID for further eval/recommendations. Start Vanc/Zosyn, follow up cultures. 2. IVDU: Pt states "I'm not a drug addict", last UDS 04/03/18 positive for Opiates, Benzo and Cocaine, UDS today positive for Benzo. 3. Seizure Disorder: resume home medications. 4. Uterine CA: h/o Uterine CA s/p chemo/radiation per records, currently not on treatment. 5. DNR: Code status reviewed and confirmed w/ patient. Pt requesting to fill out Community DNR form 6. DVT Prophylaxis: SCD/Teds 7. Social work for d/c planning as needed. 8. Case discussed w/ ER physician at length, labs/records/imaging reviewed by me.
[2018-04-11] MEDS: Topiramate 200 MG Tablet PO SCH ×2 (08:06→20:02)
[2018-04-11] MEDS: Senna/Docusate Sodium 8.6/50 MG Tablet PO SCH ×2 (08:07→20:02)
[2018-04-11] MEDS: Gabapentin 300 MG Capsule PO SCH ×3 (08:07→18:31)
[2018-04-11] MEDS: Vancomycin Inj 750 MG in Sodium Chlor 0.9% Inj 250 ML IV.SIG SCH ×2 (12:09→22:28)
[2018-04-11] MEDS ORDERED: levETIRAcetam 250 MG Tablet PO SCH (21:00)
[2018-04-11 21:13] VITALS: O2SAT 98
[2018-04-12] MEDS: Piperacil/Tazo 4.5 GM Premix 4.5 GM/100 ML BAG IV.SIG SCH ×2 (04:00→08:26)
[2018-04-12 07:25] LABS: Baso # (Auto) 0.1 th/mm3 (0.0-0.2); Baso % (Auto) 1.1 % (0.0-2.0); Eos # (Auto) 0.6 th/mm3 (0.0-0.4); Hematocrit 38.7 % (35.0-46.0); Hemoglobin 12.3 gm/dL (11.6-15.3); Lymph # (Auto) 2.7 th/mm3 (1.0-4.8); Lymph % (Auto) 41.8 % (9.0-44.0); Mean Corpuscular HGB Conc 31.7 % (32.0-36.0); Mean Corpuscular Hemoglobin 25.5 pg (27.0-34.0); Mean Corpuscular Volume 80.5 fL (80.0-100.0); Mean Platelet Volume 8.6 fL (7.0-11.0); Mono # (Auto) 0.5 th/mm3 (0.0-0.9); Mono % (Auto) 8.4 % (0.0-8.0); Neut # (Auto) 2.5 th/mm3 (1.8-7.7); Neut % (Auto) 38.7 % (16.0-70.0); Platelet Count 376 th/mm3 (150-450); Red Blood Count 4.81 mil/mm3 (4.00-5.30); Red Cell Distribution Width 20.1 % (11.6-17.2); White Blood Count 6.4 th/mm3 (4.0-11.0)
[2018-04-12 07:43] LABS: Alkaline Phosphatase 163 U/L (45-117); Total Protein 8.3 g/dL (6.4-8.2)
[2018-04-12 07:49] LABS: Alanine Aminotransferase 72 U/L (10-53); Albumin 3.5 g/dL (3.4-5.0); Anion Gap 8 meq/L (5-15); Aspartate Aminotransferase 24 U/L (15-37); Blood Urea Nitrogen 19 mg/dL (7-18); Calcium 8.5 mg/dL (8.5-10.1); Carbon Dioxide 21.4 meq/L (21.0-32.0); Chloride 112 meq/L (98-107); Glomerular Filtration Rate 63 mL/min (>89); Glucose,Random 98 mg/dL (74-106); Potassium 4.3 meq/L (3.5-5.1); Sodium 141 meq/L (136-145)
[2018-04-12] MEDS: Senna/Docusate Sodium 8.6/50 MG Tablet PO SCH (08:28)
[2018-04-12] MEDS: Gabapentin 300 MG Capsule PO SCH (08:28)
[2018-04-12] MEDS: Topiramate 200 MG Tablet PO SCH (08:29)
[2018-04-12 08:35] VITALS: BP 124/76; PULSE 78; RESP 16; TEMP 98.4
[2018-04-12] MEDS: Sod Chloride 0.9% Inj 1,000 ML IV.CONT SCH (09:39)
--- NOTE | 2018-04-12 10:17 | P.PN ---
Subjective Interval history: Follow up for left wrist abscess. Upon entering the room, the patient is seen getting dressed in her own clothes and packing her bag, however stated she was not leaving, she was just cold. The patient reports continued significant 10/10 left wrist pain uncontrolled with oxycodone 10mg received less than 1 hour ago. She denies fevers/chills. She reports small amount of yellow purulent drainage from the left abscess. She has [address] which she states she plans to return to [facility] to have removed. She states she just left [facility] 2 days ago. She was told she has MRSA. She has been refusing Zosyn because of her allergy to Penicillin with reaction of nausea/vomiting. The patient again asks for IV pain medication in between her oxycodone every 4 hours. Offered IV toradol however patient's is unwilling to try this because she states it does not work for her. At the end of examination, the patient states "just go ahead and bring me the AMA papers, I'm leaving". This patient has the capacity to refuse care and understands the risks of leaving, including permanent disability and/or , and has had an opportunity to ask questions about her condition. The patient has been informed that she may return for care at any time, and follow up has been arranged/advised. Physical Exam Vital signs: Vital Signs 04/11/18 11:07 04/11/18 11:30 04/11/18 14:15 Temperature 97.7 F Pulse Rate 98 H 89 Respiratory Rate 20 15 20 Blood Pressure 133/72 118/68 Pulse Oximetry 99 100 04/11/18 20:00 04/12/18 00:00 04/12/18 04:00 Temperature 99.1 F 98.8 F 98.9 F Pulse Rate 102 H 99 H 100 H Respiratory Rate 18 18 18 Blood Pressure 119/64 118/65 119/81 Pulse Oximetry 98 98 98 04/12/18 08:00 Temperature 98.4 F Pulse Rate 78 Respiratory Rate 16 Blood Pressure 124/76 Pulse Oximetry 98 Intake & Output 04/11/18 04/12/18 04/12/18 18:59 06:59 18:59 Intake Total 1037.5 / 1037.5 1457.5 / 1457.5 Balance 1037.5 / 1037.5 1457.5 / 1457.5 Weight 53.1 kg Intake: IV 557.5 / 557.5 1457.5 / 1457.5 NS Inj 1,000 ML @ 100 mls/hr IV 200 / 200 1000 / 1000 .CONT .Q10H [facility] Rx#:[id number] Zosyn 4.5 GM Premix 4.5 gm In 100 / 100 200 / 200 100 ml @ 200 mls/hr IV.SIG Q6H [facility] Rx#:[id number] Vancomycin Inj 750 MG In NS Inj 257.5 / 257.5 257.5 / 257.5 250 ML @ 250 mls/hr IV.SIG Q12H [facility] Rx#:[id number] Oral 480 / 480 Other: # Voids 4 7 Date of Last Bowel Movement 04/11/18 04/11/18 # Bowel Movements 2 Narrative: GENERAL: Well-nourished, well-developed middle aged female patient in [facility]. SKIN: Warm and dry. Left dorsal proximal wrist with healing wound, [address], mild surrounding erythema/edema with scant yellow purulent drainage. HEENT: Normocephalic. Atraumatic. Pupils equal and round. Mucous membranes pink and moist. CARDIOVASCULAR: Regular rate and rhythm. No murmur appreciated. RESPIRATORY: No accessory muscle use. Clear to auscultation. Breath sounds equal bilaterally. GASTROINTESTINAL: Abdomen soft, non-tender, nondistended. Normoactive bowel sounds x4. MUSCULOSKELETAL: No obvious deformities. Extremities without clubbing, cyanosis , or edema. NEUROLOGICAL: Awake and alert. No obvious cranial nerve deficits. Moving all extremities spontaneously. Normal speech. PSYCHIATRIC: Anxious mood; insight and judgment normal. Results - Labs CBC & Chem 7: 04/12/18 06:58 04/12/18 06:58 Laboratory Results - last 24 hr 04/11/18 04/12/18 04/12/18 12:14 06:58 06:58 WBC 6.4 RBC 4.81 Hgb 12.3 Hct 38.7 MCV 80.5 MCH 25.5 L MCHC 31.7 L RDW 20.1 H Plt Count 376 MPV 8.6 Neut % (Auto) 38.7 Lymph % (Auto) 41.8 Jenkins % (Auto) 8.4 H Eos % (Auto) 10.0 H Baso % (Auto) 1.1 Neut # (Auto) 2.5 Lymph # (Auto) 2.7 Jenkins # (Auto) 0.5 Eos # (Auto) 0.6 H Baso # (Auto) 0.1 WBC Differential . Differential Comment Auto diff final Sodium 141 Potassium 4.3 Chloride 112 H Carbon Dioxide 21.4 Anion Gap 8 BUN 19 H Creatinine 0.99 Estimated GFR 63 L POC Glucose 276 H Random Glucose 98 Calcium 8.5 Total Bilirubin 0.2 AST 24 ALT 72 H Alkaline Phosphatase 163 H Total Protein 8.3 H Albumin 3.5 - Imaging Chest X-Ray 04/11/18 00:22 CONCLUSION: No acute cardiopulmonary abnormality is identified. Assessment and Plan - Assessment (1) Hand abscess Code(s): L02.519 - Cutaneous abscess of unspecified hand Status: Acute (2) IVDU (intravenous drug user) Code(s): F19.90 - Other psychoactive substance use, unspecified, uncomplicated Status: Acute (3) Seizure disorder Code(s): G40.909 - Epilepsy, unspecified, not intractable, without status epilepticus Status: Acute (4) Uterine cancer Code(s): C55 - Malignant neoplasm of uterus, part unspecified Status: Acute (5) DNR (do not resuscitate) Code(s): Z66 - Do not resuscitate Status: Acute - Plan 38-year-old DNR female w/ a PMH of Uterine CA, Seizure Disorder, Anemia, MVP and IVDU w/ Left Wrist Abscess. Pt initially admitted 03/20-03/25/18 w/ left wrist abscess, s/p I&D Left Wrist w/ Left Carpal Tunnel Release by Dr. Herring on 03/21/18, Echo 03/21/18 negative for vegetation, EF 60-65%, s/p Vanc/Zosyn while hospitalized and d/c'd on Zyvox PO x2 wks, returned to ER on 03/30/18 w/ recurrent left wrist infection, however LEFT AMA. Admitted 03/31-04/03/18 for same, also LEFT AMA. States she presented to [facility] [place], was transferred to [facility], underwent left wrist abscess I&D and was sent back to [facility] [place] today, however she LEFT AMA because they wanted her to sign a contract and she presented here instead. States she was told at [facility] that she would need IV antibiotics x4-6wks. Per review of previous presentations/admissions here all Blood Cultures have been negative. Left Proximal Wrist Abscess/Cellulitis: Recurrent. Multiple ER presentations/ admissions to various hospitals for same, has LEFT AMA on several occasions. -Previous I&D by Dr. Herring 03/21/18, s/p Vanc/Zosyn and 2wks of Zyvox PO, presented to ER on 03/30/18 for recurrent symptoms however LEFT AMA. -Admitted 03/31-04/03/18 and placed on Vanc/Zosyn however also LEFT AMA. -Seen at , sent to [facility] and had I&D yesterday, was sent back to [facility] [place] , however pt refused to sign contract, LEFT AMA and presented here. -Per patient, [facility] recommendation was for IV Abx x4-6wks -Received records from and [facility], blood cultures negative and no mention of antibiotics x4-6 wks -All Blood Cultures here have been negative since 03/20/18. -Currently afebrile, no leukocytosis. -Blood cultures again collected and pending -Started on IV Vanco and Zosyn however patient has been refusing Zosyn -Consult ID for further eval/recommendations IVDU: Pt states "I'm not a drug addict" to multiple providers/nurses -last UDS 04/03/18 positive for Opiates, Benzo and Cocaine -UDS upon arrival positive for Benzo. Seizure Disorder: resume home medications. Uterine CA: h/o Uterine CA s/p chemo/radiation per records, currently not on treatment. DNR: Code status reviewed and confirmed w/ patient. Pt requesting to fill out Community DNR form DVT Prophylaxis: SCD/Teds Discharge Planning: Patient Chela Morales has decided to leave the hospital against medical advice. This patient has the capacity to refuse care and understands the risks of leaving, including permanent disability and/or , and has had an opportunity to ask questions about her condition. The patient has been informed that she may return for care at any time, and follow up has been advised. Discharge patient to AGAINST MEDICAL ADVICE Condition on discharge: Improved Regular Diet as tolerated Ad Leighann activity Rx written: NONE Follow-up with primary care physician
[2018-04-12 14:27] LABS: Hemoglobin A1c 5.7 % (4.3-6.0)
[2018-04-13] MEDS ORDERED: Pharmacy Ordered Lab Info OTHER ONE (09:45)
== END 2018-04-12 10:26 | disposition left against medical advice (07) ==
LOC: NEPC 23:12 → NEDA 04-11 02:29 → INTOOBSV 04-11 02:29 → NEPHCDU 04-11 04:33
PROVIDERS: ADMIT Family Medicine; ATTEND Family Medicine

== ENCOUNTER 2018-04-19 23:25 | Inpatient (IN) ==
[2018-04-20] MEDS ORDERED: Vancomycin Inj 1,000 MG in Sodium Chlor 0.9% Inj 250 ML IV.SIG ONE (00:19)
[2018-04-20] MEDS ORDERED: Sod Chloride 0.9% Inj 1,000 ML IV.SIG ONE (00:19)
[2018-04-20] MEDS ORDERED: Piperacil/Tazo 3.375 GM Premix 50 ML IV.SIG ONE (00:21)
[2018-04-20] MEDS ORDERED: Ketorolac Inj 30 MG/ML (IVP) Vial IV.PUSH ONE ×2 (00:22→21:13)
[2018-04-20 00:25] LABS: Baso # (Auto) 0.1 th/mm3 (0.0-0.2); Baso % (Auto) 0.8 % (0.0-2.0); Eos # (Auto) 0.4 th/mm3 (0.0-0.4); Eos % (Auto) 5.2 % (0.0-4.0); Hematocrit 35.4 % (35.0-46.0); Hemoglobin 11.6 gm/dL (11.6-15.3); Lymph # (Auto) 1.9 th/mm3 (1.0-4.8); Lymph % (Auto) 26.5 % (9.0-44.0); Mean Corpuscular HGB Conc 32.7 % (32.0-36.0); Mean Corpuscular Hemoglobin 26.5 pg (27.0-34.0); Mono # (Auto) 0.4 th/mm3 (0.0-0.9); Mono % (Auto) 6.3 % (0.0-8.0); Neut # (Auto) 4.3 th/mm3 (1.8-7.7); Neut % (Auto) 61.2 % (16.0-70.0); Platelet Count 263 th/mm3 (150-450); Red Blood Count 4.37 mil/mm3 (4.00-5.30)
[2018-04-20 00:36] LABS: Activated Partial Thrombo Time 27.5 sec (23.4-31.7); Prothrombin Time 9.9 sec (9.8-11.6)
--- NOTE | 2018-04-20 00:36 | XR ---
EXAM DATE: 04/20/2018 12:34 AM EST AGE/SEX: 38 years / Female INDICATIONS: Continuous left distal arm infection. Patient had a fever previously. CLINICAL DATA: This is the patient's subsequent encounter. Patient reports that signs and symptoms h ave been present for 2 weeks and indicates a pain score of 0/10. MEDICAL/SURGICAL HISTORY: Carcinoma, uterine. . Left hand and wrist surgery. COMPARISON: . FINDINGS: Single AP view the chest. The lungs are clear. Cardiomediastinal silhouette within normal limits. No evidence of pleural effusion or pneumothorax. CONCLUSION: No acute cardiopulmonary disease identified. Electronically signed by: Vasile Waller MD 04/20/2018 12:35 AM EST
--- NOTE | 2018-04-20 01:15 | ED ---
HPI General Chief complaint: Skin/Abscess/Foreign Body Stated complaint: Wrist pain/headache Time Seen by Provider: 04/19/18 23:41 Source: patient Limitations: no limitations History of Present Illness HPI narrative: The patient is a 38 year old female who presents to the [facility] emergency department with a history of drainage from her left wrist wound that began on April 14. The patient reports that it began approximately 2 days after she left the hospital AMA for a left wrist infection. The patient first developed an abscess involving the left wrist in March. Under the care of Dr. Herring a local hand surgeon she underwent incision and drainage and a left carpal tunnel release on March 21, 2018. The patient developed a postoperative infection and was admitted to the hospital on March 30, 2018, however unfortunately she left the hospital AGAINST MEDICAL ADVICE. She is unsure whether she has had any fevers associated with this. She reports that over the last 4 days she has had chest pain and shortness of breath. The patient reports having a past medical history of endocarditis. The patient has a history of IV drug use and last used meth and heroin earlier today. She reports having chronic nausea and intermittent vomiting for the last 20 years. On review of systems otherwise, the patient denies having any neck pain, back pain, abdominal pain, diarrhea, urinary symptoms, or neurologic symptoms. Related Data Home Medications Medication Instructions Recorded Confirmed alprazolam [Xanax] 2 mg PO BID 03/31/18 04/19/18 gabapentin 600 mg PO TID 03/31/18 04/19/18 levetiracetam [Keppra] 300 mg PO TID 03/31/18 04/19/18 topiramate [Topamax] 200 mg PO BID 03/31/18 04/19/18 hydrocodone-acetaminophen 1 tab PO TID PRN 04/10/18 04/19/18 Allergies Allergy/AdvReac Type Severity Reaction Status Date / Time cephalexin Allergy Severe RECTAL Verified 04/19/18 23:38 BLEED diclofenac Allergy Severe Rectal Verified 04/19/18 23:38 Bleed hornet venom Allergy Severe Anaphylaxis Verified 04/19/18 23:38 latex Allergy Severe Swelling Verified 04/19/18 23:38 penicillin G Allergy Severe VOMITING Verified 04/19/18 23:38 propoxyphene Allergy Severe VOMITING Verified 04/19/18 23:38 rizatriptan Allergy Intermediate Rectal Verified 04/19/18 23:38 Bleed diphtheria toxoid,adsorbed Allergy Unknown UNKNOWN Verified 04/19/18 23:38 REACTION acetaminophen AdvReac Severe SWELLING Verified 04/19/18 23:38 AND VOMITING codeine AdvReac Severe SWELLING Verified 04/19/18 23:38 AND VOMITING doxycycline AdvReac Severe RASH Verified 04/19/18 23:38 piperacillin [From Zosyn] AdvReac Vomiting Verified 04/19/18 23:38 tazobactam [From Zosyn] AdvReac Vomiting Verified 04/19/18 23:38 Review of Systems ROS: all other systems reviewed are negative [facility] Medical History Medical History Migraine (Acute) Anemia (Acute) HPV in female (Acute) Cervical cancer (Chronic) Ovarian cancer (Acute) Mitral valve prolapse (Acute) Epilepsy (Chronic) Hepatitis C (Acute) Endocarditis (Acute) IV drug abuse (Acute) Wound infection after surgery (Acute) Surgical History Surgical History History of knee surgery (Acute) History of dilatation and curettage (Acute) Social History Social History Substance History: Active Abuse Second Hand Smoke Exposure: Yes Smoking Status: Current every day smoker Tobacco Type: Cigarettes How Often Do You Have a Drink Containing Alcohol: 2 to 3 times a week Recent Travel in [facility] within the Last 8 Weeks: No Recent Out of Country Travel within the Last 8 Weeks: No Substance Abuse Detail Heroin: Substance Use Status: Active Route Used Substance Abuse: Intravenously Reason for Use: Calm Down Methamphetamine: Substance Use Status: Active Route Used Substance Abuse: Intravenously Reason for Use: Get High Immunization History Tetanus Immunization: Never Vaccinated Exam Const General: cooperative and acute distress (Related to left wrist pain.) mild Nutritional Appearance: well nourished Orientation: alert, awake and oriented x3 HENMT Head: normocephalic and atraumatic Nose: no nasal discharge and no epistaxis Mouth: moist mucous membranes Throat: posterior oropharynx normal and uvula midline Eyes Sclera: normal sclerae Pupils: PERRL Neck Neck: no meningeal signs, trachea midline and no JVD Resp Effort & Inspection: no use of accessory muscles Auscultation: clear to auscultation bilaterally Cardio Rate: regular rate Rhythm: regular rhythm Heart Sounds: no murmurs GI Inspection: non-distended Palpation: soft, no hepatosplenomegaly, no guarding, not rigid and nontender Auscultation: normal bowel sounds Skin General: dry skin (warm) and other Neuro General: alert, awake, oriented x3 and other (Grossly nonfocal) Speech: speech normal Motor: no movement abnormalities noted Extrem General: normal to inspection, no clubbing, no cyanosis and edema (Patient has no edema of bilateral lower extremities, however the area of interest, the left upper extremity, the patient has 2 days. The patient is noted to have an open wound that is approximately 1 cm with yellow drainage that was cultured. The patient has a small amount of surrounding edema, erythema. The patient reports pain on any light touch of the area. The patient has less than 3-second capillary refill. She has soft compartments. She has intact sensation over all fingertips.) Psych Mood: congruent mood Affect: normal affect Judgment: limited Course Initial Documented Vital Signs Temperature 97.7 F 04/19/18 23:33 Pulse Rate 90 04/19/18 23:33 Respiratory Rate 18 04/19/18 23:33 Blood Pressure 130/78 04/19/18 23:33 Pulse Oximetry 100 04/19/18 23:33 Last Documented Vital Signs Temperature 98.1 F 04/20/18 04:00 Pulse Rate 74 04/20/18 04:00 Respiratory Rate 16 04/20/18 04:00 Blood Pressure 128/77 04/20/18 04:00 Pulse Oximetry 97 04/20/18 04:00 Medical Decision Making MDM Narrative Medical decision making narrative: During the course of the patient's emergency department visit, the patient's history, examination, and differential diagnosis were reviewed with the patient. The patient was placed on a air sampling and monitoring with oximetry and frequent blood pressure monitoring. The patient had IV access obtained and blood work sent for analysis. Diagnostic evaluation was started regarding the patient's left wrist swelling, pain, and drainage associated with 4 days of chest pain and shortness of breath in a patient with a history of IV drug use and a reported prior history of endocarditis. The patient was initially provided Toradol 50 mg IV for pain, Zofran 4 mg IV for nausea, Zosyn 3.375 mg IV, vancomycin 1 g IV, normal saline 1 L IV fluid bolus was administered. The patient's diagnostic studies are remarkable for normal white blood cell count at 7, hemoglobin 11.6, platelets 263 with 5.2 eosinophils, PT PTT within normal limits, chemistries remarkable for chloride of 109, calcium 7.5, alk phos 14, CPK 263 with a normal MB percent, troponin I is less than 0.02, lipase within normal limits, chest x-ray shows no acute abnormality, wrist x-ray on the left shows no acute abnormality. The patient's sedimentation rate is 14. The patient will be admitted to the hospital for a left wrist infection, recently postop. The patient's case including history, pertinent physical examination findings, and laboratory studies were discussed with Dr. Shaw. It was agreed that the patient would be admitted to the hospitalist service. The patient's results were discussed with the patient, including the plan of care. I explained that further testing and/ or monitoring is indicated based on the patient's history, examination, and/ or laboratory findings. Therefore, I recommended admission for additional evaluation. The patient expressed understanding and was agreeable with this plan. The patient was admitted to the hospital in guarded condition and sent to a bed under the care of the [facility] service. Medical Screen Exam Complete: Yes Emergency Medical Condition: Yes Differential Diagnosis Differential Diagnosis: Postop wound infection, versus osteomyelitis, versus sepsis Medical Records Medical records reviewed: Yes I reviewed the patient's medical records. Lab Data Lab results reviewed: Yes I reviewed the patient's lab results. Result diagrams: 04/20/18 00:03 04/20/18 02:32 Lab Results 04/20/18 04/20/18 04/20/18 Range/Units 00:03 00:03 00:03 WBC 7.0 (4.0-11.0) th/mm3 RBC 4.37 (4.00-5.30) mil/mm3 Hgb 11.6 (11.6-15.3) gm/dL Hct 35.4 (35.0-46.0) % MCV 81.0 (80.0-100.0) fL MCH 26.5 L (27.0-34.0) pg MCHC 32.7 (32.0-36.0) % RDW 22.0 H (11.6-17.2) % Plt Count 263 D (150-450) th/mm3 MPV 8.0 (7.0-11.0) fL Neut % (Auto) 61.2 (16.0-70.0) % Lymph % (Auto) 26.5 (9.0-44.0) % [place] % (Auto) 6.3 (0.0-8.0) % Eos % (Auto) 5.2 H (0.0-4.0) % Baso % (Auto) 0.8 (0.0-2.0) % Neut # (Auto) 4.3 (1.8-7.7) th/mm3 Lymph # (Auto) 1.9 (1.0-4.8) th/mm3 [place] # (Auto) 0.4 (0.0-0.9) th/mm3 Eos # (Auto) 0.4 (0.0-0.4) th/mm3 Baso # (Auto) 0.1 (0.0-0.2) th/mm3 WBC Differential . Differential Comment Auto diff final ESR 14 (0-20) mm/hr PT 9.9 (9.8-11.6) sec INR 1.0 Ratio APTT 27.5 (23.4-31.7) sec Sodium (136-145) meq/L Potassium (3.5-5.1) meq/L Chloride (98-107) meq/L Carbon Dioxide (21.0-32.0) meq/L Anion Gap (5-15) meq/L BUN (7-18) mg/dL Creatinine (0.50-1.00) mg/dL Estimated GFR (>89) mL/min POC Glucose (68-110) mg/dl Random Glucose (74-106) mg/dL Lactic Acid (0.4-2.0) mmol/L Calcium (8.5-10.1) mg/dL Magnesium (1.5-2.5) mg/dL Total Bilirubin (0.2-1.0) mg/dL AST (15-37) U/L ALT (10-53) U/L Alkaline Phosphatase (45-117) U/L Total Creatine Kinase (26-192) U/L CK-MB (CK-2) (0.5-3.6) ng/mL CK-MB (CK-2) % (0.0-4.0) % Troponin I (0.02-0.05) ng/mL C-Reactive Protein (0.00-0.30) mg/dL Total Protein (6.4-8.2) g/dL Albumin (3.4-5.0) g/dL Lipase (73-393) U/L 04/20/18 04/20/18 04/20/18 Range/Units 00:05 00:16 02:32 WBC (4.0-11.0) th/mm3 RBC (4.00-5.30) mil/mm3 Hgb (11.6-15.3) gm/dL Hct (35.0-46.0) % MCV (80.0-100.0) fL MCH (27.0-34.0) pg MCHC (32.0-36.0) % RDW (11.6-17.2) % Plt Count (150-450) th/mm3 MPV (7.0-11.0) fL Neut % (Auto) (16.0-70.0) % Lymph % (Auto) (9.0-44.0) % [place] % (Auto) (0.0-8.0) % Eos % (Auto) (0.0-4.0) % Baso % (Auto) (0.0-2.0) % Neut # (Auto) (1.8-7.7) th/mm3 Lymph # (Auto) (1.0-4.8) th/mm3 [place] # (Auto) (0.0-0.9) th/mm3 Eos # (Auto) (0.0-0.4) th/mm3 Baso # (Auto) (0.0-0.2) th/mm3 WBC Differential Differential Comment ESR (0-20) mm/hr PT (9.8-11.6) sec INR Ratio APTT (23.4-31.7) sec Sodium 142 (136-145) meq/L Potassium 3.5 (3.5-5.1) meq/L Chloride 109 H (98-107) meq/L Carbon Dioxide 25.0 (21.0-32.0) meq/L Anion Gap 8 (5-15) meq/L BUN 8 (7-18) mg/dL Creatinine 0.63 (0.50-1.00) mg/dL Estimated GFR Greater than 89 (>89) mL/min POC Glucose 97 (68-110) mg/dl Random Glucose 98 (74-106) mg/dL Lactic Acid 0.9 (0.4-2.0) mmol/L Calcium 7.5 L (8.5-10.1) mg/dL Magnesium 2.0 (1.5-2.5) mg/dL Total Bilirubin 0.3 (0.2-1.0) mg/dL AST 19 (15-37) U/L ALT 33 (10-53) U/L Alkaline Phosphatase 14 L (45-117) U/L Total Creatine Kinase 263 H (26-192) U/L CK-MB (CK-2) 2.4 (0.5-3.6) ng/mL CK-MB (CK-2) % 0.9 (0.0-4.0) % Troponin I Less than 0.02 L (0.02-0.05) ng/mL C-Reactive Protein 1.35 H (0.00-0.30) mg/dL Total Protein 8.2 (6.4-8.2) g/dL Albumin 3.1 L (3.4-5.0) g/dL Lipase 46 L (73-393) U/L Imaging Data Radiologist's impression: Chest X-Ray 04/20/18 00:00 CONCLUSION: No acute cardiopulmonary disease identified. Wrist X-Ray 04/20/18 00:30 CONCLUSION: Left wrist series within normal limits. ECG Data Attestation: I personally reviewed and interpreted this ECG as follows: Interpretation: The patient had an EKG done on arrival. The patient's EKG shows a sinus rhythm heart rate of 80, QRS duration 90 ms, QTC [address] segment elevation. T waves are inverted in V1. Discharge Plan Discharge Disposition Patient Disposition: ED Admit(ED Internal Use Only) Discharge Order Discharge Orders: ED Use Only Admit Order (Routine); Ordered 04/20/18 Ordered By: Kristin Tomas Discharge Details Diagnosis: Infection of left wrist, Post op infection Physicians Team ED Provider: Kristin Tomas Primary Care Provider: UNKNOWN, Attending Provider: Heladio Gibson Other Providers: Aba Andrade Status ED Status: Left Department Discharge Information Discharge Date/Time: 04/20/18 03:30
--- NOTE | 2018-04-20 01:15 | XR ---
EXAM DATE: 04/20/2018 12:55 AM EST AGE/SEX: 38 years / Female INDICATIONS: Continuous left distal arm infection. Patient had a fever previously. CLINICAL DATA: This is the patient's subsequent encounter. Patient reports that signs and symptoms h ave been present for 2 weeks and indicates a pain score of 10/10. MEDICAL/SURGICAL HISTORY: Carcinoma, uterine. . Left hand and wrist surgery. COMPARISON: . FINDINGS: 3 views of left wrist. Bone alignment within normal limits. No evidence of fracture. No evidence of j oint narrowing. No focal bone erosion. No abnormal periosteal reaction. CONCLUSION: Left wrist series within normal limits. Electronically signed by: Vasile Waller MD 04/20/2018 1:14 AM EST
[2018-04-20] MEDS ORDERED: Vancomycin Consult Pharmacy OTHER PRN (01:53)
[2018-04-20] MEDS ORDERED: Bisacodyl 10 MG Supp RECTAL PRN (01:54)
[2018-04-20 02:21] LABS: Alkaline Phosphatase 14 U/L (45-117); Creatine Kinase 263 U/L (26-192); Total Protein 8.2 g/dL (6.4-8.2)
[2018-04-20 02:33] LABS: CKMB Percent 0.9 % (0.0-4.0); Creatine Kinase MB 2.4 ng/mL (0.5-3.6)
[2018-04-20] MEDS: Sod Chloride 0.9% Inj 1,000 ML IV.CONT SCH ×2 (02:49→11:29)
[2018-04-20 03:22] LABS: Alanine Aminotransferase 33 U/L (10-53); Albumin 3.1 g/dL (3.4-5.0); Aspartate Aminotransferase 19 U/L (15-37); Blood Urea Nitrogen 8 mg/dL (7-18); C-Reactive Protein 1.35 mg/dL (0.00-0.30); Calcium 7.5 mg/dL (8.5-10.1); Chloride 109 meq/L (98-107); Glomerular Filtration Rate Greater Than 89 mL/min (>89); Glucose,Random 98 mg/dL (74-106); Lipase 46 U/L (73-393); Potassium 3.5 meq/L (3.5-5.1); Sodium 142 meq/L (136-145)
[2018-04-20 03:32] LABS: Anion Gap 8 meq/L (5-15)
[2018-04-20] MEDS: Piperacil/Tazo 3.375 GM Premix 50 ML IV.SIG SCH ×3 (05:27→17:21)
--- NOTE | 2018-04-20 05:52 | P.HPIM ---
History of Present Illness Service: [facility] Primary Care Physician: UNKNOWN Chief Complaint: Left wrist pain History of Present Illness: This is a 38-year-old female w/ a PMH of Uterine CA , Seizure Disorder, Anemia, MVP and IVDU w/ Left Wrist Abscess. Pt has a long history of being admitted and leaving AMA. Pt initially admitted 03/20-03/25/18 w/ left wrist abscess, s/p I&D Left Wrist w / Left Carpal Tunnel Release by Dr. Herring on 03/21/18, Echo 03/21/18 negative for vegetation, EF 60-65%, s/p Vanc/Zosyn while hospitalized and d/c'd on Zyvox PO x2 wks, returned to ER on 03/30/18 w/ recurrent left wrist infection, however LEFT AMA. Admitted 03/31-04/03/18 for same, also LEFT AMA. States she presented to [facility], was transferred to [facility], underwent left wrist abscess I&D. 04/11 admitted again for abscess and AMA again on 04/12. She presents today with worsening pain, redness and draining to the left wrist. Last use of IVD was today. She denies any fevers, but states the pain is throbbing, 10/10, constant, worse with movement and touch. Denies any chest pain , or sob. Inpatient Certification Inpatient Certification: I certify that the inpatient services were ordered in accordance with Medicare regulations governing the order. This includes certification that hospital inpatient services are reasonable and necessary and in the case of services not specified as inpatient-only under 42 CFR 419.22(n), that they are appropriately provided as inpatient services in accordance to with the 2-midnight benchmark under 43 CFR 412.3(e) Estimated Total Length of Stay (Days): 2 Plans for Post Hospital Care: Home [facility] Social History Social History Substance History: Active Abuse Second Hand Smoke Exposure: Yes Smoking Status: Current every day smoker Tobacco Type: Cigarettes How Often Do You Have a Drink Containing Alcohol: 2 to 3 times a week Recent Travel in [facility] within the Last 8 Weeks: No Recent Out of Country Travel within the Last 8 Weeks: No Substance Abuse Detail Heroin: Substance Use Status: Active Route Used Substance Abuse: Intravenously Substance Abuse Comment: last used 04/19/18 Reason for Use: Feels Good and Get High Methamphetamine: Substance Use Status: Active Route Used Substance Abuse: Intravenously Substance Abuse Comment: last used 04/19/18 Reason for Use: Feels Good and Get High Immunization History Tetanus Immunization: Unsure Hx Influenza Vaccine This Season: Unable to Assess Medications and Allergies Allergies Allergy/AdvReac Type Severity Reaction Status Date / Time cephalexin Allergy Severe RECTAL Verified 04/19/18 23:38 BLEED diclofenac Allergy Severe Rectal Verified 04/19/18 23:38 Bleed hornet venom Allergy Severe Anaphylaxis Verified 04/19/18 23:38 latex Allergy Severe Swelling Verified 04/19/18 23:38 penicillin G Allergy Severe VOMITING Verified 04/19/18 23:38 propoxyphene Allergy Severe VOMITING Verified 04/19/18 23:38 rizatriptan Allergy Intermediate Rectal Verified 04/19/18 23:38 Bleed diphtheria toxoid,adsorbed Allergy Unknown UNKNOWN Verified 04/19/18 23:38 REACTION acetaminophen AdvReac Severe SWELLING Verified 04/19/18 23:38 AND VOMITING codeine AdvReac Severe SWELLING Verified 04/19/18 23:38 AND VOMITING doxycycline AdvReac Severe RASH Verified 04/19/18 23:38 piperacillin [From Zosyn] AdvReac Vomiting Verified 04/19/18 23:38 tazobactam [From Zosyn] AdvReac Vomiting Verified 04/19/18 23:38 Home Medications Medication Instructions Recorded Confirmed Type alprazolam [Xanax] 2 mg PO BID 03/31/18 04/19/18 History gabapentin 600 mg PO TID 03/31/18 04/19/18 History levetiracetam [Keppra] 300 mg PO TID 03/31/18 04/19/18 History topiramate [Topamax] 200 mg PO BID 03/31/18 04/19/18 History hydrocodone-acetaminophen 1 tab PO TID PRN 04/10/18 04/19/18 History Active Medications: Active Medications Al Hydroxide/Mg Hydroxide (Milk Of Magnesia Liq) 30 ml PO Q12H PRN PRN Reason: Mild Constipation Bisacodyl (Dulcolax Supp) 10 mg RECTAL DAILY PRN PRN Reason: SEVERE CONSITIPATION Piperacillin/Tazobactam/Dextrose (Zosyn 3.375 Gm Premix) 50 mls @ 100 mls/hr IV.SIG Q6H [facility] Last Admin: 04/20/18 05:27 Dose: 100 mls/hr Sodium Chloride (Ns Inj) 1,000 mls @ 100 mls/hr IV.CONT .Q10H [facility] Last Admin: 04/20/18 02:49 Dose: 100 mls/hr Lactulose (Lactulose Liq) 30 ml PO DAILY PRN PRN Reason: SEVERE CONSITIPATION Ondansetron HCl (Zofran Inj) 4 mg IV.PUSH Q6H PRN PRN Reason: NAUSEA OR VOMITING Pharmacy Profile Note (Vancomycin Consult Pharmacy) 1 each OTHER UNSCH PRN PRN Reason: Pharmacy to dose Sennosides (Senokot) 17.2 mg PO Q12H PRN PRN Reason: Moderate Constipation Sodium Chloride (Ns Flush) 2 ml IV.FLUSH BID SHAYNA Sodium Chloride (Ns Flush) 2 ml IV.FLUSH PRN PRN PRN Reason: FLUSH AFTER USING IV ACCESS Physical Exam Vital signs: Last Vital Signs Temp 98.1 F 04/20/18 04:00 Pulse 74 04/20/18 04:00 Resp 16 04/20/18 04:00 BP 128/77 04/20/18 04:00 Pulse Ox 97 04/20/18 04:00 Intake & Output 04/17/18 04/18/18 04/19/18 04/20/18 06:59 06:59 06:59 06:59 Intake Total 1300 / 1300 Balance 1300 / 1300 Weight 53.07 kg Narrative: GENERAL: well nourished patient in no distress SKIN: Warm and dry. left wrist abscess draining purulent drainage with surrounding erythema, multiple hardened lumps on BUE EYES: No scleral icterus. No injection or drainage. CARDIOVASCULAR: Regular rate and rhythm without murmurs, gallops, or rubs. RESPIRATORY: Breath sounds equal bilaterally. No accessory muscle use. GASTROINTESTINAL: Abdomen soft, non-tender, nondistended. MUSCULOSKELETAL: No cyanosis, or edema. Neuro: A&O x 3, moves all Results Labs CBC & Chem 7: 04/20/18 00:03 04/20/18 02:32 Imaging Impressions Chest X-Ray 04/20/18 00:00 CONCLUSION: No acute cardiopulmonary disease identified. Wrist X-Ray 04/20/18 00:30 CONCLUSION: Left wrist series within normal limits. Caprini VTE Risk Assessment Caprini VTE Risk Assessment: No/Low Risk (score <= 1) Caprini Risk Assessment Model: Point Value = 1 Point Value = 2 Point Value = 3 Point Value = 5 Age 41-60 Minor surgery BMI > 25 kg/m2 Swollen legs Varicose veins or History of unexplained or recurrent spontaneous Oral contraceptives or hormone replacement Sepsis (< 1 month) Serious lung disease, including pneumonia (< 1 month) Abnormal pulmonary function Acute myocardial infarction Congestive heart failure (< 1 month) History of inflammatory bowel disease Medical patient at bed rest Age 61-74 Arthroscopic surgery Major open surgery (> 45 min) Laparoscopic surgery (> 45 min) Malignancy Confined to bed (> 72 hours) Immobilizing plaster cast Central venous access Age >= 75 History of VTE Family history of VTE Factor V Leiden Prothrombin [id number] Lupus anticoagulant Anticardiolipin antibodies Elevated serum homocysteine Heparin-induced thrombocytopenia Other congenital or acquired thrombophilia Stroke (< 1 month) Elective arthroplasty Hip, pelvis, or leg fracture Acute spinal cord injury (< 1 month) Prophylaxis Regimen: Total Risk Factor Score Risk Level Prophylaxis Regimen 0-1 Low Early ambulation 2 Moderate Order ONE of the following: *Sequential Compression Device (SCD) *Heparin 5000 units SQ BID 3-4 Higher Order ONE of the following medications: *Heparin 5000 units SQ TID *Enoxaparin/Lovenox 40 mg SQ daily (WT < 150 kg, CrCl > 30 mL/min) *Enoxaparin/Lovenox 30 mg SQ daily (WT < 150 kg, CrCl > 10-29 mL/min) *Enoxaparin/Lovenox 30 mg SQ BID (WT < 150 kg, CrCl > 30 mL/min) AND/OR *Sequential Compression Device (SCD) 5 or more Highest Order ONE of the following medications: *Heparin 5000 units SQ TID (Preferred with Epidurals) *Enoxaparin/Lovenox 40 mg SQ daily (WT < 150 kg, CrCl > 30 mL/min) *Enoxaparin/Lovenox 30 mg SQ daily (WT < 150 kg, CrCl > 10-29 mL/min) *Enoxaparin/Lovenox 30 mg SQ BID (WT < 150 kg, CrCl > 30 mL/min) AND *Sequential Compression Device (SCD) Assessment and Plan Plan This is a 38-year-old female w/ a PMH of Uterine CA, Seizure Disorder, Anemia, MVP and IVDU w/ Left Wrist Abscess. Pt has a long history of being admitted and leaving AMA. Left wrist abscess -Consult hand surgery -IV antibiotics vancomycin and zosyn -Wound culture pending -NPO Seizure, chronic -Resume home medications DVT prophylaxis: SCDs H&P: Quality VTE Deep Vein Thrombosis/Pulmonary Embolism Present on Admission: No
--- NOTE | 2018-04-20 06:50 | P.PNOP ---
Physical Exam Vital signs: Vital Signs 04/19/18 23:33 04/19/18 23:38 04/20/18 00:11 Temperature 97.7 F 98.0 F Pulse Rate 90 90 Respiratory Rate 18 20 Blood Pressure 130/78 128/75 Pulse Oximetry 100 98 100 04/20/18 00:38 04/20/18 01:00 04/20/18 02:00 Temperature Pulse Rate 81 88 81 Respiratory Rate 24 24 22 Blood Pressure 126/89 112/55 L 118/69 Pulse Oximetry 100 98 100 04/20/18 02:49 04/20/18 03:54 04/20/18 04:00 Temperature 98.1 F Pulse Rate 82 74 Respiratory Rate 18 18 16 Blood Pressure 111/64 128/77 Pulse Oximetry 99 97 Intake & Output 04/19/18 04/19/18 04/20/18 06:59 18:59 06:59 Intake Total 1350 / 1350 Balance 1350 / 1350 Weight 53.07 kg Intake: IV 1350 / 1350 Zosyn 3.375 GM Premix 50 ML @ 100 / 100 100 mls/hr IV.SIG Q6H SHAYNA Rx#: [id number] NS Inj 1,000 ML @ Wide Open IV. 1000 / 1000 SIG BOLUS ONE Rx#:[id number] Vancomycin Inj 1,000 MG In NS 250 / 250 Inj 250 ML @ 250 mls/hr IV.SIG ONCE ONE Rx#:[id number] Other: Date of Last Bowel Movement 04/19/18 Weight On Admission 53.07 kg Results - Labs CBC & Chem 7: 04/20/18 00:03 04/20/18 02:32 Laboratory Results - last 24 hr 04/20/18 04/20/18 04/20/18 00:03 00:03 00:03 WBC 7.0 RBC 4.37 Hgb 11.6 Hct 35.4 MCV 81.0 MCH 26.5 L MCHC 32.7 RDW 22.0 H Plt Count 263 D MPV 8.0 Neut % (Auto) 61.2 Lymph % (Auto) 26.5 [place] % (Auto) 6.3 Eos % (Auto) 5.2 H Baso % (Auto) 0.8 Neut # (Auto) 4.3 Lymph # (Auto) 1.9 [place] # (Auto) 0.4 Eos # (Auto) 0.4 Baso # (Auto) 0.1 WBC Differential . Differential Comment Auto diff final ESR 14 PT 9.9 INR 1.0 APTT 27.5 Sodium Potassium Chloride Carbon Dioxide Anion Gap BUN Creatinine Estimated GFR POC Glucose Random Glucose Lactic Acid Calcium Magnesium Total Bilirubin AST ALT Alkaline Phosphatase Total Creatine Kinase CK-MB (CK-2) CK-MB (CK-2) % Troponin I C-Reactive Protein Total Protein Albumin Lipase 04/20/18 04/20/18 04/20/18 00:05 00:16 02:32 WBC RBC Hgb Hct MCV MCH MCHC RDW Plt Count MPV Neut % (Auto) Lymph % (Auto) [place] % (Auto) Eos % (Auto) Baso % (Auto) Neut # (Auto) Lymph # (Auto) [place] # (Auto) Eos # (Auto) Baso # (Auto) WBC Differential Differential Comment ESR PT INR APTT Sodium 142 Potassium 3.5 Chloride 109 H Carbon Dioxide 25.0 Anion Gap 8 BUN 8 Creatinine 0.63 Estimated GFR Greater than 89 POC Glucose 97 Random Glucose 98 Lactic Acid 0.9 Calcium 7.5 L Magnesium 2.0 Total Bilirubin 0.3 AST 19 ALT 33 Alkaline Phosphatase 14 L Total Creatine Kinase 263 H CK-MB (CK-2) 2.4 CK-MB (CK-2) % 0.9 Troponin I Less than 0.02 L C-Reactive Protein 1.35 H Total Protein 8.2 Albumin 3.1 L Lipase 46 L - Imaging Impressions Chest X-Ray 04/20/18 00:00 CONCLUSION: No acute cardiopulmonary disease identified. Wrist X-Ray 04/20/18 00:30 CONCLUSION: Left wrist series within normal limits. Assessment and Plan - Assessment and Plan 38 yo female with history of left hand/wrist infection s/p the below procedures with Dr. Herring on 03/21. Re-presented with post-op infection and subsequently left AMA. Now returns with persistent post-op infection, wound drainage. 1. Left carpal tunnel release. 2. Incision and drainage deep abscess, left wrist 3. First dorsal compartment release Recommend consult by Dr. Herring for persistent post-operative infection. A consult has been placed.
[2018-04-20] MEDS: Topiramate 200 MG Tablet PO SCH ×2 (09:02→20:51)
[2018-04-20] MEDS: levETIRAcetam 250 MG Tablet PO SCH ×3 (09:02→17:20)
[2018-04-20] MEDS: Vancomycin Inj 1,000 MG in Sodium Chlor 0.9% Inj 250 ML IV.SIG SCH (13:21)
[2018-04-20] MEDS ORDERED: Ketorolac 10 MG Tablet PO ONE (18:00)
--- NOTE | 2018-04-20 18:29 | P.PNADD ---
Addendum to Inpatient Note Reason for Addendum: Additional Documentation Additional information: Patient seen with tech present in the room. Patient asking for pain medication. Says that her left forearm hurts when I manipulate her fingers. Has intact range of motion with for prescription of her left hand. His sutures in place over left forearm wound, minimal serosanguineous drainage noted with surrounding adjacent erythema/edema. Lying in bed, awake, alert, no acute distress. Has what appears to be sebaceous cysts more proximal on her forearm. Chart reviewed, discussed case with psychiatry, concern for patient with dangerous self mutilating behavior resulting in deteriorating hand wound, manifesting through multiple admissions and leaving AMA multiple times from multiple hospitals. Will Wilkins act the patient and have psychiatry evaluate the patient.
--- NOTE | 2018-04-20 19:12 | ECG ---
Date Performed: 04/20/2018 Time Performed: 00:19:01 PTAGE: 38 years EKG: Sinus rhythm POSSIBLE RIGHT VENTRICULAR CONDUCTION DELAY BORDERLINE ECG PREVIOUS TRACING : 03/20/2018 13.14 Since the previous tracing, no significant change noted DOCTOR: Sandip Flores Interpretating Date/Time 04/20/2018 19:11:02
[2018-04-21] MEDS: Sod Chloride 0.9% Inj 1,000 ML IV.CONT SCH ×3 (00:19→21:50)
[2018-04-21] MEDS: Piperacil/Tazo 3.375 GM Premix 50 ML IV.SIG SCH ×4 (00:25→19:04)
[2018-04-21] MEDS: Vancomycin Inj 1,000 MG in Sodium Chlor 0.9% Inj 250 ML IV.SIG SCH ×2 (01:34→14:27)
[2018-04-21 01:47] LABS: Bacteria,Urine Rare /hpf; Bilirubin,Urine Negative (Negative); Clarity,Urine Clear (Clear); Color,Urine Colorless (Yellw/Straw); Glucose,Urine (UA) Negative (Negative); Leukocyte Esterase,Urine Moderate (Negative); Nitrite,Urine Negative (Negative); Specific Gravity,Urine 1.003 (1.002-1.035); Squamous Epithelial Cell,Urine <1 /hpf (0-5)
[2018-04-21 01:52] LABS: Amphetamine Screen,Urine Neg (Neg); Barbiturate Screen,Urine Neg (Neg); Cannabinoid Screen,Urine Neg (Neg); Cocaine Screen,Urine Neg (Neg)
[2018-04-21 02:06] LABS: Opiate Screen,Urine Neg (Neg)
[2018-04-21 05:45] LABS: Amphetamine Screen,Urine Neg (Neg); Barbiturate Screen,Urine Neg (Neg); Cannabinoid Screen,Urine Neg (Neg); Cocaine Screen,Urine Neg (Neg)
[2018-04-21 05:46] LABS: Opiate Screen,Urine Neg (Neg)
[2018-04-21 09:02] LABS: INR 1.1 Ratio; Prothrombin Time 10.7 sec (9.8-11.6)
[2018-04-21] MEDS: levETIRAcetam 250 MG Tablet PO SCH ×2 (09:27→14:51)
[2018-04-21] MEDS: Topiramate 200 MG Tablet PO SCH ×2 (09:28→21:34)
[2018-04-21] MEDS: Dextrose 5%/NaCl 0.45% Inj 1,000 ML IV.CONT SCH (11:58)
--- NOTE | 2018-04-21 12:14 | P.CONPSY ---
Provisional Diagnosis Admission Date: April 20, 2018 01:46 Tyler I.: Substance-induced mood disorder, history of bipolar disorder, polysubstance dependence, including opiates History of Present Illness Service: [facility] Primary Care Provider: UNKNOWN Chief Complaint: Left wrist pain History of Present Illness: The patient is a 38 years old woman, domiciled with her boyfriend in [facility], unemployed, with a reported psychiatric history of bipolar disorder, polysubstance dependence, IV heroine user, psychiatric hospitalizations, history of detox and rehab, she is not in medications, no outpatient care, she reports 9 previous suicidal attempt, multiple overdose and also self-cutting behavior, history of poor impulse control, issue with anger management, significant medical history of cellulitis, uterine cancer and seizures, who presented with Chief Complaint: Left wrist pain. Pt has a long history of being admitted and leaving AMA. Pt initially admitted 03/20-03/25/18 w/ left wrist abscess, s/p I&D Left Wrist w/ Left Carpal Tunnel Release by Dr. Herring on , Echo 03/21/18 negative for vegetation, EF 60-65%, s/p Vanc/Zosyn while hospitalized and d/c'd on Zyvox PO x2 wks, returned to ER on 03/30/18 w/ recurrent left wrist infection, however LEFT AMA. Admitted 03/31-04/03/18 for same, also LEFT AMA. States she presented to [facility], was transferred to [facility], underwent left wrist abscess I&D. 04/11 admitted again for abscess and AMA again on 04/12. She presents today with worsening pain, redness and draining to the left wrist. Last use of IVD was today. She denies any fevers, but states the pain is throbbing, 10/10, constant, worse with movement and touch. On psychiatric evaluation the patient is found very irritable, upset, making accusations the nurses and staff of abusing her. The patient seems to be very dysregulated, irritable, oppositional, and refusing to talk to me. Stating that she is in severe withdrawal at this moment and she wants to kill herself if she is not treated. She says that she does not want to speak with a psychiatrist because she came here for hand pain. Patient quite focused in pain medication. Reports severe anxiety related with withdrawal. Ambivalent, condition and SI. PPHx: bipolar disorder, polysubstance dependence, IV heroine user, psychiatric hospitalizations, history of detox and rehab, she is not in medications, no outpatient care, she reports 9 previous suicidal attempt, multiple overdose and also self-cutting behavior, history of poor impulse control, issue with anger management, PMHx: significant medical history of cellulitis, uterine cancer and seizures Substance Hx: Reports daily use of heroin Family Hx: No family psychiatric history Social Hx: Domiciled with her boyfriend in [facility], unemployed, supported by SSI Review of Systems All other systems reviewed negative except as stated in HPI Psychiatric: Reports confusion, Reports depression, Reports irritability, Reports thoughts of hurting/killing yourself PMFSH - History History Provided By: Patient - Medical History Medical History: Medical History (Last Updated 04/20/18 @ 06:35 by Kristin Tomas MD) Migraine (Acute) Anemia (Acute) HPV in female (Acute) Cervical cancer (Chronic) Ovarian cancer (Acute) Mitral valve prolapse (Acute) Epilepsy (Chronic) Hepatitis C Endocarditis IV drug abuse Wound infection after surgery - Surgical History Surgical History: Surgical History (Last Reviewed 04/20/18 @ 06:29 by Kristin Tomas MD) History of knee surgery (Acute) History of dilatation and curettage - Tobacco History Second Hand Smoke Exposure: Yes Tobacco Use In Past 30 Days: Yes Smoking Status: Current every day smoker Tobacco Type: Cigarettes - Alcohol History How Often Do You Have a Drink Containing Alcohol: 2 to 3 times a week - Substance Use History Substance History: Active Abuse - Substance Use Type Heroin Status: Active Route Used: Intravenously Reason for Use: Calm Down Comment: last used 04/19/18 Methamphetamine Status: Active Route Used: Intravenously Reason for Use: Get High Comment: last used 04/19/18 - Travel History Recent Travel in the [place] Within the Last 8 Weeks: No Recent Travel Out of the Country Within the Last 8 Weeks: No - Immunization History Tetanus Immunization: Never Vaccinated Hx Influenza Vaccine This Season: Unable to Assess Medications and Allergies Active Medications: Active Medications Al Hydroxide/Mg Hydroxide (Milk Of Magnesia Liq) 30 ml PO Q12H PRN PRN Reason: Mild Constipation Bisacodyl (Dulcolax Supp) 10 mg RECTAL DAILY PRN PRN Reason: SEVERE CONSITIPATION Clonazepam (Klonopin) 0.5 mg PO Q8HR SHAYNA Clonidine HCl (Catapres) 0.1 mg PO Q8HR SHAYNA Piperacillin/Tazobactam/Dextrose (Zosyn 3.375 Gm Premix) 50 mls @ 100 mls/hr IV.SIG Q6H SHAYNA Last Infusion: 04/21/18 05:38 Dose: Infused Sodium Chloride (Ns Inj) 1,000 mls @ 100 mls/hr IV.CONT .Q10H SHAYNA Last Admin: 04/21/18 09:30 Dose: 100 mls/hr Vancomycin HCl 1,000 mg/ (Sodium Chloride) 250 mls @ 250 mls/hr IV.SIG Q12H SHAYNA Last Infusion: 04/21/18 04:00 Dose: Infused Acetaminophen (Ofirmev Inj) 1,000 mg in 100 mls @ 400 mls/hr IV.SIG Q6H SHAYNA Stop: 04/22/18 03:14 Last Infusion: 04/21/18 10:17 Dose: Infused Dextrose/Sodium Chloride (D5w/1/2 Ns Inj) 1,000 mls @ 84 mls/hr IV.CONT .[id number] [facility] Last Admin: 04/21/18 11:58 Dose: 84 mls/hr Lactulose (Lactulose Liq) 30 ml PO DAILY PRN PRN Reason: SEVERE CONSITIPATION Levetiracetam (Keppra) 300 mg PO TID [facility] Last Admin: 04/21/18 09:27 Dose: 300 mg Lorazepam (Ativan Inj) 1 mg IV.PUSH STAT STA Stop: 04/21/18 11:55 Miscellaneous Information ([facility] Ordered Lab Info) 0 each OTHER ONCE ONE Stop: 04/21/18 12:46 Ondansetron HCl (Zofran Inj) 4 mg IV.PUSH Q6H PRN PRN Reason: NAUSEA OR VOMITING Last Admin: 04/21/18 04:51 Dose: 4 mg Pharmacy Profile Note (Vancomycin Consult Pharmacy) 1 each OTHER UNSCH PRN PRN Reason: Pharmacy to dose Sennosides (Senokot) 17.2 mg PO Q12H PRN PRN Reason: Moderate Constipation Sodium Chloride (Ns Flush) 2 ml IV.FLUSH BID [facility] Last Admin: 04/21/18 09:32 Dose: Not Given Sodium Chloride (Ns Flush) 2 ml IV.FLUSH PRN PRN PRN Reason: FLUSH AFTER USING IV ACCESS Topiramate (Topamax) 200 mg PO BID SHAYNA Last Admin: 04/21/18 09:28 Dose: 200 mg Allergies Allergy/AdvReac Type Severity Reaction Status Date / Time cephalexin Allergy Severe RECTAL Verified 04/19/18 23:38 BLEED diclofenac Allergy Severe Rectal Verified 04/19/18 23:38 Bleed hornet venom Allergy Severe Anaphylaxis Verified 04/19/18 23:38 latex Allergy Severe Swelling Verified 04/19/18 23:38 penicillin G Allergy Severe VOMITING Verified 04/19/18 23:38 propoxyphene Allergy Severe VOMITING Verified 04/19/18 23:38 rizatriptan Allergy Intermediate Rectal Verified 04/19/18 23:38 Bleed diphtheria toxoid,adsorbed Allergy Unknown UNKNOWN Verified 04/19/18 23:38 REACTION acetaminophen AdvReac Severe SWELLING Verified 04/19/18 23:38 AND VOMITING codeine AdvReac Severe SWELLING Verified 04/19/18 23:38 AND VOMITING doxycycline AdvReac Severe RASH Verified 04/19/18 23:38 piperacillin [From Zosyn] AdvReac Vomiting Verified 04/19/18 23:38 tazobactam [From Zosyn] AdvReac Vomiting Verified 04/19/18 23:38 Home Medications Medication Instructions Recorded Confirmed Type alprazolam [Xanax] 2 mg PO BID 03/31/18 04/19/18 History gabapentin 600 mg PO TID 03/31/18 04/19/18 History levetiracetam [Keppra] 300 mg PO TID 03/31/18 04/19/18 History topiramate [Topamax] 200 mg PO BID 03/31/18 04/19/18 History hydrocodone-acetaminophen 1 tab PO TID PRN 04/10/18 04/19/18 History Exam Vital signs: Vital Signs 04/20/18 15:22 04/20/18 19:23 04/20/18 19:42 Temperature 98.3 F 98.5 F Pulse Rate 82 84 Respiratory Rate 16 18 18 Blood Pressure 118/71 100/52 L Pulse Oximetry 99 99 04/21/18 03:08 04/21/18 08:00 Temperature 97.7 F 98.8 F Pulse Rate 84 72 Respiratory Rate 16 16 Blood Pressure 110/72 139/75 Pulse Oximetry 100 100 Intake & Output 04/20/18 04/21/18 04/21/18 18:59 06:59 18:59 Intake Total 1350 / 1350 350 / 350 100 / 100 Balance 1350 / 1350 350 / 350 100 / 100 Intake: IV 1350 / 1350 350 / 350 100 / 100 NS Inj 1,000 ML @ 100 mls/hr IV 1000 / 1000 .CONT .Q10H SHAYNA Rx#:[id number] Ofirmev Inj 1,000 mg In 100 ml 100 / 100 @ 400 mls/hr IV.SIG Q6H SHAYNA Rx# :[id number] Zosyn 3.375 GM Premix 50 ML @ 100 / 100 100 / 100 100 mls/hr IV.SIG Q6H SHAYNA Rx#: [id number] Vancomycin Inj 1,000 MG In NS 250 / 250 250 / 250 Inj 250 ML @ 250 mls/hr IV.SIG Q12H SHAYNA Rx#:[id number] Mental Status Examination Appearance: Appropriate Consciousness: Alert Orientation: x4 Motor Activity: Normal gait Speech: Unremarkable Language: Adequate Fund of Knowledge: Adequate Attention and Concentration: Adequate Memory: Unremarkable Mood: Angry Affect: Irritable Thought Process & Associations: Intact Thought Content: Appropriate Hallucination Type: None Delusion Type: None Suicidal Ideation: Yes Suicidal Plan: No Suicidal Intention: No Homicidal Ideation: No Homicidal Plan: No Homicidal Intention: No Insight: Poor Judgment: Poor Assessment and Plan - Assessment (1) Polysubstance abuse Code(s): F19.10 - Other psychoactive substance abuse, uncomplicated Status: Chronic - Plan Plan: My psychiatric evaluation today I find a patient that is quite irritable, oppositional, behavioral and emotionally dysregulated, not very forthcoming with a psychiatric evaluation and stated that she is not here for psychiatric reasons, but for a problem in her wrist. At the same time, the patient reports suicidal ideation in the context of pain, opiate withdrawal and frustration. She reports to be in pain, reports high anxiety, irritability, discomfort. This is a patient with a psychiatric history of bipolar, polysubstance dependence, poor impulse control, previous suicide attempts, poor coping skills , poor judgmental decision which at this moment has an elevated risk of danger to self given untreated medical condition and withdrawal symptoms. I am not lifting the Wilkins at act this moment. She has an elevated risk of danger to self and she really needs medical treatment. Continue sitter for safety. I will order clonidine 0.1 mg every 8 hours for autonomic instability related with opiate withdrawal, clonazepam 0.5 mg 3 times daily for anxiety related opiate withdrawal, Benadryl 25 mg every 8 hours for the same reason, Haldol 5 mg IM every 8 hours as needed aggressive behavior and agitation. Continue medical treatment as needed. I will follow-up in the medical floor. Patient could be a good candidate to be transferred to a detox/rehabilitation program once medically cleared. Justification for Continued Inpatient Stay: Will continue on the Wilkins act
--- NOTE | 2018-04-21 12:26 | P.CONID ---
History of Present Illness Service: Infectious disease Consult date: 04/21/18 Requesting Physician: Brianda Herring Reason for Consult: Evaluate patient with infection of the left wrist Primary Care Provider: UNKNOWN Chief Complaint: Left wrist pain History of Present Illness: Patient seen and examined. Records reviewed. Patient has not been very cooperative in giving her history when I was doing my consultation. Patient is a 38-year-old female, presented to the hospital for further evaluation of her left wrist. Patient has had multiple admissions to this hospital and she had signed out AMA. She initially had an admission from March 20 - March 25 and at that time she had a left wrist abscess and underwent I&D of the left wrist with carpal tunnel release done on April 20. Cultures at that time were negative. She was on Vanco and Zosyn at that time , and she was discharged on oral Zyvox. She returned to the hospital on March 30 with recurrent left wrist infection, and she signed out AGAINST MEDICAL ADVICE at that time. She returned again and was admitted March 31 - April 03, and signed out AMA at that time. She then presented apparently to [facility] after that last hospitalization and from there she was transferred to [facility]. She underwent surgery on her left wrist at [facility], and not sure if she was discharged. There was another admission on April 11 and again she signed out AMA. Patient states she has been having fevers in the last 5 weeks. She is complaining of pain in her left wrist. Since admission here, she has not been febrile. Her WBC is normal. Sed rate is normal. And CRP is 1.35. Her drug screen is negative. Infectious disease consultation has been requested to assist with evaluation and treatment. Review of Systems Constitutional: Reports chills, Reports fever(s) Eyes: Denies discharge, Denies dry eyes Ears, Nose, Mouth, and Throat: Denies pain with swallowing, Denies sore throat Cardiovascular: Denies chest pain, Denies shortness of breath Respiratory: Denies cough PMFSH - History History Provided By: Patient - Medical History Medical History: Medical History (Last Updated 04/20/18 @ 06:35 by Kristin Tomas MD) Migraine (Acute) Anemia (Acute) HPV in female (Acute) Cervical cancer (Chronic) Ovarian cancer (Acute) Mitral valve prolapse (Acute) Epilepsy (Chronic) Hepatitis C Endocarditis IV drug abuse Wound infection after surgery - Surgical History Surgical History: Surgical History (Last Reviewed 04/20/18 @ 06:29 by Kristin Tomas MD) History of knee surgery (Acute) History of dilatation and curettage - Tobacco History Second Hand Smoke Exposure: Yes Tobacco Use In Past 30 Days: Yes Smoking Status: Current every day smoker Tobacco Type: Cigarettes - Alcohol History How Often Do You Have a Drink Containing Alcohol: 2 to 3 times a week - Substance Use History Substance History: Active Abuse - Substance Use Type Heroin Status: Active Route Used: Intravenously Reason for Use: Calm Down Comment: last used 04/19/18 Methamphetamine Status: Active Route Used: Intravenously Reason for Use: Get High Comment: last used 04/19/18 - Travel History Recent Travel in the [place] Within the Last 8 Weeks: No Recent Travel Out of the Country Within the Last 8 Weeks: No - Immunization History Tetanus Immunization: Never Vaccinated Hx Influenza Vaccine This Season: Unable to Assess Medications and Allergies Active Medications: Active Medications Al Hydroxide/Mg Hydroxide (Milk Of Magnshoaib Liq) 30 ml PO Q12H PRN PRN Reason: Mild Constipation Bisacodyl (Dulcolax Supp) 10 mg RECTAL DAILY PRN PRN Reason: SEVERE CONSITIPATION Clonazepam (Klonopin) 0.5 mg PO Q8HR SHAYNA Clonidine HCl (Catapres) 0.1 mg PO Q8HR SHAYNA Piperacillin/Tazobactam/Dextrose (Zosyn 3.375 Gm Premix) 50 mls @ 100 mls/hr IV.SIG Q6H SHAYNA Last Infusion: 04/21/18 05:38 Dose: Infused Sodium Chloride (Ns Inj) 1,000 mls @ 100 mls/hr IV.CONT .Q10H SHAYNA Last Admin: 04/21/18 09:30 Dose: 100 mls/hr Vancomycin HCl 1,000 mg/ (Sodium Chloride) 250 mls @ 250 mls/hr IV.SIG Q12H SHAYNA Last Infusion: 04/21/18 04:00 Dose: Infused Acetaminophen (Ofirmev Inj) 1,000 mg in 100 mls @ 400 mls/hr IV.SIG Q6H SHAYNA Stop: 04/22/18 03:14 Last Infusion: 04/21/18 10:17 Dose: Infused Dextrose/Sodium Chloride (D5w/1/2 Ns Inj) 1,000 mls @ 84 mls/hr IV.CONT .[id number] [facility] Last Admin: 04/21/18 11:58 Dose: 84 mls/hr Lactulose (Lactulose Liq) 30 ml PO DAILY PRN PRN Reason: SEVERE CONSITIPATION Levetiracetam (Keppra) 300 mg PO TID [facility] Last Admin: 04/21/18 09:27 Dose: 300 mg Lorazepam (Ativan Inj) 1 mg IV.PUSH STAT STA Stop: 04/21/18 11:55 Miscellaneous Information ([facility] [place] [place] [facility] Ordered Lab Info) 0 each OTHER ONCE ONE Stop: 04/21/18 12:46 Ondansetron HCl (Zofran Inj) 4 mg IV.PUSH Q6H PRN PRN Reason: NAUSEA OR VOMITING Last Admin: 04/21/18 04:51 Dose: 4 mg Pharmacy Profile Note (Vancomycin Consult Pharmacy) 1 each OTHER UNSCH PRN PRN Reason: Pharmacy to dose Sennosides (Senokot) 17.2 mg PO Q12H PRN PRN Reason: Moderate Constipation Sodium Chloride (Ns Flush) 2 ml IV.FLUSH BID [facility] Last Admin: 04/21/18 09:32 Dose: Not Given Sodium Chloride (Ns Flush) 2 ml IV.FLUSH PRN PRN PRN Reason: FLUSH AFTER USING IV ACCESS Topiramate (Topamax) 200 mg PO BID [facility] Last Admin: 04/21/18 09:28 Dose: 200 mg Allergies Allergy/AdvReac Type Severity Reaction Status Date / Time cephalexin Allergy Severe RECTAL Verified 04/19/18 23:38 BLEED diclofenac Allergy Severe Rectal Verified 04/19/18 23:38 Bleed hornet venom Allergy Severe Anaphylaxis Verified 04/19/18 23:38 latex Allergy Severe Swelling Verified 04/19/18 23:38 penicillin G Allergy Severe VOMITING Verified 04/19/18 23:38 propoxyphene Allergy Severe VOMITING Verified 04/19/18 23:38 rizatriptan Allergy Intermediate Rectal Verified 04/19/18 23:38 Bleed diphtheria toxoid,adsorbed Allergy Unknown UNKNOWN Verified 04/19/18 23:38 REACTION acetaminophen AdvReac Severe SWELLING Verified 04/19/18 23:38 AND VOMITING codeine AdvReac Severe SWELLING Verified 04/19/18 23:38 AND VOMITING doxycycline AdvReac Severe RASH Verified 04/19/18 23:38 piperacillin [From Zosyn] AdvReac Vomiting Verified 04/19/18 23:38 tazobactam [From Zosyn] AdvReac Vomiting Verified 04/19/18 23:38 Home Medications Medication Instructions Recorded Confirmed Type alprazolam [Xanax] 2 mg PO BID 03/31/18 04/19/18 History gabapentin 600 mg PO TID 03/31/18 04/19/18 History levetiracetam [Keppra] 300 mg PO TID 03/31/18 04/19/18 History topiramate [Topamax] 200 mg PO BID 03/31/18 04/19/18 History hydrocodone-acetaminophen 1 tab PO TID PRN 04/10/18 04/19/18 History Exam Vital signs: Vital Signs 04/20/18 15:22 04/20/18 19:23 04/20/18 19:42 Temperature 98.3 F 98.5 F Pulse Rate 82 84 Respiratory Rate 16 18 18 Blood Pressure 118/71 100/52 L Pulse Oximetry 99 99 04/21/18 03:08 04/21/18 08:00 Temperature 97.7 F 98.8 F Pulse Rate 84 72 Respiratory Rate 16 16 Blood Pressure 110/72 139/75 Pulse Oximetry 100 100 Intake & Output 04/20/18 04/21/18 04/21/18 18:59 06:59 18:59 Intake Total 1350 / 1350 350 / 350 100 / 100 Balance 1350 / 1350 350 / 350 100 / 100 Intake: IV 1350 / 1350 350 / 350 100 / 100 NS Inj 1,000 ML @ 100 mls/hr IV 1000 / 1000 .CONT .Q10H SHAYNA Rx#:[id number] Ofirmev Inj 1,000 mg In 100 ml 100 / 100 @ 400 mls/hr IV.SIG Q6H SHAYNA Rx# :[id number] Zosyn 3.375 GM Premix 50 ML @ 100 / 100 100 / 100 100 mls/hr IV.SIG Q6H SHAYNA Rx#: [id number] Vancomycin Inj 1,000 MG In NS 250 / 250 250 / 250 Inj 250 ML @ 250 mls/hr IV.SIG Q12H SHAYNA Rx#:[id number] Narrative: Physical examination GENERAL: Patient is a thin, well-developed female, awake and alert, not in respiratory distress. She does not look toxic appearing. SKIN: Cool and dry. No generalized rash HEAD: Atraumatic. Normocephalic. No temporal wasting, or tenderness. EYES: [place] conjunctiva. No petechia or hemorrhage. Pupils equal, round and reactive to light. Extraocular movements full and intact. No scleral icterus. EARS, NOSE AND THROAT: Nose without bleeding or purulent nasal discharge. Mucous membranes pink and moist. No oral lesions noted. NECK: Trachea midline. Supple and not tender, no meningeal signs CARDIOVASCULAR: Regular rate and rhythm. No murmurs, rubs or gallops heard RESPIRATORY: Clear to auscultation. Breath sounds equal bilaterally. No rales , wheezing or rhonchi ABDOMEN: Soft, flat, non-tender, nondistended. Bowel sounds present and normoactive. EXTREMITIES: No clubbing, cyanosis, or edema. DANIELE - has incision radial aspect of her L wrist with sutures in place, and there is an area with crusting and small amount of purulent drainage, with mild erythema. Has some movement at L wrist joint, no lymphangitis. The area where she has the incision very tender to touch NEUROLOGICAL: Grossly non-focal PSYCHIATRIC: Not cooperative LINE: No evidence of infection Results - Labs CBC & Chem 7: 04/20/18 00:03 04/20/18 02:32 Labs: Laboratory Results - last 24 hr 04/21/18 04/21/18 04/21/18 01:30 01:30 04:20 PT INR POC Glucose Urine Color Colorless Urine Clarity Clear Urine pH 7.0 Ur Specific [place] 1.003 Urine Protein Negative Urine Glucose (UA) Negative Urine Ketones Negative Urine Occult Blood Negative Urine Nitrate Negative Urine Bilirubin Negative Urine Urobilinogen Less than 2 Ur Leukocyte Esterase Moderate H Urine RBC 1 Urine WBC 32 H Ur Squamous Epith Cells <1 Urine Bacteria Rare H Micro UA Comment Culture indicated Ur Microscopic Review Not Reportable Urine Culture Comments Culture indicated Urine Opiates Screen Neg Neg Ur Barbiturates Screen Neg Neg Ur Amphetamines Screen Neg Neg U Benzodiazepines Scrn Neg Neg Urine Cocaine Screen Neg Neg U Cannabinoids Screen Neg Neg 04/21/18 04/21/18 08:07 11:26 PT 10.7 INR 1.1 POC Glucose 92 Urine Color Urine Clarity Urine pH Ur Specific [place] Urine Protein Urine Glucose (UA) Urine Ketones Urine Occult Blood Urine Nitrate Urine Bilirubin Urine Urobilinogen Ur Leukocyte Esterase Urine RBC Urine WBC Ur Squamous Epith Cells Urine Bacteria Micro UA Comment Ur Microscopic Review Urine Culture Comments Urine Opiates Screen Ur Barbiturates Screen Ur Amphetamines Screen U Benzodiazepines Scrn Urine Cocaine Screen U Cannabinoids Screen - Imaging Chest X-Ray 04/20/18 00:00 CONCLUSION: No acute cardiopulmonary disease identified. Wrist X-Ray 04/20/18 00:30 CONCLUSION: Left wrist series within normal limits. Assessment and Plan - Plan Impression Infection L wrist - had last surgery at [facility] - very difficult to evaluate due to her not being very cooperative in giving a good history - multiple cultures here have been negative; has been Rx with Zyvox previously Poor compliance to medical Rx, has signed out AMA multiple times Hx substance abuse Recommendation Hand surgery to see On IV Hilda and Marta Patient currently under Wilkins Act Follow C/S and adjust Abx Monitor progress Thank you for this consultation
[2018-04-21] MEDS ORDERED: Pharmacy Ordered Lab Info OTHER ONE (12:45)
[2018-04-21] MEDS: clonazePAM 0.5 MG Tablet PO SCH ×2 (14:28→21:33)
--- NOTE | 2018-04-21 14:53 | P.PNIM ---
Subjective Interval history: Patient seen and examined this morning at the bedside Patient without subjective fever but says she felt warm patient says she noted a small amount of exudate in wrist (L) Ortho hand pending eval cultures PENDING Physical Exam Vital signs: Last Vital Signs Temp 97.6 F 04/21/18 12:00 Pulse 68 04/21/18 12:00 Resp 16 04/21/18 12:00 BP 128/72 04/21/18 12:00 Pulse Ox 99 04/21/18 12:00 Intake & Output 04/19/18 04/20/18 04/21/18 04/22/18 06:59 06:59 06:59 06:59 Intake Total 1350 / 1350 1700 / 1700 150 / 150 Balance 1350 / 1350 1700 / 1700 150 / 150 Weight 53.07 kg general: NAD heent: eomi cvs: s1/s2 resp: CTA bilaterally msk: LEFT wrist abscess/fluid collection. minimal exudate. + erythema ext: no edema or calf tenderness Results Labs CBC & Chem 7: 04/20/18 00:03 04/20/18 02:32 Labs: Microbiology 04/20/18 00:11 Abscess - Wrist Gram Stain - Final 04/20/18 00:11 Abscess - Wrist Wound Culture - Preliminary No growth in 24 hours 04/20/18 00:05 Blood - Peripheral Aerobic Blood Culture - Preliminary No growth in 1 day 04/20/18 00:05 Blood - Peripheral Anaerobic Blood Culture - Preliminary No growth in 1 day 04/20/18 00:03 Blood - Peripheral Aerobic Blood Culture - Preliminary No growth in 1 day 04/20/18 00:03 Blood - Peripheral Anaerobic Blood Culture - Preliminary No growth in 1 day Assessment and Plan Plan Infectious disease: Left wrist abscess -Consulted hand surgery -IV antibiotics vancomycin and zosyn -Wound culture - NGTD ( no growth to date) - D5 fluids while NPO awaiting hand evaluation. regular diet after evaluation Psychiatry: anxiety, substance abuse disorder - psychiatry consulted and recommendations appreciated via EMR - Wilkins act started - continue with safety watch with a sitter. - clonidine .1mg q8hr for autonomic instability - haldol 5mg IM q8 prn agitation - would be a good candidate for detox once stable medically Neurology: seizure disorder -keppra 300mg TID - seizure precautions DVT prophylaxis: SCDs code: FC dvt ppx Progress Note: Quality VTE Deep Vein Thrombosis/Pulmonary Embolism Present on Admission: No
[2018-04-21] MEDS ORDERED: Gadobutrol PF 2 MMOL/2 ML Vial (for RAD) IV.SIG ONE (19:56)
--- NOTE | 2018-04-21 20:28 | MR ---
EXAM DATE: 04/21/2018 8:10 PM EST AGE/SEX: 38 years / Female INDICATIONS: Abscess. Puncture wound on the lateral aspect of left wrist. CLINICAL DATA: This is the patient's subsequent encounter. Patient reports that signs and symptoms h ave been present for 1 day and indicates a pain score of 5/10. MEDICAL/SURGICAL HISTORY: . IVDU. . Knee surgery. Ovarian cysts removed. COMPARISON: No prior exams available for comparison. TECHNIQUE: Multiplanar, multisequence MRI examination was performed without contrast and after intra venous administration of 5 ml Gadavist (gadobutrol) contrast as a single exam dose. FINDINGS: There is focal edema and soft tissue swelling on the radial aspect of the distal forearm and wrist. T here is some fluid around the extensor pollicis brevis tendon most characteristic of a tenosynovitis. There is also some marrow edema and subtle marrow enhancement on the lateral aspect of the distal ra dius most characteristic of an early osteomyelitis. A small puncture wound is seen. The carpal bones appear intact. No significant wrist joint effusion. CONCLUSION: 1. Small puncture wound on the lateral aspect of the wrist with adjacent cellulitis and tenosynoviti s in the extensor pollicis tendon. 2. There is also focal marrow edema and enhancement in the lateral aspect of the radius at the radi al styloid most characteristic of early osteomyelitis. Electronically signed by: Addison Serrano MD 04/21/2018 8:26 PM EST
--- NOTE | 2018-04-21 23:44 | MB ---
cc: Brianda Herring MD DATE: 04/21/2018 REASON FOR CONSULTATION: Pain and swelling, left wrist. HISTORY OF PRESENT ILLNESS: Chela Morales is a 38-year-old female who I have seen in the past when she was admitted to the emergency room after IV drug use with an abscess over the left hand and wrist. She underwent surgical intervention by myself on 03/21/2018, which included a left carpal tunnel release due to the significant swelling and paresthesias, incision and drainage of a deep abscess over the first dorsal compartment as well as first dorsal compartment release. The patient was discharged, but never followed up in the office despite multiple phone calls. Per the reports, the patient presented to [facility] on 03/30/2018 and left [facility]. The patient again presented on 03/31/2018 and left [facility]. The patient apparently presented to [facility] on 04/11/2018 and was transferred to [facility] and per the patient, underwent incision and drainage, but I do not have these records. Cultures at [place] have been negative. Per the patient, cultures at [facility] had been positive for MRSA. The patient apparently again represented to [place] on 04/14/2018 and then left [facility]. Most recently, she represented on 04/20/2018. She reports persistent pain over the left first dorsal compartment. She denies any paresthesias. She states she did take some of the Zyvox. She has been admitted by the medical team for evaluation and IV antibiotics. I also requested an evaluation by infectious disease and appreciate their assistance in arranging proper antibiotics. PAST MEDICAL HISTORY: IV drug use including heroin. Also, her past medical history is also significant for uteroovarian and cervical cancer. MEDICATIONS: 1. Gabapentin. 2. Topamax. 3. Keppra. 4. Prilosec. SOCIAL HISTORY: The patient is on disability. Recent heroin and methamphetamine use. Smokes 1 pack per day. PHYSICAL EXAMINATION: The patient is alert and oriented. There are [address] over the dorsum of the first dorsal compartment. No drainage. There is an eschar over the dorsum of the left first dorsal compartment. Otherwise, mild erythema and mild pain with range of motion of the thumb. Sensation intact in the median, ulnar and radial distributions. Less than 2 second capillary refill to the fingers. Well-healed carpal tunnel incision. LABORATORY DATA: white count 7.0. ESR 14. I ordered an MRI today of the left wrist which shows some soft tissue swelling, no evidence of abscess, possible osteomyelitis, no joint effusion. ASSESSMENT AND PLAN: A 38-year-old female approximately 1 month status post incision and drainage of an abscess over the left first dorsal compartment and left carpal tunnel release due to significant swelling in the hand after a history of intravenous drug use. The patient underwent subsequent surgery at [facility], but I do not have these records. The patient has left against medical advice from [facility] multiple times and has been noncompliant with antibiotics. At this time, no indication for urgent surgical intervention. At this time, I recommended continued followup with infectious disease and intravenous antibiotics. The patient will be offered followup, but again, she has been noncompliant with followup in the past. The sutures were removed from the prior surgery. Again, at this time, she will remain admitted with antibiotics per infectious disease. MD YOLANDA Ram/clem , 11:19 PM , 11:26 PM MOLLY
[2018-04-22 00:12] VITALS: O2SAT 100
[2018-04-22] MEDS: Dextrose 5%/NaCl 0.45% Inj 1,000 ML IV.CONT SCH (00:43)
[2018-04-22] MEDS: Piperacil/Tazo 3.375 GM Premix 50 ML IV.SIG SCH ×3 (00:47→11:15)
[2018-04-22] MEDS: Vancomycin Inj 1,000 MG in Sodium Chlor 0.9% Inj 250 ML IV.SIG SCH ×2 (02:20→13:12)
[2018-04-22] MEDS: Sod Chloride 0.9% Inj 1,000 ML IV.CONT SCH (04:31)
[2018-04-22] MEDS: clonazePAM 0.5 MG Tablet PO SCH ×2 (06:26→13:12)
[2018-04-22 08:01] LABS: Baso % (Auto) 0.9 % (0.0-2.0); Eos # (Auto) 0.2 th/mm3 (0.0-0.4); Eos % (Auto) 5.1 % (0.0-4.0); Hematocrit 36.1 % (35.0-46.0); Hemoglobin 11.7 gm/dL (11.6-15.3); Lymph # (Auto) 1.4 th/mm3 (1.0-4.8); Mean Corpuscular HGB Conc 32.4 % (32.0-36.0); Mean Corpuscular Hemoglobin 26.6 pg (27.0-34.0); Mean Corpuscular Volume 82.2 fL (80.0-100.0); Mean Platelet Volume 8.4 fL (7.0-11.0); Mono # (Auto) 0.3 th/mm3 (0.0-0.9); Mono % (Auto) 8.1 % (0.0-8.0); Neut # (Auto) 2.3 th/mm3 (1.8-7.7); Neut % (Auto) 53.9 % (16.0-70.0); Platelet Count 264 th/mm3 (150-450); Red Cell Distribution Width 22.9 % (11.6-17.2); White Blood Count 4.3 th/mm3 (4.0-11.0)
[2018-04-22] MEDS ORDERED: Ketorolac Inj 30 MG/ML (IVP) Vial IV.PUSH PRN (08:01)
[2018-04-22 08:42] LABS: Carbon Dioxide 17.6 meq/L (21.0-32.0); Potassium 3.4 meq/L (3.5-5.1)
[2018-04-22] MEDS: Topiramate 200 MG Tablet PO SCH (08:58)
--- NOTE | 2018-04-22 10:34 | P.PNPSY ---
Subjective Remarks: The patient was seen today for psychiatric reevaluation. The patient is much calmer, more cooperative, stating that medication has been helping with withdrawal symptoms. Patient reports that she wants to continue medical direction and recommendations, but "I have no planning to spend here my Hi, I have family to visit and I need to go to [place] to take care of my cancer situation". Patient is fully oriented x3. She reports good mood today, denies depressive symptoms, she denies suicidal and homicidal ideation, she denies visual and auditory hallucinations. No withdrawal symptoms present at the moment. Mental Status Examination Appearance: Appropriate Consciousness: Alert Orientation: x4 Motor Activity: Normal gait Speech: Unremarkable Language: Adequate Fund of Knowledge: Adequate Attention and Concentration: Adequate Memory: Unremarkable Mood: Appropriate Affect: Irritable Thought Process & Associations: Intact Thought Content: Appropriate Hallucination Type: None Delusion Type: None Suicidal Ideation: No Suicidal Plan: No Suicidal Intention: No Homicidal Ideation: No Homicidal Plan: No Homicidal Intention: No Insight: Fair Judgment: Impulsive Assessment and Plan - Assessment (1) Polysubstance abuse Code(s): F19.10 - Other psychoactive substance abuse, uncomplicated Status: Chronic - Plan Plan: Continue current psychotropic regimen. The patient does not meet criteria for involuntary psychiatric admission at the moment. Continue medical treatment as needed. I have offered to the patient outpatient care for rehabilitation, she declined. Extensive support, motivational psych education provided. Iwlkins act will be lifted. Justification for Continued Inpatient Stay: No admission indicated at this moment.
[2018-04-22 11:34] VITALS: BP 128/76; PULSE 76; RESP 16; TEMP 98.7
--- NOTE | 2018-04-22 13:10 | P.PNID ---
Subjective Remarks: Patient is a 38-year-old female, presented to the hospital for further evaluation of her left wrist. Patient has had multiple admissions to this hospital and she had signed out AMA. She initially had an admission from March 20 - March 25 and at that time she had a left wrist abscess and underwent I&D of the left wrist with carpal tunnel release done on April 20. Cultures at that time were negative. She was on Vanco and Zosyn at that time , and she was discharged on oral Zyvox. She returned to the hospital on March 30 with recurrent left wrist infection, and she signed out AGAINST MEDICAL ADVICE at that time. She returned again and was admitted March 31 - April 03, and signed out AMA at that time. She then presented apparently to [facility] after that last hospitalization and from there she was transferred to [facility]. She underwent surgery on her left wrist at [facility], and not sure if she was discharged. There was another admission on April 11 and again she signed out AMA. Patient states she has been having fevers in the last 5 weeks. She is complaining of pain in her left wrist. Since admission here, she has not been febrile. Her WBC is normal. Sed rate is normal. And CRP is 1.35. Her drug screen is negative. Infectious disease consultation has been requested to assist with evaluation and treatment. Notes reviewed Still with pain R wrist, better MRI R wrist noted Hand surgery notes reviewed C/S negative Antibiotics: Vancomycin Zosyn Past Medical History: Migraine (Acute) Anemia (Acute) HPV in female (Acute) Cervical cancer (Chronic) Ovarian cancer (Acute) Mitral valve prolapse (Acute) Epilepsy (Chronic) Hepatitis C Endocarditis IV drug abuse Wound infection after surgery History of knee surgery (Acute) History of dilatation and curettage Allergies/Adverse Reactions: Allergies cephalexin Allergy (Severe, Verified 04/19/18 23:38) RECTAL BLEED diclofenac Allergy (Severe, Verified 04/19/18 23:38) Rectal Bleed hornet venom Allergy (Severe, Verified 04/19/18 23:38) Anaphylaxis latex Allergy (Severe, Verified 04/19/18 23:38) Swelling penicillin G Allergy (Severe, Verified 04/19/18 23:38) VOMITING propoxyphene Allergy (Severe, Verified 04/19/18 23:38) VOMITING rizatriptan Allergy (Intermediate, Verified 04/19/18 23:38) Rectal Bleed diphtheria toxoid,adsorbed Allergy (Unknown, Verified 04/19/18 23:38) UNKNOWN REACTION acetaminophen Adverse Reaction (Severe, Verified 04/19/18 23:38) SWELLING AND VOMITING codeine Adverse Reaction (Severe, Verified 04/19/18 23:38) SWELLING AND VOMITING doxycycline Adverse Reaction (Severe, Verified 04/19/18 23:38) RASH piperacillin [From Zosyn] Adverse Reaction (Verified 04/19/18 23:38) Vomiting tazobactam [From Zosyn] Adverse Reaction (Verified 04/19/18 23:38) Vomiting Objective Vital Signs 04/21/18 16:00 04/21/18 20:00 04/22/18 00:00 Temperature 97.8 F 98.9 F Pulse Rate 68 76 72 Respiratory Rate 16 18 18 Blood Pressure 137/84 135/84 134/81 Pulse Oximetry 100 98 100 04/22/18 04:00 04/22/18 09:24 04/22/18 09:42 Temperature 97.9 F 97.9 F Pulse Rate 72 67 Respiratory Rate 18 18 20 Blood Pressure 132/68 137/78 Pulse Oximetry 100 04/22/18 11:33 Temperature 98.7 F Pulse Rate 76 Respiratory Rate 16 Blood Pressure 128/76 Pulse Oximetry 100 Intake & Output 04/21/18 04/22/18 04/22/18 18:59 06:59 18:59 Intake Total 500 / 500 2600 / 2600 50 / 50 Balance 500 / 500 2600 / 2600 50 / 50 Intake: IV 500 / 500 2600 / 2600 50 / 50 D5W/1/2 NS Inj 1,000 ML @ 84 1000 / 1000 mls/hr IV.CONT .[id number] SHAYNA Rx# :[id number] NS Inj 1,000 ML @ 100 mls/hr IV 1000 / 1000 .CONT .Q10H SHAYNA Rx#:[id number] Ofirmev Inj 1,000 mg In 100 ml 200 / 200 200 / 200 @ 400 mls/hr IV.SIG Q6H [facility]AYNA Rx# :[id number] Zosyn 3.375 GM Premix 50 ML @ 50 / 50 150 / 150 50 / 50 100 mls/hr IV.SIG Q6H [facility]AYNA Rx#: [id number] Vancomycin Inj 1,000 MG In NS 250 / 250 250 / 250 Inj 250 ML @ 250 mls/hr IV.SIG Q12H [facility] Rx#:[id number] 04/21/18 01:30 Clean Catch Urine Urine Culture - Preliminary No growth in 24 hours 04/20/18 00:05 Blood - Peripheral Aerobic Blood Culture - Preliminary No growth in 2 days 04/20/18 00:05 Blood - Peripheral Anaerobic Blood Culture - Preliminary No growth in 2 days 04/20/18 00:03 Blood - Peripheral Aerobic Blood Culture - Preliminary No growth in 2 days 04/20/18 00:03 Blood - Peripheral Anaerobic Blood Culture - Preliminary No growth in 2 days 04/20/18 00:11 Abscess - Wrist Gram Stain - Final 04/20/18 00:11 Abscess - Wrist Wound Culture - Preliminary No growth in 48 hours Lab - Hematology Results 04/22/18 06:13 WBC 4.3 RBC 4.40 Hgb 11.7 Hct 36.1 MCV 82.2 MCH 26.6 L MCHC 32.4 RDW 22.9 H Plt Count 264 MPV 8.4 Neut % (Auto) 53.9 Lymph % (Auto) 32.0 Burnett % (Auto) 8.1 H Eos % (Auto) 5.1 H Baso % (Auto) 0.9 Neut # (Auto) 2.3 Lymph # (Auto) 1.4 Burnett # (Auto) 0.3 Eos # (Auto) 0.2 Baso # (Auto) 0.0 WBC Differential . Differential Comment Auto diff final Lab - Chemistry Results 04/21/18 04/22/18 04/22/18 11:26 06:13 06:13 Sodium 142 Potassium 3.4 L Chloride 113 H Carbon Dioxide 17.6 L Anion Gap 11 BUN 13 Creatinine 0.99 Estimated GFR 63 L POC Glucose 92 Random Glucose 136 H Calcium 9.0 Magnesium 2.2 Imaging: ITS Impressions Chest X-Ray 04/20/18 00:00 CONCLUSION: No acute cardiopulmonary disease identified. Wrist X-Ray 04/20/18 00:30 CONCLUSION: Left wrist series within normal limits. Wrist MRI 04/21/18 00:00 CONCLUSION: 1. Small puncture wound on the lateral aspect of the wrist with adjacent cellulitis and tenosynovitis in the extensor pollicis tendon. 2. There is also focal marrow edema and enhancement in the lateral aspect of the radius at the radial styloid most characteristic of early osteomyelitis. Physical Exam: GENERAL: awake and alert, not in respiratory distress. SKIN: Cool and dry. No generalized rash HEAD: Atraumatic. Normocephalic. No temporal wasting, or tenderness. EYES: Ewen conjunctiva. No petechia or hemorrhage. No scleral icterus. EARS, NOSE AND THROAT: Nose without bleeding or purulent nasal discharge. Mucous membranes pink and moist. No oral lesions noted. NECK: Trachea midline. Supple and not tender, no meningeal signs CARDIOVASCULAR: Regular rate and rhythm. No murmurs, rubs or gallops heard RESPIRATORY: Clear to auscultation. Breath sounds equal bilaterally. No rales , wheezing or rhonchi ABDOMEN: Soft, flat, non-tender, nondistended. Bowel sounds present and normoactive. EXTREMITIES: No clubbing, cyanosis, or edema. LUE - has dry open wound, mild redness, and swelling better, no lymphangitis. Less tender to touch NEUROLOGICAL: Grossly non-focal PSYCHIATRIC: Not cooperative LINE: No evidence of infection Assessment and Plan - Plan Impression Infection L wrist wound - had last surgery at [facility] - Mri joint ok - multiple cultures here have been negative; has been Rx with Zyvox previously Poor compliance to medical Rx, has signed out AMA multiple times Hx substance abuse Recommendation OK to dc Cipro 500 bid and Clinda 300 tid x 14 days Patient states she needs to go to [place] tomorrow for cancer treatment Follow C/S and adjust Abx Monitor progress
[2018-04-22] MEDS ORDERED: Ciprofloxacin 500 MG Tablet PO SCH (13:30)
--- NOTE | 2018-04-22 17:12 | P.DS ---
DS: Providers Date of admission: 04/20/18 01:46 Primary care physician: UNKNOWN Patient is a 38-year-old female with past medical history of intravenous drug use who presents to the emergency department for left wrist pain found to have abscess collection. Of note patient reports that she was originally operated on at outside hospital with carpal tunnel release. Patient presents to hospital after recently leaving AGAINST MEDICAL ADVICE after presenting originally for similar complaints. While hospitalized the following treatments and services were provided in her care. Consultation appreciated by hand surgery with recommendation for outpatient follow-up. Consultation appreciated by psychiatry at which point patient was briefly under the Wilkins act and unable to leave AMA. During hospitalization patient demonstrated that she was no longer a threat to herself or others and the Wilkins act was lifted. During hospitalization consultation appreciated by infectious disease for recommendations on antibiotic therapy for discharge. Patient clinically improved without fever or white blood cell count. Patient to be discharged with plan outpatient follow-up with hand surgery and antibiotic therapy for a period of 2 weeks. Consults: 04/20/18 01:51 Consult to Hand Surgery Routine Consulting Provider: Aba Andrade Reason for Consultation: left hand infection, need Incision and debridement. Notified:: Service Spoke with:: Morelia-supervisor small appliance assembly Date Notified:: 04/20/18 Time Notified:: 01:59 Comments:: Spoke with Morelia, a supervisor small appliance assembly for the answering service for BOTH [facility] AND [facility]. Per Morelia, Dr. Herring is not program evaluation consultant, and Dr. Piedra is only covering established patients, and that Dr. Faby Andrade is program evaluation consultant for HAND service at [facility]. Ordering Provider: NICANOR 04/20/18 06:46 Consult to Hand Surgery Routine Consulting Provider: Brianda Herring Preferred Vertical Roll Operator:: Brianda Herring Patient known to:: Brianda Herring Reason for Consultation: left wrist infection Notified:: Office Spoke with:: Gayathri Date Notified:: 04/20/18 Time Notified:: 08:39 Ordering Provider: MATEUSZ 04/20/18 14:59 Consult to Psychiatry Routine Consulting Provider: Andres Moreno Reason for Consultation: mood d/o; self-mutilating disorder Notified:: Office Spoke with:: CHARLENE Date Notified:: 04/20/18 Time Notified:: 15:02 Ordering Provider: ROSALINE 04/20/18 17:47 Consult to Infectious Diseases Routine Consulting Provider: Phoebe Gaston Reason for Consultation: patient with multiple admission for IV drug abscess representing Notified:: Service Spoke with:: cee Date Notified:: 04/20/18 Time Notified:: 22:38 Ordering Provider: HERMELINDA Brief History from admission: This is a 38-year-old female w/ a PMH of Uterine CA, Seizure Disorder, Anemia, MVP and IVDU w/ Left Wrist Abscess. Pt has a long history of being admitted and leaving AMA. Pt initially admitted 03/20-03/25/18 w/ left wrist abscess, s/p I&D Left Wrist w / Left Carpal Tunnel Release by Dr. Herring on 03/21/18, Echo 03/21/18 negative for vegetation, EF 60-65%, s/p Vanc/Zosyn while hospitalized and d/c'd on Zyvox PO x2 wks, returned to ER on 03/30/18 w/ recurrent left wrist infection, however LEFT AMA. Admitted 03/31-04/03/18 for same, also LEFT AMA. States she presented to [facility], was transferred to [facility], underwent left wrist abscess I&D. 04/11 admitted again for abscess and AMA again on 04/12. She presents today with worsening pain, redness and draining to the left wrist. Last use of IVD was today. She denies any fevers, but states the pain is throbbing, 10/10, constant, worse with movement and touch. Denies any chest pain , or sob. DS: Summary Patient is a 38-year-old female with past medical history of intravenous drug use who presents to the emergency department for left wrist pain found to have abscess collection. Of note patient reports that she was originally operated on at outside hospital with carpal tunnel release. Patient presents to hospital after recently leaving AGAINST MEDICAL ADVICE after presenting originally for similar complaints. While hospitalized the following treatments and services were provided in her care. Consultation appreciated by hand surgery with recommendation for outpatient follow-up. Consultation appreciated by psychiatry at which point patient was briefly under the Wilkins act and unable to leave AMA. During hospitalization patient demonstrated that she was no longer a threat to herself or others and the Wilkins act was lifted. During hospitalization consultation appreciated by infectious disease for recommendations on antibiotic therapy for discharge. Patient clinically improved without fever or white blood cell count. Patient to be discharged with plan outpatient follow-up with hand surgery and antibiotic therapy for a period of 2 weeks. Time Spent with Patient Total time spent providing and/or coordinating discharge services: 1 hour Quality: VTE Deep Vein Thrombosis/Pulmonary Embolism Present on Admission: No Exam Narrative Exam Narrative: Musculoskeletal left wrist mildly present erythema. Improved over the last 48 hours. No exudate noted. Minimal tenderness. Sutures removed. Results Labs on day of discharge: Labs from last 24 hours 04/22/18 04/22/18 04/22/18 06:13 06:13 06:13 WBC 4.3 RBC 4.40 Hgb 11.7 Hct 36.1 MCV 82.2 MCH 26.6 L MCHC 32.4 RDW 22.9 H Plt Count 264 MPV 8.4 Neut % (Auto) 53.9 Lymph % (Auto) 32.0 Lee % (Auto) 8.1 H Eos % (Auto) 5.1 H Baso % (Auto) 0.9 Neut # (Auto) 2.3 Lymph # (Auto) 1.4 Lee # (Auto) 0.3 Eos # (Auto) 0.2 Baso # (Auto) 0.0 WBC Differential . Differential Comment Auto diff final Sodium 142 Potassium 3.4 L Chloride 113 H Carbon Dioxide 17.6 L Anion Gap 11 BUN 13 Creatinine 0.99 Estimated GFR 63 L Random Glucose 136 H Calcium 9.0 Magnesium 2.2 Preliminary micro results at discharge 04/21/18 01:30 Urine Culture - Preliminary Clean Catch Urine No growth in 24 hours 04/20/18 00:05 Aerobic Blood Culture - Preliminary Blood - Peripheral No growth in 2 days Anaerobic Blood Culture - Preliminary No growth in 2 days 04/20/18 00:03 Aerobic Blood Culture - Preliminary Blood - Peripheral No growth in 2 days Anaerobic Blood Culture - Preliminary No growth in 2 days 04/20/18 00:11 Wound Culture - Preliminary Abscess - Wrist No growth in 48 hours Impressions ITS Impressions Chest X-Ray 04/20/18 00:00 CONCLUSION: No acute cardiopulmonary disease identified. Wrist X-Ray 04/20/18 00:30 CONCLUSION: Left wrist series within normal limits. Wrist MRI 04/21/18 00:00 CONCLUSION: 1. Small puncture wound on the lateral aspect of the wrist with adjacent cellulitis and tenosynovitis in the extensor pollicis tendon. 2. There is also focal marrow edema and enhancement in the lateral aspect of the radius at the radial styloid most characteristic of early osteomyelitis. Discharge Plan Discharge Disposition Patient Disposition: 01 Discharge Home Discharge Condition Condition: Stable Discharge Order Discharge Orders: Discharge Order (Routine); Ordered 04/22/18 Ordered By: Ebenezer Vu Discharge Details Anticipated Discharge Date: 04/22/18 Discharge Comment: 14 days of antibiotics on discharge with outpatient follow up with hand surgery team on discharge. Stable from psych and no longer on wilkins act. declined rehab offer. Physicians Team ED Provider: Kristin Tomas Primary Care Provider: UNKNOWN, Attending Provider: Ebenezer Vu Other Providers: Aba Andrade ; Brianda Herring ; Andres Moreno ; Phoebe Gaston Rxs /Orders / Referrals /Forms Prescriptions: New clindamycin HCl [Cleocin HCl] 150 mg Capsule 300 mg PO Q8H 14 Days Qty: 84 RF: 0 ciprofloxacin HCl 500 mg Tablet 500 mg PO Q12HR 14 Days Qty: 28 RF: 0 Continue gabapentin 600 mg Tablet 600 mg PO TID RF: 0 alprazolam [Xanax] 1 mg Tablet 2 mg PO BID RF: 0 levetiracetam [Keppra] 250 mg Tablet 300 mg PO TID RF: 0 topiramate [Topamax] 200 mg Tablet 200 mg PO BID RF: 0 hydrocodone-acetaminophen 10-325 mg Tablet 1 tab PO TID PRN (Reason: Pain) RF: 0 Referrals: Brianda Herring MD [Physician] - See Instructions (please follow up in 7 days with hand surgery team. continue oral antibiotics as per infectious disease for 14 day course ) UNKNOWN, [Primary Care Provider] - See Instructions (please follow up with your primary medical doctor within 7-14 days ) Discharge Instructions Patient Printed Instructions: Ciprofloxacin (By mouth), Clindamycin (By mouth) , Abscess (GEN) Post Discharge Care Plan Care Plan Goals: Please call the physician's office to book the appointment to be seen within 1 week. Your Health Problems: Goals to Promote Your Health: * To prevent worsening of your condition * To maintain your health at the optimal level Directions to Meet Your Goals: * Take your medications as prescribed * Follow your dietary instruction * Follow activity as directed * Keep your appointments as scheduled * Take your immunizations and boosters as scheduled * If your symptoms worsen call your PCP * If no PCP go to Urgent Care or Emergency Room Smoking is dangerous to your health. Avoid second hand smoke. You may reach the 24-hour crisis hotline for domestic abuse at . Status ED Status: Left Department Discharge Information Discharge Date/Time: 04/22/18 15:34
[2018-04-23] MEDS ORDERED: Pharmacy Ordered Lab Info OTHER ONE (00:45)
== END 2018-04-22 15:34 | disposition home or self-care (01) ==
LOC: NEPC 23:25 → NEDA 04-20 01:46 → NEPGCP 04-20 03:13
PROVIDERS: ADMIT Internal Medicine; ATTEND Internal Medicine